=== PATIENT | female | born 1945 | race Hispanic/Latino ===

== ENCOUNTER 2018-05-11 00:29 | Inpatient (IN) | payer MEDICARE, MEDICAID ==
[2018-05-11 00:33] VITALS: BMI 31.6
[2018-05-11] MEDS ORDERED: Propofol 10 mg/ml Inj (20 ML) ONE (00:39)
[2018-05-11] MEDS ORDERED: Propofol 10 mg/ml 1,000 MG/100 ML VIAL ONE (00:46)
--- NOTE | 2018-05-11 00:59 | ED PDOC ---
Arrival/HPI - General Chief Complaint: Altered Mental Status Time Seen by Provider: 05/11/18 00:58 Historian: Family, EMS - History of Present Illness Narrative History of Present Illness (Text): 05/11/18 00:59 Shayla Kasper is a 75 year old female, whose past medical history includes cardiac arrest, COPD, and hypertension, who presents to the Emergency department brought in by EMS for respiratory distress. As per family, patient began experiencing trouble breathing at home this evening with associated diaphoresis. EMS report patient became unresponsive in the ambulance, in respiratory distress. On arrival to Emergency department, patient noted to be unresponsive and bradypneic. Family note patient was recently admitted to a [facility] this past January 2018 for cardiac arrest and acute respiratory failure. Limited HPI and ROS secondary to respiratory distress. Past Medical History - Provider Review Nursing Documentation Reviewed: Yes - Psychiatric Hx Substance Use: No (unknown) Family/Social History - Physician Review Nursing Documentation Reviewed: Yes Family/Social History: Unknown Family HX Smoking Status: unknown Hx Alcohol Use: No (unknown) Hx Substance Use: No (unknown) Allergies/Home Meds Allergies/Adverse Reactions: Allergies No Known Allergies Allergy (Verified 05/11/18 00:58) Home Medications: Home Meds Medication Instructions Recorded Confirmed ALPRAZolam [Xanax] 1 mg PO QID PRN 05/11/18 05/11/18 Albuterol/Ipratropium [Duoneb 3 3 ml IH Q6H 05/11/18 05/11/18 MG/3 Ml-0.5 MG/3 Ml 3 Ml] Apixaban [Eliquis] 2.5 mg PO BID 05/11/18 05/11/18 Arformoterol [Brovana] 2 ml INH BID 05/11/18 05/11/18 Aspirin [Aspirin Chewable] 81 mg PO DAILY 05/11/18 05/11/18 Budesonide [Pulmicort Respules] 2 ml INH DAILY 05/11/18 05/11/18 Cholecalciferol (Vitamin D3) 1 cap PO DAILY 05/11/18 05/11/18 [Vitamin D3] Citalopram [celeXA] 20 mg PO DAILY 05/11/18 05/11/18 Docusate [Colace] 100 mg PO BID 05/11/18 05/11/18 Levothyroxine [Synthroid] 100 mcg PO DAILY 05/11/18 05/11/18 Lisinopril/Hydrochlorothiazide 1 each PO DAILY 05/11/18 05/11/18 [Lisinopril-Hctz 10-12.5 mg Tab] Memantine [Namenda] 5 mg PO DAILY 05/11/18 05/11/18 Omeprazole 40 mg PO DAILY 05/11/18 05/11/18 Rosuvastatin Calcium [Crestor] 20 mg PO DAILY 05/11/18 05/11/18 Tiotropium [place] [Spiriva 2 puff IH DAILY 05/11/18 05/11/18 Respimat] Review of Systems - Review of Systems Systems not reviewed;Unavailable: Respiratory Distress Respiratory: SOB Endocrine: Diaphoresis Physical Exam Vital Signs Reviewed: Yes Vital Signs Temp Pulse BP Pulse Ox 05/11/18 00:47 98.2 F 120 H 120/85 100 Temperature: Afebrile Blood Pressure: Hypertensive Pulse: Regular Respiratory Rate: Other (Bradypneic) Appearance: Positive for: Ill-Appearing Mental Status: Positive for: other (Unresponsive) Finger Stick Blood Glucose: 315 - Systems Exam Head: Present: Atraumatic, Normocephalic Pupils: Present: PERRL Conjunctiva: Present: Normal Mouth: Present: Moist Mucous Membranes Respiratory/Chest: Present: Respiratory Distress, Decreased Breath Sounds (Markedly decreased breath sounds), Other (Bradypneic) Cardiovascular: Present: Normal S1, S2, Tachycardic. No: Murmurs Abdomen: Present: Normal Bowel Sounds. No: Distention Upper Extremity: Present: Normal Inspection. No: Cyanosis, Edema Lower Extremity: Present: Normal Inspection. No: Edema Neurological: Present: Other (Unresponsive) Skin: Present: Warm, Dry, Normal Color. No: Rashes Medical Decision Making ED Course and Treatment: 05/11/18 00:30 Impression: 75 year old female brought in for respiratory distress. Plan: -- CT Head w/o contrast -- EKG -- Chest X-ray -- Labs, cardiac enzymes, BNP, ABG, blood cultures -- Urinalysis, urine cultures -- Solu-medrol -- Duoneb -- Propofol -- Reassess and disposition Prior Visits: Notes and results from previous visits were reviewed. Progress Notes: Pt in acute respiratory failure upon arrival, unresponsive. Decision made to intubate. Pt following a brief period became pulseless, in PEA. Given 1 Epi with positive response/pulse present.Intubation was re-confirmed to ensure proper placement. Pt remained with good pulse ox reading, in sinus rhythm. Pt. under sedation with Propofol. Reviewed EKG, sinus tachycardia at 124 bpm. Septal infarct. Non-specific ST/T wave changes. PROCEDURE: INTUBATION Performed by the emergency provider Consent: Discussion of the risks, benefits, and alternatives to the procedure, along with informed consent was precluded by the urgency of the procedure and the patient condition. Timeout: A timeout to verify the correct patient, procedure, and site was performed. Indication: respiratory distress, bradypnea Pre-oxygenation: [id number] Medications: Pr. See MAR for details. ETT Size: 8.0G Confirmation: Cords directly visualized as tube passed, good bilateral breath sounds, positive CO2 detector color change, tube fogging, adequate chest rise, improving pulse oximetry reading, improved skin color, and absence of gastric sounds,. ETT Secured: The cuff was inflated and the tube was secured appropriately at a distance of 23 cm at the lip. Post-Procedure: There were no immediate complications. CXR Confirmation: Yes 05/11/18 00:58 Post-intubation Chest X-ray reviewed, shows ET-tube above the hunter and hyper- inflated lung moffett. 05/11/18 01:[address] Lowe, traffic survey technician,and medical scientist who are aware and agree with plan to admit to the ICU. Pt admitted to the ICU for acute respiratory failure, NSTEMI, and cardiac arrest under the hospitalist service.Pending CT Head result if negative to be then heparinized.Paraoptometric and resident state they will assume follow up care. - Critical Care Critical Care Minutes: 45 minutes - Lab Interpretations I have reviewed the lab results: Yes - RAD Interpretation Dehydration Unit Operator: ED Physician - EKG Interpretation Interpreted by ED Physician: Yes Type: 12 lead EKG - Scribe Statement The provider has reviewed the documentation as recorded by the Lexie Villalobos Provider Scribe Attestation: All medical record entries made by the Scribe were at my direction and personally dictated by me. I have reviewed the chart and agree that the record accurately reflects my personal performance of the history, physical exam, medical decision making, and the department course for this patient. I have also personally directed, reviewed, and agree with the discharge instructions and disposition. Disposition/Present on Arrival - Present on Arrival Any Indicators Present on Arrival: No History of DVT/PE: No History of Uncontrolled Diabetes: No Urinary Catheter: No History of Decub. Ulcer: No History Surgical Site Infection Following: None - Disposition Have Diagnosis and Disposition been Completed?: Yes Diagnosis: Acute respiratory failure, Cardiac arrest, NSTEMI (non-ST elevated myocardial infarction), Sepsis Disposition: HOSPITALIZED Disposition Time: 02:45 Patient Plan: Admission Patient Problems: Current Active Problems Problem Status Onset Acute respiratory failure Acute Cardiac arrest Acute NSTEMI (non-ST elevated myocardial infarction) Acute Condition: CRITICAL
[2018-05-11] MEDS ORDERED: Propofol 10 mg/ml Inj (20 ML) IVP ONE (01:00)
[2018-05-11] MEDS ORDERED: Albuterol-Ipratrop 3 mg / 0.5 (3 ml) UD IH STA (01:10)
[2018-05-11] MEDS ORDERED: Propofol 10 mg/ml 1,000 MG/100 ML VIAL IV PRN (01:10)
[2018-05-11 01:24] LABS: HEMOGLOBIN 12.6 g/dL (12.0-16.0); MEAN CORPUSCULAR HEMOGLOBIN 29.2 pg (25.0-35.0); MEAN PLATELET VOLUME 11.2 fl (7.0-11.0); RBC 4.32 10^6/uL (3.5-6.1); WHITE BLOOD COUNT 22.2 10^3/uL (4.5-11.0)
[2018-05-11 01:32] LABS: ALB/GLOB RATIO 1.2 (1.1-1.8); ALBUMIN 4.2 g/dL (3.0-4.8); B-TYPE NATRIURETIC PEPTIDE 245 pg/mL (0-450); BLOOD UREA NITROGEN 16 mg/dL (7-21); CALCIUM 9.4 mg/dL (8.4-10.5); GFR NON-AFRICAN AMERICAN 54
[2018-05-11 01:33] LABS: ALT/SGPT 20 U/L (7-56); AST/SGOT 27 U/L (14-36); INR 1.21; PARTIAL THROMBOPLASTIN TIME 33.3 Seconds (26.9-38.3); PROTHROMBIN TIME 13.4 SECONDS (9.4-12.5); TROPONIN I 0.44 ng/mL
[2018-05-11] MEDS ORDERED: Midazolam 100 mg/100ml in NS 100 MG/100 ML SOL IV PRN (02:29)
[2018-05-11 02:30] LABS: URINE BILIRUBIN NEGATIVE (NEGATIVE); URINE BLOOD NEGATIVE (NEGATIVE); URINE GLUCOSE (UA) NEGATIVE (NEGATIVE); URINE LEUKOCYTE ESTERASE MODERATE Leu/uL (NEGATIVE); URINE PROTEIN NEGATIVE mg/dL (<30 mg/dL); URINE UROBILINOGEN 0.2 E.U./dL (<1 E.U./dL)
[2018-05-11 02:32] LABS: URINE APPEARANCE SL CLOUDY (CLEAR); URINE COLOR YELLOW (YELLOW)
[2018-05-11] MEDS ORDERED: Albuterol-Ipratrop 3 mg / 0.5 (3 ml) UD IH PRN (02:35)
[2018-05-11 02:39] LABS: ARTERIAL BLOOD GAS HCO3 22.6 mmol/L (21-28); ARTERIAL BLOOD GAS O2 SAT 100.6 % (95-98); ARTERIAL BLOOD GAS PCO2 48 mm/Hg (35-45); ARTERIAL BLOOD GAS PH 7.28 (7.35-7.45); ARTERIAL BLOOD GAS TCO2 24.1 mmol.L (22-28)
[2018-05-11] MEDS ORDERED: Vancomycin 1gm in NS 250ml 1 GM/250 ML BAG IVPB STA (02:42)
[2018-05-11] MEDS ORDERED: Piperacill/Tazo 4.5gm in NS 4.5 GM/100 ML BAG IVPB STA (02:42)
[2018-05-11 02:43] LABS: URINE BACTERIA MOD /hpf; URINE EPITHELIAL CELLS 0 - 2 /hpf (0-5); URINE RBC 0 - 2 /hpf (0-2)
[2018-05-11 02:50] LABS: LDL CHOLESTEROL 198 mg/dL (0-129)
[2018-05-11 02:51] LABS: HDL CHOLESTEROL 44 mg/dL (29-60)
--- NOTE | 2018-05-11 03:26 | CP.PCM.HP ---
<Dixon Fritz - Last Filed: 05/11/18 03:42> History of Present Illness - History of Present Illness History of Present Illness: Hospitalist History and Physical CC: respiratory distress Patient is a 73 yo F with PMH of O2 dependent COPD, PAD, Carotid disease s/p L carotid stent, L subclavian stenosis, CAD s/p CABG, a-fib on eliquis, HLD hypothyroidism, and CVA x3 who was brought to [facility] by EMS for respiratory distress. History was provided through chart review and family at bedside as p atient was intubated. Patient was experiencing dyspnea at rest and diaphoresis earlier at home. EMS was called and while on route patient became unresponsive in the ambulance. In the ED, patient was still unresponsive and bradypneic. At that time patient was intubated. Patient then went into PEA. ACLS was initiated, ROSC was achieved after one round of epinephrine with compressions. Currently, patient is sedated and intubated. However, she is arousable and following commands appropriately. Of note, patient was recently admitted in [place] in 01/2018 for cardiac arrest and respiratory failure with hypoxemia 2/2 COPD. Further ROS is unobtainable due to intubation and sedation. PMH: O2 dependent COPD, PAD, Carotid disease s/p L carotid stent, L subclavian stenosis, CAD s/p CABG, a-fib on eliquis, hypothyroidism, CVA x3, HLD PSH: CABG/cardiac stenting, Carotid endarterectomy, L Carotid stenting, Cataract removal All: Codeine, oxycodone Soc Hx: 2.5 PPD x 40 years, Denies EtOH and Illicit drug use Fam Hx: CAD, HLD PMD: Dr. Parekh NOTE: Previous records under [id number] Present on Admission - Present on Admission Any Indicators Present on Admission: No Review of Systems - Review of Systems All systems: reviewed and no additional remarkable complaints except (12 point ROS reviewed and is negative other than what is stated in HPI.) Past Patient History - Past Social History Smoking Status: unknown - PSYCHIATRIC Hx Substance Use: No (unknown) - SURGICAL HISTORY Hx Surgeries: No Meds Allergies/Adverse Reactions: Allergies Allergy/AdvReac Type Severity Reaction Status Date / Time No Known Allergies Allergy Verified 05/11/18 00:58 Physical Exam - Constitutional Appears: Other (intubated, sedated) - Head Exam Head Exam: NORMAL INSPECTION - Eye Exam Eye Exam: EOMI, Normal appearance, PERRL - ENT Exam ENT Exam: Mucous Membranes Moist, Normal Exam - Neck Exam Neck exam: Positive for: Normal Inspection - Respiratory Exam Respiratory Exam: Decreased Breath Sounds, Wheezes. absent: Rales, Rhonchi, Respiratory Distress Additional comments: intubated, ET tube in place - Cardiovascular Exam Cardiovascular Exam: RRR, +S1, +S2. absent: Diastolic murmur, Gallop, Rubs, Systolic Murmur - GI/Abdominal Exam GI & Abdominal Exam: Soft. absent: Distended, Guarding, Rebound, Tenderness - Extremities Exam Extremities exam: Positive for: normal inspection - Back Exam Back exam: NORMAL INSPECTION - Neurological Exam Neurological exam: Alert, CN II-XII Intact - Skin Skin Exam: Normal Color, Warm Results - Vital Signs Recent Vital Signs: Last Vital Signs Temp 98.2 F 05/11/18 00:47 Pulse 81 05/11/18 02:22 Resp 15 05/11/18 02:22 BP 82/59 L 05/11/18 02:22 Pulse Ox 100 05/11/18 02:22 - Labs Result Diagrams: 05/11/18 00:40 05/11/18 00:40 Labs: Laboratory Results - last 24 hr 05/11/18 05/11/18 05/11/18 00:40 00:40 00:40 WBC 22.2 H RBC 4.32 Hgb 12.6 Hct 40.6 MCV 94.0 MCH 29.2 MCHC 31.0 RDW 14.0 Plt Count 358 MPV 11.2 H PT 13.4 H INR 1.21 APTT 33.3 pCO2 pO2 HCO3 ABG pH ABG Total CO2 ABG O2 Saturation ABG Base Excess ABG Potassium Glucose Lactate FiO2 Crit Value Called To Crit Value Called By Blood Gas Notified Time Sodium 134 Potassium 3.8 Chloride 96 L Carbon Dioxide 30 Anion Gap 12 BUN 16 Creatinine 1.0 Est GFR ( Amer) > 60 Est GFR (Non-Af Amer) 54 Random Glucose 336 H* Calcium 9.4 Total Bilirubin 0.3 AST 27 ALT 20 Alkaline Phosphatase 91 Lactate Dehydrogenase 480 Total Creatine Kinase 52 Troponin I 0.44 H* NT-Pro-B Natriuret Pep 245 Total Protein 7.8 Albumin 4.2 Globulin 3.6 Albumin/Globulin Ratio 1.2 Triglycerides Cholesterol LDL Cholesterol Direct HDL Cholesterol Arterial Blood Potassium Urine Color Urine Appearance Urine pH Ur Specific [place] Urine Protein Urine Glucose (UA) Urine Ketones Urine Blood Urine Nitrate Urine Bilirubin Urine Urobilinogen Ur Leukocyte Esterase Urine RBC Urine WBC Ur Epithelial Cells Urine Bacteria 05/11/18 05/11/18 05/11/18 00:40 01:19 02:30 WBC RBC Hgb Hct MCV MCH MCHC RDW Plt Count MPV PT INR APTT pCO2 48 H pO2 440.0 H HCO3 22.6 ABG pH 7.28 L ABG Total CO2 24.1 ABG O2 Saturation 100.6 H ABG Base Excess -4.4 L ABG Potassium 3.0 L Glucose 294 H Lactate 2.7 H FiO2 100.0 Crit Value Called To Dr lopez Crit Value Called By [facility] Blood Gas Notified Time 239 Sodium 135.0 Potassium Chloride 108.0 H Carbon Dioxide Anion Gap BUN Creatinine Est GFR ( Amer) Est GFR (Non-Af Amer) Random Glucose Calcium Total Bilirubin AST ALT Alkaline Phosphatase Lactate Dehydrogenase Total Creatine Kinase Troponin I NT-Pro-B Natriuret Pep Total Protein Albumin Globulin Albumin/Globulin Ratio Triglycerides 376 H Cholesterol 319 H LDL Cholesterol Direct 198 H HDL Cholesterol 44 Arterial Blood Potassium 3.0 L Urine Color Yellow Urine Appearance Sl cloudy Urine pH 6.0 Ur Specific [place] 1.020 Urine Protein Negative Urine Glucose (UA) Negative Urine Ketones Negative Urine Blood Negative Urine Nitrate Negative Urine Bilirubin Negative Urine Urobilinogen 0.2 Ur Leukocyte Esterase Moderate H Urine RBC 0 - 2 Urine WBC 5 - 10 H Ur Epithelial Cells 0 - 2 Urine Bacteria Mod Assessment & Plan - Assessment and Plan (Free Text) Assessment: 73 yo F with PMH of O2 dependent COPD, PAD, Carotid disease s/p L carotid stent, L subclavian stenosis, CAD s/p CABG, a-fib on eliquis, HLD hypothyroidism, and CVA x3 presents to [facility] with respiratory distress. Patient was intubated due to acute respiratory failure and also had PEA/cardiac arrest with ROSC after a rou nd of compressions and epinephrine. Patient will be admitted to the ICU for further monitoring and management. Plan: 1. Acute Hypercarbic Respiratory Failure - Likely 2/2 COPD - Initial ABG after intubation showed respiratory acidosis, CO2 likely much higher prior to intubation - Cont Mechanical Ventilation PRVC - Titrate settings based on AM ABG - Elevate head of bed - Aspiration and fall precautions - Versed for sedation - Duoneb - Solumedrol 2. Cardiac Arrest/NSTEMI - Troponin 0.44, trend x2 - EKG, sinus tachycardia at 124 bpm. Age-unspecified Septal infarct. Non- specific ST/T wave changes. - Repeat EKG in AM - Lipid panel, HgbA1c, TSH - Heparin gtt started - Lipitor - ASA - Echo - Cardiology consulted 3. Possible Sepsis - Hypotension likely 2/2 propofl - Elevated lactate likely 2/2 hypoxia/COPD - Leukocytosis, sepsis vs reactive - Blood and urine cultures - Procal ordered - UA negative - CXR shows no signs of consolidation - Vanc/Zosyn - NS bolus/maintenance 4. Encephalopathy - Likely 2/2 CO2 narcosis - CT head negative - Trial sedation vacation in AM to monitor mental status 5. COPD - Duoneb - Solumedrol - IV abx 6. HTN - Hold home anti-hypertensives 7. H/o Atrial Fibrillation - Heparin gtt - Hold Eliquis 8. HLD - F/u Lipid panel - Lipitor 9. Hypothyroidism - F/u TSH - IV Synthroid until patient tolerates PO GI/DVT PPx - Protonix - Heparin gtt - SCDs Patient seen and discussed in detail with Dr. Lowe. Spencer Fritz DO PGY2 <Eugene Lowe - Last Filed: 05/11/18 19:21> Results - Vital Signs Recent Vital Signs: Last Vital Signs Temp 97.9 F 05/11/18 16:30 Pulse 110 H 05/11/18 18:00 Resp 19 05/11/18 18:00 BP 133/57 L 05/11/18 18:00 Pulse Ox 97 05/11/18 18:00 - Labs Result Diagrams: 05/11/18 09:30 05/11/18 09:30 Labs: Laboratory Results - last 24 hr 05/11/18 05/11/18 05/11/18 00:40 00:40 00:40 WBC 22.2 H RBC 4.32 Hgb 12.6 Hct 40.6 MCV 94.0 MCH 29.2 MCHC 31.0 RDW 14.0 Plt Count 358 MPV 11.2 H Neut % (Auto) Lymph % (Auto) Elk % (Auto) Eos % (Auto) Baso % (Auto) Lymph # (Auto) Elk # (Auto) Eos # (Auto) Baso # (Auto) Absolute Neuts (auto) Neutrophils % (Manual) Band Neutrophils % Lymphocytes % (Manual) Monocytes % (Manual) Platelet Evaluation PT 13.4 H INR 1.21 APTT 33.3 pCO2 pO2 HCO3 ABG pH ABG Total CO2 ABG O2 Saturation ABG O2 Content ABG Base Excess ABG Hemoglobin ABG Carboxyhemoglobin POC ABG HHb (Measured) ABG Methemoglobin ABG O2 Capacity ABG Potassium VBG pH VBG pCO2 VBG HCO3 VBG Total CO2 VBG O2 Sat (Calc) VBG Base Excess VBG Potassium Hgb O2 Saturation Glucose Lactate FiO2 Crit Value Called To Crit Value Called By Blood Gas Notified Time Sodium 134 Potassium 3.8 Chloride 96 L Carbon Dioxide 30 Anion Gap 12 BUN 16 Creatinine 1.0 Est GFR ( Amer) > 60 Est GFR (Non-Af Amer) 54 POC Glucose (mg/dL) Random Glucose 336 H* Hemoglobin A1c Calcium 9.4 Phosphorus Magnesium Total Bilirubin 0.3 AST 27 ALT 20 Alkaline Phosphatase 91 Lactate Dehydrogenase 480 Total Creatine Kinase 52 Troponin I 0.44 H* NT-Pro-B Natriuret Pep 245 Total Protein 7.8 Albumin 4.2 Globulin 3.6 Albumin/Globulin Ratio 1.2 Triglycerides Cholesterol LDL Cholesterol Direct HDL Cholesterol Procalcitonin TSH 3rd Generation Arterial Blood Potassium Venous Blood Potassium Urine Color Urine Appearance Urine pH Ur Specific [place] Urine Protein Urine Glucose (UA) Urine Ketones Urine Blood Urine Nitrate Urine Bilirubin Urine Urobilinogen Ur Leukocyte Esterase Urine RBC Urine WBC Ur Epithelial Cells Urine Bacteria 05/11/18 05/11/18 05/11/18 00:40 00:40 00:40 WBC RBC Hgb Hct MCV MCH MCHC RDW Plt Count MPV Neut % (Auto) Lymph % (Auto) Elk % (Auto) Eos % (Auto) Baso % (Auto) Lymph # (Auto) Elk # (Auto) Eos # (Auto) Baso # (Auto) Absolute Neuts (auto) Neutrophils % (Manual) Band Neutrophils % Lymphocytes % (Manual) Monocytes % (Manual) Platelet Evaluation PT INR APTT pCO2 pO2 HCO3 ABG pH ABG Total CO2 ABG O2 Saturation ABG O2 Content ABG Base Excess ABG Hemoglobin ABG Carboxyhemoglobin POC ABG HHb (Measured) ABG Methemoglobin ABG O2 Capacity ABG Potassium VBG pH VBG pCO2 VBG HCO3 VBG Total CO2 VBG O2 Sat (Calc) VBG Base Excess VBG Potassium Hgb O2 Saturation Glucose Lactate FiO2 Crit Value Called To Crit Value Called By Blood Gas Notified Time Sodium Potassium Chloride Carbon Dioxide Anion Gap BUN Creatinine Est GFR ( Amer) Est GFR (Non-Af Amer) POC Glucose (mg/dL) Random Glucose Hemoglobin A1c Calcium Phosphorus Magnesium Total Bilirubin AST ALT Alkaline Phosphatase Lactate Dehydrogenase Total Creatine Kinase Troponin I NT-Pro-B Natriuret Pep Total Protein Albumin Globulin Albumin/Globulin Ratio Triglycerides 376 H Cholesterol 319 H LDL Cholesterol Direct 198 H HDL Cholesterol 44 Procalcitonin < 0.05 L TSH 3rd Generation 0.99 Arterial Blood Potassium Venous Blood Potassium Urine Color Urine Appearance Urine pH Ur Specific [place] Urine Protein Urine Glucose (UA) Urine Ketones Urine Blood Urine Nitrate Urine Bilirubin Urine Urobilinogen Ur Leukocyte Esterase Urine RBC Urine WBC Ur Epithelial Cells Urine Bacteria 05/11/18 05/11/18 05/11/18 01:19 02:30 05:10 WBC RBC Hgb Hct MCV MCH MCHC RDW Plt Count MPV Neut % (Auto) Lymph % (Auto) Elk % (Auto) Eos % (Auto) Baso % (Auto) Lymph # (Auto) Elk # (Auto) Eos # (Auto) Baso # (Auto) Absolute Neuts (auto) Neutrophils % (Manual) Band Neutrophils % Lymphocytes % (Manual) Monocytes % (Manual) Platelet Evaluation PT INR APTT pCO2 48 H 50 H pO2 440.0 H 244.0 H HCO3 22.6 24.0 ABG pH 7.28 L 7.29 L ABG Total CO2 24.1 25.5 ABG O2 Saturation 100.6 H 100.8 H ABG O2 Content 14.1 L ABG Base Excess -4.4 L -2.8 L ABG Hemoglobin 9.9 L ABG Carboxyhemoglobin 2.4 H POC ABG HHb (Measured) -0.8 L ABG Methemoglobin 1.2 ABG O2 Capacity 14.0 L ABG Potassium 3.0 L VBG pH VBG pCO2 VBG HCO3 VBG Total CO2 VBG O2 Sat (Calc) VBG Base Excess VBG Potassium Hgb O2 Saturation 97.2 Glucose 294 H Lactate 2.7 H FiO2 100.0 60.0 Crit Value Called To Dr lopez Crit Value Called By [facility] Blood Gas Notified Time 239 Sodium 135.0 Potassium Chloride 108.0 H Carbon Dioxide Anion Gap BUN Creatinine Est GFR ( Amer) Est GFR (Non-Af Amer) POC Glucose (mg/dL) Random Glucose Hemoglobin A1c Calcium Phosphorus Magnesium Total Bilirubin AST ALT Alkaline Phosphatase Lactate Dehydrogenase Total Creatine Kinase Troponin I NT-Pro-B Natriuret Pep Total Protein Albumin Globulin Albumin/Globulin Ratio Triglycerides Cholesterol LDL Cholesterol Direct HDL Cholesterol Procalcitonin TSH 3rd Generation Arterial Blood Potassium 3.0 L Venous Blood Potassium Urine Color Yellow Urine Appearance Sl cloudy Urine pH 6.0 Ur Specific [place] 1.020 Urine Protein Negative Urine Glucose (UA) Negative Urine Ketones Negative Urine Blood Negative Urine Nitrate Negative Urine Bilirubin Negative Urine Urobilinogen 0.2 Ur Leukocyte Esterase Moderate H Urine RBC 0 - 2 Urine WBC 5 - 10 H Ur Epithelial Cells 0 - 2 Urine Bacteria Mod 05/11/18 05/11/18 05/11/18 05:30 05:30 07:45 WBC RBC Hgb Hct MCV MCH MCHC RDW Plt Count MPV Neut % (Auto) Lymph % (Auto) Elk % (Auto) Eos % (Auto) Baso % (Auto) Lymph # (Auto) [place]k # (Auto) Eos # (Auto) Baso # (Auto) Absolute Neuts (auto) Neutrophils % (Manual) Band Neutrophils % Lymphocytes % (Manual) Monocytes % (Manual) Platelet Evaluation PT INR APTT pCO2 pO2 HCO3 ABG pH ABG Total CO2 ABG O2 Saturation ABG O2 Content ABG Base Excess ABG Hemoglobin ABG Carboxyhemoglobin POC ABG HHb (Measured) ABG Methemoglobin ABG O2 Capacity ABG Potassium VBG pH VBG pCO2 VBG HCO3 VBG Total CO2 VBG O2 Sat (Calc) VBG Base Excess VBG Potassium Hgb O2 Saturation Glucose Lactate FiO2 Crit Value Called To Crit Value Called By Blood Gas Notified Time Sodium Potassium Chloride Carbon Dioxide Anion Gap BUN Creatinine Est GFR ( Amer) Est GFR (Non-Af Amer) POC Glucose (mg/dL) 165 H Random Glucose Hemoglobin A1c 5.6 Calcium Phosphorus Magnesium Total Bilirubin AST ALT Alkaline Phosphatase Lactate Dehydrogenase Total Creatine Kinase Troponin I 2.42 H* D NT-Pro-B Natriuret Pep Total Protein Albumin Globulin Albumin/Globulin Ratio Triglycerides Cholesterol LDL Cholesterol Direct HDL Cholesterol Procalcitonin TSH 3rd Generation Arterial Blood Potassium Venous Blood Potassium Urine Color Urine Appearance Urine pH Ur Specific [place] Urine Protein Urine Glucose (UA) Urine Ketones Urine Blood Urine Nitrate Urine Bilirubin Urine Urobilinogen Ur Leukocyte Esterase Urine RBC Urine WBC Ur Epithelial Cells Urine Bacteria 05/11/18 05/11/18 05/11/18 07:55 09:30 09:30 WBC 13.0 H D RBC 3.97 Hgb 11.4 L Hct 36.4 MCV 91.7 MCH 28.7 MCHC 31.3 RDW 14.1 Plt Count 183 MPV 10.6 Neut % (Auto) 94.9 H Lymph % (Auto) 3.8 L Elk % (Auto) 1.1 Eos % (Auto) 0.1 L Baso % (Auto) 0.1 Lymph # (Auto) 0.5 L [place] # (Auto) 0.1 Eos # (Auto) 0.0 Baso # (Auto) 0.01 Absolute Neuts (auto) 12.37 H Neutrophils % (Manual) 97 H Band Neutrophils % 1 Lymphocytes % (Manual) 1 L Monocytes % (Manual) 1 Platelet Evaluation Normal PT INR APTT 41.7 H pCO2 pO2 130 H HCO3 ABG pH ABG Total CO2 ABG O2 Saturation ABG O2 Content ABG Base Excess ABG Hemoglobin ABG Carboxyhemoglobin POC ABG HHb (Measured) ABG Methemoglobin ABG O2 Capacity ABG Potassium VBG pH 7.22 L VBG pCO2 62.0 H VBG HCO3 25.4 VBG Total CO2 27.3 VBG O2 Sat (Calc) 99.8 H VBG Base Excess -3.5 L VBG Potassium 3.9 Hgb O2 Saturation Glucose 172 H Lactate 3.3 H FiO2 21.0 Crit Value Called To Yahaira hdez Crit Value Called By Blood Gas Notified Time 807 Sodium 140.0 Potassium Chloride 106.0 Carbon Dioxide Anion Gap BUN Creatinine Est GFR ( Amer) Est GFR (Non-Af Amer) POC Glucose (mg/dL) Random Glucose Hemoglobin A1c Calcium Phosphorus Magnesium Total Bilirubin AST ALT Alkaline Phosphatase Lactate Dehydrogenase Total Creatine Kinase Troponin I NT-Pro-B Natriuret Pep Total Protein Albumin Globulin Albumin/Globulin Ratio Triglycerides Cholesterol LDL Cholesterol Direct HDL Cholesterol Procalcitonin TSH 3rd Generation Arterial Blood Potassium Venous Blood Potassium 3.9 Urine Color Urine Appearance Urine pH Ur Specific [place] Urine Protein Urine Glucose (UA) Urine Ketones Urine Blood Urine Nitrate Urine Bilirubin Urine Urobilinogen Ur Leukocyte Esterase Urine RBC Urine WBC Ur Epithelial Cells Urine Bacteria 05/11/18 05/11/18 05/11/18 09:30 11:30 12:00 WBC RBC Hgb Hct MCV MCH MCHC RDW Plt Count MPV Neut % (Auto) Lymph % (Auto) Elk % (Auto) Eos % (Auto) Baso % (Auto) Lymph # (Auto) [place]k # (Auto) Eos # (Auto) Baso # (Auto) Absolute Neuts (auto) Neutrophils % (Manual) Band Neutrophils % Lymphocytes % (Manual) Monocytes % (Manual) Platelet Evaluation PT INR APTT pCO2 pO2 94 H HCO3 ABG pH ABG Total CO2 ABG O2 Saturation ABG O2 Content ABG Base Excess ABG Hemoglobin ABG Carboxyhemoglobin POC ABG HHb (Measured) ABG Methemoglobin ABG O2 Capacity ABG Potassium VBG pH 7.24 L VBG pCO2 59.0 VBG HCO3 25.3 VBG Total CO2 27.1 VBG O2 Sat (Calc) 99.2 H VBG Base Excess -3.1 L VBG Potassium 3.8 Hgb O2 Saturation Glucose 165 H Lactate 2.8 H FiO2 21.0 Crit Value Called To Katty varner Crit Value Called By Ab Blood Gas Notified Time 1207 Sodium 138 140.0 Potassium 4.0 Chloride 106 107.0 Carbon Dioxide 23 Anion Gap 13 BUN 17 Creatinine 0.9 Est GFR ( Amer) > 60 Est GFR (Non-Af Amer) > 60 POC Glucose (mg/dL) 165 H Random Glucose 164 H Hemoglobin A1c Calcium 8.2 L Phosphorus 3.0 Magnesium 1.4 L Total Bilirubin 0.5 AST 293 H D ALT 286 H Alkaline Phosphatase 75 Lactate Dehydrogenase Total Creatine Kinase Troponin I NT-Pro-B Natriuret Pep Total Protein 6.4 Albumin 3.4 Globulin 2.9 Albumin/Globulin Ratio 1.2 Triglycerides Cholesterol LDL Cholesterol Direct HDL Cholesterol Procalcitonin TSH 3rd Generation Arterial Blood Potassium Venous Blood Potassium 3.8 Urine Color Urine Appearance Urine pH Ur Specific [place] Urine Protein Urine Glucose (UA) Urine Ketones Urine Blood Urine Nitrate Urine Bilirubin Urine Urobilinogen Ur Leukocyte Esterase Urine RBC Urine WBC Ur Epithelial Cells Urine Bacteria 05/11/18 12:30 WBC RBC Hgb Hct MCV MCH MCHC RDW Plt Count MPV Neut % (Auto) Lymph % (Auto) [place]k % (Auto) Eos % (Auto) Baso % (Auto) Lymph # (Auto) [place]k # (Auto) Eos # (Auto) Baso # (Auto) Absolute Neuts (auto) Neutrophils % (Manual) Band Neutrophils % Lymphocytes % (Manual) Monocytes % (Manual) Platelet Evaluation PT INR APTT pCO2 pO2 HCO3 ABG pH ABG Total CO2 ABG O2 Saturation ABG O2 Content ABG Base Excess ABG Hemoglobin ABG Carboxyhemoglobin POC ABG HHb (Measured) ABG Methemoglobin ABG O2 Capacity ABG Potassium VBG pH VBG pCO2 VBG HCO3 VBG Total CO2 VBG O2 Sat (Calc) VBG Base Excess VBG Potassium Hgb O2 Saturation Glucose Lactate FiO2 Crit Value Called To Crit Value Called By Blood Gas Notified Time Sodium Potassium Chloride Carbon Dioxide Anion Gap BUN Creatinine Est GFR ( Amer) Est GFR (Non-Af Amer) POC Glucose (mg/dL) Random Glucose Hemoglobin A1c Calcium Phosphorus Magnesium Total Bilirubin AST ALT Alkaline Phosphatase Lactate Dehydrogenase Total Creatine Kinase Troponin I 3.59 H* D NT-Pro-B Natriuret Pep Total Protein Albumin Globulin Albumin/Globulin Ratio Triglycerides Cholesterol LDL Cholesterol Direct HDL Cholesterol Procalcitonin TSH 3rd Generation Arterial Blood Potassium Venous Blood Potassium Urine Color Urine Appearance Urine pH Ur Specific [place] Urine Protein Urine Glucose (UA) Urine Ketones Urine Blood Urine Nitrate Urine Bilirubin Urine Urobilinogen Ur Leukocyte Esterase Urine RBC Urine WBC Ur Epithelial Cells Urine Bacteria Attending/Attestation - Attestation I have personally seen and examined this patient.: Yes I have fully participated in the care of the patient.: Yes I have reviewed all pertinent clinical information: Yes Notes (Text): 05/11/18 19:20 seen and examined with resident. No evidence of sepsis at this time. Hypotension 2/2 propofol and PEEP. Will switch propofol to versed and give 1 L bolus of NS. ASA and heparin for troponin leak once CTH confirms no bleeding. Plan as above (formulated with resident).
[2018-05-11] MEDS ORDERED: Heparin25000 units/250ml 1/2NS 25,000 UNITS/250 ML BAG IV SCH (03:30)
[2018-05-11] MEDS ORDERED: Sodium Chloride 0.9% 1,000 ML IV STA (03:56)
[2018-05-11] MEDS ORDERED: Heparin 25,000units in 1/2NS 250 ML BAG IV SCH (04:15)
[2018-05-11] MEDS ORDERED: Sodium Chloride 0.9% 1,000 ML IV SCH ×2 (04:15→10:54)
[2018-05-11 05:21] LABS: ARTERIAL BLOOD GAS HEMOGLOBIN 9.9 g/dL (11.7-17.4); ARTERIAL BLOOD GAS O2 CONTENT 14.1 ML/dl (15-23); ARTERIAL BLOOD GAS O2 SAT 100.8 % (95-98); ARTERIAL BLOOD GAS PCO2 50 mm/Hg (35-45); ARTERIAL BLOOD GAS PH 7.29 (7.35-7.45); ARTERIAL BLOOD GAS TCO2 25.5 mmol.L (22-28)
--- NOTE | 2018-05-11 06:57 | PCM.SEPTIC ---
<CatrinaDixon - Last Filed: 05/11/18 06:56> Sepsis Progress Note - Reassessment Type Date of Evaluation: 05/11/18 Time of Evaluation: 06:56 Reassessment Type: Non-invasive reassessment - Non Invasive Reassessment Were the most recent vital sign reviewed: Yes Vital Sign (Latest): Temp Pulse Resp BP Pulse Ox 98.2 F 91 H 15 100/68 100 05/11/18 00:47 05/11/18 03:54 05/11/18 03:54 05/11/18 03:54 05/11/18 03:54 Cardiovascular: Yes: Regular Rate, Rhythm Respiratory: Yes: Wheezing. No: Decreased Breath Sounds, Accessory Muscle Use, Rales, Rhonchi, Stridor Capillary Refill: Normal (Less than 2 sec) Pulses: Normal Radial, Normal Dorsalis Pedis, Normal Posterior Tibialis Skin: Normal Color - Invasive Reassessment (complete 2 of 4) Was a Central Venous Pressure Measurement obtained within 6 Hours after the presentation of septic shock: No Was a central venous oxygen measurement obtained within 6 hours after the presentation of septic shock: No Was a bedside cardiovascular ultrasound performed within 6 hours after the presentation of septic shock: No Was a passive leg raise performed or was a fluid challenge performed within 6 hrs of the initial fluid bolus: No Fluid Challenge performed: No <Eugene Lowe - Last Filed: 05/11/18 19:22> Sepsis Progress Note - Non Invasive Reassessment Vital Sign (Latest): Temp Pulse Resp BP Pulse Ox 97.9 F 110 H 19 133/57 L 97 05/11/18 16:30 05/11/18 18:00 05/11/18 18:00 05/11/18 18:00 05/11/18 18:00 Attending/Attestation - Attestation I have personally seen and examined this patient.: Yes I have fully participated in the care of the patient.: Yes I have reviewed all pertinent clinical information, including history, physical exam and plan: Yes
[2018-05-11] MEDS: Albuterol-Ipratrop 3 mg / 0.5 (3 ml) UD IH SCH ×3 (07:04→20:49)
[2018-05-11 08:07] LABS: VENOUS BLOOD GAS BASE EXCESS -3.5 mmol/L (0.0-2.0); VENOUS BLOOD GAS PO2 130 mm/Hg (30-55); VENOUS BLOOD PH 7.22 (7.32-7.43)
[2018-05-11] MEDS: Insulin Lispro (humaLOG) MEDIUM Coverage SC SCH ×4 (08:27→23:45)
--- NOTE | 2018-05-11 08:36 | CT ---
Date of service: 05/11/2018 PROCEDURE: CT HEAD WITHOUT CONTRAST. HISTORY: unresponsive COMPARISON: None available. TECHNIQUE: Axial computed tomography images were obtained through the head/brain without intravenous contrast. Radiation dose: Total exam DLP = 894.0 mGy-cm. This CT exam was performed using one or more of the following dose reduction techniques: Automated exposure control, adjustment of the mA and/or kV according to patient size, and/or use of iterative reconstruction technique. FINDINGS: HEMORRHAGE: No intracranial hemorrhage. BRAIN: No mass effect or edema. Moderate atrophy. Mild microvascular changes. No acute intracranial findings. VENTRICLES: Unremarkable. No hydrocephalus. CALVARIUM: Unremarkable. PARANASAL SINUSES: There is a small amount of intraorbital emphysema and a probable fracture of the medial wall of the left orbit. Emphysema is also seen in the infratemporal fossa MASTOID AIR CELLS: Unremarkable as visualized. No inflammatory changes. OTHER FINDINGS: The report concurs with the preliminary [facility] report IMPRESSION: No acute intracranial findings. There is a small amount of intraorbital emphysema and a probable fracture of the medial wall of the left orbit. Emphysema is also seen in the infratemporal fossa
[2018-05-11] MEDS ORDERED: Iohexol 350 MG/100 ML VIAL ONE (09:35)
[2018-05-11] MEDS ORDERED: Iodixanol 320 MG/ML 200 ML BOTTLE IV ONE (09:35)
[2018-05-11] MEDS ORDERED: Iohexol 350mgl/ml 50 ML ONE (09:35)
[2018-05-11] MEDS ORDERED: Lidocaine 2% Inj (20ml) ONE (09:36)
[2018-05-11] MEDS ORDERED: Nitroglycerin 50mg in D5W 0 MG/0 ML BOTTLE IV ONE (09:37)
[2018-05-11] MEDS ORDERED: Phenylephrine 10 mg/ml Inj ONE (09:38)
[2018-05-11] MEDS: Levothyroxine 100 mcg (0.1 mg) Inj IVP SCH (09:45)
[2018-05-11] MEDS: MethylPREDNISolone 40 mg Vial IVP SCH ×2 (09:45→21:10)
[2018-05-11 09:48] LABS: BASO # 0.01 K/mm3 (0.0-2.0); BASO % 0.1 % (0.0-3.0); EOS % 0.1 % (1.5-5.0); HEMOGLOBIN 11.4 g/dL (12.0-16.0); LYMPH # 0.5 (1.2-3.4); LYMPH % 3.8 % (22.0-35.0); MEAN CELL VOLUME 91.7 fl (80.0-105.0); MEAN CORPUSCULAR HEMOGLOBIN 28.7 pg (25.0-35.0); MEAN CORPUSCULAR HGB CONC 31.3 g/dl (31.0-37.0); MEAN PLATELET VOLUME 10.6 fl (7.0-11.0); MONO # 0.1 (0.1-0.6); MONO % 1.1 % (1.0-6.0); PLATELET COUNT 183 10^3/uL (120.0-450.0); RBC 3.97 10^6/uL (3.5-6.1); RED CELL DISTRIBUTION WIDTH 14.1 % (11.5-14.5)
[2018-05-11] MEDS: Cefepime 1gm in NS 100ml 1 GM/100 ML BAG IVPB SCH ×3 (09:57→21:11)
[2018-05-11] MEDS ORDERED: Azithromycin 500MG/NS 250ml 500 MG/250 ML BAG IVPB SCH (10:00)
[2018-05-11] MEDS ORDERED: Piperacillin/Tazobact 3.375 gm 100 ML IVPB SCH (10:00)
[2018-05-11 10:05] LABS: ALB/GLOB RATIO 1.2 (1.1-1.8); ALBUMIN 3.4 g/dL (3.0-4.8); ALT/SGPT 286 U/L (7-56); AST/SGOT 293 U/L (14-36); BLOOD UREA NITROGEN 17 mg/dL (7-21); CALCIUM 8.2 mg/dL (8.4-10.5); GFR NON-AFRICAN AMERICAN > 60
[2018-05-11 10:13] LABS: BAND 1 % (0-2); LYMPHOCYTE 1 % (22.0-35.0); MONOCYTE 1 % (1.0-6.0); NEUTROPHIL 97 % (50.0-70.0); PLATELET ESTIMATE NORMAL (NORMAL)
--- NOTE | 2018-05-11 10:16 | RAD ---
Date of service: 05/11/2018 HISTORY: sob COMPARISON: No prior. FINDINGS: LUNGS: Pulmonary hyperinflation consistent with COPD. No infiltrate. PLEURA: No significant pleural effusion identified, no pneumothorax apparent. CARDIOVASCULAR: No aortic atherosclerotic calcification present. Normal heart size. No congestive change. ET tube tip approximately 6.4 cm above the tracheal hunter. OSSEOUS STRUCTURES: No significant abnormalities. VISUALIZED UPPER ABDOMEN: Normal. OTHER FINDINGS: None. IMPRESSION: COPD. ET tube tip appropriately positioned. No acute infiltrate.
--- NOTE | 2018-05-11 10:19 | CP.PCM.PN ---
<Paul Clarkophe - Last Filed: 05/11/18 10:16> Subjective - Date & Time of Evaluation Date of Evaluation: 05/11/18 Time of Evaluation: 10:16 - Subjective Subjective: CODE HEART NOTE Patient evaluated at bedside by Dr. Couch with Cardiology. Code Heart initiated. Patient was transported to vascular production laborer for intervention. During transport patient given supplemental oxygenation via portable ventilator. Upon arrival to production [facility] patient care transferred to Dr. Couch. Objective - Vital Signs/Intake and Output Vital Signs (last 24 hours): Temp Pulse Resp BP Pulse Ox 98.5 F 81 15 88/63 L 100 05/11/18 04:45 05/11/18 07:00 05/11/18 05:06 05/11/18 07:00 05/11/18 07:00 Intake and Output: 05/11/18 05/11/18 06:59 18:59 Intake Total 1225.5 Output Total 300 Balance 925.5 - Medications Medications: Current Medications Albuterol/Ipratropium (Duoneb 3 Mg/0.5 Mg (3 Ml) Ud) 3 ml IH Q2H PRN PRN Reason: Shortness of Breath Albuterol/Ipratropium (Duoneb 3 Mg/0.5 Mg (3 Ml) Ud) 3 ml IH [id number] [facility] Last Admin: 05/11/18 07:04 Dose: 3 ml Aspirin (Aspirin) 325 mg PO DAILY [facility] Last Admin: 05/11/18 09:13 Dose: 325 mg Atorvastatin Calcium (Lipitor) 80 mg PO DIN TATE Midazolam 100 mg/100ml in NS (Midazolam 100 Mg/100ml In Ns) 100 mg in 100 mls @ 1 mls/hr IV .Q24H PRN; Protocol PRN Reason: Sedation Last Titration: 05/11/18 03:15 Dose: 2 mg/hr, 2 mls/hr Sodium Chloride (Sodium Chloride 0.9%) 1,000 mls @ 75 mls/hr IV .[id number] TATE Last Admin: 05/11/18 04:50 Dose: 75 mls/hr Vancomycin HCl (Vancomycin 1gm) 1 gm in 250 mls @ 167 mls/hr IVPB DAILY TATE; Protocol Cefepime HCl (Maxipime 1gm) 1 gm in 100 mls @ 100 mls/hr IVPB Q8 TATE; Protocol Last Admin: 05/11/18 09:57 Dose: 100 mls/hr Insulin Human Lispro (Humalog Med) 0 units SC ACHS [facility]; Protocol Last Admin: 05/11/18 08:27 Dose: Not Given Levothyroxine Sodium (Synthroid) 50 mcg IVP DAILY [facility] Last Admin: 05/11/18 09:45 Dose: 50 mcg Methylprednisolone (Solu-Medrol) 40 mg IVP Q12 [facility] Last Admin: 05/11/18 09:45 Dose: 40 mg Pantoprazole Sodium (Protonix Inj) 40 mg IVP DAILY [facility] Last Admin: 05/11/18 09:45 Dose: 40 mg - Labs Labs: 05/11/18 09:30 05/11/18 09:30 PT 13.4 SECONDS (9.4-12.5) H 05/11/18 00:40 INR 1.21 05/11/18 00:40 APTT 41.7 Seconds (26.9-38.3) H 05/11/18 09:30 <Trudy Jean - Last Filed: 05/14/18 14:01> Objective - Vital Signs/Intake and Output Vital Signs (last 24 hours): Temp Pulse Resp BP Pulse Ox 97.7 F 95 H 19 95/50 L 95 05/14/18 06:00 05/14/18 09:18 05/14/18 06:00 05/14/18 09:18 05/14/18 06:00 Intake and Output: 05/14/18 05/14/18 06:59 18:59 Intake Total 240 Output Total 250 Balance -10 - Medications Medications: Current Medications Albuterol/Ipratropium (Duoneb 3 Mg/0.5 Mg (3 Ml) Ud) 3 ml IH Q2H PRN PRN Reason: Shortness of Breath Albuterol/Ipratropium (Duoneb 3 Mg/0.5 Mg (3 Ml) Ud) 3 ml IH [id number] [facility] Last Admin: 05/14/18 13:05 Dose: 3 ml Alprazolam (Xanax) 1 mg PO QID PRN; Protocol PRN Reason: Anxiety Last Admin: 05/14/18 06:15 Dose: 1 mg Apixaban (Eliquis) 2.5 mg PO BID [facility]; Protocol Last Admin: 05/14/18 09:19 Dose: 2.5 mg Arformoterol Tartrate (Brovana) 15 mcg IH [id number] [facility] Last Admin: 05/14/18 07:24 Dose: 15 mcg Aspirin (Ecotrin) 81 mg PO DAILY [facility] Last Admin: 05/14/18 09:18 Dose: 81 mg Atorvastatin Calcium (Lipitor) 20 mg PO DIN [facility] Last Admin: 05/13/18 17:09 Dose: 20 mg Budesonide (Pulmicort Respules) 0.5 mg INH DAILY [facility] Last Admin: 05/14/18 07:24 Dose: 0.5 mg Carvedilol (Coreg) 3.125 mg PO BID [facility] Last Admin: 05/14/18 09:18 Dose: 3.125 mg Citalopram Hydrobromide (Celexa) 20 mg PO DAILY [facility] Last Admin: 05/14/18 09:18 Dose: 20 mg Digoxin (Digoxin) 0.125 mg PO 1400 [facility] Last Admin: 05/13/18 13:22 Dose: 0.125 mg Ceftriaxone Sodium (Rocephin 1 Gram Ivpb) 1 gm in 100 mls @ 100 mls/hr IVPB DAILY [facility]; Protocol Stop: 05/21/18 10:01 Last Admin: 05/14/18 09:17 Dose: 100 mls/hr Sodium Phosphate 30 mmole/ (Sodium Chloride) 260 mls @ 42.5 mls/hr IVPB ONCE ONE Stop: 05/14/18 14:43 Last Admin: 05/14/18 11:45 Dose: 42.5 mls/hr Levothyroxine Sodium (Synthroid) 100 mcg PO ACB [facility] Last Admin: 05/14/18 09:18 Dose: 100 mcg Lisinopril (Zestril) 5 mg PO DAILY [facility] Last Admin: 05/14/18 09:18 Dose: 5 mg Methylprednisolone (Solu-Medrol) 30 mg IVP DAILY [facility] Pantoprazole Sodium (Protonix Ec Tab) 40 mg PO 0600 [facility] Last Admin: 05/14/18 05:16 Dose: 40 mg Tramadol HCl (Ultram) 50 mg PO TID PRN PRN Reason: Pain, severe (8-10) Last Admin: 05/14/18 06:15 Dose: 50 mg - Labs Labs: 05/14/18 05:00 05/14/18 05:00 PT 13.4 SECONDS (9.4-12.5) H 05/11/18 00:40 INR 1.21 05/11/18 00:40 APTT 41.7 Seconds (26.9-38.3) H 05/11/18 09:30 Attending/Attestation - Attestation I have personally seen and examined this patient.: Yes I have fully participated in the care of the patient.: Yes I have reviewed all pertinent clinical information, including history, physical exam and plan: Yes
[2018-05-11] MEDS ORDERED: Midazolam 2 MG/2 ML VIAL ONE ×2 (10:23→10:28)
--- NOTE | 2018-05-11 10:25 | RAD ---
Date of service: 05/11/2018 HISTORY: intubated COMPARISON: Earlier same day FINDINGS: LUNGS: No active pulmonary disease. PLEURA: No significant pleural effusion identified, no pneumothorax apparent. CARDIOVASCULAR: No aortic atherosclerotic calcification present. Normal cardiac size. No pulmonary vascular congestion. OSSEOUS STRUCTURES: No significant abnormalities. VISUALIZED UPPER ABDOMEN: Normal. OTHER FINDINGS: Endotracheal tube and nasogastric tube in satisfactory position IMPRESSION: No active disease.
[2018-05-11] MEDS ORDERED: DOBUTamine 500mg/250ml D5W 500 MG/250 ML BAG ONE (10:41)
[2018-05-11] MEDS ORDERED: DOBUTamine 500mg/250ml D5W 500 MG/250 ML BAG IV PRN (10:54)
--- NOTE | 2018-05-11 11:55 | CP.CCUPN ---
<Libia Phoenix - Last Filed: 05/11/18 11:52> CCU Subjective - Physician Review Subjective (Free Text): 05/11/18 11:52 Libia Phoenix, PGY-1 ICU Progress Note: Pt was seen and examined this AM by ICU team. Pt states that she is not having any chest pain, palpitations at this time. She states that she does not recall what happened last night or why she is here in the hospital. Pt is intubated but is able to answer ROS. At this time she states that she is not having any headaches, fever, chills, chest pain, palpitations, abd pain, n/v, c/d, or dysuria. CCU Objective - Vital Signs / Intake & Output Intake and Output (Last 8hrs): Intake & Output 05/10/18 05/11/18 05/11/18 22:59 06:59 14:59 Intake Total 1225.5 Output Total 300 Balance 925.5 Weight 147 lb Intake: IV 1225.5 Right 1225 Output: Urine 300 Urethral (Teixeira) 300 - Physical Exam Head: Positive for: Atraumatic, Normocephalic Pupils: Positive for: PERRL Extroacular Muscles: Positive for: EOMI Conjunctiva: Positive for: Normal Mouth: Positive for: Moist Mucous Membranes, Other (ETT in place) Respiratory/Chest: Positive for: Wheezes (end expiratory wheezing), Decreased Breath Sounds (Markedly decreased breath sounds), Other (Pt is intubated at this time.) Cardiovascular: Positive for: Normal S1, S2, Tachycardic. Negative for: Murmurs Abdomen: Positive for: Normal Bowel Sounds. Negative for: Tenderness, Distention Back: Positive for: Normal Inspection. Negative for: CVA Tenderness Upper Extremity: Positive for: Normal Inspection. Negative for: Cyanosis, Edema Lower Extremity: Positive for: Normal Inspection. Negative for: Edema Neurological: Positive for: Other (Unresponsive) Skin: Positive for: Warm, Dry, Normal Color. Negative for: Rashes - Medications Active Medications: Active Medications Generic Name Dose Route Start Last Admin Trade Name Freq PRN Reason Stop Dose Admin Albuterol/Ipratropium 3 ml 05/11/18 02:35 Duoneb 3 Mg/0.5 Mg (3 Ml) Ud IH Q2H PRN Shortness of Breath Albuterol/Ipratropium 3 ml 05/11/18 08:00 05/11/18 07:04 Duoneb 3 Mg/0.5 Mg (3 Ml) Ud IH 3 ml [id number] TATE Administration Aspirin 325 mg 05/11/18 10:00 05/11/18 09:13 Aspirin PO 325 mg DAILY TATE Administration Atorvastatin Calcium 20 mg 05/11/18 17:00 Lipitor PO DIN TATE Midazolam 100 mg/100ml in NS 100 mg in 100 mls @ 1 mls/hr 05/11/18 02:29 05/11/18 03:15 Midazolam 100 Mg/100ml In Ns IV 2 mg/hr .Q24H PRN 2 mls/hr Sedation Titration Protocol 1 MG/HR Vancomycin HCl 1 gm in 250 mls @ 167 mls/hr 05/12/18 10:00 Vancomycin 1gm IVPB DAILY TATE Protocol Cefepime HCl 1 gm in 100 mls @ 100 mls/hr 05/11/18 09:30 05/11/18 09:57 Maxipime 1gm IVPB 100 mls/hr Q8 TATE Administration Protocol Sodium Chloride 1,000 mls @ 25 mls/hr 05/11/18 10:54 Sodium Chloride 0.9% IV 05/11/18 16:00 .Q24H TATE Dobutamine HCl/Dextrose 500 mg in 250 mls @ 10.002 mls/hr 05/11/18 10:54 Dobutamine/Dextrose 5% 500mg/250ml IV .Q24H PRN TITRATE PER PROTOCOL Protocol 5 MCG/KG/MIN Insulin Human Lispro 0 units 05/11/18 07:30 05/11/18 08:27 Humalog Med SC Not Given ACHS [facility] Protocol Levothyroxine Sodium 50 mcg 05/11/18 10:00 05/11/18 09:45 Synthroid IVP 50 mcg DAILY TATE Administration Methylprednisolone 40 mg 05/11/18 10:00 05/11/18 09:45 Solu-Medrol IVP 40 mg Q12 TATE Administration Pantoprazole Sodium 40 mg 05/11/18 10:00 05/11/18 09:45 Protonix Inj IVP 40 mg DAILY TATE Administration - Patient Studies Lab Studies: Lab Studies 05/11/18 05/11/18 05/11/18 Range/Units 11:30 09:30 09:30 WBC 13.0 H D (4.5-11.0) 10^3/uL RBC 3.97 (3.5-6.1) 10^6/uL Hgb 11.4 L (12.0-16.0) g/dL Hct 36.4 (36.0-48.0) % MCV 91.7 (80.0-105.0) fl MCH 28.7 (25.0-35.0) pg MCHC 31.3 (31.0-37.0) g/dl RDW 14.1 (11.5-14.5) % Plt Count 183 (120.0-450.0) 10^3/uL MPV 10.6 (7.0-11.0) fl Neut % (Auto) 94.9 H (50.0-68.0) % Lymph % (Auto) 3.8 L (22.0-35.0) % [place] % (Auto) 1.1 (1.0-6.0) % Eos % (Auto) 0.1 L (1.5-5.0) % Baso % (Auto) 0.1 (0.0-3.0) % Lymph # (Auto) 0.5 L (1.2-3.4) [place] # (Auto) 0.1 (0.1-0.6) Eos # (Auto) 0.0 (0.0-0.7) Baso # (Auto) 0.01 (0.0-2.0) K/mm3 Absolute Neuts (auto) 12.37 H (1.4-6.5) Neutrophils % (Manual) 97 H (50.0-70.0) % Band Neutrophils % 1 (0-2) % Lymphocytes % (Manual) 1 L (22.0-35.0) % Monocytes % (Manual) 1 (1.0-6.0) % Platelet Evaluation Normal (NORMAL) PT (9.4-12.5) SECONDS INR APTT (26.9-38.3) Seconds pCO2 (35-45) mm/Hg pO2 (80-100) mm/Hg HCO3 (21-28) mmol/L ABG pH (7.35-7.45) ABG Total CO2 (22-28) mmol.L ABG O2 Saturation (95-98) % ABG O2 Content (15-23) ML/dl ABG Base Excess (-2.0-3.0) mmol/L ABG Hemoglobin (11.7-17.4) g/dL ABG Carboxyhemoglobin (0.5-1.5) % POC ABG HHb (Measured) (0-5) % ABG Methemoglobin (0.0-3.0) % ABG O2 Capacity (16-24) mL/dl ABG Potassium (3.6-5.2) mmol/L VBG pH (7.32-7.43) VBG pCO2 (40-60) VBG HCO3 (21-28) mmol/l VBG Total CO2 (22-28) mmol.L VBG O2 Sat (Calc) (40-65) % VBG Base Excess (0.0-2.0) mmol/L VBG Potassium (3.6-5.2) mmol/L Hgb O2 Saturation (95.0-98.0) % Glucose (65-105) mg/dl Lactate (0.7-2.1) mmol/L FiO2 % Crit Value Called To Crit Value Called By Blood Gas Notified Time Sodium 138 (132-148) mmol/L Potassium 4.0 (3.6-5.0) mmol/L Chloride 106 (98-107) mmol/L Carbon Dioxide 23 (21-33) mmol/L Anion Gap 13 (10-20) BUN 17 (7-21) mg/dL Creatinine 0.9 (0.7-1.2) mg/dl Est GFR ( Amer) > 60 Est GFR (Non-Af Amer) > 60 POC Glucose (mg/dL) 165 H (65-110) mg/dL Random Glucose 164 H (70-110) mg/dL Calcium 8.2 L (8.4-10.5) mg/dL Phosphorus 3.0 (2.5-4.5) mg/dL Magnesium 1.4 L (1.7-2.2) mg/dL Total Bilirubin 0.5 (0.2-1.3) mg/dL AST 293 H D (14-36) U/L ALT 286 H (7-56) U/L Alkaline Phosphatase 75 (38-126) U/L Lactate Dehydrogenase (333-699) U/L Total Creatine Kinase (35-230) U/L Troponin I ng/mL NT-Pro-B Natriuret Pep (0-450) pg/mL Total Protein 6.4 (5.8-8.3) g/dL Albumin 3.4 (3.0-4.8) g/dL Globulin 2.9 gm/dL Albumin/Globulin Ratio 1.2 (1.1-1.8) Triglycerides (35-160) mg/dL Cholesterol (130-200) mg/dL LDL Cholesterol Direct (0-129) mg/dL HDL Cholesterol (29-60) mg/dL TSH 3rd Generation (0.46-4.68) mIU/mL Arterial Blood Potassium (3.6-5.2) mmol/L Venous Blood Potassium (3.6-5.2) mmol/L Urine Color (YELLOW) Urine Appearance (CLEAR) Urine pH (4.7-8.0) Ur Specific [place] (1.005-1.035) Urine Protein (<30 mg/dL) mg/dL Urine Glucose (UA) (NEGATIVE) mg/dL Urine Ketones (NEGATIVE) mg/dL Urine Blood (NEGATIVE) Urine Nitrate (NEGATIVE) Urine Bilirubin (NEGATIVE) Urine Urobilinogen (<1 E.U./dL) E.U./dL Ur Leukocyte Esterase (NEGATIVE) Jose/uL Urine RBC (0-2) /hpf Urine WBC (0-6) /hpf Ur Epithelial Cells (0-5) /hpf Urine Bacteria (NONE) /hpf 05/11/18 05/11/18 05/11/18 Range/Units 09:30 07:55 07:45 WBC (4.5-11.0) 10^3/uL RBC (3.5-6.1) 10^6/uL Hgb (12.0-16.0) g/dL Hct (36.0-48.0) % MCV (80.0-105.0) fl MCH (25.0-35.0) pg MCHC (31.0-37.0) g/dl RDW (11.5-14.5) % Plt Count (120.0-450.0) 10^3/uL MPV (7.0-11.0) fl Neut % (Auto) (50.0-68.0) % Lymph % (Auto) (22.0-35.0) % [place] % (Auto) (1.0-6.0) % Eos % (Auto) (1.5-5.0) % Baso % (Auto) (0.0-3.0) % Lymph # (Auto) (1.2-3.4) [place] # (Auto) (0.1-0.6) Eos # (Auto) (0.0-0.7) Baso # (Auto) (0.0-2.0) K/mm3 Absolute Neuts (auto) (1.4-6.5) Neutrophils % (Manual) (50.0-70.0) % Band Neutrophils % (0-2) % Lymphocytes % (Manual) (22.0-35.0) % Monocytes % (Manual) (1.0-6.0) % Platelet Evaluation (NORMAL) PT (9.4-12.5) SECONDS INR APTT 41.7 H (26.9-38.3) Seconds pCO2 (35-45) mm/Hg pO2 130 H (80-100) mm/Hg HCO3 (21-28) mmol/L ABG pH (7.35-7.45) ABG Total CO2 (22-28) mmol.L ABG O2 Saturation (95-98) % ABG O2 Content (15-23) ML/dl ABG Base Excess (-2.0-3.0) mmol/L ABG Hemoglobin (11.7-17.4) g/dL ABG Carboxyhemoglobin (0.5-1.5) % POC ABG HHb (Measured) (0-5) % ABG Methemoglobin (0.0-3.0) % ABG O2 Capacity (16-24) mL/dl ABG Potassium (3.6-5.2) mmol/L VBG pH 7.22 L (7.32-7.43) VBG pCO2 62.0 H (40-60) VBG HCO3 25.4 (21-28) mmol/l VBG Total CO2 27.3 (22-28) mmol.L VBG O2 Sat (Calc) 99.8 H (40-65) % VBG Base Excess -3.5 L (0.0-2.0) mmol/L VBG Potassium 3.9 (3.6-5.2) mmol/L Hgb O2 Saturation (95.0-98.0) % Glucose 172 H (65-105) mg/dl Lactate 3.3 H (0.7-2.1) mmol/L FiO2 21.0 % Crit Value Called To Yahaira lemuel Crit Value Called By Es Blood Gas Notified Time 807 Sodium 140.0 (132-148) mmol/L Potassium (3.6-5.0) mmol/L Chloride 106.0 (98-107) mmol/L Carbon Dioxide (21-33) mmol/L Anion Gap (10-20) BUN (7-21) mg/dL Creatinine (0.7-1.2) mg/dl Est GFR ( Amer) Est GFR (Non-Af Amer) POC Glucose (mg/dL) 165 H (65-110) mg/dL Random Glucose (70-110) mg/dL Calcium (8.4-10.5) mg/dL Phosphorus (2.5-4.5) mg/dL Magnesium (1.7-2.2) mg/dL Total Bilirubin (0.2-1.3) mg/dL AST (14-36) U/L ALT (7-56) U/L Alkaline Phosphatase (38-126) U/L Lactate Dehydrogenase (333-699) U/L Total Creatine Kinase (35-230) U/L Troponin I ng/mL NT-Pro-B Natriuret Pep (0-450) pg/mL Total Protein (5.8-8.3) g/dL Albumin (3.0-4.8) g/dL Globulin gm/dL Albumin/Globulin Ratio (1.1-1.8) Triglycerides (35-160) mg/dL Cholesterol (130-200) mg/dL LDL Cholesterol Direct (0-129) mg/dL HDL Cholesterol (29-60) mg/dL TSH 3rd Generation (0.46-4.68) mIU/mL Arterial Blood Potassium (3.6-5.2) mmol/L Venous Blood Potassium 3.9 (3.6-5.2) mmol/L Urine Color (YELLOW) Urine Appearance (CLEAR) Urine pH (4.7-8.0) Ur Specific [place] (1.005-1.035) Urine Protein (<30 mg/dL) mg/dL Urine Glucose (UA) (NEGATIVE) mg/dL Urine Ketones (NEGATIVE) mg/dL Urine Blood (NEGATIVE) Urine Nitrate (NEGATIVE) Urine Bilirubin (NEGATIVE) Urine Urobilinogen (<1 E.U./dL) E.U./dL Ur Leukocyte Esterase (NEGATIVE) Jose/uL Urine RBC (0-2) /hpf Urine WBC (0-6) /hpf Ur Epithelial Cells (0-5) /hpf Urine Bacteria (NONE) /hpf 05/11/18 05/11/18 05/11/18 Range/Units 05:30 05:10 02:30 WBC (4.5-11.0) 10^3/uL RBC (3.5-6.1) 10^6/uL Hgb (12.0-16.0) g/dL Hct (36.0-48.0) % MCV (80.0-105.0) fl MCH (25.0-35.0) pg MCHC (31.0-37.0) g/dl RDW (11.5-14.5) % Plt Count (120.0-450.0) 10^3/uL MPV (7.0-11.0) fl Neut % (Auto) (50.0-68.0) % Lymph % (Auto) (22.0-35.0) % [place] % (Auto) (1.0-6.0) % Eos % (Auto) (1.5-5.0) % Baso % (Auto) (0.0-3.0) % Lymph # (Auto) (1.2-3.4) [place] # (Auto) (0.1-0.6) Eos # (Auto) (0.0-0.7) Baso # (Auto) (0.0-2.0) K/mm3 Absolute Neuts (auto) (1.4-6.5) Neutrophils % (Manual) (50.0-70.0) % Band Neutrophils % (0-2) % Lymphocytes % (Manual) (22.0-35.0) % Monocytes % (Manual) (1.0-6.0) % Platelet Evaluation (NORMAL) PT (9.4-12.5) SECONDS INR APTT (26.9-38.3) Seconds pCO2 50 H 48 H (35-45) mm/Hg pO2 244.0 H 440.0 H (80-100) mm/Hg HCO3 24.0 22.6 (21-28) mmol/L ABG pH 7.29 L 7.28 L (7.35-7.45) ABG Total CO2 25.5 24.1 (22-28) mmol.L ABG O2 Saturation 100.8 H 100.6 H (95-98) % ABG O2 Content 14.1 L (15-23) ML/dl ABG Base Excess -2.8 L -4.4 L (-2.0-3.0) mmol/L ABG Hemoglobin 9.9 L (11.7-17.4) g/dL ABG Carboxyhemoglobin 2.4 H (0.5-1.5) % POC ABG HHb (Measured) -0.8 L (0-5) % ABG Methemoglobin 1.2 (0.0-3.0) % ABG O2 Capacity 14.0 L (16-24) mL/dl ABG Potassium 3.0 L (3.6-5.2) mmol/L VBG pH (7.32-7.43) VBG pCO2 (40-60) VBG HCO3 (21-28) mmol/l VBG Total CO2 (22-28) mmol.L VBG O2 Sat (Calc) (40-65) % VBG Base Excess (0.0-2.0) mmol/L VBG Potassium (3.6-5.2) mmol/L Hgb O2 Saturation 97.2 (95.0-98.0) % Glucose 294 H (65-105) mg/dl Lactate 2.7 H (0.7-2.1) mmol/L FiO2 60.0 100.0 % Crit Value Called To Dr lopez Crit Value Called By [facility] Blood Gas Notified Time 239 Sodium 135.0 (132-148) mmol/L Potassium (3.6-5.0) mmol/L Chloride 108.0 H (98-107) mmol/L Carbon Dioxide (21-33) mmol/L Anion Gap (10-20) BUN (7-21) mg/dL Creatinine (0.7-1.2) mg/dl Est GFR ( Amer) Est GFR (Non-Af Amer) POC Glucose (mg/dL) (65-110) mg/dL Random Glucose (70-110) mg/dL Calcium (8.4-10.5) mg/dL Phosphorus (2.5-4.5) mg/dL Magnesium (1.7-2.2) mg/dL Total Bilirubin (0.2-1.3) mg/dL AST (14-36) U/L ALT (7-56) U/L Alkaline Phosphatase (38-126) U/L Lactate Dehydrogenase (333-699) U/L Total Creatine Kinase (35-230) U/L Troponin I 2.42 H* D ng/mL NT-Pro-B Natriuret Pep (0-450) pg/mL Total Protein (5.8-8.3) g/dL Albumin (3.0-4.8) g/dL Globulin gm/dL Albumin/Globulin Ratio (1.1-1.8) Triglycerides (35-160) mg/dL Cholesterol (130-200) mg/dL LDL Cholesterol Direct (0-129) mg/dL HDL Cholesterol (29-60) mg/dL TSH 3rd Generation (0.46-4.68) mIU/mL Arterial Blood Potassium 3.0 L (3.6-5.2) mmol/L Venous Blood Potassium (3.6-5.2) mmol/L Urine Color (YELLOW) Urine Appearance (CLEAR) Urine pH (4.7-8.0) Ur Specific [place] (1.005-1.035) Urine Protein (<30 mg/dL) mg/dL Urine Glucose (UA) (NEGATIVE) mg/dL Urine Ketones (NEGATIVE) mg/dL Urine Blood (NEGATIVE) Urine Nitrate (NEGATIVE) Urine Bilirubin (NEGATIVE) Urine Urobilinogen (<1 E.U./dL) E.U./dL Ur Leukocyte Esterase (NEGATIVE) Jose/uL Urine RBC (0-2) /hpf Urine WBC (0-6) /hpf Ur Epithelial Cells (0-5) /hpf Urine Bacteria (NONE) /hpf 05/11/18 05/11/18 05/11/18 Range/Units 01:19 00:40 00:40 WBC (4.5-11.0) 10^3/uL RBC (3.5-6.1) 10^6/uL Hgb (12.0-16.0) g/dL Hct (36.0-48.0) % MCV (80.0-105.0) fl MCH (25.0-35.0) pg MCHC (31.0-37.0) g/dl RDW (11.5-14.5) % Plt Count (120.0-450.0) 10^3/uL MPV (7.0-11.0) fl Neut % (Auto) (50.0-68.0) % Lymph % (Auto) (22.0-35.0) % [place] % (Auto) (1.0-6.0) % Eos % (Auto) (1.5-5.0) % Baso % (Auto) (0.0-3.0) % Lymph # (Auto) (1.2-3.4) [place] # (Auto) (0.1-0.6) Eos # (Auto) (0.0-0.7) Baso # (Auto) (0.0-2.0) K/mm3 Absolute Neuts (auto) (1.4-6.5) Neutrophils % (Manual) (50.0-70.0) % Band Neutrophils % (0-2) % Lymphocytes % (Manual) (22.0-35.0) % Monocytes % (Manual) (1.0-6.0) % Platelet Evaluation (NORMAL) PT (9.4-12.5) SECONDS INR APTT (26.9-38.3) Seconds pCO2 (35-45) mm/Hg pO2 (80-100) mm/Hg HCO3 (21-28) mmol/L ABG pH (7.35-7.45) ABG Total CO2 (22-28) mmol.L ABG O2 Saturation (95-98) % ABG O2 Content (15-23) ML/dl ABG Base Excess (-2.0-3.0) mmol/L ABG Hemoglobin (11.7-17.4) g/dL ABG Carboxyhemoglobin (0.5-1.5) % POC ABG HHb (Measured) (0-5) % ABG Methemoglobin (0.0-3.0) % ABG O2 Capacity (16-24) mL/dl ABG Potassium (3.6-5.2) mmol/L VBG pH (7.32-7.43) VBG pCO2 (40-60) VBG HCO3 (21-28) mmol/l VBG Total CO2 (22-28) mmol.L VBG O2 Sat (Calc) (40-65) % VBG Base Excess (0.0-2.0) mmol/L VBG Potassium (3.6-5.2) mmol/L Hgb O2 Saturation (95.0-98.0) % Glucose (65-105) mg/dl Lactate (0.7-2.1) mmol/L FiO2 % Crit Value Called To Crit Value Called By Blood Gas Notified Time Sodium (132-148) mmol/L Potassium (3.6-5.0) mmol/L Chloride (98-107) mmol/L Carbon Dioxide (21-33) mmol/L Anion Gap (10-20) BUN (7-21) mg/dL Creatinine (0.7-1.2) mg/dl Est GFR ( Amer) Est GFR (Non-Af Amer) POC Glucose (mg/dL) (65-110) mg/dL Random Glucose (70-110) mg/dL Calcium (8.4-10.5) mg/dL Phosphorus (2.5-4.5) mg/dL Magnesium (1.7-2.2) mg/dL Total Bilirubin (0.2-1.3) mg/dL AST (14-36) U/L ALT (7-56) U/L Alkaline Phosphatase (38-126) U/L Lactate Dehydrogenase (333-699) U/L Total Creatine Kinase (35-230) U/L Troponin I ng/mL NT-Pro-B Natriuret Pep (0-450) pg/mL Total Protein (5.8-8.3) g/dL Albumin (3.0-4.8) g/dL Globulin gm/dL Albumin/Globulin Ratio (1.1-1.8) Triglycerides 376 H (35-160) mg/dL Cholesterol 319 H (130-200) mg/dL LDL Cholesterol Direct 198 H (0-129) mg/dL HDL Cholesterol 44 (29-60) mg/dL TSH 3rd Generation 0.99 (0.46-4.68) mIU/mL Arterial Blood Potassium (3.6-5.2) mmol/L Venous Blood Potassium (3.6-5.2) mmol/L Urine Color Yellow (YELLOW) Urine Appearance Sl cloudy (CLEAR) Urine pH 6.0 (4.7-8.0) Ur Specific [place] 1.020 (1.005-1.035) Urine Protein Negative (<30 mg/dL) mg/dL Urine Glucose (UA) Negative (NEGATIVE) mg/dL Urine Ketones Negative (NEGATIVE) mg/dL Urine Blood Negative (NEGATIVE) Urine Nitrate Negative (NEGATIVE) Urine Bilirubin Negative (NEGATIVE) Urine Urobilinogen 0.2 (<1 E.U./dL) E.U./dL Ur Leukocyte Esterase Moderate H (NEGATIVE) Jose/uL Urine RBC 0 - 2 (0-2) /hpf Urine WBC 5 - 10 H (0-6) /hpf Ur Epithelial Cells 0 - 2 (0-5) /hpf Urine Bacteria Mod (NONE) /hpf 05/11/18 05/11/18 05/11/18 Range/Units 00:40 00:40 00:40 WBC 22.2 H (4.5-11.0) 10^3/uL RBC 4.32 (3.5-6.1) 10^6/uL Hgb 12.6 (12.0-16.0) g/dL Hct 40.6 (36.0-48.0) % MCV 94.0 (80.0-105.0) fl MCH 29.2 (25.0-35.0) pg MCHC 31.0 (31.0-37.0) g/dl RDW 14.0 (11.5-14.5) % Plt Count 358 (120.0-450.0) 10^3/uL MPV 11.2 H (7.0-11.0) fl Neut % (Auto) (50.0-68.0) % Lymph % (Auto) (22.0-35.0) % [place] % (Auto) (1.0-6.0) % Eos % (Auto) (1.5-5.0) % Baso % (Auto) (0.0-3.0) % Lymph # (Auto) (1.2-3.4) [place] # (Auto) (0.1-0.6) Eos # (Auto) (0.0-0.7) Baso # (Auto) (0.0-2.0) K/mm3 Absolute Neuts (auto) (1.4-6.5) Neutrophils % (Manual) (50.0-70.0) % Band Neutrophils % (0-2) % Lymphocytes % (Manual) (22.0-35.0) % Monocytes % (Manual) (1.0-6.0) % Platelet Evaluation (NORMAL) PT 13.4 H (9.4-12.5) SECONDS INR 1.21 APTT 33.3 (26.9-38.3) Seconds pCO2 (35-45) mm/Hg pO2 (80-100) mm/Hg HCO3 (21-28) mmol/L ABG pH (7.35-7.45) ABG Total CO2 (22-28) mmol.L ABG O2 Saturation (95-98) % ABG O2 Content (15-23) ML/dl ABG Base Excess (-2.0-3.0) mmol/L ABG Hemoglobin (11.7-17.4) g/dL ABG Carboxyhemoglobin (0.5-1.5) % POC ABG HHb (Measured) (0-5) % ABG Methemoglobin (0.0-3.0) % ABG O2 Capacity (16-24) mL/dl ABG Potassium (3.6-5.2) mmol/L VBG pH (7.32-7.43) VBG pCO2 (40-60) VBG HCO3 (21-28) mmol/l VBG Total CO2 (22-28) mmol.L VBG O2 Sat (Calc) (40-65) % VBG Base Excess (0.0-2.0) mmol/L VBG Potassium (3.6-5.2) mmol/L Hgb O2 Saturation (95.0-98.0) % Glucose (65-105) mg/dl Lactate (0.7-2.1) mmol/L FiO2 % Crit Value Called To Crit Value Called By Blood Gas Notified Time Sodium 134 (132-148) mmol/L Potassium 3.8 (3.6-5.0) mmol/L Chloride 96 L (98-107) mmol/L Carbon Dioxide 30 (21-33) mmol/L Anion Gap 12 (10-20) BUN 16 (7-21) mg/dL Creatinine 1.0 (0.7-1.2) mg/dl Est GFR ( Amer) > 60 Est GFR (Non-Af Amer) 54 POC Glucose (mg/dL) (65-110) mg/dL Random Glucose 336 H* (70-110) mg/dL Calcium 9.4 (8.4-10.5) mg/dL Phosphorus (2.5-4.5) mg/dL Magnesium (1.7-2.2) mg/dL Total Bilirubin 0.3 (0.2-1.3) mg/dL AST 27 (14-36) U/L ALT 20 (7-56) U/L Alkaline Phosphatase 91 (38-126) U/L Lactate Dehydrogenase 480 (333-699) U/L Total Creatine Kinase 52 (35-230) U/L Troponin I 0.44 H* ng/mL NT-Pro-B Natriuret Pep 245 (0-450) pg/mL Total Protein 7.8 (5.8-8.3) g/dL Albumin 4.2 (3.0-4.8) g/dL Globulin 3.6 gm/dL Albumin/Globulin Ratio 1.2 (1.1-1.8) Triglycerides (35-160) mg/dL Cholesterol (130-200) mg/dL LDL Cholesterol Direct (0-129) mg/dL HDL Cholesterol (29-60) mg/dL TSH 3rd Generation (0.46-4.68) mIU/mL Arterial Blood Potassium (3.6-5.2) mmol/L Venous Blood Potassium (3.6-5.2) mmol/L Urine Color (YELLOW) Urine Appearance (CLEAR) Urine pH (4.7-8.0) Ur Specific [place] (1.005-1.035) Urine Protein (<30 mg/dL) mg/dL Urine Glucose (UA) (NEGATIVE) mg/dL Urine Ketones (NEGATIVE) mg/dL Urine Blood (NEGATIVE) Urine Nitrate (NEGATIVE) Urine Bilirubin (NEGATIVE) Urine Urobilinogen (<1 E.U./dL) E.U./dL Ur Leukocyte Esterase (NEGATIVE) Jose/uL Urine RBC (0-2) /hpf Urine WBC (0-6) /hpf Ur Epithelial Cells (0-5) /hpf Urine Bacteria (NONE) /hpf Laboratory Results - last 24 hr 02/21/19 02/21/19 02/21/19 00:40 00:40 00:40 WBC 22.2 H RBC 4.32 Hgb 12.6 Hct 40.6 MCV 94.0 MCH 29.2 MCHC 31.0 RDW 14.0 Plt Count 358 MPV 11.2 H Neut % (Auto) Lymph % (Auto) [place] % (Auto) Eos % (Auto) Baso % (Auto) Lymph # (Auto) [place] # (Auto) Eos # (Auto) Baso # (Auto) Absolute Neuts (auto) Neutrophils % (Manual) Band Neutrophils % Lymphocytes % (Manual) Monocytes % (Manual) Platelet Evaluation PT 13.4 H INR 1.21 APTT 33.3 pCO2 pO2 HCO3 ABG pH ABG Total CO2 ABG O2 Saturation ABG O2 Content ABG Base Excess ABG Hemoglobin ABG Carboxyhemoglobin POC ABG HHb (Measured) ABG Methemoglobin ABG O2 Capacity ABG Potassium VBG pH VBG pCO2 VBG HCO3 VBG Total CO2 VBG O2 Sat (Calc) VBG Base Excess VBG Potassium Hgb O2 Saturation Glucose Lactate FiO2 Crit Value Called To Crit Value Called By Blood Gas Notified Time Sodium 134 Potassium 3.8 Chloride 96 L Carbon Dioxide 30 Anion Gap 12 BUN 16 Creatinine 1.0 Est GFR ( Amer) > 60 Est GFR (Non-Af Amer) 54 POC Glucose (mg/dL) Random Glucose 336 H* Calcium 9.4 Phosphorus Magnesium Total Bilirubin 0.3 AST 27 ALT 20 Alkaline Phosphatase 91 Lactate Dehydrogenase 480 Total Creatine Kinase 52 Troponin I 0.44 H* NT-Pro-B Natriuret Pep 245 Total Protein 7.8 Albumin 4.2 Globulin 3.6 Albumin/Globulin Ratio 1.2 Triglycerides Cholesterol LDL Cholesterol Direct HDL Cholesterol TSH 3rd Generation Arterial Blood Potassium Venous Blood Potassium Urine Color Urine Appearance Urine pH Ur Specific [place] Urine Protein Urine Glucose (UA) Urine Ketones Urine Blood Urine Nitrate Urine Bilirubin Urine Urobilinogen Ur Leukocyte Esterase Urine RBC Urine WBC Ur Epithelial Cells Urine Bacteria 05/11/18 05/11/18 05/11/18 00:40 00:40 01:19 WBC RBC Hgb Hct MCV MCH MCHC RDW Plt Count MPV Neut % (Auto) Lymph % (Auto) [place] % (Auto) Eos % (Auto) Baso % (Auto) Lymph # (Auto) [place] # (Auto) Eos # (Auto) Baso # (Auto) Absolute Neuts (auto) Neutrophils % (Manual) Band Neutrophils % Lymphocytes % (Manual) Monocytes % (Manual) Platelet Evaluation PT INR APTT pCO2 pO2 HCO3 ABG pH ABG Total CO2 ABG O2 Saturation ABG O2 Content ABG Base Excess ABG Hemoglobin ABG Carboxyhemoglobin POC ABG HHb (Measured) ABG Methemoglobin ABG O2 Capacity ABG Potassium VBG pH VBG pCO2 VBG HCO3 VBG Total CO2 VBG O2 Sat (Calc) VBG Base Excess VBG Potassium Hgb O2 Saturation Glucose Lactate FiO2 Crit Value Called To Crit Value Called By Blood Gas Notified Time Sodium Potassium Chloride Carbon Dioxide Anion Gap BUN Creatinine Est GFR ( Amer) Est GFR (Non-Af Amer) POC Glucose (mg/dL) Random Glucose Calcium Phosphorus Magnesium Total Bilirubin AST ALT Alkaline Phosphatase Lactate Dehydrogenase Total Creatine Kinase Troponin I NT-Pro-B Natriuret Pep Total Protein Albumin Globulin Albumin/Globulin Ratio Triglycerides 376 H Cholesterol 319 H LDL Cholesterol Direct 198 H HDL Cholesterol 44 TSH 3rd Generation 0.99 Arterial Blood Potassium Venous Blood Potassium Urine Color Yellow Urine Appearance Sl cloudy Urine pH 6.0 Ur Specific [place] 1.020 Urine Protein Negative Urine Glucose (UA) Negative Urine Ketones Negative Urine Blood Negative Urine Nitrate Negative Urine Bilirubin Negative Urine Urobilinogen 0.2 Ur Leukocyte Esterase Moderate H Urine RBC 0 - 2 Urine WBC 5 - 10 H Ur Epithelial Cells 0 - 2 Urine Bacteria Mod 05/11/18 05/11/18 05/11/18 02:30 05:10 05:30 WBC RBC Hgb Hct MCV MCH MCHC RDW Plt Count MPV Neut % (Auto) Lymph % (Auto) [place] % (Auto) Eos % (Auto) Baso % (Auto) Lymph # (Auto) [place] # (Auto) Eos # (Auto) Baso # (Auto) Absolute Neuts (auto) Neutrophils % (Manual) Band Neutrophils % Lymphocytes % (Manual) Monocytes % (Manual) Platelet Evaluation PT INR APTT pCO2 48 H 50 H pO2 440.0 H 244.0 H HCO3 22.6 24.0 ABG pH 7.28 L 7.29 L ABG Total CO2 24.1 25.5 ABG O2 Saturation 100.6 H 100.8 H ABG O2 Content 14.1 L ABG Base Excess -4.4 L -2.8 L ABG Hemoglobin 9.9 L ABG Carboxyhemoglobin 2.4 H POC ABG HHb (Measured) -0.8 L ABG Methemoglobin 1.2 ABG O2 Capacity 14.0 L ABG Potassium 3.0 L VBG pH VBG pCO2 VBG HCO3 VBG Total CO2 VBG O2 Sat (Calc) VBG Base Excess VBG Potassium Hgb O2 Saturation 97.2 Glucose 294 H Lactate 2.7 H FiO2 100.0 60.0 Crit Value Called To Dr lopez Crit Value Called By [facility] Blood Gas Notified Time 239 Sodium 135.0 Potassium Chloride 108.0 H Carbon Dioxide Anion Gap BUN Creatinine Est GFR ( Amer) Est GFR (Non-Af Amer) POC Glucose (mg/dL) Random Glucose Calcium Phosphorus Magnesium Total Bilirubin AST ALT Alkaline Phosphatase Lactate Dehydrogenase Total Creatine Kinase Troponin I 2.42 H* D NT-Pro-B Natriuret Pep Total Protein Albumin Globulin Albumin/Globulin Ratio Triglycerides Cholesterol LDL Cholesterol Direct HDL Cholesterol TSH 3rd Generation Arterial Blood Potassium 3.0 L Venous Blood Potassium Urine Color Urine Appearance Urine pH Ur Specific [place] Urine Protein Urine Glucose (UA) Urine Ketones Urine Blood Urine Nitrate Urine Bilirubin Urine Urobilinogen Ur Leukocyte Esterase Urine RBC Urine WBC Ur Epithelial Cells Urine Bacteria 05/11/18 05/11/18 05/11/18 07:45 07:55 09:30 WBC RBC Hgb Hct MCV MCH MCHC RDW Plt Count MPV Neut % (Auto) Lymph % (Auto) [place] % (Auto) Eos % (Auto) Baso % (Auto) Lymph # (Auto) [place] # (Auto) Eos # (Auto) Baso # (Auto) Absolute Neuts (auto) Neutrophils % (Manual) Band Neutrophils % Lymphocytes % (Manual) Monocytes % (Manual) Platelet Evaluation PT INR APTT 41.7 H pCO2 pO2 130 H HCO3 ABG pH ABG Total CO2 ABG O2 Saturation ABG O2 Content ABG Base Excess ABG Hemoglobin ABG Carboxyhemoglobin POC ABG HHb (Measured) ABG Methemoglobin ABG O2 Capacity ABG Potassium VBG pH 7.22 L VBG pCO2 62.0 H VBG HCO3 25.4 VBG Total CO2 27.3 VBG O2 Sat (Calc) 99.8 H VBG Base Excess -3.5 L VBG Potassium 3.9 Hgb O2 Saturation Glucose 172 H Lactate 3.3 H FiO2 21.0 Crit Value Called To Yahaira hdez Crit Value Called By Es Blood Gas Notified Time 807 Sodium 140.0 Potassium Chloride 106.0 Carbon Dioxide Anion Gap BUN Creatinine Est GFR ( Amer) Est GFR (Non-Af Amer) POC Glucose (mg/dL) 165 H Random Glucose Calcium Phosphorus Magnesium Total Bilirubin AST ALT Alkaline Phosphatase Lactate Dehydrogenase Total Creatine Kinase Troponin I NT-Pro-B Natriuret Pep Total Protein Albumin Globulin Albumin/Globulin Ratio Triglycerides Cholesterol LDL Cholesterol Direct HDL Cholesterol TSH 3rd Generation Arterial Blood Potassium Venous Blood Potassium 3.9 Urine Color Urine Appearance Urine pH Ur Specific [place] Urine Protein Urine Glucose (UA) Urine Ketones Urine Blood Urine Nitrate Urine Bilirubin Urine Urobilinogen Ur Leukocyte Esterase Urine RBC Urine WBC Ur Epithelial Cells Urine Bacteria 05/11/18 05/11/18 05/11/18 09:30 09:30 11:30 WBC 13.0 H D RBC 3.97 Hgb 11.4 L Hct 36.4 MCV 91.7 MCH 28.7 MCHC 31.3 RDW 14.1 Plt Count 183 MPV 10.6 Neut % (Auto) 94.9 H Lymph % (Auto) 3.8 L [place] % (Auto) 1.1 Eos % (Auto) 0.1 L Baso % (Auto) 0.1 Lymph # (Auto) 0.5 L [place] # (Auto) 0.1 Eos # (Auto) 0.0 Baso # (Auto) 0.01 Absolute Neuts (auto) 12.37 H Neutrophils % (Manual) 97 H Band Neutrophils % 1 Lymphocytes % (Manual) 1 L Monocytes % (Manual) 1 Platelet Evaluation Normal PT INR APTT pCO2 pO2 HCO3 ABG pH ABG Total CO2 ABG O2 Saturation ABG O2 Content ABG Base Excess ABG Hemoglobin ABG Carboxyhemoglobin POC ABG HHb (Measured) ABG Methemoglobin ABG O2 Capacity ABG Potassium VBG pH VBG pCO2 VBG HCO3 VBG Total CO2 VBG O2 Sat (Calc) VBG Base Excess VBG Potassium Hgb O2 Saturation Glucose Lactate FiO2 Crit Value Called To Crit Value Called By Blood Gas Notified Time Sodium 138 Potassium 4.0 Chloride 106 Carbon Dioxide 23 Anion Gap 13 BUN 17 Creatinine 0.9 Est GFR ( Amer) > 60 Est GFR (Non-Af Amer) > 60 POC Glucose (mg/dL) 165 H Random Glucose 164 H Calcium 8.2 L Phosphorus 3.0 Magnesium 1.4 L Total Bilirubin 0.5 AST 293 H D ALT 286 H Alkaline Phosphatase 75 Lactate Dehydrogenase Total Creatine Kinase Troponin I NT-Pro-B Natriuret Pep Total Protein 6.4 Albumin 3.4 Globulin 2.9 Albumin/Globulin Ratio 1.2 Triglycerides Cholesterol LDL Cholesterol Direct HDL Cholesterol TSH 3rd Generation Arterial Blood Potassium Venous Blood Potassium Urine Color Urine Appearance Urine pH Ur Specific [place] Urine Protein Urine Glucose (UA) Urine Ketones Urine Blood Urine Nitrate Urine Bilirubin Urine Urobilinogen Ur Leukocyte Esterase Urine RBC Urine WBC Ur Epithelial Cells Urine Bacteria Radiology Impressions: Radiology Impressions Chest X-Ray 05/11/18 01:09 IMPRESSION: COPD. ET tube tip appropriately positioned. No acute infiltrate. Head CT 05/11/18 01:41 IMPRESSION: No acute intracranial findings. There is a small amount of intraorbital emphysema and a probable fracture of the medial wall of the left orbit. Emphysema is also seen in the infratemporal fossa Chest X-Ray 05/11/18 06:00 IMPRESSION: No active disease. EKG/Cardiology Studies: Cardiology / EKG Studies 05/11/18 ELECTROCARDIOGRAM Stat Comment: Reason For Exam: sob 05/11/18 08:00 EKG [ELECTROCARDIOGRAM] Urgent Comment: Reason For Exam: elevated troponin 05/11/18 08:40 EKG [ELECTROCARDIOGRAM] Stat Comment: Reason For Exam: elevated traponin 05/11/18 09:59 EKG [ELECTROCARDIOGRAM] Stat Comment: Reason For Exam: stat Fingerstick Blood Sugar Results: 315 Assessment/Plan - Assessment and Plan (Free Text) Assessment: 73 yo F with PMH of O2 dependent COPD, PAD, Carotid disease s/p L carotid stent, L subclavian stenosis, CAD s/p CABG, a-fib on eliquis, HLD hypothyroidism, and CVA x3 presents to [facility] with respiratory distress. Patient was intubated due to acute respiratory failure and also had PEA/cardiac arrest with ROSC after a round of compressions and epinephrine. Patient will be admitted to the ICU for further monitoring and management. Pt had bump in trops overnight which cardiology is notified of. Plan: Neuro: - Difficult to assess as pt is intubated - Pt is awake and responds appropriately when it can. Pulm: Acute Hypercarbic Respiratory Failure - Likely 2/2 COPD - Initial ABG after intubation showed respiratory acidosis, CO2 likely much higher prior to intubation - Cont Mechanical Ventilation PRVC - Titrate settings based on AM ABG - Elevate head of bed - Aspiration and fall precautions - Versed for sedation - Duoneb - Solumedrol COPD - Duoneb - Solumedrol - IV abx Cardio: Cardiac Arrest/NSTEMI - Troponin 0.44, trend x2 - EKG, sinus tachycardia at 124 bpm. Age-unspecified Septal infarct. Non- specific ST/T wave changes. - Repeat EKG in AM - Lipid panel, HgbA1c, TSH - Heparin gtt started - Held due to code heart - Lipitor - ASA - Echo - Cardiology consulted Hx of Afib: - Heparin drip, stopped due to code heart HTN - Hold home anti-hypertensives HLD: - Cont lipitor ID: Possible Sepsis - Hypotension likely 2/2 propofl - Elevated lactate likely 2/2 hypoxia/COPD - Leukocytosis, sepsis vs reactive - Blood and urine cultures - Procal ordered - UA negative - CXR shows no signs of consolidation - Vanc/Zosyn - NS bolus/maintenance Endo Hypothyroidism - F/u TSH - IV Synthroid until patient tolerates PO GI/DVT PPx - Protonix - SCDs Patient seen and discussed in detail with Dr. Lowe. Libia Phoenix, PGY-1 <Scott Betts - Last Filed: 05/11/18 14:54> CCU Objective - Vital Signs / Intake & Output Vital Signs (Last 4 hours): Vital Signs Pulse Resp Pulse Ox 05/11/18 14:00 109 H 23 99 05/11/18 12:00 104 H 100 05/11/18 11:04 96 H Intake and Output (Last 8hrs): Intake & Output 05/10/18 05/11/18 05/11/18 22:59 06:59 14:59 Intake Total 1225.5 Output Total 300 Balance 925.5 Weight 147 lb Intake: IV 1225.5 Right 1225 Output: Urine 300 Urethral ([place]) 300 - Medications Active Medications: Active Medications Generic Name Dose Route Start Last Admin Trade Name Freq PRN Reason Stop Dose Admin Albuterol/Ipratropium 3 ml 05/11/18 02:35 Duoneb 3 Mg/0.5 Mg (3 Ml) Ud IH Q2H PRN Shortness of Breath Albuterol/Ipratropium 3 ml 05/11/18 08:00 05/11/18 13:15 Duoneb 3 Mg/0.5 Mg (3 Ml) Ud IH 3 ml [id number] TATE Administration Alprazolam 1 mg 05/11/18 13:32 05/11/18 13:59 Xanax PO 1 mg QID PRN Administration Anxiety Protocol Aspirin 325 mg 05/11/18 10:00 05/11/18 09:13 Aspirin PO 325 mg DAILY TATE Administration Atorvastatin Calcium 20 mg 05/11/18 17:00 Lipitor PO DIN TATE Citalopram Hydrobromide 20 mg 05/11/18 13:45 05/11/18 14:18 Celexa PO 20 mg DAILY TATE Administration Vancomycin HCl 1 gm in 250 mls @ 167 mls/hr 05/12/18 10:00 Vancomycin 1gm IVPB DAILY TATE Protocol Cefepime HCl 1 gm in 100 mls @ 100 mls/hr 05/11/18 09:30 05/11/18 14:14 Maxipime 1gm IVPB 100 mls/hr Q8 TATE Administration Protocol Sodium Chloride 1,000 mls @ 25 mls/hr 05/11/18 10:54 05/11/18 14:15 Sodium Chloride 0.9% IV 05/11/18 16:00 25 mls/hr .Q24H TATE Administration Dobutamine HCl/Dextrose 500 mg in 250 mls @ 10.002 mls/hr 05/11/18 10:54 Dobutamine/Dextrose 5% 500mg/250ml IV .Q24H PRN TITRATE PER PROTOCOL Protocol 5 MCG/KG/MIN Insulin Human Lispro 0 units 05/11/18 07:30 05/11/18 13:30 Humalog Med SC Not Given ACHS TATE Protocol Levothyroxine Sodium 50 mcg 05/11/18 10:00 05/11/18 09:45 Synthroid IVP 50 mcg DAILY TATE Administration Lidocaine 1 ea 05/11/18 14:15 Lidoderm TD DAILY TATE Methylprednisolone 40 mg 05/11/18 10:00 05/11/18 09:45 Solu-Medrol IVP 40 mg Q12 TATE Administration Pantoprazole Sodium 40 mg 05/11/18 10:00 05/11/18 09:45 Protonix Inj IVP 40 mg DAILY TATE Administration - Patient Studies Lab Studies: Lab Studies 05/11/18 05/11/18 05/11/18 Range/Units 12:30 12:00 11:30 WBC (4.5-11.0) 10^3/uL RBC (3.5-6.1) 10^6/uL Hgb (12.0-16.0) g/dL Hct (36.0-48.0) % MCV (80.0-105.0) fl MCH (25.0-35.0) pg MCHC (31.0-37.0) g/dl RDW (11.5-14.5) % Plt Count (120.0-450.0) 10^3/uL MPV (7.0-11.0) fl Neut % (Auto) (50.0-68.0) % Lymph % (Auto) (22.0-35.0) % [place] % (Auto) (1.0-6.0) % Eos % (Auto) (1.5-5.0) % Baso % (Auto) (0.0-3.0) % Lymph # (Auto) (1.2-3.4) [place] # (Auto) (0.1-0.6) Eos # (Auto) (0.0-0.7) Baso # (Auto) (0.0-2.0) K/mm3 Absolute Neuts (auto) (1.4-6.5) Neutrophils % (Manual) (50.0-70.0) % Band Neutrophils % (0-2) % Lymphocytes % (Manual) (22.0-35.0) % Monocytes % (Manual) (1.0-6.0) % Platelet Evaluation (NORMAL) PT (9.4-12.5) SECONDS INR APTT (26.9-38.3) Seconds pCO2 (35-45) mm/Hg pO2 94 H (80-100) mm/Hg HCO3 (21-28) mmol/L ABG pH (7.35-7.45) ABG Total CO2 (22-28) mmol.L ABG O2 Saturation (95-98) % ABG O2 Content (15-23) ML/dl ABG Base Excess (-2.0-3.0) mmol/L ABG Hemoglobin (11.7-17.4) g/dL ABG Carboxyhemoglobin (0.5-1.5) % POC ABG HHb (Measured) (0-5) % ABG Methemoglobin (0.0-3.0) % ABG O2 Capacity (16-24) mL/dl ABG Potassium (3.6-5.2) mmol/L VBG pH 7.24 L (7.32-7.43) VBG pCO2 59.0 (40-60) VBG HCO3 25.3 (21-28) mmol/l VBG Total CO2 27.1 (22-28) mmol.L VBG O2 Sat (Calc) 99.2 H (40-65) % VBG Base Excess -3.1 L (0.0-2.0) mmol/L VBG Potassium 3.8 (3.6-5.2) mmol/L Hgb O2 Saturation (95.0-98.0) % Glucose 165 H (65-105) mg/dl Lactate 2.8 H (0.7-2.1) mmol/L FiO2 21.0 % Crit Value Called To Katty varner Crit Value Called By Ab Blood Gas Notified Time 1207 Sodium 140.0 (132-148) mmol/L Potassium (3.6-5.0) mmol/L Chloride 107.0 (98-107) mmol/L Carbon Dioxide (21-33) mmol/L Anion Gap (10-20) BUN (7-21) mg/dL Creatinine (0.7-1.2) mg/dl Est GFR ( Amer) Est GFR (Non-Af Amer) POC Glucose (mg/dL) 165 H (65-110) mg/dL Random Glucose (70-110) mg/dL Hemoglobin A1c (4.2-6.5) % Calcium (8.4-10.5) mg/dL Phosphorus (2.5-4.5) mg/dL Magnesium (1.7-2.2) mg/dL Total Bilirubin (0.2-1.3) mg/dL AST (14-36) U/L ALT (7-56) U/L Alkaline Phosphatase (38-126) U/L Lactate Dehydrogenase (333-699) U/L Total Creatine Kinase (35-230) U/L Troponin I 3.59 H* D ng/mL NT-Pro-B Natriuret Pep (0-450) pg/mL Total Protein (5.8-8.3) g/dL Albumin (3.0-4.8) g/dL Globulin gm/dL Albumin/Globulin Ratio (1.1-1.8) Triglycerides (35-160) mg/dL Cholesterol (130-200) mg/dL LDL Cholesterol Direct (0-129) mg/dL HDL Cholesterol (29-60) mg/dL Procalcitonin (0.19-0.49) NG/ML TSH 3rd Generation (0.46-4.68) mIU/mL Arterial Blood Potassium (3.6-5.2) mmol/L Venous Blood Potassium 3.8 (3.6-5.2) mmol/L Urine Color (YELLOW) Urine Appearance (CLEAR) Urine pH (4.7-8.0) Ur Specific [place] (1.005-1.035) Urine Protein (<30 mg/dL) mg/dL Urine Glucose (UA) (NEGATIVE) mg/dL Urine Ketones (NEGATIVE) mg/dL Urine Blood (NEGATIVE) Urine Nitrate (NEGATIVE) Urine Bilirubin (NEGATIVE) Urine Urobilinogen (<1 E.U./dL) E.U./dL Ur Leukocyte Esterase (NEGATIVE) Jose/uL Urine RBC (0-2) /hpf Urine WBC (0-6) /hpf Ur Epithelial Cells (0-5) /hpf Urine Bacteria (NONE) /hpf 05/11/18 05/11/18 05/11/18 Range/Units 09:30 09:30 09:30 WBC 13.0 H D (4.5-11.0) 10^3/uL RBC 3.97 (3.5-6.1) 10^6/uL Hgb 11.4 L (12.0-16.0) g/dL Hct 36.4 (36.0-48.0) % MCV 91.7 (80.0-105.0) fl MCH 28.7 (25.0-35.0) pg MCHC 31.3 (31.0-37.0) g/dl RDW 14.1 (11.5-14.5) % Plt Count 183 (120.0-450.0) 10^3/uL MPV 10.6 (7.0-11.0) fl Neut % (Auto) 94.9 H (50.0-68.0) % Lymph % (Auto) 3.8 L (22.0-35.0) % [place] % (Auto) 1.1 (1.0-6.0) % Eos % (Auto) 0.1 L (1.5-5.0) % Baso % (Auto) 0.1 (0.0-3.0) % Lymph # (Auto) 0.5 L (1.2-3.4) [place] # (Auto) 0.1 (0.1-0.6) Eos # (Auto) 0.0 (0.0-0.7) Baso # (Auto) 0.01 (0.0-2.0) K/mm3 Absolute Neuts (auto) 12.37 H (1.4-6.5) Neutrophils % (Manual) 97 H (50.0-70.0) % Band Neutrophils % 1 (0-2) % Lymphocytes % (Manual) 1 L (22.0-35.0) % Monocytes % (Manual) 1 (1.0-6.0) % Platelet Evaluation Normal (NORMAL) PT (9.4-12.5) SECONDS INR APTT 41.7 H (26.9-38.3) Seconds pCO2 (35-45) mm/Hg pO2 (80-100) mm/Hg HCO3 (21-28) mmol/L ABG pH (7.35-7.45) ABG Total CO2 (22-28) mmol.L ABG O2 Saturation (95-98) % ABG O2 Content (15-23) ML/dl ABG Base Excess (-2.0-3.0) mmol/L ABG Hemoglobin (11.7-17.4) g/dL ABG Carboxyhemoglobin (0.5-1.5) % POC ABG HHb (Measured) (0-5) % ABG Methemoglobin (0.0-3.0) % ABG O2 Capacity (16-24) mL/dl ABG Potassium (3.6-5.2) mmol/L VBG pH (7.32-7.43) VBG pCO2 (40-60) VBG HCO3 (21-28) mmol/l VBG Total CO2 (22-28) mmol.L VBG O2 Sat (Calc) (40-65) % VBG Base Excess (0.0-2.0) mmol/L VBG Potassium (3.6-5.2) mmol/L Hgb O2 Saturation (95.0-98.0) % Glucose (65-105) mg/dl Lactate (0.7-2.1) mmol/L FiO2 % Crit Value Called To Crit Value Called By Blood Gas Notified Time Sodium 138 (132-148) mmol/L Potassium 4.0 (3.6-5.0) mmol/L Chloride 106 (98-107) mmol/L Carbon Dioxide 23 (21-33) mmol/L Anion Gap 13 (10-20) BUN 17 (7-21) mg/dL Creatinine 0.9 (0.7-1.2) mg/dl Est GFR ( Amer) > 60 Est GFR (Non-Af Amer) > 60 POC Glucose (mg/dL) (65-110) mg/dL Random Glucose 164 H (70-110) mg/dL Hemoglobin A1c (4.2-6.5) % Calcium 8.2 L (8.4-10.5) mg/dL Phosphorus 3.0 (2.5-4.5) mg/dL Magnesium 1.4 L (1.7-2.2) mg/dL Total Bilirubin 0.5 (0.2-1.3) mg/dL AST 293 H D (14-36) U/L ALT 286 H (7-56) U/L Alkaline Phosphatase 75 (38-126) U/L Lactate Dehydrogenase (333-699) U/L Total Creatine Kinase (35-230) U/L Troponin I ng/mL NT-Pro-B Natriuret Pep (0-450) pg/mL Total Protein 6.4 (5.8-8.3) g/dL Albumin 3.4 (3.0-4.8) g/dL Globulin 2.9 gm/dL Albumin/Globulin Ratio 1.2 (1.1-1.8) Triglycerides (35-160) mg/dL Cholesterol (130-200) mg/dL LDL Cholesterol Direct (0-129) mg/dL HDL Cholesterol (29-60) mg/dL Procalcitonin (0.19-0.49) NG/ML TSH 3rd Generation (0.46-4.68) mIU/mL Arterial Blood Potassium (3.6-5.2) mmol/L Venous Blood Potassium (3.6-5.2) mmol/L Urine Color (YELLOW) Urine Appearance (CLEAR) Urine pH (4.7-8.0) Ur Specific [place] (1.005-1.035) Urine Protein (<30 mg/dL) mg/dL Urine Glucose (UA) (NEGATIVE) mg/dL Urine Ketones (NEGATIVE) mg/dL Urine Blood (NEGATIVE) Urine Nitrate (NEGATIVE) Urine Bilirubin (NEGATIVE) Urine Urobilinogen (<1 E.U./dL) E.U./dL Ur Leukocyte Esterase (NEGATIVE) Jose/uL Urine RBC (0-2) /hpf Urine WBC (0-6) /hpf Ur Epithelial Cells (0-5) /hpf Urine Bacteria (NONE) /hpf 05/11/18 05/11/18 05/11/18 Range/Units 07:55 07:45 05:30 WBC (4.5-11.0) 10^3/uL RBC (3.5-6.1) 10^6/uL Hgb (12.0-16.0) g/dL Hct (36.0-48.0) % MCV (80.0-105.0) fl MCH (25.0-35.0) pg MCHC (31.0-37.0) g/dl RDW (11.5-14.5) % Plt Count (120.0-450.0) 10^3/uL MPV (7.0-11.0) fl Neut % (Auto) (50.0-68.0) % Lymph % (Auto) (22.0-35.0) % [place] % (Auto) (1.0-6.0) % Eos % (Auto) (1.5-5.0) % Baso % (Auto) (0.0-3.0) % Lymph # (Auto) (1.2-3.4) [place] # (Auto) (0.1-0.6) Eos # (Auto) (0.0-0.7) Baso # (Auto) (0.0-2.0) K/mm3 Absolute Neuts (auto) (1.4-6.5) Neutrophils % (Manual) (50.0-70.0) % Band Neutrophils % (0-2) % Lymphocytes % (Manual) (22.0-35.0) % Monocytes % (Manual) (1.0-6.0) % Platelet Evaluation (NORMAL) PT (9.4-12.5) SECONDS INR APTT (26.9-38.3) Seconds pCO2 (35-45) mm/Hg pO2 130 H (80-100) mm/Hg HCO3 (21-28) mmol/L ABG pH (7.35-7.45) ABG Total CO2 (22-28) mmol.L ABG O2 Saturation (95-98) % ABG O2 Content (15-23) ML/dl ABG Base Excess (-2.0-3.0) mmol/L ABG Hemoglobin (11.7-17.4) g/dL ABG Carboxyhemoglobin (0.5-1.5) % POC ABG HHb (Measured) (0-5) % ABG Methemoglobin (0.0-3.0) % ABG O2 Capacity (16-24) mL/dl ABG Potassium (3.6-5.2) mmol/L VBG pH 7.22 L (7.32-7.43) VBG pCO2 62.0 H (40-60) VBG HCO3 25.4 (21-28) mmol/l VBG Total CO2 27.3 (22-28) mmol.L VBG O2 Sat (Calc) 99.8 H (40-65) % VBG Base Excess -3.5 L (0.0-2.0) mmol/L VBG Potassium 3.9 (3.6-5.2) mmol/L Hgb O2 Saturation (95.0-98.0) % Glucose 172 H (65-105) mg/dl Lactate 3.3 H (0.7-2.1) mmol/L FiO2 21.0 % Crit Value Called To Yahaira hdez Crit Value Called By Blood Gas Notified Time 807 Sodium 140.0 (132-148) mmol/L Potassium (3.6-5.0) mmol/L Chloride 106.0 (98-107) mmol/L Carbon Dioxide (21-33) mmol/L Anion Gap (10-20) BUN (7-21) mg/dL Creatinine (0.7-1.2) mg/dl Est GFR ( Amer) Est GFR (Non-Af Amer) POC Glucose (mg/dL) 165 H (65-110) mg/dL Random Glucose (70-110) mg/dL Hemoglobin A1c (4.2-6.5) % Calcium (8.4-10.5) mg/dL Phosphorus (2.5-4.5) mg/dL Magnesium (1.7-2.2) mg/dL Total Bilirubin (0.2-1.3) mg/dL AST (14-36) U/L ALT (7-56) U/L Alkaline Phosphatase (38-126) U/L Lactate Dehydrogenase (333-699) U/L Total Creatine Kinase (35-230) U/L Troponin I 2.42 H* D ng/mL NT-Pro-B Natriuret Pep (0-450) pg/mL Total Protein (5.8-8.3) g/dL Albumin (3.0-4.8) g/dL Globulin gm/dL Albumin/Globulin Ratio (1.1-1.8) Triglycerides (35-160) mg/dL Cholesterol (130-200) mg/dL LDL Cholesterol Direct (0-129) mg/dL HDL Cholesterol (29-60) mg/dL Procalcitonin (0.19-0.49) NG/ML TSH 3rd Generation (0.46-4.68) mIU/mL Arterial Blood Potassium (3.6-5.2) mmol/L Venous Blood Potassium 3.9 (3.6-5.2) mmol/L Urine Color (YELLOW) Urine Appearance (CLEAR) Urine pH (4.7-8.0) Ur Specific [place] (1.005-1.035) Urine Protein (<30 mg/dL) mg/dL Urine Glucose (UA) (NEGATIVE) mg/dL Urine Ketones (NEGATIVE) mg/dL Urine Blood (NEGATIVE) Urine Nitrate (NEGATIVE) Urine Bilirubin (NEGATIVE) Urine Urobilinogen (<1 E.U./dL) E.U./dL Ur Leukocyte Esterase (NEGATIVE) Jose/uL Urine RBC (0-2) /hpf Urine WBC (0-6) /hpf Ur Epithelial Cells (0-5) /hpf Urine Bacteria (NONE) /hpf 02/21/19 02/21/19 02/21/19 Range/Units 05:30 05:10 02:30 WBC (4.5-11.0) 10^3/uL RBC (3.5-6.1) 10^6/uL Hgb (12.0-16.0) g/dL Hct (36.0-48.0) % MCV (80.0-105.0) fl MCH (25.0-35.0) pg MCHC (31.0-37.0) g/dl RDW (11.5-14.5) % Plt Count (120.0-450.0) 10^3/uL MPV (7.0-11.0) fl Neut % (Auto) (50.0-68.0) % Lymph % (Auto) (22.0-35.0) % [place] % (Auto) (1.0-6.0) % Eos % (Auto) (1.5-5.0) % Baso % (Auto) (0.0-3.0) % Lymph # (Auto) (1.2-3.4) [place] # (Auto) (0.1-0.6) Eos # (Auto) (0.0-0.7) Baso # (Auto) (0.0-2.0) K/mm3 Absolute Neuts (auto) (1.4-6.5) Neutrophils % (Manual) (50.0-70.0) % Band Neutrophils % (0-2) % Lymphocytes % (Manual) (22.0-35.0) % Monocytes % (Manual) (1.0-6.0) % Platelet Evaluation (NORMAL) PT (9.4-12.5) SECONDS INR APTT (26.9-38.3) Seconds pCO2 50 H 48 H (35-45) mm/Hg pO2 244.0 H 440.0 H (80-100) mm/Hg HCO3 24.0 22.6 (21-28) mmol/L ABG pH 7.29 L 7.28 L (7.35-7.45) ABG Total CO2 25.5 24.1 (22-28) mmol.L ABG O2 Saturation 100.8 H 100.6 H (95-98) % ABG O2 Content 14.1 L (15-23) ML/dl ABG Base Excess -2.8 L -4.4 L (-2.0-3.0) mmol/L ABG Hemoglobin 9.9 L (11.7-17.4) g/dL ABG Carboxyhemoglobin 2.4 H (0.5-1.5) % POC ABG HHb (Measured) -0.8 L (0-5) % ABG Methemoglobin 1.2 (0.0-3.0) % ABG O2 Capacity 14.0 L (16-24) mL/dl ABG Potassium 3.0 L (3.6-5.2) mmol/L VBG pH (7.32-7.43) VBG pCO2 (40-60) VBG HCO3 (21-28) mmol/l VBG Total CO2 (22-28) mmol.L VBG O2 Sat (Calc) (40-65) % VBG Base Excess (0.0-2.0) mmol/L VBG Potassium (3.6-5.2) mmol/L Hgb O2 Saturation 97.2 (95.0-98.0) % Glucose 294 H (65-105) mg/dl Lactate 2.7 H (0.7-2.1) mmol/L FiO2 60.0 100.0 % Crit Value Called To Dr lopez Crit Value Called By [facility] Blood Gas Notified Time 239 Sodium 135.0 (132-148) mmol/L Potassium (3.6-5.0) mmol/L Chloride 108.0 H (98-107) mmol/L Carbon Dioxide (21-33) mmol/L Anion Gap (10-20) BUN (7-21) mg/dL Creatinine (0.7-1.2) mg/dl Est GFR ( Amer) Est GFR (Non-Af Amer) POC Glucose (mg/dL) (65-110) mg/dL Random Glucose (70-110) mg/dL Hemoglobin A1c 5.6 (4.2-6.5) % Calcium (8.4-10.5) mg/dL Phosphorus (2.5-4.5) mg/dL Magnesium (1.7-2.2) mg/dL Total Bilirubin (0.2-1.3) mg/dL AST (14-36) U/L ALT (7-56) U/L Alkaline Phosphatase (38-126) U/L Lactate Dehydrogenase (333-699) U/L Total Creatine Kinase (35-230) U/L Troponin I ng/mL NT-Pro-B Natriuret Pep (0-450) pg/mL Total Protein (5.8-8.3) g/dL Albumin (3.0-4.8) g/dL Globulin gm/dL Albumin/Globulin Ratio (1.1-1.8) Triglycerides (35-160) mg/dL Cholesterol (130-200) mg/dL LDL Cholesterol Direct (0-129) mg/dL HDL Cholesterol (29-60) mg/dL Procalcitonin (0.19-0.49) NG/ML TSH 3rd Generation (0.46-4.68) mIU/mL Arterial Blood Potassium 3.0 L (3.6-5.2) mmol/L Venous Blood Potassium (3.6-5.2) mmol/L Urine Color (YELLOW) Urine Appearance (CLEAR) Urine pH (4.7-8.0) Ur Specific [place] (1.005-1.035) Urine Protein (<30 mg/dL) mg/dL Urine Glucose (UA) (NEGATIVE) mg/dL Urine Ketones (NEGATIVE) mg/dL Urine Blood (NEGATIVE) Urine Nitrate (NEGATIVE) Urine Bilirubin (NEGATIVE) Urine Urobilinogen (<1 E.U./dL) E.U./dL Ur Leukocyte Esterase (NEGATIVE) Jose/uL Urine RBC (0-2) /hpf Urine WBC (0-6) /hpf Ur Epithelial Cells (0-5) /hpf Urine Bacteria (NONE) /hpf 05/11/18 05/11/18 05/11/18 Range/Units 01:19 00:40 00:40 WBC (4.5-11.0) 10^3/uL RBC (3.5-6.1) 10^6/uL Hgb (12.0-16.0) g/dL Hct (36.0-48.0) % MCV (80.0-105.0) fl MCH (25.0-35.0) pg MCHC (31.0-37.0) g/dl RDW (11.5-14.5) % Plt Count (120.0-450.0) 10^3/uL MPV (7.0-11.0) fl Neut % (Auto) (50.0-68.0) % Lymph % (Auto) (22.0-35.0) % [place] % (Auto) (1.0-6.0) % Eos % (Auto) (1.5-5.0) % Baso % (Auto) (0.0-3.0) % Lymph # (Auto) (1.2-3.4) [place] # (Auto) (0.1-0.6) Eos # (Auto) (0.0-0.7) Baso # (Auto) (0.0-2.0) K/mm3 Absolute Neuts (auto) (1.4-6.5) Neutrophils % (Manual) (50.0-70.0) % Band Neutrophils % (0-2) % Lymphocytes % (Manual) (22.0-35.0) % Monocytes % (Manual) (1.0-6.0) % Platelet Evaluation (NORMAL) PT (9.4-12.5) SECONDS INR APTT (26.9-38.3) Seconds pCO2 (35-45) mm/Hg pO2 (80-100) mm/Hg HCO3 (21-28) mmol/L ABG pH (7.35-7.45) ABG Total CO2 (22-28) mmol.L ABG O2 Saturation (95-98) % ABG O2 Content (15-23) ML/dl ABG Base Excess (-2.0-3.0) mmol/L ABG Hemoglobin (11.7-17.4) g/dL ABG Carboxyhemoglobin (0.5-1.5) % POC ABG HHb (Measured) (0-5) % ABG Methemoglobin (0.0-3.0) % ABG O2 Capacity (16-24) mL/dl ABG Potassium (3.6-5.2) mmol/L VBG pH (7.32-7.43) VBG pCO2 (40-60) VBG HCO3 (21-28) mmol/l VBG Total CO2 (22-28) mmol.L VBG O2 Sat (Calc) (40-65) % VBG Base Excess (0.0-2.0) mmol/L VBG Potassium (3.6-5.2) mmol/L Hgb O2 Saturation (95.0-98.0) % Glucose (65-105) mg/dl Lactate (0.7-2.1) mmol/L FiO2 % Crit Value Called To Crit Value Called By Blood Gas Notified Time Sodium (132-148) mmol/L Potassium (3.6-5.0) mmol/L Chloride (98-107) mmol/L Carbon Dioxide (21-33) mmol/L Anion Gap (10-20) BUN (7-21) mg/dL Creatinine (0.7-1.2) mg/dl Est GFR ( Amer) Est GFR (Non-Af Amer) POC Glucose (mg/dL) (65-110) mg/dL Random Glucose (70-110) mg/dL Hemoglobin A1c (4.2-6.5) % Calcium (8.4-10.5) mg/dL Phosphorus (2.5-4.5) mg/dL Magnesium (1.7-2.2) mg/dL Total Bilirubin (0.2-1.3) mg/dL AST (14-36) U/L ALT (7-56) U/L Alkaline Phosphatase (38-126) U/L Lactate Dehydrogenase (333-699) U/L Total Creatine Kinase (35-230) U/L Troponin I ng/mL NT-Pro-B Natriuret Pep (0-450) pg/mL Total Protein (5.8-8.3) g/dL Albumin (3.0-4.8) g/dL Globulin gm/dL Albumin/Globulin Ratio (1.1-1.8) Triglycerides (35-160) mg/dL Cholesterol (130-200) mg/dL LDL Cholesterol Direct (0-129) mg/dL HDL Cholesterol (29-60) mg/dL Procalcitonin < 0.05 L (0.19-0.49) NG/ML TSH 3rd Generation 0.99 (0.46-4.68) mIU/mL Arterial Blood Potassium (3.6-5.2) mmol/L Venous Blood Potassium (3.6-5.2) mmol/L Urine Color Yellow (YELLOW) Urine Appearance Sl cloudy (CLEAR) Urine pH 6.0 (4.7-8.0) Ur Specific [place] 1.020 (1.005-1.035) Urine Protein Negative (<30 mg/dL) mg/dL Urine Glucose (UA) Negative (NEGATIVE) mg/dL Urine Ketones Negative (NEGATIVE) mg/dL Urine Blood Negative (NEGATIVE) Urine Nitrate Negative (NEGATIVE) Urine Bilirubin Negative (NEGATIVE) Urine Urobilinogen 0.2 (<1 E.U./dL) E.U./dL Ur Leukocyte Esterase Moderate H (NEGATIVE) Jose/uL Urine RBC 0 - 2 (0-2) /hpf Urine WBC 5 - 10 H (0-6) /hpf Ur Epithelial Cells 0 - 2 (0-5) /hpf Urine Bacteria Mod (NONE) /hpf 05/11/18 05/11/18 05/11/18 Range/Units 00:40 00:40 00:40 WBC 22.2 H (4.5-11.0) 10^3/uL RBC 4.32 (3.5-6.1) 10^6/uL Hgb 12.6 (12.0-16.0) g/dL Hct 40.6 (36.0-48.0) % MCV 94.0 (80.0-105.0) fl MCH 29.2 (25.0-35.0) pg MCHC 31.0 (31.0-37.0) g/dl RDW 14.0 (11.5-14.5) % Plt Count 358 (120.0-450.0) 10^3/uL MPV 11.2 H (7.0-11.0) fl Neut % (Auto) (50.0-68.0) % Lymph % (Auto) (22.0-35.0) % [place] % (Auto) (1.0-6.0) % Eos % (Auto) (1.5-5.0) % Baso % (Auto) (0.0-3.0) % Lymph # (Auto) (1.2-3.4) [place] # (Auto) (0.1-0.6) Eos # (Auto) (0.0-0.7) Baso # (Auto) (0.0-2.0) K/mm3 Absolute Neuts (auto) (1.4-6.5) Neutrophils % (Manual) (50.0-70.0) % Band Neutrophils % (0-2) % Lymphocytes % (Manual) (22.0-35.0) % Monocytes % (Manual) (1.0-6.0) % Platelet Evaluation (NORMAL) PT (9.4-12.5) SECONDS INR APTT (26.9-38.3) Seconds pCO2 (35-45) mm/Hg pO2 (80-100) mm/Hg HCO3 (21-28) mmol/L ABG pH (7.35-7.45) ABG Total CO2 (22-28) mmol.L ABG O2 Saturation (95-98) % ABG O2 Content (15-23) ML/dl ABG Base Excess (-2.0-3.0) mmol/L ABG Hemoglobin (11.7-17.4) g/dL ABG Carboxyhemoglobin (0.5-1.5) % POC ABG HHb (Measured) (0-5) % ABG Methemoglobin (0.0-3.0) % ABG O2 Capacity (16-24) mL/dl ABG Potassium (3.6-5.2) mmol/L VBG pH (7.32-7.43) VBG pCO2 (40-60) VBG HCO3 (21-28) mmol/l VBG Total CO2 (22-28) mmol.L VBG O2 Sat (Calc) (40-65) % VBG Base Excess (0.0-2.0) mmol/L VBG Potassium (3.6-5.2) mmol/L Hgb O2 Saturation (95.0-98.0) % Glucose (65-105) mg/dl Lactate (0.7-2.1) mmol/L FiO2 % Crit Value Called To Crit Value Called By Blood Gas Notified Time Sodium 134 (132-148) mmol/L Potassium 3.8 (3.6-5.0) mmol/L Chloride 96 L (98-107) mmol/L Carbon Dioxide 30 (21-33) mmol/L Anion Gap 12 (10-20) BUN 16 (7-21) mg/dL Creatinine 1.0 (0.7-1.2) mg/dl Est GFR ( Amer) > 60 Est GFR (Non-Af Amer) 54 POC Glucose (mg/dL) (65-110) mg/dL Random Glucose 336 H* (70-110) mg/dL Hemoglobin A1c (4.2-6.5) % Calcium 9.4 (8.4-10.5) mg/dL Phosphorus (2.5-4.5) mg/dL Magnesium (1.7-2.2) mg/dL Total Bilirubin 0.3 (0.2-1.3) mg/dL AST 27 (14-36) U/L ALT 20 (7-56) U/L Alkaline Phosphatase 91 (38-126) U/L Lactate Dehydrogenase 480 (333-699) U/L Total Creatine Kinase 52 (35-230) U/L Troponin I 0.44 H* ng/mL NT-Pro-B Natriuret Pep 245 (0-450) pg/mL Total Protein 7.8 (5.8-8.3) g/dL Albumin 4.2 (3.0-4.8) g/dL Globulin 3.6 gm/dL Albumin/Globulin Ratio 1.2 (1.1-1.8) Triglycerides 376 H (35-160) mg/dL Cholesterol 319 H (130-200) mg/dL LDL Cholesterol Direct 198 H (0-129) mg/dL HDL Cholesterol 44 (29-60) mg/dL Procalcitonin (0.19-0.49) NG/ML TSH 3rd Generation (0.46-4.68) mIU/mL Arterial Blood Potassium (3.6-5.2) mmol/L Venous Blood Potassium (3.6-5.2) mmol/L Urine Color (YELLOW) Urine Appearance (CLEAR) Urine pH (4.7-8.0) Ur Specific [place] (1.005-1.035) Urine Protein (<30 mg/dL) mg/dL Urine Glucose (UA) (NEGATIVE) mg/dL Urine Ketones (NEGATIVE) mg/dL Urine Blood (NEGATIVE) Urine Nitrate (NEGATIVE) Urine Bilirubin (NEGATIVE) Urine Urobilinogen (<1 E.U./dL) E.U./dL Ur Leukocyte Esterase (NEGATIVE) Jose/uL Urine RBC (0-2) /hpf Urine WBC (0-6) /hpf Ur Epithelial Cells (0-5) /hpf Urine Bacteria (NONE) /hpf 05/11/18 Range/Units 00:40 WBC (4.5-11.0) 10^3/uL RBC (3.5-6.1) 10^6/uL Hgb (12.0-16.0) g/dL Hct (36.0-48.0) % MCV (80.0-105.0) fl MCH (25.0-35.0) pg MCHC (31.0-37.0) g/dl RDW (11.5-14.5) % Plt Count (120.0-450.0) 10^3/uL MPV (7.0-11.0) fl Neut % (Auto) (50.0-68.0) % Lymph % (Auto) (22.0-35.0) % [place] % (Auto) (1.0-6.0) % Eos % (Auto) (1.5-5.0) % Baso % (Auto) (0.0-3.0) % Lymph # (Auto) (1.2-3.4) [place] # (Auto) (0.1-0.6) Eos # (Auto) (0.0-0.7) Baso # (Auto) (0.0-2.0) K/mm3 Absolute Neuts (auto) (1.4-6.5) Neutrophils % (Manual) (50.0-70.0) % Band Neutrophils % (0-2) % Lymphocytes % (Manual) (22.0-35.0) % Monocytes % (Manual) (1.0-6.0) % Platelet Evaluation (NORMAL) PT 13.4 H (9.4-12.5) SECONDS INR 1.21 APTT 33.3 (26.9-38.3) Seconds pCO2 (35-45) mm/Hg pO2 (80-100) mm/Hg HCO3 (21-28) mmol/L ABG pH (7.35-7.45) ABG Total CO2 (22-28) mmol.L ABG O2 Saturation (95-98) % ABG O2 Content (15-23) ML/dl ABG Base Excess (-2.0-3.0) mmol/L ABG Hemoglobin (11.7-17.4) g/dL ABG Carboxyhemoglobin (0.5-1.5) % POC ABG HHb (Measured) (0-5) % ABG Methemoglobin (0.0-3.0) % ABG O2 Capacity (16-24) mL/dl ABG Potassium (3.6-5.2) mmol/L VBG pH (7.32-7.43) VBG pCO2 (40-60) VBG HCO3 (21-28) mmol/l VBG Total CO2 (22-28) mmol.L VBG O2 Sat (Calc) (40-65) % VBG Base Excess (0.0-2.0) mmol/L VBG Potassium (3.6-5.2) mmol/L Hgb O2 Saturation (95.0-98.0) % Glucose (65-105) mg/dl Lactate (0.7-2.1) mmol/L FiO2 % Crit Value Called To Crit Value Called By Blood Gas Notified Time Sodium (132-148) mmol/L Potassium (3.6-5.0) mmol/L Chloride (98-107) mmol/L Carbon Dioxide (21-33) mmol/L Anion Gap (10-20) BUN (7-21) mg/dL Creatinine (0.7-1.2) mg/dl Est GFR ( Amer) Est GFR (Non-Af Amer) POC Glucose (mg/dL) (65-110) mg/dL Random Glucose (70-110) mg/dL Hemoglobin A1c (4.2-6.5) % Calcium (8.4-10.5) mg/dL Phosphorus (2.5-4.5) mg/dL Magnesium (1.7-2.2) mg/dL Total Bilirubin (0.2-1.3) mg/dL AST (14-36) U/L ALT (7-56) U/L Alkaline Phosphatase (38-126) U/L Lactate Dehydrogenase (333-699) U/L Total Creatine Kinase (35-230) U/L Troponin I ng/mL NT-Pro-B Natriuret Pep (0-450) pg/mL Total Protein (5.8-8.3) g/dL Albumin (3.0-4.8) g/dL Globulin gm/dL Albumin/Globulin Ratio (1.1-1.8) Triglycerides (35-160) mg/dL Cholesterol (130-200) mg/dL LDL Cholesterol Direct (0-129) mg/dL HDL Cholesterol (29-60) mg/dL Procalcitonin (0.19-0.49) NG/ML TSH 3rd Generation (0.46-4.68) mIU/mL Arterial Blood Potassium (3.6-5.2) mmol/L Venous Blood Potassium (3.6-5.2) mmol/L Urine Color (YELLOW) Urine Appearance (CLEAR) Urine pH (4.7-8.0) Ur Specific [place] (1.005-1.035) Urine Protein (<30 mg/dL) mg/dL Urine Glucose (UA) (NEGATIVE) mg/dL Urine Ketones (NEGATIVE) mg/dL Urine Blood (NEGATIVE) Urine Nitrate (NEGATIVE) Urine Bilirubin (NEGATIVE) Urine Urobilinogen (<1 E.U./dL) E.U./dL Ur Leukocyte Esterase (NEGATIVE) Jose/uL Urine RBC (0-2) /hpf Urine WBC (0-6) /hpf Ur Epithelial Cells (0-5) /hpf Urine Bacteria (NONE) /hpf Laboratory Results - last 24 hr 05/11/18 05/11/18 05/11/18 00:40 00:40 00:40 WBC 22.2 H RBC 4.32 Hgb 12.6 Hct 40.6 MCV 94.0 MCH 29.2 MCHC 31.0 RDW 14.0 Plt Count 358 MPV 11.2 H Neut % (Auto) Lymph % (Auto) [place] % (Auto) Eos % (Auto) Baso % (Auto) Lymph # (Auto) [place] # (Auto) Eos # (Auto) Baso # (Auto) Absolute Neuts (auto) Neutrophils % (Manual) Band Neutrophils % Lymphocytes % (Manual) Monocytes % (Manual) Platelet Evaluation PT 13.4 H INR 1.21 APTT 33.3 pCO2 pO2 HCO3 ABG pH ABG Total CO2 ABG O2 Saturation ABG O2 Content ABG Base Excess ABG Hemoglobin ABG Carboxyhemoglobin POC ABG HHb (Measured) ABG Methemoglobin ABG O2 Capacity ABG Potassium VBG pH VBG pCO2 VBG HCO3 VBG Total CO2 VBG O2 Sat (Calc) VBG Base Excess VBG Potassium Hgb O2 Saturation Glucose Lactate FiO2 Crit Value Called To Crit Value Called By Blood Gas Notified Time Sodium 134 Potassium 3.8 Chloride 96 L Carbon Dioxide 30 Anion Gap 12 BUN 16 Creatinine 1.0 Est GFR ( Amer) > 60 Est GFR (Non-Af Amer) 54 POC Glucose (mg/dL) Random Glucose 336 H* Hemoglobin A1c Calcium 9.4 Phosphorus Magnesium Total Bilirubin 0.3 AST 27 ALT 20 Alkaline Phosphatase 91 Lactate Dehydrogenase 480 Total Creatine Kinase 52 Troponin I 0.44 H* NT-Pro-B Natriuret Pep 245 Total Protein 7.8 Albumin 4.2 Globulin 3.6 Albumin/Globulin Ratio 1.2 Triglycerides Cholesterol LDL Cholesterol Direct HDL Cholesterol Procalcitonin TSH 3rd Generation Arterial Blood Potassium Venous Blood Potassium Urine Color Urine Appearance Urine pH Ur Specific [place] Urine Protein Urine Glucose (UA) Urine Ketones Urine Blood Urine Nitrate Urine Bilirubin Urine Urobilinogen Ur Leukocyte Esterase Urine RBC Urine WBC Ur Epithelial Cells Urine Bacteria 05/11/18 05/11/18 05/11/18 00:40 00:40 00:40 WBC RBC Hgb Hct MCV MCH MCHC RDW Plt Count MPV Neut % (Auto) Lymph % (Auto) [place] % (Auto) Eos % (Auto) Baso % (Auto) Lymph # (Auto) [place] # (Auto) Eos # (Auto) Baso # (Auto) Absolute Neuts (auto) Neutrophils % (Manual) Band Neutrophils % Lymphocytes % (Manual) Monocytes % (Manual) Platelet Evaluation PT INR APTT pCO2 pO2 HCO3 ABG pH ABG Total CO2 ABG O2 Saturation ABG O2 Content ABG Base Excess ABG Hemoglobin ABG Carboxyhemoglobin POC ABG HHb (Measured) ABG Methemoglobin ABG O2 Capacity ABG Potassium VBG pH VBG pCO2 VBG HCO3 VBG Total CO2 VBG O2 Sat (Calc) VBG Base Excess VBG Potassium Hgb O2 Saturation Glucose Lactate FiO2 Crit Value Called To Crit Value Called By Blood Gas Notified Time Sodium Potassium Chloride Carbon Dioxide Anion Gap BUN Creatinine Est GFR ( Amer) Est GFR (Non-Af Amer) POC Glucose (mg/dL) Random Glucose Hemoglobin A1c Calcium Phosphorus Magnesium Total Bilirubin AST ALT Alkaline Phosphatase Lactate Dehydrogenase Total Creatine Kinase Troponin I NT-Pro-B Natriuret Pep Total Protein Albumin Globulin Albumin/Globulin Ratio Triglycerides 376 H Cholesterol 319 H LDL Cholesterol Direct 198 H HDL Cholesterol 44 Procalcitonin < 0.05 L TSH 3rd Generation 0.99 Arterial Blood Potassium Venous Blood Potassium Urine Color Urine Appearance Urine pH Ur Specific [place] Urine Protein Urine Glucose (UA) Urine Ketones Urine Blood Urine Nitrate Urine Bilirubin Urine Urobilinogen Ur Leukocyte Esterase Urine RBC Urine WBC Ur Epithelial Cells Urine Bacteria 05/11/18 05/11/18 05/11/18 01:19 02:30 05:10 WBC RBC Hgb Hct MCV MCH MCHC RDW Plt Count MPV Neut % (Auto) Lymph % (Auto) [place] % (Auto) Eos % (Auto) Baso % (Auto) Lymph # (Auto) [place] # (Auto) Eos # (Auto) Baso # (Auto) Absolute Neuts (auto) Neutrophils % (Manual) Band Neutrophils % Lymphocytes % (Manual) Monocytes % (Manual) Platelet Evaluation PT INR APTT pCO2 48 H 50 H pO2 440.0 H 244.0 H HCO3 22.6 24.0 ABG pH 7.28 L 7.29 L ABG Total CO2 24.1 25.5 ABG O2 Saturation 100.6 H 100.8 H ABG O2 Content 14.1 L ABG Base Excess -4.4 L -2.8 L ABG Hemoglobin 9.9 L ABG Carboxyhemoglobin 2.4 H POC ABG HHb (Measured) -0.8 L ABG Methemoglobin 1.2 ABG O2 Capacity 14.0 L ABG Potassium 3.0 L VBG pH VBG pCO2 VBG HCO3 VBG Total CO2 VBG O2 Sat (Calc) VBG Base Excess VBG Potassium Hgb O2 Saturation 97.2 Glucose 294 H Lactate 2.7 H FiO2 100.0 60.0 Crit Value Called To Dr lopez Crit Value Called By [facility] Blood Gas Notified Time 239 Sodium 135.0 Potassium Chloride 108.0 H Carbon Dioxide Anion Gap BUN Creatinine Est GFR ( Amer) Est GFR (Non-Af Amer) POC Glucose (mg/dL) Random Glucose Hemoglobin A1c Calcium Phosphorus Magnesium Total Bilirubin AST ALT Alkaline Phosphatase Lactate Dehydrogenase Total Creatine Kinase Troponin I NT-Pro-B Natriuret Pep Total Protein Albumin Globulin Albumin/Globulin Ratio Triglycerides Cholesterol LDL Cholesterol Direct HDL Cholesterol Procalcitonin TSH 3rd Generation Arterial Blood Potassium 3.0 L Venous Blood Potassium Urine Color Yellow Urine Appearance Sl cloudy Urine pH 6.0 Ur Specific [place] 1.020 Urine Protein Negative Urine Glucose (UA) Negative Urine Ketones Negative Urine Blood Negative Urine Nitrate Negative Urine Bilirubin Negative Urine Urobilinogen 0.2 Ur Leukocyte Esterase Moderate H Urine RBC 0 - 2 Urine WBC 5 - 10 H Ur Epithelial Cells 0 - 2 Urine Bacteria Mod 05/11/18 05/11/18 05/11/18 05:30 05:30 07:45 WBC RBC Hgb Hct MCV MCH MCHC RDW Plt Count MPV Neut % (Auto) Lymph % (Auto) [place] % (Auto) Eos % (Auto) Baso % (Auto) Lymph # (Auto) [place] # (Auto) Eos # (Auto) Baso # (Auto) Absolute Neuts (auto) Neutrophils % (Manual) Band Neutrophils % Lymphocytes % (Manual) Monocytes % (Manual) Platelet Evaluation PT INR APTT pCO2 pO2 HCO3 ABG pH ABG Total CO2 ABG O2 Saturation ABG O2 Content ABG Base Excess ABG Hemoglobin ABG Carboxyhemoglobin POC ABG HHb (Measured) ABG Methemoglobin ABG O2 Capacity ABG Potassium VBG pH VBG pCO2 VBG HCO3 VBG Total CO2 VBG O2 Sat (Calc) VBG Base Excess VBG Potassium Hgb O2 Saturation Glucose Lactate FiO2 Crit Value Called To Crit Value Called By Blood Gas Notified Time Sodium Potassium Chloride Carbon Dioxide Anion Gap BUN Creatinine Est GFR ( Amer) Est GFR (Non-Af Amer) POC Glucose (mg/dL) 165 H Random Glucose Hemoglobin A1c 5.6 Calcium Phosphorus Magnesium Total Bilirubin AST ALT Alkaline Phosphatase Lactate Dehydrogenase Total Creatine Kinase Troponin I 2.42 H* D NT-Pro-B Natriuret Pep Total Protein Albumin Globulin Albumin/Globulin Ratio Triglycerides Cholesterol LDL Cholesterol Direct HDL Cholesterol Procalcitonin TSH 3rd Generation Arterial Blood Potassium Venous Blood Potassium Urine Color Urine Appearance Urine pH Ur Specific [place] Urine Protein Urine Glucose (UA) Urine Ketones Urine Blood Urine Nitrate Urine Bilirubin Urine Urobilinogen Ur Leukocyte Esterase Urine RBC Urine WBC Ur Epithelial Cells Urine Bacteria 05/11/18 05/11/18 05/11/18 07:55 09:30 09:30 WBC 13.0 H D RBC 3.97 Hgb 11.4 L Hct 36.4 MCV 91.7 MCH 28.7 MCHC 31.3 RDW 14.1 Plt Count 183 MPV 10.6 Neut % (Auto) 94.9 H Lymph % (Auto) 3.8 L [place] % (Auto) 1.1 Eos % (Auto) 0.1 L Baso % (Auto) 0.1 Lymph # (Auto) 0.5 L [place] # (Auto) 0.1 Eos # (Auto) 0.0 Baso # (Auto) 0.01 Absolute Neuts (auto) 12.37 H Neutrophils % (Manual) 97 H Band Neutrophils % 1 Lymphocytes % (Manual) 1 L Monocytes % (Manual) 1 Platelet Evaluation Normal PT INR APTT 41.7 H pCO2 pO2 130 H HCO3 ABG pH ABG Total CO2 ABG O2 Saturation ABG O2 Content ABG Base Excess ABG Hemoglobin ABG Carboxyhemoglobin POC ABG HHb (Measured) ABG Methemoglobin ABG O2 Capacity ABG Potassium VBG pH 7.22 L VBG pCO2 62.0 H VBG HCO3 25.4 VBG Total CO2 27.3 VBG O2 Sat (Calc) 99.8 H VBG Base Excess -3.5 L VBG Potassium 3.9 Hgb O2 Saturation Glucose 172 H Lactate 3.3 H FiO2 21.0 Crit Value Called To Yahaira hdez Crit Value Called By Es Blood Gas Notified Time 807 Sodium 140.0 Potassium Chloride 106.0 Carbon Dioxide Anion Gap BUN Creatinine Est GFR ( Amer) Est GFR (Non-Af Amer) POC Glucose (mg/dL) Random Glucose Hemoglobin A1c Calcium Phosphorus Magnesium Total Bilirubin AST ALT Alkaline Phosphatase Lactate Dehydrogenase Total Creatine Kinase Troponin I NT-Pro-B Natriuret Pep Total Protein Albumin Globulin Albumin/Globulin Ratio Triglycerides Cholesterol LDL Cholesterol Direct HDL Cholesterol Procalcitonin TSH 3rd Generation Arterial Blood Potassium Venous Blood Potassium 3.9 Urine Color Urine Appearance Urine pH Ur Specific [place] Urine Protein Urine Glucose (UA) Urine Ketones Urine Blood Urine Nitrate Urine Bilirubin Urine Urobilinogen Ur Leukocyte Esterase Urine RBC Urine WBC Ur Epithelial Cells Urine Bacteria 05/11/18 05/11/18 05/11/18 09:30 11:30 12:00 WBC RBC Hgb Hct MCV MCH MCHC RDW Plt Count MPV Neut % (Auto) Lymph % (Auto) [place] % (Auto) Eos % (Auto) Baso % (Auto) Lymph # (Auto) [place] # (Auto) Eos # (Auto) Baso # (Auto) Absolute Neuts (auto) Neutrophils % (Manual) Band Neutrophils % Lymphocytes % (Manual) Monocytes % (Manual) Platelet Evaluation PT INR APTT pCO2 pO2 94 H HCO3 ABG pH ABG Total CO2 ABG O2 Saturation ABG O2 Content ABG Base Excess ABG Hemoglobin ABG Carboxyhemoglobin POC ABG HHb (Measured) ABG Methemoglobin ABG O2 Capacity ABG Potassium VBG pH 7.24 L VBG pCO2 59.0 VBG HCO3 25.3 VBG Total CO2 27.1 VBG O2 Sat (Calc) 99.2 H VBG Base Excess -3.1 L VBG Potassium 3.8 Hgb O2 Saturation Glucose 165 H Lactate 2.8 H FiO2 21.0 Crit Value Called To Katty varner Crit Value Called By Ab Blood Gas Notified Time 1207 Sodium 138 140.0 Potassium 4.0 Chloride 106 107.0 Carbon Dioxide 23 Anion Gap 13 BUN 17 Creatinine 0.9 Est GFR ( Amer) > 60 Est GFR (Non-Af Amer) > 60 POC Glucose (mg/dL) 165 H Random Glucose 164 H Hemoglobin A1c Calcium 8.2 L Phosphorus 3.0 Magnesium 1.4 L Total Bilirubin 0.5 AST 293 H D ALT 286 H Alkaline Phosphatase 75 Lactate Dehydrogenase Total Creatine Kinase Troponin I NT-Pro-B Natriuret Pep Total Protein 6.4 Albumin 3.4 Globulin 2.9 Albumin/Globulin Ratio 1.2 Triglycerides Cholesterol LDL Cholesterol Direct HDL Cholesterol Procalcitonin TSH 3rd Generation Arterial Blood Potassium Venous Blood Potassium 3.8 Urine Color Urine Appearance Urine pH Ur Specific [place] Urine Protein Urine Glucose (UA) Urine Ketones Urine Blood Urine Nitrate Urine Bilirubin Urine Urobilinogen Ur Leukocyte Esterase Urine RBC Urine WBC Ur Epithelial Cells Urine Bacteria 05/11/18 12:30 WBC RBC Hgb Hct MCV MCH MCHC RDW Plt Count MPV Neut % (Auto) Lymph % (Auto) [place] % (Auto) Eos % (Auto) Baso % (Auto) Lymph # (Auto) [place] # (Auto) Eos # (Auto) Baso # (Auto) Absolute Neuts (auto) Neutrophils % (Manual) Band Neutrophils % Lymphocytes % (Manual) Monocytes % (Manual) Platelet Evaluation PT INR APTT pCO2 pO2 HCO3 ABG pH ABG Total CO2 ABG O2 Saturation ABG O2 Content ABG Base Excess ABG Hemoglobin ABG Carboxyhemoglobin POC ABG HHb (Measured) ABG Methemoglobin ABG O2 Capacity ABG Potassium VBG pH VBG pCO2 VBG HCO3 VBG Total CO2 VBG O2 Sat (Calc) VBG Base Excess VBG Potassium Hgb O2 Saturation Glucose Lactate FiO2 Crit Value Called To Crit Value Called By Blood Gas Notified Time Sodium Potassium Chloride Carbon Dioxide Anion Gap BUN Creatinine Est GFR ( Amer) Est GFR (Non-Af Amer) POC Glucose (mg/dL) Random Glucose Hemoglobin A1c Calcium Phosphorus Magnesium Total Bilirubin AST ALT Alkaline Phosphatase Lactate Dehydrogenase Total Creatine Kinase Troponin I 3.59 H* D NT-Pro-B Natriuret Pep Total Protein Albumin Globulin Albumin/Globulin Ratio Triglycerides Cholesterol LDL Cholesterol Direct HDL Cholesterol Procalcitonin TSH 3rd Generation Arterial Blood Potassium Venous Blood Potassium Urine Color Urine Appearance Urine pH Ur Specific [place] Urine Protein Urine Glucose (UA) Urine Ketones Urine Blood Urine Nitrate Urine Bilirubin Urine Urobilinogen Ur Leukocyte Esterase Urine RBC Urine WBC Ur Epithelial Cells Urine Bacteria Radiology Impressions: Radiology Impressions Chest X-Ray 05/11/18 01:09 IMPRESSION: COPD. ET tube tip appropriately positioned. No acute infiltrate. Head CT 05/11/18 01:41 IMPRESSION: No acute intracranial findings. There is a small amount of intraorbital emphysema and a probable fracture of the medial wall of the left orbit. Emphysema is also seen in the infratemporal fossa Chest X-Ray 05/11/18 06:00 IMPRESSION: No active disease. EKG/Cardiology Studies: Cardiology / EKG Studies 05/11/18 ELECTROCARDIOGRAM Stat Comment: Reason For Exam: sob 05/11/18 08:00 EKG [ELECTROCARDIOGRAM] Urgent Comment: Reason For Exam: elevated troponin 05/11/18 08:40 EKG [ELECTROCARDIOGRAM] Stat Comment: Reason For Exam: elevated traponin 05/11/18 09:59 EKG [ELECTROCARDIOGRAM] Stat Comment: Reason For Exam: stat Assessment/Plan - Assessment and Plan (Free Text) Plan: Patient seen and examined on rounds with resident, agree with note with following additions/exceptions: Patient is 73 yo F with PMH of O2 dependent COPD, PAD, Carotid disease s/p L carotid stent, L subclavian stenosis, CAD s/p CABG, a-fib on eliquis, HLD hypothyroidism, and CVA x3 presents to [facility] with respiratory distress, cardiac arrest, PEA, s/p ROSC (unclear down time). 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 Cardiology following. Awake, alert following commands, placed on CPAP, subsequently extubated to 4LNC rule out Sepsis Cardiac Arrest COPD PAD Afib on A/C HLD Hypothyroidism hx of CVA Takotsubos CM Recommend: - supp o2 as needed, goal sat 90%, duonebs PRN, Pulmicort BID - Broad spectrum abx, until cultures come back, thus far no overt source of infection, Vanco, Cefepime, check urine Lg, Strep, Procal - BP control - ASA, Plavix, Statin, BB - Ionotropic support, Dobutamine - DC heparin - Resume Eliquis - Check HgbA1C, Lipid Panel, TSH - follow up cardio - GI ppx - DVT ppx - Monitor in MICU Critical care time 40 minutes
[2018-05-11 12:07] LABS: VENOUS BLOOD GAS BASE EXCESS -3.1 mmol/L (0.0-2.0); VENOUS BLOOD GAS PO2 94 mm/Hg (30-55); VENOUS BLOOD PH 7.24 (7.32-7.43)
--- NOTE | 2018-05-11 12:36 | CP.PCM.PCO ---
Physician Communication Note - Physician Communication Note Physician Communication Note: respiratory fail intubated PS/CPAP 50% peep 5, s/p cath today
[2018-05-11] MEDS ORDERED: Oxycodone/Acetaminophen 5/325 mg Tab PO STA (14:13)
--- NOTE | 2018-05-11 14:22 | CARDCATH ---
PROCEDURE DATE: 05/11/2018 PROCEDURE: Emergency cardiac catheterization on a patient, Shayla Kasper. HISTORY: The patient is a 75-year-old woman, who underwent a cardiac arrest 2 months ago down in [place] after the of her brother, who presents with sudden onset of progressive respiratory distress, diaphoresis. The patient was intubated in the emergency room. Apparently, she became unresponsive by EMS and was brought into the emergency room early this morning. Her troponins were found to be elevated. In addition, her blood pressure was 90 systolic. The patient's past medical history is notable for COPD due to smoking and hypertension. The rest of the history is unavailable. Because of this, a code heart was called. Emergency cardiac catheterization with supra-aortic valvular injection and left ventriculogram. The right femoral artery was cannulated with 6-Thai sheath. There were no complications. I performed moderate sedation which included the presence of an independent trained observer that assisted in monitoring the patient's level of consciousness and physiologic status. After administration of Versed and fentanyl, my intra-service time was 30 minutes. The findings on catheterization revealed a left ventricle that was globally abnormal. Estimated ejection fraction was 20% to 25%. The inferobasal and anterior basal moves well. However, the rest of the anterior wall apex and inferior wall was akinetic. The findings are consistent with Takotsubo's cardiomyopathy. Her coronary anatomy revealed a right dominant circulation. The RCA revealed diffuse atherosclerosis without critical lesions. The left main artery was unremarkable. The circumflex artery revealed diffuse atherosclerosis with an eccentric 50% stenosis in the midportion. The LAD and diagonal vessels revealed diffuse atherosclerosis without critical lesions. LVEDP was 25 mmHg. Supra-aortic valvular injection revealed no aortic insufficiency. Manual compression was used to close the femoral artery site. The patient tolerated the procedure well. In summary, the procedure revealed a diffuse atherosclerosis in the coronary tree with a noncritical 50% stenosis in the mid circumflex artery. LV function is markedly abnormal with akinesis of the anterior apex and inferior wall with an EF of 20% to 25%. Supra-aortic valvular injection revealed no aortic insufficiency. Given these findings, the patient's findings are consistent with a Takotsubo's cardiomyopathy. Nonobstructive CAD was noted. Given these findings, we will start the patient on IV ionotropic therapy with dobutamine at 5 mcg/kg now. The patient will be sent to the ICU for continued care. Toy Couch MD
--- NOTE | 2018-05-11 16:31 | CP.PCM.PCO ---
Physician Communication Note - Physician Communication Note Physician Communication Note: Went for cardiac cath; started on Vanc, cefepime, will see brandi.
--- NOTE | 2018-05-11 17:10 | CP.PCM.PN ---
<Shaye Vallejo - Last Filed: 05/11/18 17:03> Subjective - Date & Time of Evaluation Date of Evaluation: 05/11/18 Time of Evaluation: 17:03 - Subjective Subjective: Shaye Vallejo, PGY-1, Internal Medicine Progress Note for Dr. Jean Patient was seen and evaluated this AM at bedside. Patient was intubated and sedated at the time. Patient was able to nod her head to respond to questions. Patient reported that she had chest pain, but denied any other symptoms at this time including shortness of breath, abdominal pain, and nausea. 12-point ROS was incomplete due to patient's intubation status. Objective - Vital Signs/Intake and Output Vital Signs (last 24 hours): Temp Pulse Resp BP Pulse Ox 98.5 F 109 H 23 146/93 H 99 05/11/18 04:45 05/11/18 14:00 05/11/18 14:00 05/11/18 09:45 05/11/18 14:00 Intake and Output: 05/11/18 05/11/18 06:59 18:59 Intake Total 1225.5 Output Total 300 Balance 925.5 - Medications Medications: Current Medications Albuterol/Ipratropium (Duoneb 3 Mg/0.5 Mg (3 Ml) Ud) 3 ml IH Q2H PRN PRN Reason: Shortness of Breath Albuterol/Ipratropium (Duoneb 3 Mg/0.5 Mg (3 Ml) Ud) 3 ml IH [id number] [facility] Last Admin: 05/11/18 13:15 Dose: 3 ml Alprazolam (Xanax) 1 mg PO QID PRN; Protocol PRN Reason: Anxiety Last Admin: 05/11/18 13:59 Dose: 1 mg Apixaban (Eliquis) 2.5 mg PO BID [facility]; Protocol Aspirin (Aspirin) 325 mg PO DAILY [facility] Last Admin: 05/11/18 09:13 Dose: 325 mg Atorvastatin Calcium (Lipitor) 20 mg PO DIN [facility] Citalopram Hydrobromide (Celexa) 20 mg PO DAILY [facility] Last Admin: 05/11/18 14:18 Dose: 20 mg Vancomycin HCl (Vancomycin 1gm) 1 gm in 250 mls @ 167 mls/hr IVPB DAILY [facility]; Protocol Cefepime HCl (Maxipime 1gm) 1 gm in 100 mls @ 100 mls/hr IVPB Q8 [facility]; Protocol Last Admin: 05/11/18 14:14 Dose: 100 mls/hr Dobutamine HCl/Dextrose (Dobutamine/Dextrose 5% 500mg/250ml) 500 mg in 250 mls @ 10.002 mls/hr IV .Q24H PRN; Protocol PRN Reason: TITRATE PER PROTOCOL Insulin Human Lispro (Humalog Med) 0 units SC ACHS [facility]; Protocol Last Admin: 05/11/18 13:30 Dose: Not Given Levothyroxine Sodium (Synthroid) 50 mcg IVP DAILY [facility] Last Admin: 05/11/18 09:45 Dose: 50 mcg Lidocaine (Lidoderm) 1 ea TD DAILY [facility] Methylprednisolone (Solu-Medrol) 40 mg IVP Q12 [facility] Last Admin: 05/11/18 09:45 Dose: 40 mg Pantoprazole Sodium (Protonix Inj) 40 mg IVP DAILY [facility] Last Admin: 05/11/18 09:45 Dose: 40 mg - Labs Labs: 05/11/18 09:30 05/11/18 09:30 PT 13.4 SECONDS (9.4-12.5) H 05/11/18 00:40 INR 1.21 05/11/18 00:40 APTT 41.7 Seconds (26.9-38.3) H 05/11/18 09:30 - Constitutional Appears: Well, Non-toxic - Head Exam Head Exam: ATRAUMATIC, NORMAL INSPECTION, NORMOCEPHALIC - Eye Exam Eye Exam: EOMI, PERRL - ENT Exam ENT Exam: Mucous Membranes Moist - Neck Exam Neck Exam: Full ROM - Respiratory Exam Respiratory Exam: Clear to Ausculation Bilateral, NORMAL BREATHING PATTERN - Cardiovascular Exam Cardiovascular Exam: REGULAR RHYTHM, RRR - GI/Abdominal Exam GI & Abdominal Exam: Soft, Normal Bowel Sounds. absent: Tenderness - Extremities Exam Additional comments: unable to evaluate - Neurological Exam Neurological Exam: Awake - Skin Skin Exam: Dry, Intact Assessment and Plan - Assessment and Plan (Free Text) Assessment: 73 year old female with past medical history of COPD, PAD, carotid artery disease status post left carotid endarterectomy, L subclavian stenosis, CAD s/p CABG, atrial fibrillation on eliquis, hyperlipidemia, hypothyroidism, and CVAx3 presented by EMS for respiratory distress. Patient became unresponsive on route to the hospital. Patient was dyspneic at home and condition worsened as respiratory rate decreased to 5. Patient was intubated in emergency department due to unresponsiveness and bradypneia. Patient then went into PEA. ACLS was initated with ROSC achieved after one round of epinephrine with compressions. Patient was extubated this morning and taken for cardiac catheterization this morning. Plan: Hypercarbic respiratory failure 2/2 to COPD -Likely 2/2 to COPD -On FiO2 of 60 on vent, ABG showed pH: 7.29, pO2: 244, and pCO2: 50. CO2 likely much higher prior to intubation. -Elevated lactate on admission at 2.7, which trended up to 3.3, and trended down to 2.8 -Patient is currently on duonebs 3 Q6 TATE and Q2 PRN -Started solumedrol 125 mg on admission and is now on 40 mg Q12. Will taper daily as tolerated -Maintain O2 saturation above 88% -Patient is currently extubated. Unresponsive 2/2 to PEA Arrest -Patient was initially in PEA arrest but after ROSC was achieved patient has been in sinus tachycardia and NSR -Patient went for cardiac catheterization this AM showing LV that was globally abnormal. LVEF was 20-25%. The anterior wall apex and inferior wall was akinetic. 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 LAD was unremarkable. RCA had diffuse atheroscloerosis without critical lesions. LAD and diagonal vessels had diffuse atherosclerosis without critical lesions. Noncritical stenosis of mid circumflex was present. Nonobstructive CAD was noted. -Troponinx3: 0.44, 2.42, 3.59. trending up -BNP: unremarkable -Head CT: no acute findings -Follow up echocardiogram for further evaluation and diagnosis of Takotsubo's cardiomyopathy. -Started aspirin 325 in the ED. Currently on aspirin 81 mg daily. -Continue lipitor 20 mg daily -Patient currently not on beta blockers due to patient's Takotsubo's and hypotension -Dobutamine drip at 5 mcg/kg/min started for Takotsubo's cardiomyopathy Rule out septic shock -Patient presented with elevated lactate, leukocytosis now downtrending -2/2 to reactive vs. infectious -Hypotension possibly 2/2 to propofol. Hypotension now resolved 2/2 to being weaned off propofol and start of dobutamine drip. -Chest X ray shows no consolidation -UA: moderate leukocyte esterase but negative nitrate, 5-10 WBC, and moderate bacteria. Cannot rule out UTI -Follow up blood culture, urine culture -Procalcitonin unremarkable -Lactate now trending down -Started on vancomycin and cefepime day 1 Hypertension -Holding all home anti-hypertensives due to hypotension Hypothyroidism -TSH: 0.99 -Continue with levothyroxine Mixed hyperlipidemia -Triglyceride, cholesterol, and LDL all elevated -Continue with lipitor 20 mg daily Diabetes Mellitus -HgbA1c: 5.6 -Continue with medium dose sliding scale insulin Paroxysmal Atrial fibrillation on eliquis -Currently not in atrial fibrillation -Continue with home eliquis 2.5 mg daily Anxiety and depression -Continue with home xanax and celexa History of multiple CVA -Continue with aspirin and eliquis Rule out lower extremity DVT -Follow up results of duplex of lower extremity GI prophylaxis: protonix 40 mg daily DVT prophylaxis: eliquis Patient plan discussed with Dr. Jean <Trudy Jean - Last Filed: 05/14/18 14:01> Objective - Vital Signs/Intake and Output Vital Signs (last 24 hours): Temp Pulse Resp BP Pulse Ox 97.7 F 95 H 19 95/50 L 95 05/14/18 06:00 05/14/18 09:18 05/14/18 06:00 05/14/18 09:18 05/14/18 06:00 Intake and Output: 05/14/18 05/14/18 06:59 18:59 Intake Total 240 Output Total 250 Balance -10 - Medications Medications: Current Medications Albuterol/Ipratropium (Duoneb 3 Mg/0.5 Mg (3 Ml) Ud) 3 ml IH Q2H PRN PRN Reason: Shortness of Breath Albuterol/Ipratropium (Duoneb 3 Mg/0.5 Mg (3 Ml) Ud) 3 ml IH [id number] [facility] Last Admin: 05/14/18 13:05 Dose: 3 ml Alprazolam (Xanax) 1 mg PO QID PRN; Protocol PRN Reason: Anxiety Last Admin: 05/14/18 06:15 Dose: 1 mg Apixaban (Eliquis) 2.5 mg PO BID [facility]; Protocol Last Admin: 05/14/18 09:19 Dose: 2.5 mg Arformoterol Tartrate (Brovana) 15 mcg IH [id number] [facility] Last Admin: 05/14/18 07:24 Dose: 15 mcg Aspirin (Ecotrin) 81 mg PO DAILY [facility] Last Admin: 05/14/18 09:18 Dose: 81 mg Atorvastatin Calcium (Lipitor) 20 mg PO DIN [facility] Last Admin: 05/13/18 17:09 Dose: 20 mg Budesonide (Pulmicort Respules) 0.5 mg INH DAILY [facility] Last Admin: 05/14/18 07:24 Dose: 0.5 mg Carvedilol (Coreg) 3.125 mg PO BID [facility] Last Admin: 05/14/18 09:18 Dose: 3.125 mg Citalopram Hydrobromide (Celexa) 20 mg PO DAILY [facility] Last Admin: 05/14/18 09:18 Dose: 20 mg Digoxin (Digoxin) 0.125 mg PO 1400 [facility] Last Admin: 05/13/18 13:22 Dose: 0.125 mg Ceftriaxone Sodium (Rocephin 1 Gram Ivpb) 1 gm in 100 mls @ 100 mls/hr IVPB DAILY [facility]; Protocol Stop: 05/21/18 10:01 Last Admin: 05/14/18 09:17 Dose: 100 mls/hr Sodium Phosphate 30 mmole/ (Sodium Chloride) 260 mls @ 42.5 mls/hr IVPB ONCE ONE Stop: 05/14/18 14:43 Last Admin: 05/14/18 11:45 Dose: 42.5 mls/hr Levothyroxine Sodium (Synthroid) 100 mcg PO ACB [facility] Last Admin: 05/14/18 09:18 Dose: 100 mcg Lisinopril (Zestril) 5 mg PO DAILY [facility] Last Admin: 05/14/18 09:18 Dose: 5 mg Methylprednisolone (Solu-Medrol) 30 mg IVP DAILY [facility] Pantoprazole Sodium (Protonix Ec Tab) 40 mg PO 0600 [facility] Last Admin: 05/14/18 05:16 Dose: 40 mg Tramadol HCl (Ultram) 50 mg PO TID PRN PRN Reason: Pain, severe (8-10) Last Admin: 05/14/18 06:15 Dose: 50 mg - Labs Labs: 05/14/18 05:00 05/14/18 05:00 PT 13.4 SECONDS (9.4-12.5) H 05/11/18 00:40 INR 1.21 05/11/18 00:40 APTT 41.7 Seconds (26.9-38.3) H 05/11/18 09:30 Attending/Attestation - Attestation I have personally seen and examined this patient.: Yes I have fully participated in the care of the patient.: Yes I have reviewed all pertinent clinical information, including history, physical exam and plan: Yes Notes (Text): 05/14/18 14:01 Medical record note made by the resident after discussion with my direction and input after the patient was personally seen and examined by me. I have reviewed the chart and agree that the record accurately reflects by personal performance of the history, physical exam, data review, and medical decision-making, in the course for the patient. I have also personally directed the plan of care.
--- NOTE | 2018-05-11 18:52 | US ---
HISTORY: Leg pain and swelling. Evaluate for DVT PHYSICIAN(S): Toy Fierro MD. TECHNIQUE: Duplex sonography and color-flow Doppler with graded compression were used to evaluate the deep venous systems of both lower extremities. The exam is somewhat limited by edema FINDINGS: The visualized deep venous systems of both lower extremities are sonographically normal and compressible. Normal wave forms and augmentation are seen. There is no sonographic evidence for deep venous thrombosis in the visualized segments of both lower extremities. IMPRESSION: No sonographic evidence for deep venous thrombosis in the visualized segments of both lower extremities.
[2018-05-11] MEDS: Lidocaine 5% Patch TD SCH (20:09)
--- NOTE | 2018-05-11 21:39 | CARD ---
APPROVED REPORT Date of service: 05/11/2018 EKG Measurement Heart [id number] <Conclusion> Normal sinus rhythm Low voltage QRS Cannot rule out Anterior infarct, age undetermined T wave abnormality, consider inferolateral ischemia Abnormal ECG
--- NOTE | 2018-05-11 21:42 | CARD ---
APPROVED REPORT Date of service: 05/11/2018 EKG Measurement Heart [id number] <Conclusion> Normal sinus rhythm Low voltage QRS Possible Anterolateral infarct, age undetermined Abnormal ECG
--- NOTE | 2018-05-11 21:47 | CARD ---
APPROVED REPORT Date of service: 05/11/2018 EKG Measurement Heart [id number] [place] [id number] <Conclusion> Sinus tachycardia Septal infarct, age undetermined Abnormal ECG
[2018-05-12] MEDS: Albuterol-Ipratrop 3 mg / 0.5 (3 ml) UD IH SCH ×4 (02:18→21:00)
[2018-05-12] MEDS: Cefepime 1gm in NS 100ml 1 GM/100 ML BAG IVPB SCH ×3 (05:03→21:17)
[2018-05-12 06:46] LABS: BASO # 0.01 K/mm3 (0.0-2.0); BASO % 0.1 % (0.0-3.0); HEMOGLOBIN 9.6 g/dL (12.0-16.0); LYMPH # 0.5 (1.2-3.4); LYMPH % 3.7 % (22.0-35.0); MEAN CELL VOLUME 91.9 fl (80.0-105.0); MEAN CORPUSCULAR HEMOGLOBIN 28.7 pg (25.0-35.0); MEAN CORPUSCULAR HGB CONC 31.2 g/dl (31.0-37.0); MEAN PLATELET VOLUME 10.8 fl (7.0-11.0); MONO # 0.5 (0.1-0.6); MONO % 3.4 % (1.0-6.0); RBC 3.35 10^6/uL (3.5-6.1); RED CELL DISTRIBUTION WIDTH 14.5 % (11.5-14.5); WHITE BLOOD COUNT 14.4 10^3/uL (4.5-11.0)
[2018-05-12 06:50] LABS: ARTERIAL BLOOD GAS HCO3 26.9 mmol/L (21-28); ARTERIAL BLOOD GAS HEMOGLOBIN 10.1 g/dL (11.7-17.4); ARTERIAL BLOOD GAS O2 CAPACITY 13.7 mL/dl (16-24); ARTERIAL BLOOD GAS PCO2 51 mm/Hg (35-45); ARTERIAL BLOOD GAS PH 7.33 (7.35-7.45); ARTERIAL BLOOD GAS TCO2 28.5 mmol.L (22-28)
[2018-05-12 07:20] LABS: ALB/GLOB RATIO 1.3 (1.1-1.8); ALBUMIN 3.5 g/dL (3.0-4.8); ALT/SGPT 163 U/L (7-56); AST/SGOT 77 U/L (14-36); BLOOD UREA NITROGEN 16 mg/dL (7-21); CALCIUM 8.2 mg/dL (8.4-10.5); GFR NON-AFRICAN AMERICAN > 60
[2018-05-12] MEDS: Insulin Lispro (humaLOG) MEDIUM Coverage SC SCH ×2 (08:51→11:52)
[2018-05-12] MEDS: Levothyroxine 100 mcg (0.1 mg) Inj IVP SCH (09:01)
[2018-05-12] MEDS: Lidocaine 5% Patch TD SCH (09:02)
[2018-05-12] MEDS: MethylPREDNISolone 40 mg Vial IVP SCH (09:02)
[2018-05-12] MEDS ORDERED: DOBUTamine 500mg/250ml D5W 500 MG/250 ML BAG IV PRN (09:05)
[2018-05-12] MEDS ORDERED: Vancomycin 1gm in NS 250ml 1 GM/250 ML BAG IVPB SCH (10:00)
[2018-05-12] MEDS ORDERED: Magnesium Sulfate 2 gm/50 ml 2 GM/50 ML BAG IVPB ONE (10:54)
--- NOTE | 2018-05-12 11:15 | CARD ---
APPROVED REPORT Date of service: 05/11/2018 EXAM: Two-dimensional and M-mode echocardiogram with Doppler and color Doppler. INDICATION Non STEMI RESP. FAILURE /CARDIAC ARREST 2D DIMENSIONS Left Atrium (2D)3.9 (1.6-4.0cm) M-Mode DIMENSIONS Aortic Root2.70 (2.2-3.7cm)Aortic Cusp Exc.1.50 (1.5-2.0cm) Aortic Valve AoV Peak Fdrajdef796.0cm/Gage Peak GR.6mmHg Mitral Valve E/A ratio0.0 TDI E/Lateral E'0.0E/Medial E'0.0 Tricuspid Valve TR Peak [id number] [id number] Peak Gr.7mmHg [id number] LEFT VENTRICLE There is mild concentric left ventricular hypertrophy. The systolic function is moderately impaired. Regional wall motion abnormalities noted. RIGHT VENTRICLE The right ventricle is normal size. ATRIA The left atrium size is normal. The right atrium size is normal. AORTIC VALVE The aortic valve is thickened but opens well. MITRAL VALVE The mitral valve is thickened but opens well. TRICUSPID VALVE The tricuspid valve leaflets are thickened , but open well. There is trace to mild tricuspid regurgitation. There is no pulmonary hypertension. PULMONIC VALVE The pulmonic valve is not well visualized. PERICARDIAL EFFUSION There is no pericardial effusion. <Conclusion> Segmental wall motion abn infero, myranda basal segments move well Anterior apex and inferior wall have severe hypokinesis No pulmonary hypertension
--- NOTE | 2018-05-12 12:30 | CP.CCUPN ---
<[place] - Last Filed: 05/12/18 12:26> CCU Subjective - Physician Review Subjective (Free Text): 05/12/18 12:26 Libia Phoenix, PGY-1 ICU Progress Note: Pt was seen and examined this AM by ICU team. Pt states that she is having chest soreness from the compressions, but denies, palpitations at this time. At this time she states that she is not having any headaches, fever, chills, palpitations, abd pain, n/v, c/d, or dysuria. She only admits to chest pain which is made much worse with palpation and is likely 2/2 compressions. CCU Objective - Vital Signs / Intake & Output Vital Signs (Last 4 hours): Vital Signs Pulse BP 05/12/18 09:34 114 H 114/52 L 05/12/18 09:00 105 H 131/51 L Intake and Output (Last 8hrs): Intake & Output 05/11/18 05/12/18 05/12/18 22:59 06:59 14:59 Intake Total 1220 1300 Output Total 700 225 Balance 520 1075 Intake: IV 500 500 Left Wrist 200 0 Right 300 500 Oral 720 800 Output: Urine 700 225 Urethral (Teixeira) 700 225 Other: # Bowel Movements 0 - Physical Exam Head: Positive for: Atraumatic, Normocephalic Pupils: Positive for: PERRL Extroacular Muscles: Positive for: EOMI Conjunctiva: Positive for: Normal Mouth: Positive for: Moist Mucous Membranes Respiratory/Chest: Positive for: Decreased Breath Sounds (Markedly decreased breath sounds), Tender to Palpation (where compressions were performed. E cchymosis was noted over sternum where compressions were performed. ). Negative for: Accessory Muscle Use, Tachypneic Cardiovascular: Positive for: Normal S1, S2, Tachycardic. Negative for: Murmurs Abdomen: Positive for: Normal Bowel Sounds. Negative for: Tenderness, Distention, Rebound Back: Positive for: Normal Inspection. Negative for: CVA Tenderness Upper Extremity: Positive for: Normal Inspection. Negative for: Cyanosis, Edema Lower Extremity: Positive for: Normal Inspection. Negative for: Edema Neurological: Positive for: GCS=15, CN II-XII Intact, Speech Normal, Motor Func Grossly Intact Skin: Positive for: Warm, Dry, Normal Color. Negative for: Rashes Psychiatric: Positive for: Alert, Oriented x 3, Normal Insight, Normal Concentration - Medications Active Medications: Active Medications Generic Name Dose Route Start Last Admin Trade Name Freq PRN Reason Stop Dose Admin Albuterol/Ipratropium 3 ml 05/11/18 02:35 Duoneb 3 Mg/0.5 Mg (3 Ml) Ud IH Q2H PRN Shortness of Breath Albuterol/Ipratropium 3 ml 05/11/18 08:00 05/12/18 07:13 Duoneb 3 Mg/0.5 Mg (3 Ml) Ud IH 3 ml [id number] TATE Administration Alprazolam 1 mg 05/11/18 13:32 05/12/18 09:01 Xanax PO 1 mg QID PRN Administration Anxiety Protocol Apixaban 2.5 mg 05/12/18 18:00 Eliquis PO BID TATE Protocol Aspirin 325 mg 05/11/18 10:00 05/12/18 09:01 Aspirin PO 325 mg DAILY TATE Administration Atorvastatin Calcium 20 mg 05/11/18 17:00 05/11/18 17:51 Lipitor PO 20 mg DIN TATE Administration Citalopram Hydrobromide 20 mg 05/11/18 13:45 05/12/18 09:02 Celexa PO 20 mg DAILY TATE Administration Cefepime HCl 1 gm in 100 mls @ 100 mls/hr 05/11/18 09:30 05/12/18 05:03 Maxipime 1gm IVPB 100 mls/hr Q8 TATE Administration Protocol Dobutamine HCl/Dextrose 500 mg in 250 mls @ 5.001 mls/hr 05/12/18 09:05 05/12/18 09:34 Dobutamine/Dextrose 5% 500mg/250ml IV 2.5 mcg/kg/min .Q24H PRN 5.001 mls/hr TITRATE PER PROTOCOL Administration Protocol 2.5 MCG/KG/MIN Insulin Human Lispro 0 units 05/11/18 07:30 05/12/18 11:52 Humalog Med SC Not Given ACHS TATE Protocol Levothyroxine Sodium 50 mcg 05/11/18 10:00 05/12/18 09:01 Synthroid IVP 50 mcg DAILY TATE Administration Lidocaine 1 ea 05/11/18 14:15 05/12/18 09:02 Lidoderm TD Not Given DAILY TATE Lisinopril 5 mg 05/12/18 10:00 05/12/18 09:00 Zestril PO 5 mg DAILY TATE Administration Methylprednisolone 40 mg 05/13/18 10:00 Solu-Medrol IVP DAILY TATE Pantoprazole Sodium 40 mg 05/11/18 10:00 05/12/18 09:01 Protonix Inj IVP 40 mg DAILY TATE Administration Tramadol HCl 50 mg 05/11/18 19:08 05/11/18 19:15 Ultram PO 50 mg TID PRN Administration Pain, severe (8-10) - Patient Studies Lab Studies: Microbiology Studies 05/11/18 04:53 MRSA Culture (Admit) - Final Naris MRSA NOT DETECTED 05/11/18 01:19 Urine Culture - Preliminary Urine Random Gram Negative Charles 05/11/18 02:00 Blood Culture - Preliminary Blood NO GROWTH AFTER 24 HOURS 05/11/18 01:30 Blood Culture - Preliminary Blood NO GROWTH AFTER 24 HOURS Lab Studies 05/12/18 05/12/18 05/12/18 Range/Units 11:04 07:53 06:20 WBC (4.5-11.0) 10^3/uL RBC (3.5-6.1) 10^6/uL Hgb (12.0-16.0) g/dL Hct (36.0-48.0) % MCV (80.0-105.0) fl MCH (25.0-35.0) pg MCHC (31.0-37.0) g/dl RDW (11.5-14.5) % Plt Count (120.0-450.0) 10^3/uL MPV (7.0-11.0) fl Neut % (Auto) (50.0-68.0) % Lymph % (Auto) (22.0-35.0) % [place] % (Auto) (1.0-6.0) % Eos % (Auto) (1.5-5.0) % Baso % (Auto) (0.0-3.0) % Lymph # (Auto) (1.2-3.4) [place] # (Auto) (0.1-0.6) Eos # (Auto) (0.0-0.7) Baso # (Auto) (0.0-2.0) K/mm3 Absolute Neuts (auto) (1.4-6.5) pCO2 51 H (35-45) mm/Hg pO2 60.0 L (80-100) mm/Hg HCO3 26.9 (21-28) mmol/L ABG pH 7.33 L (7.35-7.45) ABG Total CO2 28.5 H (22-28) mmol.L ABG O2 Saturation 95.0 (95-98) % ABG O2 Content 13.0 L (15-23) ML/dl ABG Base Excess 0.5 (-2.0-3.0) mmol/L ABG Hemoglobin 10.1 L (11.7-17.4) g/dL ABG Carboxyhemoglobin 2.5 H (0.5-1.5) % POC ABG HHb (Measured) 4.8 (0-5) % ABG Methemoglobin 1.4 (0.0-3.0) % ABG O2 Capacity 13.7 L (16-24) mL/dl Hgb O2 Saturation 91.3 L (95.0-98.0) % FiO2 32.0 % Sodium (132-148) mmol/L Potassium (3.6-5.0) mmol/L Chloride (98-107) mmol/L Carbon Dioxide (21-33) mmol/L Anion Gap (10-20) BUN (7-21) mg/dL Creatinine (0.7-1.2) mg/dl Est GFR ( Amer) Est GFR (Non-Af Amer) POC Glucose (mg/dL) 122 H 132 H (65-110) mg/dL Random Glucose (70-110) mg/dL Hemoglobin A1c (4.2-6.5) % Calcium (8.4-10.5) mg/dL Phosphorus (2.5-4.5) mg/dL Magnesium (1.7-2.2) mg/dL Total Bilirubin (0.2-1.3) mg/dL AST (14-36) U/L ALT (7-56) U/L Alkaline Phosphatase (38-126) U/L Troponin I ng/mL Total Protein (5.8-8.3) g/dL Albumin (3.0-4.8) g/dL Globulin gm/dL Albumin/Globulin Ratio (1.1-1.8) Procalcitonin (0.19-0.49) NG/ML 05/12/18 05/12/18 05/11/18 Range/Units 05:30 05:30 22:51 WBC 14.4 H (4.5-11.0) 10^3/uL RBC 3.35 L (3.5-6.1) 10^6/uL Hgb 9.6 L (12.0-16.0) g/dL Hct 30.8 L (36.0-48.0) % MCV 91.9 (80.0-105.0) fl MCH 28.7 (25.0-35.0) pg MCHC 31.2 (31.0-37.0) g/dl RDW 14.5 (11.5-14.5) % Plt Count 164 (120.0-450.0) 10^3/uL MPV 10.8 (7.0-11.0) fl Neut % (Auto) 92.8 H (50.0-68.0) % Lymph % (Auto) 3.7 L (22.0-35.0) % [place] % (Auto) 3.4 (1.0-6.0) % Eos % (Auto) 0.0 L (1.5-5.0) % Baso % (Auto) 0.1 (0.0-3.0) % Lymph # (Auto) 0.5 L (1.2-3.4) [place] # (Auto) 0.5 (0.1-0.6) Eos # (Auto) 0.0 (0.0-0.7) Baso # (Auto) 0.01 (0.0-2.0) K/mm3 Absolute Neuts (auto) 13.35 H (1.4-6.5) pCO2 (35-45) mm/Hg pO2 (80-100) mm/Hg HCO3 (21-28) mmol/L ABG pH (7.35-7.45) ABG Total CO2 (22-28) mmol.L ABG O2 Saturation (95-98) % ABG O2 Content (15-23) ML/dl ABG Base Excess (-2.0-3.0) mmol/L ABG Hemoglobin (11.7-17.4) g/dL ABG Carboxyhemoglobin (0.5-1.5) % POC ABG HHb (Measured) (0-5) % ABG Methemoglobin (0.0-3.0) % ABG O2 Capacity (16-24) mL/dl Hgb O2 Saturation (95.0-98.0) % FiO2 % Sodium 137 (132-148) mmol/L Potassium 3.8 (3.6-5.0) mmol/L Chloride 103 (98-107) mmol/L Carbon Dioxide 28 (21-33) mmol/L Anion Gap 10 (10-20) BUN 16 (7-21) mg/dL Creatinine 0.9 (0.7-1.2) mg/dl Est GFR ( Amer) > 60 Est GFR (Non-Af Amer) > 60 POC Glucose (mg/dL) 144 H (65-110) mg/dL Random Glucose 137 H (70-110) mg/dL Hemoglobin A1c (4.2-6.5) % Calcium 8.2 L (8.4-10.5) mg/dL Phosphorus 2.9 (2.5-4.5) mg/dL Magnesium 1.4 L (1.7-2.2) mg/dL Total Bilirubin 0.3 (0.2-1.3) mg/dL AST 77 H D (14-36) U/L ALT 163 H (7-56) U/L Alkaline Phosphatase 64 (38-126) U/L Troponin I ng/mL Total Protein 6.2 (5.8-8.3) g/dL Albumin 3.5 (3.0-4.8) g/dL Globulin 2.7 gm/dL Albumin/Globulin Ratio 1.3 (1.1-1.8) Procalcitonin (0.19-0.49) NG/ML 05/11/18 05/11/18 05/11/18 Range/Units 16:05 15:00 12:30 WBC (4.5-11.0) 10^3/uL RBC (3.5-6.1) 10^6/uL Hgb (12.0-16.0) g/dL Hct (36.0-48.0) % MCV (80.0-105.0) fl MCH (25.0-35.0) pg MCHC (31.0-37.0) g/dl RDW (11.5-14.5) % Plt Count (120.0-450.0) 10^3/uL MPV (7.0-11.0) fl Neut % (Auto) (50.0-68.0) % Lymph % (Auto) (22.0-35.0) % [place] % (Auto) (1.0-6.0) % Eos % (Auto) (1.5-5.0) % Baso % (Auto) (0.0-3.0) % Lymph # (Auto) (1.2-3.4) [place] # (Auto) (0.1-0.6) Eos # (Auto) (0.0-0.7) Baso # (Auto) (0.0-2.0) K/mm3 Absolute Neuts (auto) (1.4-6.5) pCO2 (35-45) mm/Hg pO2 (80-100) mm/Hg HCO3 (21-28) mmol/L ABG pH (7.35-7.45) ABG Total CO2 (22-28) mmol.L ABG O2 Saturation (95-98) % ABG O2 Content (15-23) ML/dl ABG Base Excess (-2.0-3.0) mmol/L ABG Hemoglobin (11.7-17.4) g/dL ABG Carboxyhemoglobin (0.5-1.5) % POC ABG HHb (Measured) (0-5) % ABG Methemoglobin (0.0-3.0) % ABG O2 Capacity (16-24) mL/dl Hgb O2 Saturation (95.0-98.0) % FiO2 % Sodium (132-148) mmol/L Potassium (3.6-5.0) mmol/L Chloride (98-107) mmol/L Carbon Dioxide (21-33) mmol/L Anion Gap (10-20) BUN (7-21) mg/dL Creatinine (0.7-1.2) mg/dl Est GFR ( Amer) Est GFR (Non-Af Amer) POC Glucose (mg/dL) 160 H (65-110) mg/dL Random Glucose (70-110) mg/dL Hemoglobin A1c 5.6 (4.2-6.5) % Calcium (8.4-10.5) mg/dL Phosphorus (2.5-4.5) mg/dL Magnesium (1.7-2.2) mg/dL Total Bilirubin (0.2-1.3) mg/dL AST (14-36) U/L ALT (7-56) U/L Alkaline Phosphatase (38-126) U/L Troponin I 3.59 H* D ng/mL Total Protein (5.8-8.3) g/dL Albumin (3.0-4.8) g/dL Globulin gm/dL Albumin/Globulin Ratio (1.1-1.8) Procalcitonin (0.19-0.49) NG/ML 05/11/18 Range/Units 00:40 WBC (4.5-11.0) 10^3/uL RBC (3.5-6.1) 10^6/uL Hgb (12.0-16.0) g/dL Hct (36.0-48.0) % MCV (80.0-105.0) fl MCH (25.0-35.0) pg MCHC (31.0-37.0) g/dl RDW (11.5-14.5) % Plt Count (120.0-450.0) 10^3/uL MPV (7.0-11.0) fl Neut % (Auto) (50.0-68.0) % Lymph % (Auto) (22.0-35.0) % [place] % (Auto) (1.0-6.0) % Eos % (Auto) (1.5-5.0) % Baso % (Auto) (0.0-3.0) % Lymph # (Auto) (1.2-3.4) [place] # (Auto) (0.1-0.6) Eos # (Auto) (0.0-0.7) Baso # (Auto) (0.0-2.0) K/mm3 Absolute Neuts (auto) (1.4-6.5) pCO2 (35-45) mm/Hg pO2 (80-100) mm/Hg HCO3 (21-28) mmol/L ABG pH (7.35-7.45) ABG Total CO2 (22-28) mmol.L ABG O2 Saturation (95-98) % ABG O2 Content (15-23) ML/dl ABG Base Excess (-2.0-3.0) mmol/L ABG Hemoglobin (11.7-17.4) g/dL ABG Carboxyhemoglobin (0.5-1.5) % POC ABG HHb (Measured) (0-5) % ABG Methemoglobin (0.0-3.0) % ABG O2 Capacity (16-24) mL/dl Hgb O2 Saturation (95.0-98.0) % FiO2 % Sodium (132-148) mmol/L Potassium (3.6-5.0) mmol/L Chloride (98-107) mmol/L Carbon Dioxide (21-33) mmol/L Anion Gap (10-20) BUN (7-21) mg/dL Creatinine (0.7-1.2) mg/dl Est GFR ( Amer) Est GFR (Non-Af Amer) POC Glucose (mg/dL) (65-110) mg/dL Random Glucose (70-110) mg/dL Hemoglobin A1c (4.2-6.5) % Calcium (8.4-10.5) mg/dL Phosphorus (2.5-4.5) mg/dL Magnesium (1.7-2.2) mg/dL Total Bilirubin (0.2-1.3) mg/dL AST (14-36) U/L ALT (7-56) U/L Alkaline Phosphatase (38-126) U/L Troponin I ng/mL Total Protein (5.8-8.3) g/dL Albumin (3.0-4.8) g/dL Globulin gm/dL Albumin/Globulin Ratio (1.1-1.8) Procalcitonin < 0.05 L (0.19-0.49) NG/ML Laboratory Results - last 24 hr 05/11/18 05/11/18 05/11/18 00:40 12:30 15:00 WBC RBC Hgb Hct MCV MCH MCHC RDW Plt Count MPV Neut % (Auto) Lymph % (Auto) [place] % (Auto) Eos % (Auto) Baso % (Auto) Lymph # (Auto) [place] # (Auto) Eos # (Auto) Baso # (Auto) Absolute Neuts (auto) pCO2 pO2 HCO3 ABG pH ABG Total CO2 ABG O2 Saturation ABG O2 Content ABG Base Excess ABG Hemoglobin ABG Carboxyhemoglobin POC ABG HHb (Measured) ABG Methemoglobin ABG O2 Capacity Hgb O2 Saturation FiO2 Sodium Potassium Chloride Carbon Dioxide Anion Gap BUN Creatinine Est GFR ( Amer) Est GFR (Non-Af Amer) POC Glucose (mg/dL) Random Glucose Hemoglobin A1c 5.6 Calcium Phosphorus Magnesium Total Bilirubin AST ALT Alkaline Phosphatase Troponin I 3.59 H* D Total Protein Albumin Globulin Albumin/Globulin Ratio Procalcitonin < 0.05 L 05/11/18 05/11/18 05/12/18 16:05 22:51 05:30 WBC 14.4 H RBC 3.35 L Hgb 9.6 L Hct 30.8 L MCV 91.9 MCH 28.7 MCHC 31.2 RDW 14.5 Plt Count 164 MPV 10.8 Neut % (Auto) 92.8 H Lymph % (Auto) 3.7 L [place] % (Auto) 3.4 Eos % (Auto) 0.0 L Baso % (Auto) 0.1 Lymph # (Auto) 0.5 L [place] # (Auto) 0.5 Eos # (Auto) 0.0 Baso # (Auto) 0.01 Absolute Neuts (auto) 13.35 H pCO2 pO2 HCO3 ABG pH ABG Total CO2 ABG O2 Saturation ABG O2 Content ABG Base Excess ABG Hemoglobin ABG Carboxyhemoglobin POC ABG HHb (Measured) ABG Methemoglobin ABG O2 Capacity Hgb O2 Saturation FiO2 Sodium Potassium Chloride Carbon Dioxide Anion Gap BUN Creatinine Est GFR ( Amer) Est GFR (Non-Af Amer) POC Glucose (mg/dL) 160 H 144 H Random Glucose Hemoglobin A1c Calcium Phosphorus Magnesium Total Bilirubin AST ALT Alkaline Phosphatase Troponin I Total Protein Albumin Globulin Albumin/Globulin Ratio Procalcitonin 05/12/18 05/12/18 05/12/18 05:30 06:20 07:53 WBC RBC Hgb Hct MCV MCH MCHC RDW Plt Count MPV Neut % (Auto) Lymph % (Auto) [place] % (Auto) Eos % (Auto) Baso % (Auto) Lymph # (Auto) [place] # (Auto) Eos # (Auto) Baso # (Auto) Absolute Neuts (auto) pCO2 51 H pO2 60.0 L HCO3 26.9 ABG pH 7.33 L ABG Total CO2 28.5 H ABG O2 Saturation 95.0 ABG O2 Content 13.0 L ABG Base Excess 0.5 ABG Hemoglobin 10.1 L ABG Carboxyhemoglobin 2.5 H POC ABG HHb (Measured) 4.8 ABG Methemoglobin 1.4 ABG O2 Capacity 13.7 L Hgb O2 Saturation 91.3 L FiO2 32.0 Sodium 137 Potassium 3.8 Chloride 103 Carbon Dioxide 28 Anion Gap 10 BUN 16 Creatinine 0.9 Est GFR ( Amer) > 60 Est GFR (Non-Af Amer) > 60 POC Glucose (mg/dL) 132 H Random Glucose 137 H Hemoglobin A1c Calcium 8.2 L Phosphorus 2.9 Magnesium 1.4 L Total Bilirubin 0.3 AST 77 H D ALT 163 H Alkaline Phosphatase 64 Troponin I Total Protein 6.2 Albumin 3.5 Globulin 2.7 Albumin/Globulin Ratio 1.3 Procalcitonin 05/12/18 11:04 WBC RBC Hgb Hct MCV MCH MCHC RDW Plt Count MPV Neut % (Auto) Lymph % (Auto) [place] % (Auto) Eos % (Auto) Baso % (Auto) Lymph # (Auto) [place] # (Auto) Eos # (Auto) Baso # (Auto) Absolute Neuts (auto) pCO2 pO2 HCO3 ABG pH ABG Total CO2 ABG O2 Saturation ABG O2 Content ABG Base Excess ABG Hemoglobin ABG Carboxyhemoglobin POC ABG HHb (Measured) ABG Methemoglobin ABG O2 Capacity Hgb O2 Saturation FiO2 Sodium Potassium Chloride Carbon Dioxide Anion Gap BUN Creatinine Est GFR ( Amer) Est GFR (Non-Af Amer) POC Glucose (mg/dL) 122 H Random Glucose Hemoglobin A1c Calcium Phosphorus Magnesium Total Bilirubin AST ALT Alkaline Phosphatase Troponin I Total Protein Albumin Globulin Albumin/Globulin Ratio Procalcitonin Radiology Impressions: Radiology Impressions Extremity Ultrasound 05/11/18 15:02 IMPRESSION: No sonographic evidence for deep venous thrombosis in the visualized segments of both lower extremities. Fingerstick Blood Sugar Results: 144 Critical Care Progress Note - Nutrition Nutrition: Nutrition Category Date Time Status Heart Healthy Diet [DIET] Diets 05/11/18 Dinner Active Assessment/Plan - Assessment and Plan (Free Text) Assessment: 73 yo F with PMH of O2 dependent COPD, PAD, Carotid disease s/p L carotid stent, L subclavian stenosis, CAD s/p CABG, a-fib on eliquis, HLD hypothyroidism, and CVA x3 presents to [facility] with respiratory distress. Patient was intubated due to acute respiratory failure and also had PEA/cardiac arrest with ROSC after a round of compressions and epinephrine. 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 Pts dobutamine will be titrated down and ACEI started. Plan: Neuro: - AOx3 Pulm: Acute Hypercarbic Respiratory Failure - Pt is sating well on 5L nc - Elevate head of bed - Aspiration and fall precautions - Versed for sedation - Duoneb - Solumedrol COPD - Duoneb - Solumedrol - IV abx Cardio: Cardiac Arrest/NSTEMI - Takusobos cardiomyopathy - EKG, sinus tachycardia at 124 bpm. Age-unspecified Septal infarct. Non- specific ST/T wave changes. - Lipid panel, HgbA1c, TSH - Eliquis 2.5 BID - Dobutamine drip 2.5mcg/min - Lipitor - ASA - Echo - L systolic function moderately impaired. Anterior apex, and inferior wall have severe hypokinesis - Cardiology recs appreciated Hx of Afib: - eliquis 2.5 BID HTN - Per cardio recs HLD: - Cont lipitor ID: Possible Sepsis: - Urine culture shows gram (-) rods - Elevated lactate likely 2/2 hypoxia/COPD - Leukocytosis, sepsis vs reactive - Blood and urine cultures - Procal ordered - CXR shows no signs of consolidation - Cefepime - NS bolus/maintenance Endo Hypothyroidism - F/u TSH - Cont home po synthroid GI/DVT PPx - Protonix - SCDs, eliquis Patient seen and discussed in detail with Dr. Roxane Phoenix, PGY-1 <Scott Betts - Last Filed: 05/12/18 14:29> CCU Objective - Vital Signs / Intake & Output Intake and Output (Last 8hrs): Intake & Output 05/11/18 05/12/18 05/12/18 22:59 06:59 14:59 Intake Total 1220 1300 Output Total 700 225 Balance 520 1075 Intake: IV 500 500 Left Wrist 200 0 Right 300 500 Oral 720 800 Output: Urine 700 225 Urethral (Teixeira) 700 225 Other: # Bowel Movements 0 - Medications Active Medications: Active Medications Generic Name Dose Route Start Last Admin Trade Name Freq PRN Reason Stop Dose Admin Albuterol/Ipratropium 3 ml 05/11/18 02:35 Duoneb 3 Mg/0.5 Mg (3 Ml) Ud IH Q2H PRN Shortness of Breath Albuterol/Ipratropium 3 ml 05/11/18 08:00 05/12/18 13:39 Duoneb 3 Mg/0.5 Mg (3 Ml) Ud IH 3 ml [id number] TATE Administration Alprazolam 1 mg 05/11/18 13:32 05/12/18 12:31 Xanax PO 1 mg QID PRN Administration Anxiety Protocol Apixaban 2.5 mg 05/12/18 18:00 Eliquis PO BID TATE Protocol Aspirin 325 mg 05/11/18 10:00 05/12/18 09:01 Aspirin PO 325 mg DAILY TATE Administration Atorvastatin Calcium 20 mg 05/11/18 17:00 05/11/18 17:51 Lipitor PO 20 mg DIN TATE Administration Citalopram Hydrobromide 20 mg 05/11/18 13:45 05/12/18 09:02 Celexa PO 20 mg DAILY TATE Administration Cefepime HCl 1 gm in 100 mls @ 100 mls/hr 05/11/18 09:30 05/12/18 05:03 Maxipime 1gm IVPB 100 mls/hr Q8 TATE Administration Protocol Dobutamine HCl/Dextrose 500 mg in 250 mls @ 5.001 mls/hr 05/12/18 09:05 05/12/18 09:34 Dobutamine/Dextrose 5% 500mg/250ml IV 2.5 mcg/kg/min .Q24H PRN 5.001 mls/hr TITRATE PER PROTOCOL Administration Protocol 2.5 MCG/KG/MIN Insulin Human Lispro 0 units 05/11/18 07:30 05/12/18 11:52 Humalog Med SC Not Given ACHS TATE Protocol Levothyroxine Sodium 50 mcg 05/11/18 10:00 05/12/18 09:01 Synthroid IVP 50 mcg DAILY TATE Administration Lidocaine 1 ea 05/11/18 14:15 05/12/18 09:02 Lidoderm TD Not Given DAILY TATE Lisinopril 5 mg 05/12/18 10:00 05/12/18 09:00 Zestril PO 5 mg DAILY TATE Administration Methylprednisolone 40 mg 05/13/18 10:00 Solu-Medrol IVP DAILY TATE Pantoprazole Sodium 40 mg 05/11/18 10:00 05/12/18 09:01 Protonix Inj IVP 40 mg DAILY TATE Administration Tramadol HCl 50 mg 05/11/18 19:08 05/12/18 12:31 Ultram PO 50 mg TID PRN Administration Pain, severe (8-10) - Patient Studies Lab Studies: Microbiology Studies 05/11/18 04:53 MRSA Culture (Admit) - Final Naris MRSA NOT DETECTED 05/11/18 01:19 Urine Culture - Preliminary Urine Random Gram Negative Charles 05/11/18 02:00 Blood Culture - Preliminary Blood NO GROWTH AFTER 24 HOURS 05/11/18 01:30 Blood Culture - Preliminary Blood NO GROWTH AFTER 24 HOURS Lab Studies 05/12/18 05/12/18 05/12/18 Range/Units 11:04 07:53 06:20 WBC (4.5-11.0) 10^3/uL RBC (3.5-6.1) 10^6/uL Hgb (12.0-16.0) g/dL Hct (36.0-48.0) % MCV (80.0-105.0) fl MCH (25.0-35.0) pg MCHC (31.0-37.0) g/dl RDW (11.5-14.5) % Plt Count (120.0-450.0) 10^3/uL MPV (7.0-11.0) fl Neut % (Auto) (50.0-68.0) % Lymph % (Auto) (22.0-35.0) % [place] % (Auto) (1.0-6.0) % Eos % (Auto) (1.5-5.0) % Baso % (Auto) (0.0-3.0) % Lymph # (Auto) (1.2-3.4) [place] # (Auto) (0.1-0.6) Eos # (Auto) (0.0-0.7) Baso # (Auto) (0.0-2.0) K/mm3 Absolute Neuts (auto) (1.4-6.5) pCO2 51 H (35-45) mm/Hg pO2 60.0 L (80-100) mm/Hg HCO3 26.9 (21-28) mmol/L ABG pH 7.33 L (7.35-7.45) ABG Total CO2 28.5 H (22-28) mmol.L ABG O2 Saturation 95.0 (95-98) % ABG O2 Content 13.0 L (15-23) ML/dl ABG Base Excess 0.5 (-2.0-3.0) mmol/L ABG Hemoglobin 10.1 L (11.7-17.4) g/dL ABG Carboxyhemoglobin 2.5 H (0.5-1.5) % POC ABG HHb (Measured) 4.8 (0-5) % ABG Methemoglobin 1.4 (0.0-3.0) % ABG O2 Capacity 13.7 L (16-24) mL/dl Hgb O2 Saturation 91.3 L (95.0-98.0) % FiO2 32.0 % Sodium (132-148) mmol/L Potassium (3.6-5.0) mmol/L Chloride (98-107) mmol/L Carbon Dioxide (21-33) mmol/L Anion Gap (10-20) BUN (7-21) mg/dL Creatinine (0.7-1.2) mg/dl Est GFR ( Amer) Est GFR (Non-Af Amer) POC Glucose (mg/dL) 122 H 132 H (65-110) mg/dL Random Glucose (70-110) mg/dL Hemoglobin A1c (4.2-6.5) % Calcium (8.4-10.5) mg/dL Phosphorus (2.5-4.5) mg/dL Magnesium (1.7-2.2) mg/dL Total Bilirubin (0.2-1.3) mg/dL AST (14-36) U/L ALT (7-56) U/L Alkaline Phosphatase (38-126) U/L Total Protein (5.8-8.3) g/dL Albumin (3.0-4.8) g/dL Globulin gm/dL Albumin/Globulin Ratio (1.1-1.8) 05/12/18 05/12/18 05/11/18 Range/Units 05:30 05:30 22:51 WBC 14.4 H (4.5-11.0) 10^3/uL RBC 3.35 L (3.5-6.1) 10^6/uL Hgb 9.6 L (12.0-16.0) g/dL Hct 30.8 L (36.0-48.0) % MCV 91.9 (80.0-105.0) fl MCH 28.7 (25.0-35.0) pg MCHC 31.2 (31.0-37.0) g/dl RDW 14.5 (11.5-14.5) % Plt Count 164 (120.0-450.0) 10^3/uL MPV 10.8 (7.0-11.0) fl Neut % (Auto) 92.8 H (50.0-68.0) % Lymph % (Auto) 3.7 L (22.0-35.0) % [place] % (Auto) 3.4 (1.0-6.0) % Eos % (Auto) 0.0 L (1.5-5.0) % Baso % (Auto) 0.1 (0.0-3.0) % Lymph # (Auto) 0.5 L (1.2-3.4) [place] # (Auto) 0.5 (0.1-0.6) Eos # (Auto) 0.0 (0.0-0.7) Baso # (Auto) 0.01 (0.0-2.0) K/mm3 Absolute Neuts (auto) 13.35 H (1.4-6.5) pCO2 (35-45) mm/Hg pO2 (80-100) mm/Hg HCO3 (21-28) mmol/L ABG pH (7.35-7.45) ABG Total CO2 (22-28) mmol.L ABG O2 Saturation (95-98) % ABG O2 Content (15-23) ML/dl ABG Base Excess (-2.0-3.0) mmol/L ABG Hemoglobin (11.7-17.4) g/dL ABG Carboxyhemoglobin (0.5-1.5) % POC ABG HHb (Measured) (0-5) % ABG Methemoglobin (0.0-3.0) % ABG O2 Capacity (16-24) mL/dl Hgb O2 Saturation (95.0-98.0) % FiO2 % Sodium 137 (132-148) mmol/L Potassium 3.8 (3.6-5.0) mmol/L Chloride 103 (98-107) mmol/L Carbon Dioxide 28 (21-33) mmol/L Anion Gap 10 (10-20) BUN 16 (7-21) mg/dL Creatinine 0.9 (0.7-1.2) mg/dl Est GFR ( Amer) > 60 Est GFR (Non-Af Amer) > 60 POC Glucose (mg/dL) 144 H (65-110) mg/dL Random Glucose 137 H (70-110) mg/dL Hemoglobin A1c (4.2-6.5) % Calcium 8.2 L (8.4-10.5) mg/dL Phosphorus 2.9 (2.5-4.5) mg/dL Magnesium 1.4 L (1.7-2.2) mg/dL Total Bilirubin 0.3 (0.2-1.3) mg/dL AST 77 H D (14-36) U/L ALT 163 H (7-56) U/L Alkaline Phosphatase 64 (38-126) U/L Total Protein 6.2 (5.8-8.3) g/dL Albumin 3.5 (3.0-4.8) g/dL Globulin 2.7 gm/dL Albumin/Globulin Ratio 1.3 (1.1-1.8) 05/11/18 05/11/18 Range/Units 16:05 15:00 WBC (4.5-11.0) 10^3/uL RBC (3.5-6.1) 10^6/uL Hgb (12.0-16.0) g/dL Hct (36.0-48.0) % MCV (80.0-105.0) fl MCH (25.0-35.0) pg MCHC (31.0-37.0) g/dl RDW (11.5-14.5) % Plt Count (120.0-450.0) 10^3/uL MPV (7.0-11.0) fl Neut % (Auto) (50.0-68.0) % Lymph % (Auto) (22.0-35.0) % [place] % (Auto) (1.0-6.0) % Eos % (Auto) (1.5-5.0) % Baso % (Auto) (0.0-3.0) % Lymph # (Auto) (1.2-3.4) [place] # (Auto) (0.1-0.6) Eos # (Auto) (0.0-0.7) Baso # (Auto) (0.0-2.0) K/mm3 Absolute Neuts (auto) (1.4-6.5) pCO2 (35-45) mm/Hg pO2 (80-100) mm/Hg HCO3 (21-28) mmol/L ABG pH (7.35-7.45) ABG Total CO2 (22-28) mmol.L ABG O2 Saturation (95-98) % ABG O2 Content (15-23) ML/dl ABG Base Excess (-2.0-3.0) mmol/L ABG Hemoglobin (11.7-17.4) g/dL ABG Carboxyhemoglobin (0.5-1.5) % POC ABG HHb (Measured) (0-5) % ABG Methemoglobin (0.0-3.0) % ABG O2 Capacity (16-24) mL/dl Hgb O2 Saturation (95.0-98.0) % FiO2 % Sodium (132-148) mmol/L Potassium (3.6-5.0) mmol/L Chloride (98-107) mmol/L Carbon Dioxide (21-33) mmol/L Anion Gap (10-20) BUN (7-21) mg/dL Creatinine (0.7-1.2) mg/dl Est GFR ( Amer) Est GFR (Non-Af Amer) POC Glucose (mg/dL) 160 H (65-110) mg/dL Random Glucose (70-110) mg/dL Hemoglobin A1c 5.6 (4.2-6.5) % Calcium (8.4-10.5) mg/dL Phosphorus (2.5-4.5) mg/dL Magnesium (1.7-2.2) mg/dL Total Bilirubin (0.2-1.3) mg/dL AST (14-36) U/L ALT (7-56) U/L Alkaline Phosphatase (38-126) U/L Total Protein (5.8-8.3) g/dL Albumin (3.0-4.8) g/dL Globulin gm/dL Albumin/Globulin Ratio (1.1-1.8) Laboratory Results - last 24 hr 05/11/18 05/11/18 05/11/18 15:00 16:05 22:51 WBC RBC Hgb Hct MCV MCH MCHC RDW Plt Count MPV Neut % (Auto) Lymph % (Auto) [place] % (Auto) Eos % (Auto) Baso % (Auto) Lymph # (Auto) [place] # (Auto) Eos # (Auto) Baso # (Auto) Absolute Neuts (auto) pCO2 pO2 HCO3 ABG pH ABG Total CO2 ABG O2 Saturation ABG O2 Content ABG Base Excess ABG Hemoglobin ABG Carboxyhemoglobin POC ABG HHb (Measured) ABG Methemoglobin ABG O2 Capacity Hgb O2 Saturation FiO2 Sodium Potassium Chloride Carbon Dioxide Anion Gap BUN Creatinine Est GFR ( Amer) Est GFR (Non-Af Amer) POC Glucose (mg/dL) 160 H 144 H Random Glucose Hemoglobin A1c 5.6 Calcium Phosphorus Magnesium Total Bilirubin AST ALT Alkaline Phosphatase Total Protein Albumin Globulin Albumin/Globulin Ratio 05/12/18 05/12/18 05/12/18 05:30 05:30 06:20 WBC 14.4 H RBC 3.35 L Hgb 9.6 L Hct 30.8 L MCV 91.9 MCH 28.7 MCHC 31.2 RDW 14.5 Plt Count 164 MPV 10.8 Neut % (Auto) 92.8 H Lymph % (Auto) 3.7 L [place] % (Auto) 3.4 Eos % (Auto) 0.0 L Baso % (Auto) 0.1 Lymph # (Auto) 0.5 L [place] # (Auto) 0.5 Eos # (Auto) 0.0 Baso # (Auto) 0.01 Absolute Neuts (auto) 13.35 H pCO2 51 H pO2 60.0 L HCO3 26.9 ABG pH 7.33 L ABG Total CO2 28.5 H ABG O2 Saturation 95.0 ABG O2 Content 13.0 L ABG Base Excess 0.5 ABG Hemoglobin 10.1 L ABG Carboxyhemoglobin 2.5 H POC ABG HHb (Measured) 4.8 ABG Methemoglobin 1.4 ABG O2 Capacity 13.7 L Hgb O2 Saturation 91.3 L FiO2 32.0 Sodium 137 Potassium 3.8 Chloride 103 Carbon Dioxide 28 Anion Gap 10 BUN 16 Creatinine 0.9 Est GFR ( Amer) > 60 Est GFR (Non-Af Amer) > 60 POC Glucose (mg/dL) Random Glucose 137 H Hemoglobin A1c Calcium 8.2 L Phosphorus 2.9 Magnesium 1.4 L Total Bilirubin 0.3 AST 77 H D ALT 163 H Alkaline Phosphatase 64 Total Protein 6.2 Albumin 3.5 Globulin 2.7 Albumin/Globulin Ratio 1.3 05/12/18 05/12/18 07:53 11:04 WBC RBC Hgb Hct MCV MCH MCHC RDW Plt Count MPV Neut % (Auto) Lymph % (Auto) [place] % (Auto) Eos % (Auto) Baso % (Auto) Lymph # (Auto) [place] # (Auto) Eos # (Auto) Baso # (Auto) Absolute Neuts (auto) pCO2 pO2 HCO3 ABG pH ABG Total CO2 ABG O2 Saturation ABG O2 Content ABG Base Excess ABG Hemoglobin ABG Carboxyhemoglobin POC ABG HHb (Measured) ABG Methemoglobin ABG O2 Capacity Hgb O2 Saturation FiO2 Sodium Potassium Chloride Carbon Dioxide Anion Gap BUN Creatinine Est GFR ( Amer) Est GFR (Non-Af Amer) POC Glucose (mg/dL) 132 H 122 H Random Glucose Hemoglobin A1c Calcium Phosphorus Magnesium Total Bilirubin AST ALT Alkaline Phosphatase Total Protein Albumin Globulin Albumin/Globulin Ratio Radiology Impressions: Radiology Impressions Extremity Ultrasound 05/11/18 15:02 IMPRESSION: No sonographic evidence for deep venous thrombosis in the visualized segments of both lower extremities. Critical Care Progress Note - Nutrition Nutrition: Nutrition Category Date Time Status Heart Healthy Diet [DIET] Diets 05/11/18 Dinner Active Assessment/Plan - Assessment and Plan (Free Text) Plan: Patient seen and examined on rounds with resident, agree with note with following additions/exceptions: Patient is 73 yo F with PMH of O2 dependent COPD, PAD, Carotid disease s/p L carotid stent, L subclavian stenosis, CAD s/p CABG, a-fib on eliquis, HLD hypothyroidism, and CVA x3 presents to [facility] with respiratory distress, cardiac arrest, PEA, s/p ROSC (unclear down time). 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 Cardiology following. Awake, alert, tolerated breakfast rule out Sepsis Cardiac Arrest COPD PAD Afib on A/C HLD Hypothyroidism hx of CVA Takotsubos CM Recommend: - supp o2 as needed, goal sat 90%, duonebs PRN, Pulmicort BID - DC abx - BP control - ASA, Plavix, Statin, BB - Ionotropic support, Dobutamine - Resume Eliquis - start MARGARITA-I - follow up cardio - GI ppx - DVT ppx - Monitor in MICU
--- NOTE | 2018-05-12 13:33 | CP.PCM.PN ---
<Shaye Vallejo - Last Filed: 05/12/18 13:29> Subjective - Date & Time of Evaluation Date of Evaluation: 05/12/18 Time of Evaluation: 13:29 - Subjective Subjective: Shaye Vallejo, PGY-1, Internal Medicine Progress Note for Dr. Jean Patient seen and examined at bedside. Patient had no acute adverse events overnight events. Today, patient complains of chest soreness with palpation but denies any other symptoms including shortness of breath, nausea, vomiting, constipation, diarrhea, dysuria, hematuria, headache, dizziness, fevers. 12- point ROS was unremarkable except for what was mentioned above. Objective - Vital Signs/Intake and Output Vital Signs (last 24 hours): Temp Pulse Resp BP Pulse Ox 98.1 F 114 H 15 114/52 L 94 L 05/12/18 00:00 05/12/18 09:34 05/12/18 04:00 05/12/18 09:34 05/12/18 04:00 Intake and Output: 05/12/18 05/12/18 06:59 18:59 Intake Total 1300 Output Total 225 Balance 1075 - Medications Medications: Current Medications Albuterol/Ipratropium (Duoneb 3 Mg/0.5 Mg (3 Ml) Ud) 3 ml IH Q2H PRN PRN Reason: Shortness of Breath Albuterol/Ipratropium (Duoneb 3 Mg/0.5 Mg (3 Ml) Ud) 3 ml IH [id number] [facility], [facility] Last Admin: 05/12/18 07:13 Dose: 3 ml Alprazolam (Xanax) 1 mg PO QID PRN; Protocol PRN Reason: Anxiety Last Admin: 05/12/18 12:31 Dose: 1 mg Apixaban (Eliquis) 2.5 mg PO BID [facility], [facility]; Protocol Aspirin (Aspirin) 325 mg PO DAILY [facility] Last Admin: 05/12/18 09:01 Dose: 325 mg Atorvastatin Calcium (Lipitor) 20 mg PO DIN [facility] Last Admin: 05/11/18 17:51 Dose: 20 mg Citalopram Hydrobromide (Celexa) 20 mg PO DAILY [facility] Last Admin: 05/12/18 09:02 Dose: 20 mg Cefepime HCl (Maxipime 1gm) 1 gm in 100 mls @ 100 mls/hr IVPB Q8 [facility], [facility]; Protocol Last Admin: 05/12/18 05:03 Dose: 100 mls/hr Dobutamine HCl/Dextrose (Dobutamine/Dextrose 5% 500mg/250ml) 500 mg in 250 mls @ 5.001 mls/hr IV .Q24H PRN; Protocol PRN Reason: TITRATE PER PROTOCOL Last Admin: 05/12/18 09:34 Dose: 2.5 mcg/kg/min, 5.001 mls/hr Insulin Human Lispro (Humalog Med) 0 units SC ACHS [facility], [facility]; Protocol Last Admin: 05/12/18 11:52 Dose: Not Given Levothyroxine Sodium (Synthroid) 50 mcg IVP DAILY [facility] Last Admin: 05/12/18 09:01 Dose: 50 mcg Lidocaine (Lidoderm) 1 ea TD DAILY [facility] Last Admin: 05/12/18 09:02 Dose: Not Given Lisinopril (Zestril) 5 mg PO DAILY [facility] Last Admin: 05/12/18 09:00 Dose: 5 mg Methylprednisolone (Solu-Medrol) 40 mg IVP DAILY [facility] Pantoprazole Sodium (Protonix Inj) 40 mg IVP DAILY [facility] Last Admin: 05/12/18 09:01 Dose: 40 mg Tramadol HCl (Ultram) 50 mg PO TID PRN PRN Reason: Pain, severe (8-10) Last Admin: 05/12/18 12:31 Dose: 50 mg - Labs Labs: 05/12/18 05:30 05/12/18 05:30 PT 13.4 SECONDS (9.4-12.5) H 05/11/18 00:40 INR 1.21 05/11/18 00:40 APTT 41.7 Seconds (26.9-38.3) H 05/11/18 09:30 - Constitutional Appears: Well, Non-toxic, No Acute Distress - Head Exam Head Exam: ATRAUMATIC, NORMAL INSPECTION, NORMOCEPHALIC - Eye Exam Eye Exam: EOMI, PERRL - ENT Exam ENT Exam: Mucous Membranes Moist - Respiratory Exam Respiratory Exam: Clear to Ausculation Bilateral, NORMAL BREATHING PATTERN - Cardiovascular Exam Cardiovascular Exam: REGULAR RHYTHM, RRR Additional comments: pain with palpation - GI/Abdominal Exam GI & Abdominal Exam: Soft, Normal Bowel Sounds. absent: Tenderness - Extremities Exam Extremities Exam: Full ROM - Back Exam Back Exam: Full ROM - Neurological Exam Neurological Exam: Alert, Awake, CN II-XII Intact - Skin Skin Exam: Dry, Intact Assessment and Plan - Assessment and Plan (Free Text) Assessment: 73 year old female with past medical history of COPD, PAD, carotid artery disease status post left carotid endarterectomy, L subclavian stenosis, CAD s/p CABG, atrial fibrillation on eliquis, hyperlipidemia, hypothyroidism, and CVAx3 presented by EMS for respiratory distress. Patient became unresponsive on route to the hospital. Patient was dyspneic at home and condition worsened as respiratory rate decreased to 5. Patient was intubated in emergency department due to unresponsiveness and bradypneia. Patient then went into PEA. ACLS was initated with ROSC achieved after one round of epinephrine with compressions. Patient subsequently had cardiac catherization Plan: Hypoxic, Hypercarbic respiratory failure 2/2 to COPD -Repeat ABG after extubation showed hypercarbia with PCO2 at 51 and hypoxia with PO2 at 60 -Continue with scheduled duonebs Q6 and Q2PRN and solumedrol 40 mg IV daily -Continue with tramadol for chest pressure which could be resulting in shallow breaths PEA arrest likely 2/2 to acidosis from hypercarbia -Patient had multiple round of compressions, was given epinephrine with subsequent ROSC yesterday -Troponins trending up yesterday with highest troponin of 3.59 -Cardiac catherization showed findings suggestive of Takotsubo's cardiomyopathy. LVEF was 20-25% and there was severe akinesis of anterior wall apex and inferior wall. -Echocardiogram: segmental wall motion abnormal. Inferio and myranda basal segments move well. Anterior apex and inferior wall have severe hypokinesis, no pulmonary hypertension -Continue with aspirin, lipitor, plavix, zestril -Continued on dobutamine but reduced to 2.5 mcg/kg/min today Sepsis likely 2/2 to UTI -Urine culture: gram negative mayito -CXR shows no consolidations -Blood culture: negative after 24 hours -MRSA: negative -Procalcitonin unremarkable -Lactate 2.8 yesterday -Patient was started on vancomycin and cefepime yesterday. However, patient is currently only on cefepime day 2. Depression and anxiety -Continue with xanax and celexa Hypertension -Holding all home anti-hypertensives since patient is currently normotensive Hypothyroidism -TSH: 0.99 -Continue with levothyroxine Mixed hyperlipidemia -Triglyceride, cholesterol, and LDL all elevated -Continue with lipitor 20 mg daily Diabetes Mellitus -HgbA1c: 5.6 -Continue with medium dose sliding scale insulin -Accucheck ACHS Paroxysmal Atrial fibrillation on eliquis -Currently not in atrial fibrillation -Continue with home eliquis 2.5 mg daily Anxiety and depression -Continue with home xanax and celexa History of multiple CVA -Continue with aspirin, plavix, lipitor, and eliquis Rule out lower extremity DVT -Duplex of lower extremity shows no evidence of DVT Hypomagnesia -Replete as necessary Elevated transaminase likely 2/2 to shock liver -Improving today as blood pressure has improved -Continue to monitor GI prophylaxis: protonix 40 mg daily DVT prophylaxis: eliquis Patient plan discussed with Dr. Jean <Trudy Jean - Last Filed: 05/14/18 14:00> Objective - Vital Signs/Intake and Output Vital Signs (last 24 hours): Temp Pulse Resp BP Pulse Ox 97.7 F 95 H 19 95/50 L 95 05/14/18 06:00 05/14/18 09:18 05/14/18 06:00 05/14/18 09:18 05/14/18 06:00 Intake and Output: 05/14/18 05/14/18 06:59 18:59 Intake Total 240 Output Total 250 Balance -10 - Medications Medications: Current Medications Albuterol/Ipratropium (Duoneb 3 Mg/0.5 Mg (3 Ml) Ud) 3 ml IH Q2H PRN PRN Reason: Shortness of Breath Albuterol/Ipratropium (Duoneb 3 Mg/0.5 Mg (3 Ml) Ud) 3 ml IH [id number] [facility] Last Admin: 05/14/18 13:05 Dose: 3 ml Alprazolam (Xanax) 1 mg PO QID PRN; Protocol PRN Reason: Anxiety Last Admin: 05/14/18 06:15 Dose: 1 mg Apixaban (Eliquis) 2.5 mg PO BID [facility]; Protocol Last Admin: 05/14/18 09:19 Dose: 2.5 mg Arformoterol Tartrate (Brovana) 15 mcg IH [id number] [facility] Last Admin: 05/14/18 07:24 Dose: 15 mcg Aspirin (Ecotrin) 81 mg PO DAILY [facility] Last Admin: 05/14/18 09:18 Dose: 81 mg Atorvastatin Calcium (Lipitor) 20 mg PO DIN [facility] Last Admin: 05/13/18 17:09 Dose: 20 mg Budesonide (Pulmicort Respules) 0.5 mg INH DAILY [facility] Last Admin: 05/14/18 07:24 Dose: 0.5 mg Carvedilol (Coreg) 3.125 mg PO BID [facility] Last Admin: 05/14/18 09:18 Dose: 3.125 mg Citalopram Hydrobromide (Celexa) 20 mg PO DAILY [facility] Last Admin: 05/14/18 09:18 Dose: 20 mg Digoxin (Digoxin) 0.125 mg PO 1400 [facility] Last Admin: 05/13/18 13:22 Dose: 0.125 mg Ceftriaxone Sodium (Rocephin 1 Gram Ivpb) 1 gm in 100 mls @ 100 mls/hr IVPB DAILY [facility], [facility]; Protocol Stop: 05/21/18 10:01 Last Admin: 05/14/18 09:17 Dose: 100 mls/hr Sodium Phosphate 30 mmole/ (Sodium Chloride) 260 mls @ 42.5 mls/hr IVPB ONCE ONE Stop: 05/14/18 14:43 Last Admin: 05/14/18 11:45 Dose: 42.5 mls/hr Levothyroxine Sodium (Synthroid) 100 mcg PO ACB [facility] Last Admin: 05/14/18 09:18 Dose: 100 mcg Lisinopril (Zestril) 5 mg PO DAILY [facility] Last Admin: 05/14/18 09:18 Dose: 5 mg Methylprednisolone (Solu-Medrol) 30 mg IVP DAILY [facility] Pantoprazole Sodium (Protonix Ec Tab) 40 mg PO 0600 [facility] Last Admin: 05/14/18 05:16 Dose: 40 mg Tramadol HCl (Ultram) 50 mg PO TID PRN PRN Reason: Pain, severe (8-10) Last Admin: 05/14/18 06:15 Dose: 50 mg - Labs Labs: 05/14/18 05:00 05/14/18 05:00 PT 13.4 SECONDS (9.4-12.5) H 05/11/18 00:40 INR 1.21 05/11/18 00:40 APTT 41.7 Seconds (26.9-38.3) H 05/11/18 09:30 Attending/Attestation - Attestation I have personally seen and examined this patient.: Yes I have fully participated in the care of the patient.: Yes I have reviewed all pertinent clinical information, including history, physical exam and plan: Yes Notes (Text): 05/14/18 13:58 Patient was seen and examined with medical record retrieval specialist. 73 year old female with past medical history of COPD, PAD, carotid artery disease status post left carotid endarterectomy, L subclavian stenosis, CAD s/p CABG, atrial fibrillation on eliquis, hyperlipidemia, hypothyroidism, and CV wasa dmitted with respiratory distress. Patient was intubated in emergency department . Patient then went into PEA. ACLS was initated with ROSC achieved after one round of epinephrine with compressions. Patient subsequently had cardiac catherization. Cardiac cath showed LV globally abnormal. EF 20-25%, there was severe akinesis of anterior wall apex and inferior wall,possible Takotsubo Cardiomyopathy. Patient was extubated yesterday, Patient COPD is better,continue Neb/steroid, . CHF with systolic dysfunction, on Lisinopril and dobutamine. Leukocytosis , procacitonin level is normal, cultures are negative at this time Management plan was discussed in detail with patient. Education was provided.
--- NOTE | 2018-05-12 13:47 | CP.PCM.CON ---
History of Present Illness - History of Present Illness History of Present Illness: 73 year old female with PMH of severe oxygen-dependent COPD, PAD, carotid disease S/P carotid stenting and endarterectomy, history of left subclavian stenosis, CAD S/P CABG, dyslipidemia, hypothyroidism [place] [facility] [place] sudden onset dyspnea, diaphoresis at home. In the ED, she was noted to be unresponsive and in respiratory distress and was intubated. She was placed in the ICU then underwent cardiac cath where she was found to have probable Takotsubo cardiomyopathy. She had leukocytosis on admission and Infectious diseases consult is requested to further evaluate and manage. The patient is currently off the ventilator, still feels weak and tired but is not short of breath at rest, no fever or chills, no nausea or vomiting, no abdominal pain, has a Teixeira catheter, denies suprapubic pain, no chest pain currently, no d iarrhea, no sore throat, no rhinorrhea or cough. Review of Systems - Review of Systems All systems: reviewed and no additional remarkable complaints except (as per HPI) Past Patient History - Past Social History Smoking Status: unknown - CARDIAC Hx Cardiac Disorders: Yes Hx Cardia Arrhythmia: Yes (a fib) Hx Hypertension: Yes Other/Comment: stent - PULMONARY Hx Respiratory Disorders: Yes Hx Chronic Obstructive Pulmonary Disease (COPD): Yes - NEUROLOGICAL Hx Neurological Disorder: Yes HX Cerebrovascular Accident: Yes (x3) - HEENT Hx HEENT Problems: Yes Hx Cataracts: Yes - RENAL Hx Chronic Kidney Disease: No - ENDOCRINE/METABOLIC Hx Endocrine Disorders: Yes Hx Hypothyroidism: Yes - HEMATOLOGICAL/ONCOLOGICAL Hx Blood Disorders: No - INTEGUMENTARY Hx Dermatological Problems: No - MUSCULOSKELETAL/RHEUMATOLOGICAL Hx Musculoskeletal Disorders: No Hx Falls: No - GASTROINTESTINAL Hx Gastrointestinal Disorders: No - GENITOURINARY/GYNECOLOGICAL Hx Genitourinary Disorders: No - PSYCHIATRIC Hx Substance Use: No (unknown) - SURGICAL HISTORY Hx Surgeries: No Meds Allergies/Adverse Reactions: Allergies Allergy/AdvReac Type Severity Reaction Status Date / Time No Known Allergies Allergy Verified 05/11/18 00:58 - Medications Medications: Current Medications Albuterol/Ipratropium (Duoneb 3 Mg/0.5 Mg (3 Ml) Ud) 3 ml IH Q2H PRN PRN Reason: Shortness of Breath Albuterol/Ipratropium (Duoneb 3 Mg/0.5 Mg (3 Ml) Ud) 3 ml IH [id number] [facility] Last Admin: 05/12/18 02:18 Dose: 3 ml Alprazolam (Xanax) 1 mg PO QID PRN; Protocol PRN Reason: Anxiety Last Admin: 05/11/18 23:51 Dose: 1 mg Apixaban (Eliquis) 2.5 mg PO BID [facility]; Protocol Aspirin (Aspirin) 325 mg PO DAILY [facility] Last Admin: 05/11/18 09:13 Dose: 325 mg Atorvastatin Calcium (Lipitor) 20 mg PO DIN [facility] Last Admin: 05/11/18 17:51 Dose: 20 mg Citalopram Hydrobromide (Celexa) 20 mg PO DAILY [facility] Last Admin: 05/11/18 14:18 Dose: 20 mg Cefepime HCl (Maxipime 1gm) 1 gm in 100 mls @ 100 mls/hr IVPB Q8 [facility]; Protocol Last Admin: 05/12/18 05:03 Dose: 100 mls/hr Dobutamine HCl/Dextrose (Dobutamine/Dextrose 5% 500mg/250ml) 500 mg in 250 mls @ 10.002 mls/hr IV .Q24H PRN; Protocol PRN Reason: TITRATE PER PROTOCOL Last Admin: 05/11/18 11:15 Dose: 5 mcg/kg/min, 10.002 mls/hr Insulin Human Lispro (Humalog Med) 0 units SC ACHS [facility]; Protocol Last Admin: 05/11/18 23:45 Dose: Not Given Levothyroxine Sodium (Synthroid) 50 mcg IVP DAILY [facility] Last Admin: 05/11/18 09:45 Dose: 50 mcg Lidocaine (Lidoderm) 1 ea TD DAILY [facility] Last Admin: 05/11/18 20:09 Dose: 1 ea Methylprednisolone (Solu-Medrol) 40 mg IVP Q12 [facility] Last Admin: 05/11/18 21:10 Dose: 40 mg Pantoprazole Sodium (Protonix Inj) 40 mg IVP DAILY [facility] Last Admin: 05/11/18 09:45 Dose: 40 mg Tramadol HCl (Ultram) 50 mg PO TID PRN PRN Reason: Pain, severe (8-10) Last Admin: 05/11/18 19:15 Dose: 50 mg Physical Exam - Constitutional Appears: Chronically Ill - Head Exam Head Exam: NORMAL INSPECTION - ENT Exam ENT Exam: Mucous Membranes Moist - Neck Exam Neck exam: Negative for: Lymphadenopathy, Meningismus - Respiratory Exam Respiratory Exam: Decreased Breath Sounds - Cardiovascular Exam Cardiovascular Exam: +S1, +S2 - GI/Abdominal Exam GI & Abdominal Exam: Soft. absent: Tenderness Results - Vital Signs Recent Vital Signs: Last Vital Signs Temp 98.1 F 05/12/18 00:00 Pulse 100 H 05/12/18 04:00 Resp 15 05/12/18 04:00 BP 131/65 05/12/18 04:00 Pulse Ox 94 L 05/12/18 04:00 - Labs Result Diagrams: 05/12/18 05:30 05/12/18 05:30 Labs: Laboratory Results - last 24 hr 05/11/18 05/11/18 05/11/18 00:40 05:30 05:30 WBC RBC Hgb Hct MCV MCH MCHC RDW Plt Count MPV Neut % (Auto) Lymph % (Auto) [place] % (Auto) Eos % (Auto) Baso % (Auto) Lymph # (Auto) [place] # (Auto) Eos # (Auto) Baso # (Auto) Absolute Neuts (auto) Neutrophils % (Manual) Band Neutrophils % Lymphocytes % (Manual) Monocytes % (Manual) Platelet Evaluation APTT pO2 VBG pH VBG pCO2 VBG HCO3 VBG Total CO2 VBG O2 Sat (Calc) VBG Base Excess VBG Potassium Sodium Chloride Glucose Lactate FiO2 Crit Value Called To Crit Value Called By Blood Gas Notified Time Potassium Carbon Dioxide Anion Gap BUN Creatinine Est GFR ( Amer) Est GFR (Non-Af Amer) POC Glucose (mg/dL) Random Glucose Hemoglobin A1c 5.6 Calcium Phosphorus Magnesium Total Bilirubin AST ALT Alkaline Phosphatase Troponin I 2.42 H* D Total Protein Albumin Globulin Albumin/Globulin Ratio Procalcitonin < 0.05 L Venous Blood Potassium 05/11/18 05/11/18 05/11/18 07:45 07:55 09:30 WBC RBC Hgb Hct MCV MCH MCHC RDW Plt Count MPV Neut % (Auto) Lymph % (Auto) [place] % (Auto) Eos % (Auto) Baso % (Auto) Lymph # (Auto) [place] # (Auto) Eos # (Auto) Baso # (Auto) Absolute Neuts (auto) Neutrophils % (Manual) Band Neutrophils % Lymphocytes % (Manual) Monocytes % (Manual) Platelet Evaluation APTT 41.7 H pO2 130 H VBG pH 7.22 L VBG pCO2 62.0 H VBG HCO3 25.4 VBG Total CO2 27.3 VBG O2 Sat (Calc) 99.8 H VBG Base Excess -3.5 L VBG Potassium 3.9 Sodium 140.0 Chloride 106.0 Glucose 172 H Lactate 3.3 H FiO2 21.0 Crit Value Called To Yahaira hdez Crit Value Called By Es Blood Gas Notified Time 807 Potassium Carbon Dioxide Anion Gap BUN Creatinine Est GFR ( Amer) Est GFR (Non-Af Amer) POC Glucose (mg/dL) 165 H Random Glucose Hemoglobin A1c Calcium Phosphorus Magnesium Total Bilirubin AST ALT Alkaline Phosphatase Troponin I Total Protein Albumin Globulin Albumin/Globulin Ratio Procalcitonin Venous Blood Potassium 3.9 05/11/18 05/11/18 05/11/18 09:30 09:30 11:30 WBC 13.0 H D RBC 3.97 Hgb 11.4 L Hct 36.4 MCV 91.7 MCH 28.7 MCHC 31.3 RDW 14.1 Plt Count 183 MPV 10.6 Neut % (Auto) 94.9 H Lymph % (Auto) 3.8 L [place] % (Auto) 1.1 Eos % (Auto) 0.1 L Baso % (Auto) 0.1 Lymph # (Auto) 0.5 L [place] # (Auto) 0.1 Eos # (Auto) 0.0 Baso # (Auto) 0.01 Absolute Neuts (auto) 12.37 H Neutrophils % (Manual) 97 H Band Neutrophils % 1 Lymphocytes % (Manual) 1 L Monocytes % (Manual) 1 Platelet Evaluation Normal APTT pO2 VBG pH VBG pCO2 VBG HCO3 VBG Total CO2 VBG O2 Sat (Calc) VBG Base Excess VBG Potassium Sodium 138 Chloride 106 Glucose Lactate FiO2 Crit Value Called To Crit Value Called By Blood Gas Notified Time Potassium 4.0 Carbon Dioxide 23 Anion Gap 13 BUN 17 Creatinine 0.9 Est GFR ( Amer) > 60 Est GFR (Non-Af Amer) > 60 POC Glucose (mg/dL) 165 H Random Glucose 164 H Hemoglobin A1c Calcium 8.2 L Phosphorus 3.0 Magnesium 1.4 L Total Bilirubin 0.5 AST 293 H D ALT 286 H Alkaline Phosphatase 75 Troponin I Total Protein 6.4 Albumin 3.4 Globulin 2.9 Albumin/Globulin Ratio 1.2 Procalcitonin Venous Blood Potassium 05/11/18 05/11/18 05/11/18 12:00 12:30 15:00 WBC RBC Hgb Hct MCV MCH MCHC RDW Plt Count MPV Neut % (Auto) Lymph % (Auto) [place] % (Auto) Eos % (Auto) Baso % (Auto) Lymph # (Auto) [place] # (Auto) Eos # (Auto) Baso # (Auto) Absolute Neuts (auto) Neutrophils % (Manual) Band Neutrophils % Lymphocytes % (Manual) Monocytes % (Manual) Platelet Evaluation APTT pO2 94 H VBG pH 7.24 L VBG pCO2 59.0 VBG HCO3 25.3 VBG Total CO2 27.1 VBG O2 Sat (Calc) 99.2 H VBG Base Excess -3.1 L VBG Potassium 3.8 Sodium 140.0 Chloride 107.0 Glucose 165 H Lactate 2.8 H FiO2 21.0 Crit Value Called To Katty varner Crit Value Called By Ab Blood Gas Notified Time 1207 Potassium Carbon Dioxide Anion Gap BUN Creatinine Est GFR ( Amer) Est GFR (Non-Af Amer) POC Glucose (mg/dL) Random Glucose Hemoglobin A1c 5.6 Calcium Phosphorus Magnesium Total Bilirubin AST ALT Alkaline Phosphatase Troponin I 3.59 H* D Total Protein Albumin Globulin Albumin/Globulin Ratio Procalcitonin Venous Blood Potassium 3.8 05/11/18 05/11/18 16:05 22:51 WBC RBC Hgb Hct MCV MCH MCHC RDW Plt Count MPV Neut % (Auto) Lymph % (Auto) [place] % (Auto) Eos % (Auto) Baso % (Auto) Lymph # (Auto) [place] # (Auto) Eos # (Auto) Baso # (Auto) Absolute Neuts (auto) Neutrophils % (Manual) Band Neutrophils % Lymphocytes % (Manual) Monocytes % (Manual) Platelet Evaluation APTT pO2 VBG pH VBG pCO2 VBG HCO3 VBG Total CO2 VBG O2 Sat (Calc) VBG Base Excess VBG Potassium Sodium Chloride Glucose Lactate FiO2 Crit Value Called To Crit Value Called By Blood Gas Notified Time Potassium Carbon Dioxide Anion Gap BUN Creatinine Est GFR ( Amer) Est GFR (Non-Af Amer) POC Glucose (mg/dL) 160 H 144 H Random Glucose Hemoglobin A1c Calcium Phosphorus Magnesium Total Bilirubin AST ALT Alkaline Phosphatase Troponin I Total Protein Albumin Globulin Albumin/Globulin Ratio Procalcitonin Venous Blood Potassium Assessment & Plan - Assessment and Plan (Free Text) Plan: Assessment Systemic Inflammatory response syndrome, due to probable Takotsubo cardiomyopathy S/P cardiac cath R/O UTI with gram negative bacilli severe oxygen-dependent COPD PAD carotid disease S/P carotid stenting and endarterectomy history of left subclavian stenosis CAD S/P CABG dyslipidemia hypothyroidism Plan on Cefepime pending identification and sensitivities of the gram negative bacilli in the urine will continue to trend WBC count will monitor clinically
--- NOTE | 2018-05-12 14:09 | PN ---
DATE: 05/12/2018 SUBJECTIVE: The patient is awake in bed, alert. PHYSICAL EXAMINATION: [place] SIGNS: Blood pressure is 131/65, heart rate is in the 90s. NECK: Negative JVD. LUNGS: Without rales. HEART: S1, S2. EXTREMITIES: Without edema. Right groin site is stable. LABORATORY DATA: Hemoglobin is 9.6, white count is 14.4. BUN and creatinine is normal. Glucose is 137. IMPRESSION: 1. Takotsubo's cardiomyopathy. 2. Diabetes mellitus. 3. Chronic obstructive pulmonary disease. 4. Non-ST elevation myocardial infarction. 5. Status post catheterization. 6. Weakness. PLAN: Given these findings, we will decrease her dobutamine today to 2.5. We will add an MARGARITA inhibitor. Her elevated white count is secondary to steroids. Toy Couch MD
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
[2018-05-13] MEDS: Pantoprazole 40 mg EC Tab PO SCH (06:18)
[2018-05-13] MEDS: Cefepime 1gm in NS 100ml 1 GM/100 ML BAG IVPB SCH (06:18)
[2018-05-13] MEDS: Albuterol-Ipratrop 3 mg / 0.5 (3 ml) UD IH SCH ×3 (07:28→19:56)
[2018-05-13] MEDS: Arformoterol 15 mcg/2 ml Inh Sol IH SCH ×2 (07:30→19:56)
[2018-05-13 07:58] LABS: BASO # 0.01 K/mm3 (0.0-2.0); BASO % 0.1 % (0.0-3.0); EOS % 0.2 % (1.5-5.0); LYMPH # 1.3 (1.2-3.4); LYMPH % 6.8 % (22.0-35.0); MEAN CELL VOLUME 93.6 fl (80.0-105.0); MEAN PLATELET VOLUME 10.8 fl (7.0-11.0); MONO # 1.2 (0.1-0.6); MONO % 6.1 % (1.0-6.0); RBC 3.45 10^6/uL (3.5-6.1); RED CELL DISTRIBUTION WIDTH 14.8 % (11.5-14.5); WHITE BLOOD COUNT 19.6 10^3/uL (4.5-11.0)
[2018-05-13 08:15] LABS: ALB/GLOB RATIO 1.3 (1.1-1.8); ALBUMIN 3.6 g/dL (3.0-4.8); ALT/SGPT 109 U/L (7-56); AST/SGOT 37 U/L (14-36); BLOOD UREA NITROGEN 17 mg/dL (7-21); CALCIUM 8.9 mg/dL (8.4-10.5); GFR NON-AFRICAN AMERICAN > 60
[2018-05-13] MEDS: Levothyroxine 100 MCG TAB PO SCH (08:38)
[2018-05-13] MEDS: Lidocaine 5% Patch TD SCH (09:44)
[2018-05-13] MEDS: MethylPREDNISolone 40 mg Vial IVP SCH (09:44)
--- NOTE | 2018-05-13 10:18 | CP.PCM.PN ---
<Narcisa Smith - Last Filed: 05/13/18 10:07> Subjective - Date & Time of Evaluation Date of Evaluation: 05/13/18 Time of Evaluation: 10:07 - Subjective Subjective: PGY1 Medicine Progress Note for Dr. Jean Patient seen and examined at bedside. Patient had no acute adverse events overnight. Today, Patient continues to complains of chest soreness with palpation but denies any other symptoms including shortness of breath, nausea, vomiting, constipation, diarrhea, dysuria, hematuria, headache, dizziness, fevers. 12-point ROS was unremarkable except for what was mentioned above. Objective - Vital Signs/Intake and Output Vital Signs (last 24 hours): Temp Pulse Resp BP Pulse Ox 97.7 F 106 H 20 124/71 93 L 05/13/18 07:25 05/13/18 09:43 05/13/18 07:25 05/13/18 09:43 05/13/18 02:00 Intake and Output: 05/13/18 05/13/18 06:59 18:59 Intake Total 120 Output Total 200 Balance -80 - Medications Medications: Current Medications Albuterol/Ipratropium (Duoneb 3 Mg/0.5 Mg (3 Ml) Ud) 3 ml IH Q2H PRN PRN Reason: Shortness of Breath Albuterol/Ipratropium (Duoneb 3 Mg/0.5 Mg (3 Ml) Ud) 3 ml IH [id number] [facility] Last Admin: 05/13/18 07:28 Dose: Not Given Alprazolam (Xanax) 1 mg PO QID PRN; Protocol PRN Reason: Anxiety Last Admin: 05/13/18 08:38 Dose: 1 mg Apixaban (Eliquis) 2.5 mg PO BID [facility]; Protocol Last Admin: 05/13/18 09:43 Dose: 2.5 mg Arformoterol Tartrate (Brovana) 15 mcg IH [id number] [facility] Aspirin (Aspirin) 325 mg PO DAILY [facility] Last Admin: 05/13/18 09:43 Dose: 325 mg Atorvastatin Calcium (Lipitor) 20 mg PO DIN [facility] Last Admin: 05/12/18 17:32 Dose: 20 mg Budesonide (Pulmicort Respules) 0.5 mg INH DAILY [facility] Citalopram Hydrobromide (Celexa) 20 mg PO DAILY [facility] Last Admin: 02/23/19 09:43 Dose: 20 mg Cefepime HCl (Maxipime 1gm) 1 gm in 100 mls @ 100 mls/hr IVPB Q8 [facility]; Protocol Last Admin: 05/13/18 06:18 Dose: 100 mls/hr Levothyroxine Sodium (Synthroid) 100 mcg PO ACB [facility] Last Admin: 05/13/18 08:38 Dose: 100 mcg Lidocaine (Lidoderm) 1 ea TD DAILY [facility] Last Admin: 05/13/18 09:44 Dose: Not Given Lisinopril (Zestril) 5 mg PO DAILY [facility] Last Admin: 05/13/18 09:43 Dose: 5 mg Methylprednisolone (Solu-Medrol) 40 mg IVP DAILY [facility] Last Admin: 05/13/18 09:44 Dose: 40 mg Pantoprazole Sodium (Protonix Ec Tab) 40 mg PO 0600 [facility] Last Admin: 05/13/18 06:18 Dose: 40 mg Tramadol HCl (Ultram) 50 mg PO TID PRN PRN Reason: Pain, severe (8-10) Last Admin: 05/13/18 00:28 Dose: 50 mg - Labs Labs: 05/13/18 06:55 05/13/18 06:55 PT 13.4 SECONDS (9.4-12.5) H 05/11/18 00:40 INR 1.21 05/11/18 00:40 APTT 41.7 Seconds (26.9-38.3) H 05/11/18 09:30 - Additional Findings Additional findings: - Constitutional Appears: Well, Non-toxic, No Acute Distress - Head Exam Head Exam: ATRAUMATIC, NORMAL INSPECTION, NORMOCEPHALIC - Eye Exam Eye Exam: EOMI, PERRL - ENT Exam ENT Exam: Mucous Membranes Moist - Respiratory Exam Respiratory Exam: Clear to Ausculation Bilateral, NORMAL BREATHING PATTERN - Cardiovascular Exam Cardiovascular Exam: REGULAR RHYTHM, RRR Additional comments: pain with palpation - GI/Abdominal Exam GI & Abdominal Exam: Soft, Normal Bowel Sounds. absent: Tenderness - Extremities Exam Extremities Exam: Full ROM - Back Exam Back Exam: Full ROM - Neurological Exam Neurological Exam: Alert, Awake, CN II-XII Intact - Skin Skin Exam: Dry, Intact Assessment and Plan - Assessment and Plan (Free Text) Assessment: 73 year old female with past medical history of COPD, PAD, carotid artery disease status post left carotid endarterectomy, L subclavian stenosis, CAD s/p CABG, atrial fibrillation on eliquis, hyperlipidemia, hypothyroidism, and CVAx3 presented by EMS for respiratory distress. Patient became unresponsive on route to the hospital. Patient was dyspneic at home and condition worsened as resp iratory rate decreased to 5. Patient was intubated in emergency department due to unresponsiveness and bradypneia. Patient then went into PEA. ACLS was initated with ROSC achieved after one round of epinephrine with compressions. Patient subsequently had cardiac catherization. Patient currently out of ICU and being monitored on medical floor. Plan: Hypoxic, Hypercarbic respiratory failure 2/2 to COPD - Repeat ABG after extubation showed hypercarbia with PCO2 at 51 and hypoxia with PO2 at 60 - Continue with scheduled duonebs Q6 and Q2PRN and solumedrol 40 mg IV daily - Continue with tramadol for chest pressure which could be resulting in shallow breaths Cardiomyopathy possibly Takotsubo's - ECHO 05/12/18: segmental wall motion abnormality. Anterior apex and inferior wall have severe hypokinesis. - Emergency Cardiac Cath with Dr. Couch 05/11/18: LV globally abnormal. EF 20-25% - Repeat imaging as out/patient to follow-up and see if there is resolution with time PEA arrest likely 2/2 to acidosis from hypercarbia - Patient had multiple round of compressions, was given epinephrine with sub sequent ROSC yesterday - Troponins trending up yesterday with highest troponin of 3.59 - Cardiac catherization showed findings suggestive of Takotsubo's cardiomyopathy. LVEF was 20-25% and there was severe akinesis of anterior wall apex and inferior wall. - Echocardiogram: segmental wall motion abnormal. Inferio and myranda basal segments move well. Anterior apex and inferior wall have severe hypokinesis, no pulmonary hypertension - Continue with aspirin, lipitor, plavix, zestril - Continued on dobutamine but reduced to 2.5 mcg/kg/min today Sepsis likely 2/2 to UTI - Urine culture: gram negative mayito - Lactate was elevated at 2.8 - CXR shows no consolidations - Blood culture: negative - MRSA: negative - Procalcitonin unremarkable - Cefepime day 3 Depression and anxiety - Continue with xanax and celexa Hypertension - Holding all home anti-hypertensives since patient is currently normotensive Hypothyroidism - TSH: 0.99 - Continue with levothyroxine Mixed hyperlipidemia - Triglyceride, cholesterol, and LDL all elevated - Continue with lipitor 20 mg daily Diabetes Mellitus - HgbA1c: 5.6 - Continue with medium dose sliding scale insulin - Accucheck ACHS Paroxysmal Atrial fibrillation on eliquis - Currently not in atrial fibrillation - Continue with home eliquis 2.5 mg daily Anxiety and depression - Continue with home xanax and celexa History of multiple CVA - Continue with aspirin, plavix, lipitor, and eliquis Rule out lower extremity DVT - Duplex of lower extremity shows no evidence of DVT Hypomagnesia - Replete as necessary Elevated transaminase likely 2/2 to shock liver - Improving today as blood pressure has improved - Continue to monitor GI prophylaxis: protonix 40 mg daily DVT prophylaxis: eliquis Patient seen and case discussed in detail with Dr. Ted Smith <Trudy Jean - Last Filed: 05/14/18 13:58> Objective - Vital Signs/Intake and Output Vital Signs (last 24 hours): Temp Pulse Resp BP Pulse Ox 97.7 F 95 H 19 95/50 L 95 05/14/18 06:00 05/14/18 09:18 05/14/18 06:00 05/14/18 09:18 05/14/18 06:00 Intake and Output: 05/14/18 05/14/18 06:59 18:59 Intake Total 240 Output Total 250 Balance -10 - Medications Medications: Current Medications Albuterol/Ipratropium (Duoneb 3 Mg/0.5 Mg (3 Ml) Ud) 3 ml IH Q2H PRN PRN Reason: Shortness of Breath Albuterol/Ipratropium (Duoneb 3 Mg/0.5 Mg (3 Ml) Ud) 3 ml IH [id number] [facility] Last Admin: 05/14/18 13:05 Dose: 3 ml Alprazolam (Xanax) 1 mg PO QID PRN; Protocol PRN Reason: Anxiety Last Admin: 05/14/18 06:15 Dose: 1 mg Apixaban (Eliquis) 2.5 mg PO BID [facility]; Protocol Last Admin: 05/14/18 09:19 Dose: 2.5 mg Arformoterol Tartrate (Brovana) 15 mcg IH [id number] [facility] Last Admin: 05/14/18 07:24 Dose: 15 mcg Aspirin (Ecotrin) 81 mg PO DAILY [facility] Last Admin: 05/14/18 09:18 Dose: 81 mg Atorvastatin Calcium (Lipitor) 20 mg PO DIN [facility] Last Admin: 05/13/18 17:09 Dose: 20 mg Budesonide (Pulmicort Respules) 0.5 mg INH DAILY [facility] Last Admin: 05/14/18 07:24 Dose: 0.5 mg Carvedilol (Coreg) 3.125 mg PO BID [facility] Last Admin: 05/14/18 09:18 Dose: 3.125 mg Citalopram Hydrobromide (Celexa) 20 mg PO DAILY [facility] Last Admin: 05/14/18 09:18 Dose: 20 mg Digoxin (Digoxin) 0.125 mg PO 1400 [facility] Last Admin: 05/13/18 13:22 Dose: 0.125 mg Ceftriaxone Sodium (Rocephin 1 Gram Ivpb) 1 gm in 100 mls @ 100 mls/hr IVPB DAILY [facility]; Protocol Stop: 05/21/18 10:01 Last Admin: 05/14/18 09:17 Dose: 100 mls/hr Sodium Phosphate 30 mmole/ (Sodium Chloride) 260 mls @ 42.5 mls/hr IVPB ONCE ONE Stop: 05/14/18 14:43 Last Admin: 05/14/18 11:45 Dose: 42.5 mls/hr Levothyroxine Sodium (Synthroid) 100 mcg PO ACB [facility] Last Admin: 05/14/18 09:18 Dose: 100 mcg Lisinopril (Zestril) 5 mg PO DAILY [facility] Last Admin: 05/14/18 09:18 Dose: 5 mg Methylprednisolone (Solu-Medrol) 30 mg IVP DAILY [facility] Pantoprazole Sodium (Protonix Ec Tab) 40 mg PO 0600 [facility] Last Admin: 05/14/18 05:16 Dose: 40 mg Tramadol HCl (Ultram) 50 mg PO TID PRN PRN Reason: Pain, severe (8-10) Last Admin: 05/14/18 06:15 Dose: 50 mg - Labs Labs: 05/14/18 05:00 05/14/18 05:00 PT 13.4 SECONDS (9.4-12.5) H 05/11/18 00:40 INR 1.21 05/11/18 00:40 APTT 41.7 Seconds (26.9-38.3) H 05/11/18 09:30 Attending/Attestation - Attestation I have personally seen and examined this patient.: Yes I have fully participated in the care of the patient.: Yes I have reviewed all pertinent clinical information, including history, physical exam and plan: Yes Notes (Text): 05/14/18 13:55 Patient was seen and examined with claim review medical director. 73 year old female with past medical history of COPD, PAD, carotid artery disease status post left carotid endarterectomy, L subclavian stenosis, CAD s/p CABG, atrial fibrillation on eliquis, hyperlipidemia, hypothyroidism, and CV wasa dmitted with respiratory distress. Patient was intubated in emergency department . Patient then went into PEA. ACLS was initated with ROSC achieved after one round of epinephrine with compressions. Patient subsequently had cardiac catherization. Cardiac cath showed LV globally abnormal. EF 20-25%, there was severe akinesis of anterior wall apex and inferior wall,possible Takotsubo Cardiomyopathy. Patient was extubated , she is off dobutamine and is transferred to Telemetry. Patient COPD is better,continue Neb/steroid, patient is at base line hypoxia . CHF with systolic dysfunction.clinically euvolemic, on Lisinopril and coreg, we will monitor E.coli UTI on ceftriaxone as per ID. Management plan was discussed in detail with patient. Education was provided.
[2018-05-13] MEDS ORDERED: Potassium Chloride 20 mEq ER Tab PO ONE (11:07)
[2018-05-13] MEDS: Digoxin 125 mcg (0.125 mg) Tab PO SCH (13:22)
[2018-05-13] MEDS: Budesonide 0.5 mg/2 ml Inhal Susp UD INH SCH (13:48)
--- NOTE | 2018-05-13 15:54 | PN ---
DATE: 05/13/2018 LOCATION: The patient is seen in 267, bed 2. SUBJECTIVE: She last night, she is complaining of weakness, no fever and she was transferred out from the unit; however, she states she still has significant weakness. PHYSICAL EXAMINATION: VITAL SIGNS: Temperature of 97, blood pressure is 160/50, respiratory rate of 20 and heart rate of 102. HEENT: Unremarkable. NECK: Supple. LUNGS: Decreased breath sounds. HEART: Normal S1, S2. ABDOMEN: Soft. LABORATORY DATA: White count of 19,000, hemoglobin of 10, platelets of 186. BUN of 17, creatinine of 0.8. ALT is 109. Urinalysis is noted. Microbiology reveals a urine culture is E. coli with sensitivity E. coli is noted, resistant to ampicillin, resistant to Cipro and Bactrim. Review of orders reveals the patient to be on cefepime and Solu-Medrol. ASSESSMENT AND PLAN: This is a 73-year-old female, who was seen earlier today in room 267 bed 2. The patient was in the unit and then transferred to second [place] of telemetry floor with the history of severe oxygen dependent chronic obstructive lung disease, carotid disease, had a carotid stenting and endarterectomy and found to have probable Takotsubo cardiomyopathy, generally disease of younger women. Here, the patient is 73 years old and with Escherichia coli urinary tract infection, severe oxygen dependent chronic obstructive pulmonary disease, peripheral arterial disease, carotid disease, coronary artery disease, history of cardiac bypass graft, dyslipidemia, hypothyroidism, on cefepime. The Escherichia coli is sensitive to ceftriaxone and we will discontinue cefepime and use ceftriaxone. The patient does have from 05/11/2018 and will follow with you. Danny Ennis MD
--- NOTE | 2018-05-13 15:57 | PN ---
DATE: 05/13/2018 COVERING PHYSICIAN: Toy Couch MD REASON FOR CONSULTATION: Takotsubo's cardiomyopathy, non-ST segment myocardial infarction, status post cardiac catheterization followup. SUBJECTIVE: The patient denies any chest pain, shortness of breath, or any palpitation. OBJECTIVE: GENERAL: Not in apparent distress. VITAL SIGNS: Temperature afebrile, heart rate 102, blood pressure 124/71. HEENT: Eyes; PERRLA. Extraocular muscles intact. NECK: Supple. No carotid bruit. No JVD or thyromegaly. CHEST: Clear to auscultation. HEART: S1, S2 regular. ABDOMEN: Soft. EXTREMITIES: Clubbing and cyanosis negative. LABORATORY DATA: Blood work, WBC 19.6, hemoglobin 10, hematocrit 32.3, platelet count 186. Chemistry shows, sodium 137, potassium 3.8, chloride 101, carbon dioxide 33, anion gap of 7, BUN 17, creatinine 0.7. IMPRESSION: A 73-year-old female with past medical history significant for chronic obstructive pulmonary disease, peripheral artery disease, carotid artery disease, status post stenting and carotid artery endarterectomy, history of left subclavian artery stenosis, multiple scars in front of the chest for a subclavian stenosis and bypass, history of coronary artery bypass underwent with non-ST myocardial infarction after being found with unresponsive respiratory distress, intubated, underwent cardiac catheterization, found to be Takotsubo's cardiomyopathy, history of cardiac catheterization. Cardiac catheterization revealed right carotid artery with diffuse disease without any critical disease, left main unremarkable. Circumflex artery revealed diffuse atherosclerosis 50% stenosis, left anterior descending and diagonal diffuse disease without any critical disease. Ejection fraction 20% to 25%. Diagnosis of Takotsubo's coronary artery disease. No history of previous coronary artery bypass graft. No history of stenosis of the subclavian and multiple scar. It was noted in the adjacent note coronary artery bypass surgery, but the patient has no significant history of coronary artery bypass surgery. No history of subclavian stenosis and has a scar in the left side at the front of the chest for possibly subclavian artery stenosis and bypass in the subclavian, but no coronary artery bypass, who was admitted initially here with a non-ST myocardial infarction, unresponsive, intubated, cardiac catheterization as above. Now, the patient is in the floor. RECOMMENDATION: Wean off the Dobutrex, aggressive medical treatment, continue baby aspirin, change to baby aspirin 81 mg daily. The patient is already on Eliquis and we will put low dose of Coreg and MARGARITA inhibitor as blood pressure is tolerated. We will follow with you and transfer care Tuesday to Dr. Toy Couch. We will start baby aspirin from tomorrow. We will discontinue 325 mg. We will put low dose of Coreg as blood pressure is tolerated as well as low of digoxin. We will supplement potassium. Trudy Foster MD
[2018-05-14] MEDS: Albuterol-Ipratrop 3 mg / 0.5 (3 ml) UD IH SCH ×4 (01:17→19:46)
[2018-05-14] MEDS: Pantoprazole 40 mg EC Tab PO SCH (05:16)
[2018-05-14 06:46] LABS: ALB/GLOB RATIO 1.2 (1.1-1.8); ALBUMIN 3.1 g/dL (3.0-4.8); ALT/SGPT 75 U/L (7-56); AST/SGOT 20 U/L (14-36); BLOOD UREA NITROGEN 18 mg/dL (7-21); CALCIUM 8.8 mg/dL (8.4-10.5); GFR NON-AFRICAN AMERICAN > 60
[2018-05-14] MEDS: Arformoterol 15 mcg/2 ml Inh Sol IH SCH ×2 (07:24→19:46)
[2018-05-14] MEDS: Budesonide 0.5 mg/2 ml Inhal Susp UD INH SCH (07:24)
[2018-05-14 07:56] LABS: BASO # 0.01 K/mm3 (0.0-2.0); BASO % 0.1 % (0.0-3.0); EOS # 0.1 (0.0-0.7); EOS % 1.2 % (1.5-5.0); HEMOGLOBIN 9.1 g/dL (12.0-16.0); LYMPH # 1.2 (1.2-3.4); LYMPH % 10.3 % (22.0-35.0); MEAN CORPUSCULAR HEMOGLOBIN 28.6 pg (25.0-35.0); MEAN CORPUSCULAR HGB CONC 30.1 g/dl (31.0-37.0); MEAN PLATELET VOLUME 10.8 fl (7.0-11.0); MONO # 0.8 (0.1-0.6); MONO % 6.6 % (1.0-6.0); RBC 3.18 10^6/uL (3.5-6.1); RED CELL DISTRIBUTION WIDTH 14.8 % (11.5-14.5); WHITE BLOOD COUNT 11.5 10^3/uL (4.5-11.0)
[2018-05-14] MEDS ORDERED: Sodium Phosphate 30 MMOLE in Sodium Chloride 0.9% 250 ML IVPB ONE (08:36)
[2018-05-14] MEDS: MethylPREDNISolone 40 mg Vial IVP SCH (09:17)
[2018-05-14] MEDS: cefTRIAXone 1 gm 1 GM/100 ML BAG IVPB SCH (09:17)
[2018-05-14] MEDS: Levothyroxine 100 MCG TAB PO SCH (09:18)
[2018-05-14] MEDS ORDERED: MethylPREDNISolone 40 mg Vial IVP SCH (10:05)
[2018-05-14] MEDS ORDERED: Potassium & Sodium Phosphate PO ONE (10:10)
--- NOTE | 2018-05-14 13:27 | PN ---
DATE: 05/14/2018 REASON FOR DICTATION: Covering Dr. Toy Couch. REASON FOR CONSULTATION: Takotsubo's cardiomyopathy, non-ST segment myocardial infarction, status post cardiac catheterization followup. SUBJECTIVE: The patient denies any chest pain, shortness of breath, or any palpitation. Complaining of some chest pain at the rib, history of arthritis. OBJECTIVE: GENERAL: Not in apparent distress. VITAL SIGNS: Temperature afebrile, heart rate 95, blood pressure 95/50. HEENT: PERRLA. Extraocular muscles intact. NECK: Supple. No carotid bruit. No JVD or thyromegaly. CHEST: Clear to auscultation. HEART: S1 and S2, regular. ABDOMEN: Soft. EXTREMITIES: Clubbing and cyanosis, negative. LABORATORY DATA: Blood workup as follows; WBC 11.5, hemoglobin 9.5, hematocrit 30.2, platelet count 146. Chemistry shows sodium 137, potassium 4.5, chloride 100, carbon dioxide 33, anion gap of 7, BUN 18, and creatinine 0.8. IMPRESSION: A 73-year-old female with past medical history significant for chronic obstructive pulmonary disease, peripheral artery disease, carotid artery disease, status post stenting and carotid artery endarterectomy, history of left subclavian stenosis, status post bypass graft for subclavian artery, admitted with non-ST myocardial infarction, found to be Takotsubo's cardiomyopathy, status post cardiac catheterization. RECOMMENDATIONS: Off Dobutrex, low dose Coreg, low dose MARGARITA inhibitors. We will add digoxin. Reassess LV function in 36 months if remain low consider AICD. Most likely the patient will improve the LV function. We will transfer care tomorrow to Dr. Toy Couch. Repeat the blood workup in the morning in the morning. Interim continue medicines as mentioned above including Coreg, MARGARITA inhibitors and digoxin. Thank you Dr. Jean, for providing us the opportunity in taking care of the patient, Shayla Kasper. Trudy Foster MD
--- NOTE | 2018-05-14 13:58 | CP.PCM.PN ---
<Narcisa Smith - Last Filed: 05/14/18 13:56> Subjective - Date & Time of Evaluation Date of Evaluation: 05/14/18 Time of Evaluation: 13:56 - Subjective Subjective: PGY1 Medicine Progress Note for Dr. Jean Patient seen and examined at bedside. Patient had no acute adverse events overnight. Today, Patient continues to complains of chest soreness with palpation but denies any other symptoms including shortness of breath, nausea, vomiting, constipation, diarrhea, dysuria, hematuria, headache, dizziness, fevers. 12-point ROS was unremarkable except for what was mentioned above. Objective - Vital Signs/Intake and Output Vital Signs (last 24 hours): Temp Pulse Resp BP Pulse Ox 97.7 F 95 H 19 95/50 L 95 05/14/18 06:00 05/14/18 09:18 05/14/18 06:00 05/14/18 09:18 05/14/18 06:00 Intake and Output: 05/14/18 05/14/18 06:59 18:59 Intake Total 240 Output Total 250 Balance -10 - Medications Medications: Current Medications Albuterol/Ipratropium (Duoneb 3 Mg/0.5 Mg (3 Ml) Ud) 3 ml IH Q2H PRN PRN Reason: Shortness of Breath Albuterol/Ipratropium (Duoneb 3 Mg/0.5 Mg (3 Ml) Ud) 3 ml IH [id number] [facility] Last Admin: 05/14/18 13:05 Dose: 3 ml Alprazolam (Xanax) 1 mg PO QID PRN; Protocol PRN Reason: Anxiety Last Admin: 05/14/18 06:15 Dose: 1 mg Apixaban (Eliquis) 2.5 mg PO BID [facility]; Protocol Last Admin: 05/14/18 09:19 Dose: 2.5 mg Arformoterol Tartrate (Brovana) 15 mcg IH [id number] [facility] Last Admin: 05/14/18 07:24 Dose: 15 mcg Aspirin (Ecotrin) 81 mg PO DAILY [facility] Last Admin: 05/14/18 09:18 Dose: 81 mg Atorvastatin Calcium (Lipitor) 20 mg PO DIN [facility] Last Admin: 05/13/18 17:09 Dose: 20 mg Budesonide (Pulmicort Respules) 0.5 mg INH DAILY [facility] Last Admin: 05/14/18 07:24 Dose: 0.5 mg Carvedilol (Coreg) 3.125 mg PO BID [facility] Last Admin: 05/14/18 09:18 Dose: 3.125 mg Citalopram Hydrobromide (Celexa) 20 mg PO DAILY [facility] Last Admin: 05/14/18 09:18 Dose: 20 mg Digoxin (Digoxin) 0.125 mg PO 1400 [facility] Last Admin: 05/13/18 13:22 Dose: 0.125 mg Ceftriaxone Sodium (Rocephin 1 Gram Ivpb) 1 gm in 100 mls @ 100 mls/hr IVPB DAILY [facility]; Protocol Stop: 05/21/18 10:01 Last Admin: 05/14/18 09:17 Dose: 100 mls/hr Sodium Phosphate 30 mmole/ (Sodium Chloride) 260 mls @ 42.5 mls/hr IVPB ONCE ONE Stop: 05/14/18 14:43 Last Admin: 05/14/18 11:45 Dose: 42.5 mls/hr Levothyroxine Sodium (Synthroid) 100 mcg PO ACB [facility] Last Admin: 05/14/18 09:18 Dose: 100 mcg Lisinopril (Zestril) 5 mg PO DAILY [facility] Last Admin: 05/14/18 09:18 Dose: 5 mg Methylprednisolone (Solu-Medrol) 30 mg IVP DAILY [facility] Pantoprazole Sodium (Protonix Ec Tab) 40 mg PO 0600 [facility] Last Admin: 05/14/18 05:16 Dose: 40 mg Tramadol HCl (Ultram) 50 mg PO TID PRN PRN Reason: Pain, severe (8-10) Last Admin: 05/14/18 06:15 Dose: 50 mg - Labs Labs: 05/14/18 05:00 05/14/18 05:00 PT 13.4 SECONDS (9.4-12.5) H 05/11/18 00:40 INR 1.21 05/11/18 00:40 APTT 41.7 Seconds (26.9-38.3) H 05/11/18 09:30 - Additional Findings Additional findings: - Constitutional Appears: Well, Non-toxic, No Acute Distress - Head Exam Head Exam: ATRAUMATIC, NORMAL INSPECTION, NORMOCEPHALIC - Eye Exam Eye Exam: EOMI, PERRL - ENT Exam ENT Exam: Mucous Membranes Moist - Respiratory Exam Respiratory Exam: Clear to Ausculation Bilateral, NORMAL BREATHING PATTERN - Cardiovascular Exam Cardiovascular Exam: REGULAR RHYTHM, RRR Additional comments: pain with palpation - GI/Abdominal Exam GI & Abdominal Exam: Soft, Normal Bowel Sounds. absent: Tenderness - Extremities Exam Extremities Exam: Full ROM - Back Exam Back Exam: Full ROM - Neurological Exam Neurological Exam: Alert, Awake, CN II-XII Intact - Skin Skin Exam: Dry, Intact Assessment and Plan - Assessment and Plan (Free Text) Assessment: 73 year old female with past medical history of COPD, PAD, carotid artery disease status post left carotid endarterectomy, L subclavian stenosis, CAD s/p CABG, atrial fibrillation on eliquis, hyperlipidemia, hypothyroidism, and CVAx3 presented by EMS for respiratory distress. Patient became unresponsive on route to the hospital. Patient was dyspneic at home and condition worsened as respiratory rate decreased to 5. Patient was intubated in emergency department due to unresponsiveness and bradypneia. Patient then went into PEA. ACLS was initated with ROSC achieved after one round of epinephrine with compressions. Patient subsequently had cardiac catherization. Patient currently out of ICU and being monitored on medical floor. Plan: Hypoxic, Hypercarbic respiratory failure 2/2 to COPD - Repeat ABG after extubation showed hypercarbia with PCO2 at 51 and hypoxia with PO2 at 60 - Continue with scheduled duonebs Q6 and Q2PRN - Change solumedrol 40 mg IV daily --> 30mg IV daily - Continue with tramadol for chest pressure which could be resulting in shallow breaths - PT consulted for evaluation and treatment Cardiomyopathy possibly Takotsubo's - ECHO 05/12/18: segmental wall motion abnormality. Anterior apex and inferior wall have severe hypokinesis. - Emergency Cardiac Cath with Dr. Couch 05/11/18: LV globally abnormal. EF 20-25% - Repeat imaging as out/patient to follow-up and see if there is resolution with time PEA arrest likely 2/2 to acidosis from hypercarbia - Patient had multiple round of compressions, was given epinephrine with subsequent ROSC yesterday - Troponins trending up yesterday with highest troponin of 3.59 - Cardiac catherization showed findings suggestive of Takotsubo's cardiomyopathy. LVEF was 20-25% and there was severe akinesis of anterior wall apex and inferior wall. - Echocardiogram: segmental wall motion abnormal. Inferio and myranda basal segments move well. Anterior apex and inferior wall have severe hypokinesis, no pulmonary hypertension - Continue with aspirin, lipitor, plavix, zestril - Discontinued: dobutamine Sepsis likely 2/2 to UTI - Urine culture: gram negative mayito - Lactate was elevated at 2.8 - CXR shows no consolidations - Blood culture: negative - MRSA: negative - Procalcitonin unremarkable - Cefepime day 3 Depression and anxiety - Continue with xanax and celexa Hypertension - Holding all home anti-hypertensives since patient is currently normotensive Hypothyroidism - TSH: 0.99 - Continue with levothyroxine Mixed hyperlipidemia - Triglyceride, cholesterol, and LDL all elevated - Continue with lipitor 20 mg daily Diabetes Mellitus - HgbA1c: 5.6 - Continue with medium dose sliding scale insulin - Accucheck ACHS Paroxysmal Atrial fibrillation on eliquis - Currently not in atrial fibrillation - Continue with home eliquis 2.5 mg daily Anxiety and depression - Continue with home xanax and celexa History of multiple CVA - Continue with aspirin, plavix, lipitor, and eliquis Rule out lower extremity DVT - Duplex of lower extremity shows no evidence of DVT Hypomagnesia - Replete as necessary Hypophosphatemia - Replete as necessary Elevated transaminase likely 2/2 to shock liver - Improving today as blood pressure has improved - Continue to monitor GI prophylaxis: protonix 40 mg daily DVT prophylaxis: eliquis Patient seen and case discussed in detail with Dr. Ted Smith <Trudy Jean - Last Filed: 05/14/18 14:05> Objective - Vital Signs/Intake and Output Vital Signs (last 24 hours): Temp Pulse Resp BP Pulse Ox 97.7 F 95 H 19 95/50 L 95 05/14/18 06:00 05/14/18 09:18 05/14/18 06:00 05/14/18 09:18 05/14/18 06:00 Intake and Output: 05/14/18 05/14/18 06:59 18:59 Intake Total 240 Output Total 250 Balance -10 - Medications Medications: Current Medications Albuterol/Ipratropium (Duoneb 3 Mg/0.5 Mg (3 Ml) Ud) 3 ml IH Q2H PRN PRN Reason: Shortness of Breath Albuterol/Ipratropium (Duoneb 3 Mg/0.5 Mg (3 Ml) Ud) 3 ml IH [id number] [facility] Last Admin: 05/14/18 13:05 Dose: 3 ml Alprazolam (Xanax) 1 mg PO QID PRN; Protocol PRN Reason: Anxiety Last Admin: 05/14/18 06:15 Dose: 1 mg Apixaban (Eliquis) 2.5 mg PO BID [facility]; Protocol Last Admin: 05/14/18 09:19 Dose: 2.5 mg Arformoterol Tartrate (Brovana) 15 mcg IH [id number] [facility] Last Admin: 05/14/18 07:24 Dose: 15 mcg Aspirin (Ecotrin) 81 mg PO DAILY [facility] Last Admin: 05/14/18 09:18 Dose: 81 mg Atorvastatin Calcium (Lipitor) 20 mg PO DIN [facility] Last Admin: 05/13/18 17:09 Dose: 20 mg Budesonide (Pulmicort Respules) 0.5 mg INH DAILY [facility] Last Admin: 05/14/18 07:24 Dose: 0.5 mg Carvedilol (Coreg) 3.125 mg PO BID [facility] Last Admin: 05/14/18 09:18 Dose: 3.125 mg Citalopram Hydrobromide (Celexa) 20 mg PO DAILY [facility] Last Admin: 05/14/18 09:18 Dose: 20 mg Digoxin (Digoxin) 0.125 mg PO 1400 [facility] Last Admin: 05/13/18 13:22 Dose: 0.125 mg Ceftriaxone Sodium (Rocephin 1 Gram Ivpb) 1 gm in 100 mls @ 100 mls/hr IVPB DAILY [facility]; Protocol Stop: 05/21/18 10:01 Last Admin: 05/14/18 09:17 Dose: 100 mls/hr Sodium Phosphate 30 mmole/ (Sodium Chloride) 260 mls @ 42.5 mls/hr IVPB ONCE ONE Stop: 05/14/18 14:43 Last Admin: 05/14/18 11:45 Dose: 42.5 mls/hr Levothyroxine Sodium (Synthroid) 100 mcg PO ACB [facility] Last Admin: 05/14/18 09:18 Dose: 100 mcg Lisinopril (Zestril) 5 mg PO DAILY [facility] Last Admin: 05/14/18 09:18 Dose: 5 mg Methylprednisolone (Solu-Medrol) 30 mg IVP DAILY [facility] Pantoprazole Sodium (Protonix Ec Tab) 40 mg PO 0600 [facility] Last Admin: 05/14/18 05:16 Dose: 40 mg Tramadol HCl (Ultram) 50 mg PO TID PRN PRN Reason: Pain, severe (8-10) Last Admin: 05/14/18 06:15 Dose: 50 mg - Labs Labs: 05/14/18 05:00 05/14/18 05:00 PT 13.4 SECONDS (9.4-12.5) H 05/11/18 00:40 INR 1.21 05/11/18 00:40 APTT 41.7 Seconds (26.9-38.3) H 05/11/18 09:30 Attending/Attestation - Attestation I have personally seen and examined this patient.: Yes I have fully participated in the care of the patient.: Yes I have reviewed all pertinent clinical information, including history, physical exam and plan: Yes Notes (Text): 05/14/18 14:02 Patient was seen and examined with medical practitioners. 73 year old female with past medical history of COPD, PAD, carotid artery disease status post left carotid endarterectomy, L subclavian stenosis, CAD s/p CABG, atrial fibrillation on eliquis, hyperlipidemia, hypothyroidism, and CV wasa dmitted with respiratory distress. Patient was intubated in emergency department . Patient then went into PEA. ACLS was initated with ROSC achieved after one round of epinephrine with compressions. Patient subsequently had cardiac catherization. Cardiac cath showed LV globally abnormal. EF 20-25%, there was severe akinesis of anterior wall apex and inferior wall,possible Takotsubo Cardiomyopathy. Patient was extubated , and was transferred to Telemetry. Patient COPD is better,still mildly dyspnic and wheezing, but wheezing is better, we will continue Neb/ we will decrease dose of methylprednisolon to 30 mg IVPB daily. CHF with systolic dysfunction.clinically euvolemic, on Lisinopril and coreg,Cardiology follow up is appreciated. AF, Rate is controlled, on anticoagulation with Apixiban. E.coli UTI on ceftriaxone as per ID. Deconditiong. Physical therapy evaluation is pending. Management plan was discussed in detail with patient. Education was provided.
[2018-05-14] MEDS: Digoxin 125 mcg (0.125 mg) Tab PO SCH (14:20)
--- NOTE | 2018-05-14 15:37 | PN ---
DATE: 05/14/2018 SUBJECTIVE: The patient is in bed, in no acute distress. PHYSICAL EXAMINATION: VITAL SIGNS: Temperature is 97, blood pressure is 101/50, respiratory rate 19, heart rate of 95. HEENT: Unremarkable. NECK: Supple. LUNGS: Have decreased breath sounds. HEART: Normal S1, S2. ABDOMEN: Soft, nontender. LABORATORY DATA: White count 11,500, hemoglobin of 9, platelets of 146 and BUN of 18, creatinine of 0.8. E. coli in the urine culture, sensitivity is noted. Review of orders reveals the patient is on ceftriaxone. 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 to complete therapy. We will follow with you. Dr. Foster's note is reviewed. Danny Ennis MD
[2018-05-15] MEDS: Albuterol-Ipratrop 3 mg / 0.5 (3 ml) UD IH SCH ×5 (01:22→19:43)
[2018-05-15] MEDS: Pantoprazole 40 mg EC Tab PO SCH (05:51)
[2018-05-15 07:13] LABS: EOS # 0.1 (0.0-0.7); EOS % 0.8 % (1.5-5.0); HEMOGLOBIN 9.2 g/dL (12.0-16.0); LYMPH # 0.9 (1.2-3.4); LYMPH % 8.7 % (22.0-35.0); MEAN CELL VOLUME 94.7 fl (80.0-105.0); MEAN CORPUSCULAR HEMOGLOBIN 28.8 pg (25.0-35.0); MEAN CORPUSCULAR HGB CONC 30.5 g/dl (31.0-37.0); MEAN PLATELET VOLUME 10.6 fl (7.0-11.0); MONO # 0.8 (0.1-0.6); MONO % 7.6 % (1.0-6.0); RBC 3.19 10^6/uL (3.5-6.1); RED CELL DISTRIBUTION WIDTH 14.4 % (11.5-14.5); WHITE BLOOD COUNT 10.2 10^3/uL (4.5-11.0)
[2018-05-15] MEDS: Arformoterol 15 mcg/2 ml Inh Sol IH SCH ×2 (07:41→19:40)
[2018-05-15] MEDS: Budesonide 0.5 mg/2 ml Inhal Susp UD INH SCH (07:50)
[2018-05-15 08:21] LABS: ALB/GLOB RATIO 1.2 (1.1-1.8); ALBUMIN 3.2 g/dL (3.0-4.8); ALT/SGPT 55 U/L (7-56); AST/SGOT 20 U/L (14-36); BLOOD UREA NITROGEN 22 mg/dL (7-21); CALCIUM 9.2 mg/dL (8.4-10.5); GFR NON-AFRICAN AMERICAN > 60
[2018-05-15] MEDS: cefTRIAXone 1 gm 1 GM/100 ML BAG IVPB SCH (10:17)
[2018-05-15] MEDS: Levothyroxine 100 MCG TAB PO SCH (10:17)
--- NOTE | 2018-05-15 13:15 | PN ---
DATE: 05/15/2018 SUBJECTIVE: The patient is without shortness of breath. OBJECTIVE: VITAL SIGNS: Blood pressure 115/48, heart rate in the 60s. NECK: Negative JVD. LUNGS: Without rales. HEART: S1, S2. EXTREMITIES: Without edema. LABORATORY: BUN and creatinine unremarkable. Glucose is 121, hemoglobin is 9.2. IMPRESSION: 1. Status post non-ST elevation myocardial infarction. 2. No critical coronary artery disease. 3. Left ventricular appearance is consistent with Takotsubo cardiomyopathy. 4. Chronic obstructive pulmonary disease. 5. Peripheral vascular disease. Given these findings, the patient is doing well. She should be switched to p.o. antibiotics. The patient can be discharged in the morning. Physical therapy has been ordered. We will call the [employer] to see whether the patient can qualify for [facility] which will help protect her from ventricular arrhythmias until her LV can be reassessed. Toy Couch MD
[2018-05-15] MEDS: Digoxin 125 mcg (0.125 mg) Tab PO SCH (14:28)
--- NOTE | 2018-05-15 15:24 | CP.PCM.PN ---
Subjective - Date & Time of Evaluation Date of Evaluation: 05/15/18 Time of Evaluation: 10:35 - Subjective Subjective: Comfortable, afebrile. Objective - Vital Signs/Intake and Output Vital Signs (last 24 hours): Temp Pulse Resp BP Pulse Ox 98.1 F 64 19 97/51 L 95 05/14/18 12:00 05/14/18 18:00 05/14/18 12:00 05/14/18 17:24 05/14/18 06:00 Intake and Output: 05/14/18 05/15/18 18:59 06:59 Intake Total 350 Balance 350 - Medications Medications: Current Medications Albuterol/Ipratropium (Duoneb 3 Mg/0.5 Mg (3 Ml) Ud) 3 ml IH Q2H PRN PRN Reason: Shortness of Breath Albuterol/Ipratropium (Duoneb 3 Mg/0.5 Mg (3 Ml) Ud) 3 ml IH [id number] [facility] Last Admin: 05/14/18 19:46 Dose: 3 ml Alprazolam (Xanax) 1 mg PO QID PRN; Protocol PRN Reason: Anxiety Last Admin: 05/14/18 14:39 Dose: 1 mg Apixaban (Eliquis) 2.5 mg PO BID [facility]; Protocol Last Admin: 05/14/18 17:25 Dose: 2.5 mg Arformoterol Tartrate (Brovana) 15 mcg IH [id number] [facility] Last Admin: 05/14/18 19:46 Dose: 15 mcg Aspirin (Ecotrin) 81 mg PO DAILY [facility] Last Admin: 05/14/18 09:18 Dose: 81 mg Atorvastatin Calcium (Lipitor) 20 mg PO DIN [facility] Last Admin: 05/14/18 17:24 Dose: 20 mg Budesonide (Pulmicort Respules) 0.5 mg INH DAILY [facility] Last Admin: 05/14/18 07:24 Dose: 0.5 mg Carvedilol (Coreg) 3.125 mg PO BID [facility] Last Admin: 05/14/18 17:24 Dose: 3.125 mg Citalopram Hydrobromide (Celexa) 20 mg PO DAILY [facility] Last Admin: 05/14/18 09:18 Dose: 20 mg Digoxin (Digoxin) 0.125 mg PO 1400 [facility] Last Admin: 02/24/19 14:20 Dose: 0.125 mg Ceftriaxone Sodium (Rocephin 1 Gram Ivpb) 1 gm in 100 mls @ 100 mls/hr IVPB DAILY [facility]; Protocol Stop: 05/21/18 10:01 Last Admin: 05/14/18 09:17 Dose: 100 mls/hr Levothyroxine Sodium (Synthroid) 100 mcg PO ACB [facility] Last Admin: 05/14/18 09:18 Dose: 100 mcg Lisinopril (Zestril) 5 mg PO DAILY [facility] Last Admin: 05/14/18 09:18 Dose: 5 mg Methylprednisolone (Solu-Medrol) 30 mg IVP DAILY [facility] Pantoprazole Sodium (Protonix Ec Tab) 40 mg PO 0600 [facility] Last Admin: 05/14/18 05:16 Dose: 40 mg Tramadol HCl (Ultram) 50 mg PO TID PRN PRN Reason: Pain, severe (8-10) Last Admin: 05/14/18 14:38 Dose: 50 mg - Labs Labs: 05/14/18 05:00 05/14/18 05:00 PT 13.4 SECONDS (9.4-12.5) H 05/11/18 00:40 INR 1.21 05/11/18 00:40 APTT 41.7 Seconds (26.9-38.3) H 05/11/18 09:30 - Constitutional Appears: Chronically Ill - Head Exam Head Exam: NORMAL INSPECTION - Respiratory Exam Respiratory Exam: Decreased Breath Sounds - Cardiovascular Exam Cardiovascular Exam: +S1, +S2 - GI/Abdominal Exam GI & Abdominal Exam: Soft. absent: Tenderness Assessment and Plan - Assessment and Plan (Free Text) Plan: Assessment Systemic Inflammatory response syndrome, due to probable Takotsubo cardiomyopathy S/P cardiac cath consider UTI with E. coli severe oxygen-dependent COPD PAD carotid disease S/P carotid stenting and endarterectomy history of left subclavian stenosis CAD S/P CABG dyslipidemia hypothyroidism Plan on Rocephin and can switch to PO Vantin to complete therapy discussed with medical team
--- NOTE | 2018-05-15 17:56 | CP.PCM.PN ---
<Shaye Vallejo - Last Filed: 05/15/18 17:52> Subjective - Date & Time of Evaluation Date of Evaluation: 05/15/18 Time of Evaluation: 17:52 - Subjective Subjective: Shaye Vallejo, PGY-1, Internal Medicine Progress Note for Dr. Rangel Patient seen and evaluated at bedside. Patient had no acute overnight events. Patient reports shortness of breath and reproducible chest pain. Patient denied any other symptoms including nausea, vomiting, constipation, diarrhea, fever, dysuria, hematuria. 12-point ROS was unremarkable except for what was mentioned above. Objective - Vital Signs/Intake and Output Vital Signs (last 24 hours): Temp Pulse Resp BP Pulse Ox 98.5 F 76 18 99/46 L 96 05/15/18 12:00 05/15/18 17:32 05/15/18 12:00 05/15/18 17:32 05/15/18 06:00 Intake and Output: 05/15/18 05/15/18 06:59 18:59 Intake Total 360 Output Total 560 Balance -200 - Medications Medications: Current Medications Albuterol/Ipratropium (Duoneb 3 Mg/0.5 Mg (3 Ml) Ud) 3 ml IH Q2H PRN PRN Reason: Shortness of Breath Albuterol/Ipratropium (Duoneb 3 Mg/0.5 Mg (3 Ml) Ud) 3 ml IH [id number] [facility] Last Admin: 05/15/18 13:29 Dose: 3 ml Alprazolam (Xanax) 1 mg PO QID PRN; Protocol PRN Reason: Anxiety Last Admin: 05/15/18 14:29 Dose: 1 mg Apixaban (Eliquis) 2.5 mg PO BID [facility]; Protocol Last Admin: 05/15/18 17:31 Dose: 2.5 mg Arformoterol Tartrate (Brovana) 15 mcg IH [id number] [facility] Last Admin: 05/15/18 07:41 Dose: 15 mcg Aspirin (Ecotrin) 81 mg PO DAILY [facility] Last Admin: 05/15/18 10:16 Dose: 81 mg Atorvastatin Calcium (Lipitor) 20 mg PO DIN [facility] Last Admin: 05/15/18 17:31 Dose: 20 mg Budesonide (Pulmicort Respules) 0.5 mg INH DAILY [facility] Last Admin: 05/15/18 07:50 Dose: 0.5 mg Carvedilol (Coreg) 3.125 mg PO BID [facility] Last Admin: 05/15/18 17:32 Dose: 3.125 mg Citalopram Hydrobromide (Celexa) 20 mg PO DAILY [facility] Last Admin: 05/15/18 10:16 Dose: 20 mg Digoxin (Digoxin) 0.125 mg PO 1400 [facility] Last Admin: 05/15/18 14:28 Dose: 0.125 mg Ceftriaxone Sodium (Rocephin 1 Gram Ivpb) 1 gm in 100 mls @ 100 mls/hr IVPB DAILY [facility]; Protocol Stop: 05/21/18 10:01 Last Admin: 05/15/18 10:17 Dose: 100 mls/hr Levothyroxine Sodium (Synthroid) 100 mcg PO ACB [facility] Last Admin: 05/15/18 10:17 Dose: 100 mcg Lisinopril (Zestril) 5 mg PO DAILY [facility] Last Admin: 05/15/18 10:18 Dose: 5 mg Pantoprazole Sodium (Protonix Ec Tab) 40 mg PO 0600 [facility] Last Admin: 05/15/18 05:51 Dose: 40 mg Prednisone (Prednisone Tab) 40 mg PO DAILY [facility] Tramadol HCl (Ultram) 50 mg PO TID PRN PRN Reason: Pain, severe (8-10) Last Admin: 05/15/18 14:29 Dose: 50 mg - Labs Labs: 05/15/18 06:00 05/15/18 06:00 PT 13.4 SECONDS (9.4-12.5) H 05/11/18 00:40 INR 1.21 05/11/18 00:40 APTT 41.7 Seconds (26.9-38.3) H 05/11/18 09:30 - Constitutional Appears: Well, Non-toxic, No Acute Distress - Head Exam Head Exam: ATRAUMATIC, NORMAL INSPECTION, NORMOCEPHALIC - Eye Exam Eye Exam: EOMI, PERRL - ENT Exam ENT Exam: Mucous Membranes Moist - Neck Exam Neck Exam: Full ROM - Respiratory Exam Respiratory Exam: Clear to Ausculation Bilateral Additional comments: asymmetric breathing pattern - Cardiovascular Exam Cardiovascular Exam: REGULAR RHYTHM, RRR Additional comments: chest wall tenderness to palpation - GI/Abdominal Exam GI & Abdominal Exam: Soft, Normal Bowel Sounds. absent: Tenderness - Extremities Exam Extremities Exam: Full ROM - Neurological Exam Neurological Exam: Alert, Awake, CN II-XII Intact, Oriented x3 Assessment and Plan - Assessment and Plan (Free Text) Assessment: 73 year old female with past medical history of COPD, PAD, carotid artery disease status post left carotid endarterectomy, L subclavian stenosis, CAD s/p CABG, atrial fibrillation on eliquis, hyperlipidemia, hypothyroidism, and CVAx3 presented by EMS for respiratory distress. Patient became unresponsive on route to the hospital. Patient was dyspneic at home and condition worsened as respiratory rate decreased to 5. Patient was intubated in emergency department due to unresponsiveness and bradypneia. Patient then went into PEA. ACLS was initated with ROSC achieved after one round of epinephrine with compressions. Patient was diagnosed with PEA arrest likely 2/2 to CO2 retention causing acidosis due to COPD Plan: Hypoxic, Hypercarbic respiratory failure 2/2 to COPD -Increased HCO3 likely 2/2 to compensation for chronic CO2 retention from COPD -Continue with scheduled duonebs Q6 and Q2PRN, pulmicort, brovana, and started prednisone 40 mg daily. Continue with O2 NC 3L -Continue with tramadol for chest pressure which could be resulting in shallow breaths PEA arrest likely 2/2 to acidosis from hypercarbia -Patient had multiple round of compressions, was given epinephrine with subsequent ROSC -Troponins trending up yesterday with highest troponin of 3.59 -Cardiac catherization 05/11 showed findings suggestive of Takotsubo's cardiomyopathy. LVEF was 20-25% and there was severe akinesis of anterior wall apex and inferior wall. -Echocardiogram 05/11: segmental wall motion abnormal. Infero and myranda basal segments move well. Anterior apex and inferior wall have severe hypokinesis, no pulmonary hypertension -Continue with aspirin, lipitor, coreg, plavix, zestril -Dobutamine stopped as hypotension has resolved -Patient will be fitted for life vest due to decreased EF Sepsis likely 2/2 to UTI -Urine culture: E. Coli. Patient is resistant to ampicillin, ciprofloaxin, and TMP-SMX -CXR shows no consolidations -MRSA: negative -Procalcitonin unremarkable -Started vantin today. Patient is day 5 of antibiotics out of 7. Hypertension -Continue with coreg, zestril Hypothyroidism -TSH: 0.99 -Continue with levothyroxine Mixed hyperlipidemia -Triglyceride, cholesterol, and LDL all elevated -Continue with lipitor 20 mg daily Diabetes Mellitus -HgbA1c: 5.6 -Continue with medium dose sliding scale insulin -Accucheck ACHS Paroxysmal Atrial fibrillation on eliquis -Currently not in atrial fibrillation -Continue with coreg and digoxin. -Continue with home eliquis 2.5 mg BID Anxiety and depression -Continue with home xanax and celexa History of multiple CVA -Continue with aspirin, plavix, lipitor, and eliquis Deconditioned -Physical therapy recommends LIVE with PT 5-6 times a week for 4 weeks GI prophylaxis: protonix 40 mg daily DVT prophylaxis: eliquis Patient plan discussed with attending. <Jorge Rangel - Last Filed: 05/16/18 15:11> Objective - Vital Signs/Intake and Output Vital Signs (last 24 hours): Temp Pulse Resp BP Pulse Ox 98 F 68 18 119/58 L 98 05/16/18 12:00 05/16/18 12:00 05/16/18 12:00 05/16/18 12:09 05/16/18 06:00 Intake and Output: 05/16/18 05/16/18 06:59 18:59 Intake Total 480 Output Total 500 Balance -20 - Medications Medications: Current Medications Albuterol/Ipratropium (Duoneb 3 Mg/0.5 Mg (3 Ml) Ud) 3 ml IH Q2H PRN PRN Reason: Shortness of Breath Albuterol/Ipratropium (Duoneb 3 Mg/0.5 Mg (3 Ml) Ud) 3 ml IH [id number] [facility] Last Admin: 05/16/18 14:04 Dose: Not Given Alprazolam (Xanax) 1 mg PO QID PRN; Protocol PRN Reason: Anxiety Last Admin: 05/16/18 11:45 Dose: 1 mg Apixaban (Eliquis) 2.5 mg PO BID [facility]; Protocol Last Admin: 05/16/18 09:14 Dose: 2.5 mg Arformoterol Tartrate (Brovana) 15 mcg IH [id number] [facility] Last Admin: 05/16/18 07:47 Dose: Not Given Aspirin (Ecotrin) 81 mg PO DAILY [facility] Last Admin: 05/16/18 09:14 Dose: 81 mg Atorvastatin Calcium (Lipitor) 20 mg PO DIN [facility] Last Admin: 05/15/18 17:31 Dose: 20 mg Budesonide (Pulmicort Respules) 0.5 mg INH DAILY [facility] Last Admin: 05/16/18 10:00 Dose: Not Given Carvedilol (Coreg) 3.125 mg PO BID [facility] Last Admin: 05/16/18 09:13 Dose: 3.125 mg Cefpodoxime Proxetil (Vantin) 100 mg PO Q12 [facility]; Protocol Last Admin: 05/16/18 09:25 Dose: 100 mg Citalopram Hydrobromide (Celexa) 20 mg PO DAILY [facility] Last Admin: 05/16/18 09:13 Dose: 20 mg Digoxin (Digoxin) 0.125 mg PO 1400 [facility] Last Admin: 05/16/18 14:06 Dose: 0.125 mg Furosemide (Lasix) 40 mg IVP DAILY [facility] Levothyroxine Sodium (Synthroid) 100 mcg PO 0600 [facility] Last Admin: 05/16/18 05:47 Dose: 100 mcg Lisinopril (Zestril) 5 mg PO DAILY [facility] Last Admin: 05/16/18 09:15 Dose: 5 mg Magnesium Oxide (Mag-Ox) 400 mg PO DAILY [facility] Last Admin: 05/16/18 10:27 Dose: 400 mg Pantoprazole Sodium (Protonix Ec Tab) 40 mg PO 0600 [facility] Last Admin: 05/16/18 05:47 Dose: 40 mg Polyethylene Glycol (Miralax) 17 gm PO BID PRN PRN Reason: Constipation Prednisone (Prednisone Tab) 30 mg PO DAILY [facility] Tramadol HCl (Ultram) 50 mg PO TID PRN PRN Reason: Pain, severe (8-10) Last Admin: 05/16/18 11:44 Dose: 50 mg - Labs Labs: 05/16/18 06:45 05/16/18 06:45 PT 13.4 SECONDS (9.4-12.5) H 05/11/18 00:40 INR 1.21 05/11/18 00:40 APTT 41.7 Seconds (26.9-38.3) H 05/11/18 09:30 Attending/Attestation - Attestation I have personally seen and examined this patient.: Yes I have fully participated in the care of the patient.: Yes I have reviewed all pertinent clinical information, including history, physical exam and plan: Yes Notes (Text): 73 y.o F with PMH of COPD, carotid artery diseas s/p left CEA, left subclavian stenosis, Talita lees was admitted with hypercapneic respiratory failure requiring invasive mechanical ventilation. Pt went into PEA, ACLS was initiated with ROSC achieved after one round. Pt subsequently underwent cardiac cath which showed global LV dysfunction. EF 20-25% with severe akinesis of anterior wall apex and and inferior wall , possible Takotsubo cardiomyopathy. Pt initially required dobutamine but was eventually DC'd and pt extubated. Pt was transferred to the floor. Cardio on board. Recommend fitting for lifevest prior to DC. She has also been evaluated by PT and they recommend LIVE. SW on board. c/w domenico as per ID recs for UTI c/w coreg, dig and eliquis for Talita lees Pt will need repeat echo in 1 month
[2018-05-15] MEDS: Cefpodoxime (Vantin) 100 mg Tab PO SCH (21:31)
[2018-05-16] MEDS: Albuterol-Ipratrop 3 mg / 0.5 (3 ml) UD IH SCH ×4 (02:29→20:00)
[2018-05-16] MEDS: Levothyroxine 100 MCG TAB PO SCH (05:47)
[2018-05-16] MEDS: Pantoprazole 40 mg EC Tab PO SCH (05:47)
[2018-05-16 07:10] LABS: BASO # 0.03 K/mm3 (0.0-2.0); BASO % 0.3 % (0.0-3.0); EOS # 0.7 (0.0-0.7); EOS % 5.9 % (1.5-5.0); LYMPH # 1.7 (1.2-3.4); LYMPH % 15.7 % (22.0-35.0); MEAN CELL VOLUME 95.4 fl (80.0-105.0); MEAN CORPUSCULAR HEMOGLOBIN 28.7 pg (25.0-35.0); MEAN CORPUSCULAR HGB CONC 30.1 g/dl (31.0-37.0); MEAN PLATELET VOLUME 10.8 fl (7.0-11.0); MONO # 0.9 (0.1-0.6); MONO % 7.7 % (1.0-6.0); RBC 3.48 10^6/uL (3.5-6.1); RED CELL DISTRIBUTION WIDTH 14.9 % (11.5-14.5); WHITE BLOOD COUNT 11.1 10^3/uL (4.5-11.0)
[2018-05-16 07:37] LABS: ALB/GLOB RATIO 1.2 (1.1-1.8); ALBUMIN 3.2 g/dL (3.0-4.8); ALT/SGPT 41 U/L (7-56); AST/SGOT 15 U/L (14-36); BLOOD UREA NITROGEN 20 mg/dL (7-21); CALCIUM 8.9 mg/dL (8.4-10.5); GFR NON-AFRICAN AMERICAN > 60
[2018-05-16] MEDS: Arformoterol 15 mcg/2 ml Inh Sol IH SCH ×2 (07:47→20:00)
[2018-05-16] MEDS ORDERED: Magnesium Sulfate 1 gm in D5W 1 GM/100 ML BAG IVPB ONE (08:28)
[2018-05-16] MEDS: Cefpodoxime (Vantin) 100 mg Tab PO SCH ×2 (09:25→21:08)
[2018-05-16] MEDS ORDERED: POLYETHYLENE GLYCOL 3350 17 GM/Dose PACKET PO PRN (09:46)
[2018-05-16] MEDS: Budesonide 0.5 mg/2 ml Inhal Susp UD INH SCH (10:00)
[2018-05-16] MEDS: Magnesium Oxide 400 mg Tab UD PO SCH (10:27)
--- NOTE | 2018-05-16 12:26 | PN ---
DATE: 05/16/2018 SUBJECTIVE: The patient is very anxious, but without shortness of breath. PHYSICAL EXAMINATION: VITAL SIGNS: Blood pressure 121/54, heart rates in the 70s. NECK: Negative JVD. LUNGS: Expiratory wheezing noted. HEART: Reveals S1, S2. EXTREMITIES: Without edema. LABORATORY DATA: Chemistries, BUN and creatinine is 20 and 0.7, hemoglobin is 10. IMPRESSION: 1. Takotsubo's cardiomyopathy. 2. Nonobstructive coronary artery disease. 3. Chronic obstructive pulmonary disease. 4. Peripheral vascular disease. PLAN: Given these findings, I have arranged for the patient to have a LifeVest which has been approved. The patient will need extensive rehabilitation. Toy Couch MD
--- NOTE | 2018-05-16 12:49 | CP.PCM.PCO ---
Physician Communication Note - Physician Communication Note Physician Communication Note: life vest today, Lasix 40 IV x 1 dose, dc on PO lasix, D/C plan in progress
[2018-05-16] MEDS: Digoxin 125 mcg (0.125 mg) Tab PO SCH (14:06)
--- NOTE | 2018-05-16 14:21 | CP.PCM.PN ---
Subjective - Date & Time of Evaluation Date of Evaluation: 05/16/18 Time of Evaluation: 13:00 - Subjective Subjective: Comfortable on a chair, no fevers. Objective - Vital Signs/Intake and Output Vital Signs (last 24 hours): Temp Pulse Resp BP Pulse Ox 98 F 68 18 119/58 L 98 05/16/18 12:00 05/16/18 12:00 05/16/18 12:00 05/16/18 12:09 05/16/18 06:00 Intake and Output: 05/16/18 05/16/18 06:59 18:59 Intake Total 480 Output Total 500 Balance -20 - Medications Medications: Current Medications Albuterol/Ipratropium (Duoneb 3 Mg/0.5 Mg (3 Ml) Ud) 3 ml IH Q2H PRN PRN Reason: Shortness of Breath Albuterol/Ipratropium (Duoneb 3 Mg/0.5 Mg (3 Ml) Ud) 3 ml IH [id number] [facility] Last Admin: 05/16/18 14:04 Dose: Not Given Alprazolam (Xanax) 1 mg PO QID PRN; Protocol PRN Reason: Anxiety Last Admin: 05/16/18 11:45 Dose: 1 mg Apixaban (Eliquis) 2.5 mg PO BID [facility]; Protocol Last Admin: 05/16/18 09:14 Dose: 2.5 mg Arformoterol Tartrate (Brovana) 15 mcg IH [id number] [facility] Last Admin: 05/16/18 07:47 Dose: Not Given Aspirin (Ecotrin) 81 mg PO DAILY [facility] Last Admin: 05/16/18 09:14 Dose: 81 mg Atorvastatin Calcium (Lipitor) 20 mg PO DIN [facility] Last Admin: 05/15/18 17:31 Dose: 20 mg Budesonide (Pulmicort Respules) 0.5 mg INH DAILY [facility] Last Admin: 05/16/18 10:00 Dose: Not Given Carvedilol (Coreg) 3.125 mg PO BID [facility] Last Admin: 05/16/18 09:13 Dose: 3.125 mg Cefpodoxime Proxetil (Vantin) 100 mg PO Q12 [facility]; Protocol Last Admin: 05/16/18 09:25 Dose: 100 mg Citalopram Hydrobromide (Celexa) 20 mg PO DAILY [facility] Last Admin: 05/16/18 09:13 Dose: 20 mg Digoxin (Digoxin) 0.125 mg PO 1400 [facility] Last Admin: 05/16/18 14:06 Dose: 0.125 mg Furosemide (Lasix) 40 mg IVP DAILY [facility] Levothyroxine Sodium (Synthroid) 100 mcg PO 0600 [facility] Last Admin: 05/16/18 05:47 Dose: 100 mcg Lisinopril (Zestril) 5 mg PO DAILY [facility] Last Admin: 05/16/18 09:15 Dose: 5 mg Magnesium Oxide (Mag-Ox) 400 mg PO DAILY [facility] Last Admin: 05/16/18 10:27 Dose: 400 mg Pantoprazole Sodium (Protonix Ec Tab) 40 mg PO 0600 [facility] Last Admin: 05/16/18 05:47 Dose: 40 mg Polyethylene Glycol (Miralax) 17 gm PO BID PRN PRN Reason: Constipation Prednisone (Prednisone Tab) 30 mg PO DAILY [facility] Tramadol HCl (Ultram) 50 mg PO TID PRN PRN Reason: Pain, severe (8-10) Last Admin: 05/16/18 11:44 Dose: 50 mg - Labs Labs: 05/16/18 06:45 05/16/18 06:45 PT 13.4 SECONDS (9.4-12.5) H 05/11/18 00:40 INR 1.21 05/11/18 00:40 APTT 41.7 Seconds (26.9-38.3) H 05/11/18 09:30 - Constitutional Appears: Chronically Ill - Head Exam Head Exam: NORMAL INSPECTION - Respiratory Exam Respiratory Exam: Decreased Breath Sounds - Cardiovascular Exam Cardiovascular Exam: +S1, +S2 - GI/Abdominal Exam GI & Abdominal Exam: Soft. absent: Tenderness Assessment and Plan - Assessment and Plan (Free Text) Plan: Assessment Systemic Inflammatory response syndrome, due to probable Takotsubo ca rdiomyopathy S/P cardiac cath consider UTI with E. coli severe oxygen-dependent COPD PAD carotid disease S/P carotid stenting and endarterectomy history of left subclavian stenosis CAD S/P CABG dyslipidemia hypothyroidism Plan on Rocephin and can switch to PO Vantin to complete therapy (day 5 of 7 days) discussed with medical team previously
--- NOTE | 2018-05-16 14:29 | CP.PCM.PN ---
<Shaye Vallejo - Last Filed: 05/16/18 14:04> Subjective - Date & Time of Evaluation Date of Evaluation: 05/16/18 Time of Evaluation: 14:05 - Subjective Subjective: Shaye Vallejo, PGY-1, Internal Medicine Progress Note for Dr. Rangel Patient seen and evaluated at bedside. Patient had no acute overnight events. Patient had walk test yesterday with PT and was unable to ambulate and upon sitting down, patient's pulse ox read 63%. Patient today reports shortness of breath and reproducible chest pain. Patient denied any other symptoms including nausea, vomiting, constipation, diarrhea, fever, dysuria, hematuria. 12-point ROS was unremarkable except for what was mentioned above. Objective - Vital Signs/Intake and Output Vital Signs (last 24 hours): Temp Pulse Resp BP Pulse Ox 98 F 68 18 119/58 L 98 05/16/18 12:00 05/16/18 12:00 05/16/18 12:00 05/16/18 12:09 05/16/18 06:00 Intake and Output: 05/16/18 05/16/18 06:59 18:59 Intake Total 480 Output Total 500 Balance -20 - Medications Medications: Current Medications Albuterol/Ipratropium (Duoneb 3 Mg/0.5 Mg (3 Ml) Ud) 3 ml IH Q2H PRN PRN Reason: Shortness of Breath Albuterol/Ipratropium (Duoneb 3 Mg/0.5 Mg (3 Ml) Ud) 3 ml IH [id number] [facility] Last Admin: 05/16/18 07:47 Dose: Not Given Alprazolam (Xanax) 1 mg PO QID PRN; Protocol PRN Reason: Anxiety Last Admin: 05/16/18 11:45 Dose: 1 mg Apixaban (Eliquis) 2.5 mg PO BID [facility]; Protocol Last Admin: 05/16/18 09:14 Dose: 2.5 mg Arformoterol Tartrate (Brovana) 15 mcg IH [id number] [facility] Last Admin: 05/16/18 07:47 Dose: Not Given Aspirin (Ecotrin) 81 mg PO DAILY [facility] Last Admin: 05/16/18 09:14 Dose: 81 mg Atorvastatin Calcium (Lipitor) 20 mg PO DIN [facility] Last Admin: 05/15/18 17:31 Dose: 20 mg Budesonide (Pulmicort Respules) 0.5 mg INH DAILY [facility] Last Admin: 05/15/18 07:50 Dose: 0.5 mg Carvedilol (Coreg) 3.125 mg PO BID [facility] Last Admin: 05/16/18 09:13 Dose: 3.125 mg Cefpodoxime Proxetil (Vantin) 100 mg PO Q12 [facility]; Protocol Last Admin: 05/16/18 09:25 Dose: 100 mg Citalopram Hydrobromide (Celexa) 20 mg PO DAILY [facility] Last Admin: 05/16/18 09:13 Dose: 20 mg Digoxin (Digoxin) 0.125 mg PO 1400 [facility] Last Admin: 05/15/18 14:28 Dose: 0.125 mg Furosemide (Lasix) 40 mg IVP DAILY [facility] Levothyroxine Sodium (Synthroid) 100 mcg PO 0600 [facility] Last Admin: 05/16/18 05:47 Dose: 100 mcg Lisinopril (Zestril) 5 mg PO DAILY [facility] Last Admin: 05/16/18 09:15 Dose: 5 mg Magnesium Oxide (Mag-Ox) 400 mg PO DAILY [facility] Last Admin: 05/16/18 10:27 Dose: 400 mg Pantoprazole Sodium (Protonix Ec Tab) 40 mg PO 0600 [facility] Last Admin: 05/16/18 05:47 Dose: 40 mg Polyethylene Glycol (Miralax) 17 gm PO BID PRN PRN Reason: Constipation Prednisone (Prednisone Tab) 40 mg PO DAILY [facility] Last Admin: 05/16/18 09:14 Dose: 40 mg Tramadol HCl (Ultram) 50 mg PO TID PRN PRN Reason: Pain, severe (8-10) Last Admin: 05/16/18 11:44 Dose: 50 mg - Labs Labs: 05/16/18 06:45 05/16/18 06:45 PT 13.4 SECONDS (9.4-12.5) H 05/11/18 00:40 INR 1.21 05/11/18 00:40 APTT 41.7 Seconds (26.9-38.3) H 05/11/18 09:30 - Constitutional Appears: Well, Non-toxic, No Acute Distress - Head Exam Head Exam: ATRAUMATIC, NORMAL INSPECTION, NORMOCEPHALIC - Eye Exam Eye Exam: EOMI, PERRL - ENT Exam ENT Exam: Mucous Membranes Moist - Neck Exam Neck Exam: Full ROM - Respiratory Exam Respiratory Exam: Clear to Ausculation Bilateral Additional comments: asymmetric breathing pattern - Cardiovascular Exam Cardiovascular Exam: REGULAR RHYTHM, RRR Additional comments: chest wall tenderness to palpation - GI/Abdominal Exam GI & Abdominal Exam: Soft, Normal Bowel Sounds. absent: Tenderness - Extremities Exam Extremities Exam: Full ROM - Neurological Exam Neurological Exam: Alert, Awake, CN II-XII Intact, Oriented x3 Assessment and Plan - Assessment and Plan (Free Text) Assessment: 73 year old female with past medical history of COPD, PAD, carotid artery disease status post left carotid endarterectomy, L subclavian stenosis, CAD s/p CABG, atrial fibrillation on eliquis, hyperlipidemia, hypothyroidism, and CVAx3 presented by EMS for respiratory distress. Patient became unresponsive on route to the hospital. Patient was dyspneic at home and condition worsened as respiratory rate decreased to 5. Patient was intubated in emergency department due to unresponsiveness and bradypneia. Patient then went into PEA. ACLS was initated with ROSC achieved after one round of epinephrine with compressions. Patient was diagnosed with PEA arrest likely 2/2 to CO2 retention causing acidosis due to COPD Plan: Hypoxic, Hypercarbic respiratory failure 2/2 to COPD -Increased HCO3 likely 2/2 to compensation for chronic CO2 retention from COPD -Continue with scheduled duonebs Q6 and Q2PRN, pulmicort, brovana, and reduced to prednisone 30 mg daily. Continue with O2 NC 3L -Continue with tramadol for chest pressure which could be resulting in shallow breaths PEA arrest likely 2/2 to acidosis from hypercarbia -Cardiac catherization 05/11 showed findings suggestive of Takotsubo's cardiomyopathy. LVEF was 20-25% and there was severe akinesis of anterior wall apex and inferior wall. -Echocardiogram 05/11: segmental wall motion abnormal. Infero and myranda basal segments move well. Anterior apex and inferior wall have severe hypokinesis, no pulmonary hypertension -Continue with aspirin, lipitor, digoxin, coreg, zestril [place] [address] [place] 245 at the beginning of this admission and patient had increase in lower extremity swelling and wheezes. Patient was given one dose of lasix 40 mg IV and was started on lasix 40 mg IV daily for relief of symptoms of CHF exacerbation. -Patient fitted for life vest Sepsis likely 2/2 to UTI -Urine culture: E. Coli. Patient is resistant to ampicillin, ciprofloaxin, and TMP-SMX -CXR shows no consolidations -MRSA: negative -Procalcitonin unremarkable -Continue vantin. Patient is day 6 of antibiotics out of 7. Hypertension -Continue with coreg, zestril Hypothyroidism -TSH: 0.99 -Continue with levothyroxine Mixed hyperlipidemia -Triglyceride, cholesterol, and LDL all elevated -Continue with lipitor 20 mg daily Diabetes Mellitus -HgbA1c: 5.6 -Continue with medium dose sliding scale insulin -Accucheck ACHS Paroxysmal Atrial fibrillation on eliquis -Currently not in atrial fibrillation -Continue with coreg and digoxin. -Continue with home eliquis 2.5 mg BID Anxiety and depression -Continue with home xanax and celexa History of multiple CVA -Continue with aspirin, lipitor, and eliquis Constipation -Continue with miralax Hypomagnesia -Replete as necessary Deconditioned -Physical therapy recommends LIVE with PT 5-6 times a week for 4 weeks GI prophylaxis: protonix 40 mg daily DVT prophylaxis: eliquis Patient plan discussed with attending. <Jorge Rangel - Last Filed: 05/16/18 15:01> Objective - Vital Signs/Intake and Output Vital Signs (last 24 hours): Temp Pulse Resp BP Pulse Ox 98 F 68 18 119/58 L 98 05/16/18 12:00 05/16/18 12:00 05/16/18 12:00 05/16/18 12:09 05/16/18 06:00 Intake and Output: 05/16/18 05/16/18 06:59 18:59 Intake Total 480 Output Total 500 Balance -20 - Medications Medications: Current Medications Albuterol/Ipratropium (Duoneb 3 Mg/0.5 Mg (3 Ml) Ud) 3 ml IH Q2H PRN PRN Reason: Shortness of Breath Albuterol/Ipratropium (Duoneb 3 Mg/0.5 Mg (3 Ml) Ud) 3 ml IH [id number] TATE Last Admin: 05/16/18 14:04 Dose: Not Given Alprazolam (Xanax) 1 mg PO QID PRN; Protocol PRN Reason: Anxiety Last Admin: 05/16/18 11:45 Dose: 1 mg Apixaban (Eliquis) 2.5 mg PO BID [facility]; Protocol Last Admin: 05/16/18 09:14 Dose: 2.5 mg Arformoterol Tartrate (Brovana) 15 mcg IH [id number] [facility] Last Admin: 05/16/18 07:47 Dose: Not Given Aspirin (Ecotrin) 81 mg PO DAILY [facility] Last Admin: 05/16/18 09:14 Dose: 81 mg Atorvastatin Calcium (Lipitor) 20 mg PO DIN [facility] Last Admin: 05/15/18 17:31 Dose: 20 mg Budesonide (Pulmicort Respules) 0.5 mg INH DAILY [facility] Last Admin: 05/16/18 10:00 Dose: Not Given Carvedilol (Coreg) 3.125 mg PO BID [facility] Last Admin: 05/16/18 09:13 Dose: 3.125 mg Cefpodoxime Proxetil (Vantin) 100 mg PO Q12 [facility]; Protocol Last Admin: 05/16/18 09:25 Dose: 100 mg Citalopram Hydrobromide (Celexa) 20 mg PO DAILY [facility] Last Admin: 05/16/18 09:13 Dose: 20 mg Digoxin (Digoxin) 0.125 mg PO 1400 [facility] Last Admin: 05/16/18 14:06 Dose: 0.125 mg Furosemide (Lasix) 40 mg IVP DAILY [facility] Levothyroxine Sodium (Synthroid) 100 mcg PO 0600 [facility] Last Admin: 05/16/18 05:47 Dose: 100 mcg Lisinopril (Zestril) 5 mg PO DAILY [facility] Last Admin: 05/16/18 09:15 Dose: 5 mg Magnesium Oxide (Mag-Ox) 400 mg PO DAILY [facility] Last Admin: 05/16/18 10:27 Dose: 400 mg Pantoprazole Sodium (Protonix Ec Tab) 40 mg PO 0600 [facility] Last Admin: 05/16/18 05:47 Dose: 40 mg Polyethylene Glycol (Miralax) 17 gm PO BID PRN PRN Reason: Constipation Prednisone (Prednisone Tab) 30 mg PO DAILY [facility] Tramadol HCl (Ultram) 50 mg PO TID PRN PRN Reason: Pain, severe (8-10) Last Admin: 05/16/18 11:44 Dose: 50 mg - Labs Labs: 05/16/18 06:45 05/16/18 06:45 PT 13.4 SECONDS (9.4-12.5) H 05/11/18 00:40 INR 1.21 05/11/18 00:40 APTT 41.7 Seconds (26.9-38.3) H 05/11/18 09:30 Attending/Attestation - Attestation I have personally seen and examined this patient.: Yes I have fully participated in the care of the patient.: Yes I have reviewed all pertinent clinical information, including history, physical exam and plan: Yes Notes (Text): 73 y.o F with PMH of COPD, carotid artery diseas s/p left CEA, left subclavian stenosis, Talita lees was admitted with hypercapneic respiratory failure requiring invasive mechanical ventilation. Pt went into PEA, ACLS was initiated with ROSC achieved after one round. Pt subsequently underwent cardiac cath which showed global LV dysfunction. EF 20-25% with severe akinesis of anterior wall apex and and inferior wall , possible Takotsubo cardiomyopathy. Pt initially required dobutamine but was eventually DC'd and pt extubated. Pt was transferred to the floor. Pt will need to be fitted for a lifevest. Cardio on board. She has been evaluated by PT and they recommend LIVE. SW on board. c/w domenico as per ID recs for UTI c/w tenisha, juvenal and kathrine for Bryan. nabeel Pt will need repeat echo in 1 month
[2018-05-17] MEDS: Albuterol-Ipratrop 3 mg / 0.5 (3 ml) UD IH SCH ×4 (01:55→20:02)
[2018-05-17] MEDS: Pantoprazole 40 mg EC Tab PO SCH (05:33)
[2018-05-17] MEDS: Levothyroxine 100 MCG TAB PO SCH (05:33)
[2018-05-17 06:00] VITALS: O2SAT 94
[2018-05-17] MEDS: Arformoterol 15 mcg/2 ml Inh Sol IH SCH ×2 (08:01→20:02)
[2018-05-17] MEDS: Budesonide 0.5 mg/2 ml Inhal Susp UD INH SCH ×2 (08:01→20:03)
[2018-05-17] MEDS: Magnesium Oxide 400 mg Tab UD PO SCH (10:57)
[2018-05-17] MEDS: Cefpodoxime (Vantin) 100 mg Tab PO SCH ×2 (10:59→21:58)
[2018-05-17] MEDS: Digoxin 125 mcg (0.125 mg) Tab PO SCH (13:35)
[2018-05-17 13:37] VITALS: PULSE 63
--- NOTE | 2018-05-17 13:49 | CP.PCM.PN ---
Subjective - Date & Time of Evaluation Date of Evaluation: 05/17/18 Time of Evaluation: 10:20 - Subjective Subjective: No fevers, not in distress. Objective - Vital Signs/Intake and Output Vital Signs (last 24 hours): Temp Pulse Resp BP Pulse Ox 98.1 F 74 20 116/67 94 L 05/17/18 12:00 05/17/18 12:00 05/17/18 12:00 05/17/18 12:00 05/17/18 06:00 Intake and Output: 05/17/18 05/17/18 06:59 18:59 Intake Total 1371 Output Total 2150 Balance -779 - Medications Medications: Current Medications Albuterol/Ipratropium (Duoneb 3 Mg/0.5 Mg (3 Ml) Ud) 3 ml IH Q2H PRN PRN Reason: Shortness of Breath Albuterol/Ipratropium (Duoneb 3 Mg/0.5 Mg (3 Ml) Ud) 3 ml IH [id number] [facility] Last Admin: 05/17/18 13:29 Dose: 3 ml Alprazolam (Xanax) 1 mg PO QID PRN; Protocol PRN Reason: Anxiety Last Admin: 05/17/18 13:37 Dose: 1 mg Apixaban (Eliquis) 2.5 mg PO BID [facility]; Protocol Last Admin: 05/17/18 10:59 Dose: 2.5 mg Arformoterol Tartrate (Brovana) 15 mcg IH [id number] [facility] Last Admin: 05/17/18 08:01 Dose: 15 mcg Aspirin (Ecotrin) 81 mg PO DAILY [facility] Last Admin: 05/17/18 10:57 Dose: 81 mg Atorvastatin Calcium (Lipitor) 20 mg PO DIN [facility] Last Admin: 05/16/18 18:20 Dose: 20 mg Budesonide (Pulmicort Respules) 0.5 mg INH DAILY [facility] Last Admin: 05/17/18 08:01 Dose: 0.5 mg Carvedilol (Coreg) 3.125 mg PO BID [facility] Last Admin: 05/17/18 10:59 Dose: 3.125 mg Cefpodoxime Proxetil (Vantin) 100 mg PO Q12 [facility]; Protocol Last Admin: 05/17/18 10:59 Dose: 100 mg Citalopram Hydrobromide (Celexa) 20 mg PO DAILY [facility] Last Admin: 05/17/18 10:59 Dose: 20 mg Digoxin (Digoxin) 0.125 mg PO 1400 [facility] Last Admin: 05/17/18 13:35 Dose: 0.125 mg Furosemide (Lasix) 40 mg IVP DAILY [facility] Last Admin: 05/17/18 10:57 Dose: 40 mg Furosemide (Lasix) 40 mg PO DAILY [facility] Levothyroxine Sodium (Synthroid) 100 mcg PO 0600 [facility] Last Admin: 05/17/18 05:33 Dose: 100 mcg Lisinopril (Zestril) 5 mg PO DAILY [facility] Last Admin: 05/17/18 10:57 Dose: 5 mg Magnesium Oxide (Mag-Ox) 400 mg PO DAILY [facility] Last Admin: 05/17/18 10:57 Dose: 400 mg Pantoprazole Sodium (Protonix Ec Tab) 40 mg PO 0600 [facility] Last Admin: 05/17/18 05:33 Dose: 40 mg Polyethylene Glycol (Miralax) 17 gm PO BID PRN PRN Reason: Constipation Last Admin: 05/16/18 21:08 Dose: 17 gm Prednisone (Prednisone Tab) 30 mg PO DAILY [facility] Last Admin: 05/17/18 10:53 Dose: 30 mg Tramadol HCl (Ultram) 50 mg PO TID PRN PRN Reason: Pain, severe (8-10) Last Admin: 05/17/18 13:36 Dose: 50 mg - Labs Labs: 05/16/18 06:45 05/16/18 06:45 PT 13.4 SECONDS (9.4-12.5) H 05/11/18 00:40 INR 1.21 05/11/18 00:40 APTT 41.7 Seconds (26.9-38.3) H 05/11/18 09:30 - Constitutional Appears: Chronically Ill - Head Exam Head Exam: NORMAL INSPECTION - Respiratory Exam Respiratory Exam: Decreased Breath Sounds - Cardiovascular Exam Cardiovascular Exam: +S1, +S2 - GI/Abdominal Exam GI & Abdominal Exam: Soft. absent: Tenderness Assessment and Plan - Assessment and Plan (Free Text) Plan: Assessment Systemic Inflammatory response syndrome, due to probable Takotsubo cardiomyopathy S/P cardiac cath consider UTI with E. coli severe oxygen-dependent COPD PAD carotid disease S/P carotid stenting and endarterectomy history of left subclavian stenosis CAD S/P CABG dyslipidemia hypothyroidism Plan continue PO Vantin to complete therapy (day 6 of 7 days) discussed with medical team previously
--- NOTE | 2018-05-17 16:01 | CP.PCM.DIS ---
Provider - Provider Date of Admission: 05/11/18 02:14 Attending physician: Trudy Jean MD Primary care physician: Rodrigo Parekh MD Consults: 05/11/18 02:36 Cardiology Consult Routine Comment: Consulting Provider: Toy Couch Consulting Physician: Toy Couch Reason for Consult: Elevated Troponin 05/11/18 07:23 Infectious Disease Consult Routine Comment: Consulting Provider: Danny Ennis Consulting Physician: Danny Ennis Reason for Consult: Sepsis on Zosyn (unconfirmed source) 05/12/18 10:31 Psychiatry Consult Routine Comment: Consulting Provider: Karen Buckley Consulting Physician: Karen Buckley Reason for Consult: Depression, recent loss of brother Time Spent in preparation of Discharge (in minutes): 60 Diagnosis - Discharge Diagnosis (1) Cardiac arrest Status: Acute (2) NSTEMI (non-ST elevated myocardial infarction) Status: Acute Hospital Course - Lab Results Lab Results: Micro Results 05/11/18 02:00 Blood Blood Culture - Final NO GROWTH AFTER 5 DAYS 05/11/18 02:00 Blood Gram Stain - Final TEST NOT PERFORMED 05/11/18 01:30 Blood Blood Culture - Final NO GROWTH AFTER 5 DAYS 05/11/18 01:30 Blood Gram Stain - Final TEST NOT PERFORMED 05/11/18 01:19 Urine Random Urine Culture - Final Escherichia Coli 05/11/18 04:53 Naris MRSA Culture (Admit) - Final MRSA NOT DETECTED Most Recent Lab Values WBC 11.1 10^3/uL (4.5-11.0) H 05/16/18 06:45 RBC 3.48 10^6/uL (3.5-6.1) L 05/16/18 06:45 Hgb 10.0 g/dL (12.0-16.0) L 05/16/18 06:45 Hct 33.2 % (36.0-48.0) L 05/16/18 06:45 MCV 95.4 fl (80.0-105.0) 05/16/18 06:45 MCH 28.7 pg (25.0-35.0) 05/16/18 06:45 MCHC 30.1 g/dl (31.0-37.0) L 05/16/18 06:45 RDW 14.9 % (11.5-14.5) H 05/16/18 06:45 Plt Count 221 10^3/uL (120.0-450.0) 05/16/18 06:45 MPV 10.8 fl (7.0-11.0) 05/16/18 06:45 Neut % (Auto) 70.4 % (50.0-68.0) H 05/16/18 06:45 Lymph % (Auto) 15.7 % (22.0-35.0) L 05/16/18 06:45 [place] % (Auto) 7.7 % (1.0-6.0) H 05/16/18 06:45 Eos % (Auto) 5.9 % (1.5-5.0) H 05/16/18 06:45 Baso % (Auto) 0.3 % (0.0-3.0) 05/16/18 06:45 Lymph # (Auto) 1.7 (1.2-3.4) 05/16/18 06:45 [place] # (Auto) 0.9 (0.1-0.6) H 05/16/18 06:45 Eos # (Auto) 0.7 (0.0-0.7) 05/16/18 06:45 Baso # (Auto) 0.03 K/mm3 (0.0-2.0) 05/16/18 06:45 Absolute Neuts (auto) 7.78 (1.4-6.5) H 05/16/18 06:45 Neutrophils % (Manual) 97 % (50.0-70.0) H 05/11/18 09:30 Band Neutrophils % 1 % (0-2) 05/11/18 09:30 Lymphocytes % (Manual) 1 % (22.0-35.0) L 05/11/18 09:30 Monocytes % (Manual) 1 % (1.0-6.0) 05/11/18 09:30 Platelet Evaluation Normal (NORMAL) 05/11/18 09:30 PT 13.4 SECONDS (9.4-12.5) H 05/11/18 00:40 INR 1.21 05/11/18 00:40 APTT 41.7 Seconds (26.9-38.3) H 05/11/18 09:30 pCO2 51 mm/Hg (35-45) H 05/12/18 06:20 pO2 60.0 mm/Hg (80-100) L 05/12/18 06:20 HCO3 26.9 mmol/L (21-28) 05/12/18 06:20 ABG pH 7.33 (7.35-7.45) L 05/12/18 06:20 ABG Total CO2 28.5 mmol.L (22-28) H 05/12/18 06:20 ABG O2 Saturation 95.0 % (95-98) 05/12/18 06:20 ABG O2 Content 13.0 ML/dl (15-23) L 05/12/18 06:20 ABG Base Excess 0.5 mmol/L (-2.0-3.0) 05/12/18 06:20 ABG Hemoglobin 10.1 g/dL (11.7-17.4) L 05/12/18 06:20 ABG Carboxyhemoglobin 2.5 % (0.5-1.5) H 05/12/18 06:20 POC ABG HHb (Measured) 4.8 % (0-5) 05/12/18 06:20 ABG Methemoglobin 1.4 % (0.0-3.0) 05/12/18 06:20 ABG O2 Capacity 13.7 mL/dl (16-24) L 05/12/18 06:20 ABG Potassium 3.0 mmol/L (3.6-5.2) L 05/11/18 02:30 VBG pH 7.24 (7.32-7.43) L 05/11/18 12:00 VBG pCO2 59.0 (40-60) 05/11/18 12:00 VBG HCO3 25.3 mmol/l (21-28) 05/11/18 12:00 VBG Total CO2 27.1 mmol.L (22-28) 05/11/18 12:00 VBG O2 Sat (Calc) 99.2 % (40-65) H 05/11/18 12:00 VBG Base Excess -3.1 mmol/L (0.0-2.0) L 05/11/18 12:00 VBG Potassium 3.8 mmol/L (3.6-5.2) 05/11/18 12:00 Hgb O2 Saturation 91.3 % (95.0-98.0) L 05/12/18 06:20 Sodium 140.0 mmol/L (132-148) 05/11/18 12:00 Chloride 107.0 mmol/L (98-107) 05/11/18 12:00 Glucose 165 mg/dl (65-105) H 05/11/18 12:00 Lactate 2.8 mmol/L (0.7-2.1) H 05/11/18 12:00 FiO2 32.0 % 05/12/18 06:20 Crit Value Called To Katty varner 05/11/18 12:00 Crit Value Called By 05/11/18 12:00 Blood Gas Notified Time 1207 05/11/18 12:00 Sodium 137 mmol/L (132-148) 05/16/18 06:45 Potassium 4.1 mmol/L (3.6-5.0) 05/16/18 06:45 Chloride 96 mmol/L (98-107) L 05/16/18 06:45 Carbon Dioxide 36 mmol/L (21-33) H 05/16/18 06:45 Anion Gap 9 (10-20) L 05/16/18 06:45 BUN 20 mg/dL (7-21) 05/16/18 06:45 Creatinine 0.7 mg/dl (0.7-1.2) 05/16/18 06:45 Est GFR ( Amer) > 60 05/16/18 06:45 Est GFR (Non-Af Amer) > 60 05/16/18 06:45 POC Glucose (mg/dL) 121 mg/dL (65-110) H 05/12/18 23:29 Random Glucose 86 mg/dL (70-110) 05/16/18 06:45 Hemoglobin A1c 5.6 % (4.2-6.5) 05/11/18 15:00 Calcium 8.9 mg/dL (8.4-10.5) 05/16/18 06:45 Phosphorus 4.4 mg/dL (2.5-4.5) 05/16/18 06:45 Magnesium 1.5 mg/dL (1.7-2.2) L 05/16/18 06:45 Total Bilirubin 0.4 mg/dL (0.2-1.3) 05/16/18 06:45 AST 15 U/L (14-36) 05/16/18 06:45 ALT 41 U/L (7-56) 05/16/18 06:45 Alkaline Phosphatase 58 U/L (38-126) 05/16/18 06:45 Lactate Dehydrogenase 480 U/L (333-699) 05/11/18 00:40 Total Creatine Kinase 52 U/L (35-230) 05/11/18 00:40 Troponin I 3.59 ng/mL H* D 05/11/18 12:30 NT-Pro-B Natriuret Pep 37781 pg/mL (0-450) H 05/16/18 11:00 Total Protein 5.9 g/dL (5.8-8.3) 05/16/18 06:45 Albumin 3.2 g/dL (3.0-4.8) 05/16/18 06:45 Globulin 2.7 gm/dL 05/16/18 06:45 Albumin/Globulin Ratio 1.2 (1.1-1.8) 05/16/18 06:45 Triglycerides 376 mg/dL (35-160) H 05/11/18 00:40 Cholesterol 319 mg/dL (130-200) H 05/11/18 00:40 LDL Cholesterol Direct 198 mg/dL (0-129) H 05/11/18 00:40 HDL Cholesterol 44 mg/dL (29-60) 05/11/18 00:40 Procalcitonin < 0.05 NG/ML (0.19-0.49) L 05/11/18 00:40 TSH 3rd Generation 0.99 mIU/mL (0.46-4.68) 05/11/18 00:40 Arterial Blood Potassium 3.0 mmol/L (3.6-5.2) L 05/11/18 02:30 Venous Blood Potassium 3.8 mmol/L (3.6-5.2) 05/11/18 12:00 Urine Color Yellow (YELLOW) 05/11/18 01:19 Urine Appearance Sl cloudy (CLEAR) 05/11/18 01:19 Urine pH 6.0 (4.7-8.0) 05/11/18 01:19 Ur Specific [place] 1.020 (1.005-1.035) 05/11/18 01:19 Urine Protein Negative mg/dL (<30 mg/dL) 05/11/18 01:19 Urine Glucose (UA) Negative mg/dL (NEGATIVE) 05/11/18 01:19 Urine Ketones Negative mg/dL (NEGATIVE) 05/11/18 01:19 Urine Blood Negative (NEGATIVE) 05/11/18 01:19 Urine Nitrate Negative (NEGATIVE) 05/11/18 01:19 Urine Bilirubin Negative (NEGATIVE) 05/11/18 01:19 Urine Urobilinogen 0.2 E.U./dL (<1 E.U./dL) 05/11/18 01:19 Ur Leukocyte Esterase Moderate Jose/uL (NEGATIVE) H 05/11/18 01:19 Urine RBC 0 - 2 /hpf (0-2) 05/11/18 01:19 Urine WBC 5 - 10 /hpf (0-6) H 05/11/18 01:19 Ur Epithelial Cells 0 - 2 /hpf (0-5) 05/11/18 01:19 Urine Bacteria Mod /hpf (NONE) 05/11/18 01:19 - Hospital Course Hospital Course: Shaye Vallejo, PGY-1, Internal Medicine Discharge Summary for Dr. Jean 73 year old female with past medical history of COPD, PAD, carotid artery disease status post left carotid endarterectomy, L subclavian stenosis, CAD s/p CABG, atrial fibrillation on eliquis, hyperlipidemia, hypothyroidism, and CVAx3 presented by EMS for respiratory distress. Patient became unresponsive on route to the hospital. Patient was dyspneic at home and condition worsened as respiratory rate decreased to 5. Patient was intubated in emergency department due to unresponsiveness and bradypneia. Patient then went into PEA. ACLS was initiated with ROSC achieved after one round of epinephrine with compressions. ABG upon presentation showed respiratory acidosis with metabolic compensation. Patient likely had PEA due to acidosis from hypercarbia from COPD exacerbation. Patient was extubated and taken for cardiac catheterization which showed findings suggestive of Takotsubo's cardiomyopathy. LVEF was 20-25% and there was severe akinesis of anterior wall apex and inferior wall. Patient was found to be hypotensive after PEA arrest and was started on dobutamine in the ICU which was tapered and stopped once patient was normotensive. Echocardiogram showed segmental wall motion being abnormal. Infero and myranda basal segments move well. Anterior apex and inferior wall have severe hypokinesis, no pulmonary hypertension. Patient was started on aspirin, lipitor, digoxin, coreg, and zestril on this admission. Due to patient's low EF, patient was fitted for life vest. In addition, patient was found to have increase in weight throughout the admission and due to fluid overload was started on lasix 40 mg IV with a negati ve fluid balance. Patient was discharged with lasix 40 mg PO daily. Patient also was found to have E. Coli urine culture showing resistance to ampicillin, ciprofloaxicin, and TMP-SMX. Patient was treated with cefepime and transitioned to vantin for 7 days. For patient's COPD, steroid taper was started and duonebs was continued daily. Patient was deconditioned upon nearing of discharge. Physical therapy worked with her and recommended [facility] with PT 5-6x a week for 4 weeks. Patient was medically stable and ready for discharge today. Patient was told to take all home medications as prescribed at the [facility]. Patient was told to follow up with PCP in 7-14 days and complete PT for reconditioning at [facility]. Patient was told to follow up with Dr. Couch outpatient for further cardiac management. Patient was told to return to the emergency department if she had any new or concerning symptoms. This is a brief summary of the events that occurred during this hospital visit. Please refer to the hospital documentation for more information. - Date & Time of H&P Date of H&P: 05/11/18 Time of H&P: 03:08 Discharge Exam - Head Exam Head Exam: NORMAL INSPECTION - Eye Exam Eye Exam: EOMI, PERRL - Respiratory Exam Respiratory Exam: Rales - Cardiovascular Exam Cardiovascular Exam: REGULAR RHYTHM, RRR - GI/Abdominal Exam GI & Abdominal Exam: Normal Bowel Sounds, Soft. absent: Tenderness - Extremities Exam Extremities exam: full ROM, pedal edema (trace), pedal pulses present - Neurological Exam Neurological exam: Alert, CN II-XII Intact, Oriented x3 Discharge Plan - Discharge Medications Prescriptions: Carvedilol [Coreg] 3.125 mg PO BID 30 Days #60 tab Digoxin 0.125 mg PO 1400 30 Days #30 tab Furosemide [Lasix] 40 mg PO DAILY 30 Days #30 tab predniSONE [predniSONE Tab] See Taper PO DAILY 2 Days #4 tab - Follow Up Plan Condition: CRITICAL Disposition: REHAB FACILITY/REHAB UNIT Instructions: Sudden Cardiac Arrest Additional Instructions: You are medically stable and ready for transfer to [facility] at this time. Please restrict fluid intake to 1.5 L per day. Please restrict sodium from your diet. Please follow up with your PCP in 7-14 days. Please take all your home medications as prescribed. Please return to the emergency department if you have any new or concerning symptoms. Referrals: Rodrigo Parekh MD [Primary Care Provider] -
[2018-05-17 18:18] VITALS: BP 114/55; PULSE 65
[2018-05-17 19:10] VITALS: RESP 18; TEMP 98.2
--- NOTE | 2018-05-17 19:10 | PN ---
DATE: 05/17/2018 CARDIOLOGY FOLLOWUP SUBJECTIVE: The patient is breathing better after IV Lasix. No chest pain noted. PHYSICAL EXAMINATION VITAL SIGNS: Stable. NECK: Negative JVD. CARDIOPULMONARY: Heart reveals S1, S2. LUNGS: Without rales. EXTREMITIES: Without edema. LABORATORY DATA: Laboratories reveal a hemoglobin was not drawn today. IMPRESSION 1. Acute systolic congestive heart failure. 2. Takotsubo's cardiomyopathy. 3. Anemia. 4. Resolution of dyspnea. 5. Nonobstructive coronary artery disease. PLAN: Given these findings, the patient is to transfer to a subacute rehab today. The LifeVest has been arranged and is in place. Followup instructions have been given to the patient in detail. She should go home on a daily Lasix. Toy Couch MD
== END 2018-05-17 22:53 | DRG 208 ==
LOC: ED 00:29 → EDBD 02:14 → ERH 02:14 → ICU 04:30 → 2RNO 05-13 02:40
PROVIDERS: ADMIT Internal Medicine; ATTEND Internal Medicine
PROC: 5A1935Z Respiratory Ventilation, Less than 24 Consecutive Hours (ICD-10-PCS; principal; 2018-05-11)
PROC: 4A023N7 Measurement of Cardiac Sampling and Pressure, Left Heart, Percutaneous Approach (ICD-10-PCS; 2018-05-11)
PROC: B2151ZZ Fluoroscopy of Left Heart using Low Osmolar Contrast (ICD-10-PCS; 2018-05-11)
PROC: B2111ZZ Fluoroscopy of Multiple Coronary Arteries using Low Osmolar Contrast (ICD-10-PCS; 2018-05-11)
PROC: 0BH17EZ Insertion of Endotracheal Airway into Trachea, Via Natural or Artificial Opening (ICD-10-PCS; 2018-05-11)
DX: J96.02 Acute respiratory failure with hypercapnia (principal); I21.4 Non-ST elevation (NSTEMI) myocardial infarction; I46.9 Cardiac arrest, cause unspecified; I50.21 Acute systolic (congestive) heart failure; A41.9 Sepsis, unspecified organism; K72.00 Acute and subacute hepatic failure without coma; I51.81 Takotsubo syndrome; E87.2 Acidosis; J44.1 Chronic obstructive pulmonary disease with (acute) exacerbation; N39.0 Urinary tract infection, site not specified; B96.20 Unspecified Escherichia coli [E. coli] as the cause of diseases classified elsewhere; J96.01 Acute respiratory failure with hypoxia; I25.10 Atherosclerotic heart disease of native coronary artery without angina pectoris; I11.0 Hypertensive heart disease with heart failure; I48.0 Paroxysmal atrial fibrillation; E03.9 Hypothyroidism, unspecified; H05.89 Other disorders of orbit; E78.2 Mixed hyperlipidemia; F32.9 Major depressive disorder, single episode, unspecified; F41.9 Anxiety disorder, unspecified; E11.51 Type 2 diabetes mellitus with diabetic peripheral angiopathy without gangrene; Z16.11 Resistance to penicillins; E83.42 Hypomagnesemia; Z99.81 Dependence on supplemental oxygen; Z79.82 Long term (current) use of aspirin; Z79.01 Long term (current) use of anticoagulants; Z79.899 Other long term (current) drug therapy; Z79.890 Hormone replacement therapy; Z86.73 Personal history of transient ischemic attack (TIA), and cerebral infarction without residual deficits; Z95.1 Presence of aortocoronary bypass graft

== ENCOUNTER 2018-06-05 11:45 | Inpatient (IN) | payer MEDICARE, MEDICAID ==
[2018-06-05 11:51] VITALS: BMI 25.6
--- NOTE | 2018-06-05 12:09 | ED PDOC ---
Arrival/HPI - General Chief Complaint: Shortness Of Breath Time Seen by Provider: 06/05/18 11:55 Historian: Patient - History of Present Illness Narrative History of Present Illness (Text): 06/05/18 12:08 73 year old female, with PMHx of COPD on 4L home O2, PAD, Carotid disease s/p L carotid stent, L subclavian stenosis, CAD s/p CABG, a-fib on eliquis, HLD hypothyroidism, and CVA x3, hx of mdr utis, presents to the ED from [facility] for evaluation of intermittent episodes of shortness of breath since past 3 days. [facility] without any improvement to symptoms. Patient currently expresses developing chest pain but denies any other associated somatic complaints. Patient denies any fevers, chills, headache, dizziness, cough, abdominal pain, nausea, vomiting , diarrhea, back pain, neck pain, or any other complaints. Patient was recently admitted to the hospital on 05/11/18 s/p respiratory distress and cardiac arrest and was placed on external defibrillator since then (life vest due to ef 20- 25%). Of note, patient expresses significant discontent with her fpc and states she came to the ED to "get out of there". [facility] documentation shows elevated BNP and electrolytes abnormalities with lasixs and IVF given. PMD: Dr. Parekh Assembler Seat: Dr. King 06/05/18 12:38 06/05/18 13:29 Time/Duration: < week Symptom Onset: Gradual Symptom Course: Unchanged Activities at Onset: Light Context: Other ([facility]) Past Medical History - Provider Review Nursing Documentation Reviewed: Yes - Past History Past History: No Previous - Infectious Disease Hx of Infectious Diseases: None - Cardiac Hx Cardiac Disorders: Yes (cardiac arrest, EF 20 to 25%, Takotsubo's cardiomyopathy.) Hx Hypertension: Yes Other/Comment: Life Vest - Pulmonary Hx Chronic Obstructive Pulmonary Disease (COPD): Yes - Neurological Hx Neurological Disorder: Yes HX Cerebrovascular Accident: Yes (x3) - HEENT Hx HEENT Disorder: Yes Hx Cataracts: Yes - Renal Hx Renal Disorder: No - Endocrine/Metabolic Hx Endocrine Disorders: Yes Hx Hypothyroidism: Yes - Hematological/Oncological Hx Blood Disorders: No - Integumentary Hx Dermatological Disorder: No - Musculoskeletal/Rheumatological Hx Arthritis: Yes - Gastrointestinal Hx Gastrointestinal Disorders: No - Genitourinary/Gynecological Hx Genitourinary Disorders: No - Psychiatric Hx Psychophysiologic Disorder: No Hx Substance Use: No (unknown) - Surgical History Hx Cardiac Catheterization: Yes Hx Coronary Artery Bypass Graft: Yes - Anesthesia Hx Anesthesia Reactions: No Hx Malignant Hyperthermia: No - Suicidal Assessment Feels Threatened In Home Enviroment: No Family/Social History - Physician Review Nursing Documentation Reviewed: Yes Family/Social History: Unknown Family HX Smoking Status: Former Smoker Hx Alcohol Use: No (unknown) Hx Substance Use: No (unknown) Allergies/Home Meds Allergies/Adverse Reactions: Allergies codeine Allergy (Verified 06/05/18 11:51) ANAPHYLAXIS oxycodone HCl [From Percocet] Allergy (Verified 06/05/18 11:51) ANAPHYLAXIS Penicillins Allergy (Verified 06/05/18 11:51) ANAPHYLAXIS Home Medications: Home Meds Medication Instructions Recorded Confirmed ALPRAZolam [Xanax] 1 mg PO Q6H PRN 07/09/17 07/18/17 Apixaban [Eliquis] 5 mg PO BID 07/09/17 07/18/17 Aspirin [Adult Low Dose Aspirin EC] 81 mg PO DAILY 07/09/17 07/18/17 Fluticasone/Salmeterol 250/50 1 puff IH Q12 07/09/17 07/18/17 [Advair Diskus 250/50] Isosorbide Mononitrate [Imdur] 60 mg PO DAILY 07/09/17 07/18/17 Levothyroxine [Synthroid] 100 mcg PO DAILY 07/09/17 07/18/17 Memantine [Namenda] 5 mg PO DAILY 07/09/17 07/18/17 Omeprazole Magnesium [Prilosec Otc] 40 mg PO DAILY 07/09/17 07/18/17 ALPRAZolam [Xanax] 1 mg PO QID PRN 05/11/18 05/11/18 Albuterol/Ipratropium [Duoneb 3 3 ml IH Q6H 05/11/18 05/11/18 mg/0.5 mg (3 ml) UD] Apixaban [Eliquis] 2.5 mg PO BID 05/11/18 05/11/18 Arformoterol [Brovana] 2 ml INH BID 05/11/18 05/11/18 Aspirin [Aspirin Chewable] 81 mg PO DAILY 05/11/18 05/11/18 Budesonide [Pulmicort Respules] 2 ml INH DAILY 05/11/18 05/11/18 Cholecalciferol (Vitamin D3) 1 cap PO DAILY 05/11/18 05/11/18 [Vitamin D3] Citalopram [celEXA] 20 mg PO DAILY 05/11/18 05/11/18 Docusate [Colace] 100 mg PO BID 05/11/18 05/11/18 Levothyroxine [Synthroid] 100 mcg PO DAILY 05/11/18 05/11/18 Lisinopril/Hydrochlorothiazide 1 each PO DAILY 05/11/18 05/11/18 [Lisinopril-Hctz 10-12.5 mg Tab] Memantine [Namenda] 5 mg PO DAILY 05/11/18 05/11/18 Omeprazole 40 mg PO DAILY 05/11/18 05/11/18 Rosuvastatin Calcium [Crestor] 20 mg PO DAILY 05/11/18 05/11/18 Tiotropium [place] [Spiriva 2 puff IH DAILY 05/11/18 05/11/18 Respimat] Review of Systems - Review of Systems Constitutional: absent: Fevers Eyes: absent: Vision Changes ENT: absent: Hearing Changes Respiratory: SOB. absent: Cough Cardiovascular: Chest Pain Gastrointestinal: absent: Abdominal Pain, Diarrhea, Nausea, Vomiting Genitourinary Female: absent: Dysuria, Urine Output Changes Musculoskeletal: absent: Back Pain, Neck Pain Skin: absent: Rash Neurological: absent: Headache, Dizziness Endocrine: absent: Diaphoresis Psychiatric: absent: Anxiety Physical Exam Vital Signs Reviewed: Yes Vital Signs Temp Pulse Resp BP Pulse Ox 06/05/18 12:07 98.1 F 80 20 195/78 H 95 Temperature: Afebrile Blood Pressure: Hypertensive Pulse: Regular Respiratory Rate: Normal Appearance: Positive for: Ill-Appearing Pain Distress: None Mental Status: Positive for: Alert and Oriented X 3 - Systems Exam Head: Present: Atraumatic, Normocephalic Pupils: Present: PERRL Extroacular Muscles: Present: EOMI Conjunctiva: Present: Normal Mouth: Present: Moist Mucous Membranes Neck: Present: Normal Range of Motion Respiratory/Chest: Present: Wheezes, Decreased Breath Sounds, Tachypneic, Other (Life vest on chest wall). No: Respiratory Distress, Accessory Muscle Use Cardiovascular: Present: Regular Rate and Rhythm, Normal S1, S2. No: Murmurs Abdomen: No: Tenderness, Distention, Peritoneal Signs Back: Present: Normal Inspection Upper Extremity: Present: Normal Inspection, Other (PICC line to right upper arm). No: Cyanosis, Edema Lower Extremity: Present: Normal Inspection. No: Edema Neurological: Present: GCS=15, Speech Normal Skin: Present: Warm, Dry, Pale. No: Rashes Psychiatric: Present: Alert, Oriented x 3, Normal Insight, Normal Concentration Medical Decision Making ED Course and Treatment: 06/05/18 12:36 Impression: 73 year old female presents to the ED for evaluation of shortness of breath. Extensive PMH with recent admission. Plan: -- ABG -- EKG -- Labs -- CXR -- Duoneb -- Lasix -- Prednisone -- Rapid Flu -- Reassess and disposition Prior Visits: Notes and results from previous visits were reviewed. Progress Notes: 06/05/18 13:03 EKG reviewed, shows NSR at 94 bpm, nonspecific ST/ T wave changes. 06/05/18 13:03 CXR reviewed by radiologist, shows chronic bibasilar infiltrates. 06/05/18 13:04 Labs and abg reviewed. Will give slow hydration for hyponatriemia. Placed on bipap for chf and copd and reporitng improvement of breathing on bipap. Given lasix and aspirin for CHF. Reports improvement of breathing when on bipap. Given nebs and steroids for wheezing. Pending ua. Discussed case with Dr. Jean, who is aware and agrees with ED management plan, accepts patient admission to Telemetry under his service. - RAD Interpretation Radiology Orders: 06/05/18 12:08 CHEST PORTABLE [RAD] Stat - EKG Interpretation Interpreted by ED Physician: Yes Type: 12 lead EKG - Medication Orders Current Medication Orders: Albuterol/Ipratropium (Duoneb 3 Mg/0.5 Mg (3 Ml) Ud) 3 ml IH Q15M TATE Stop: 06/05/18 12:46 Discontinued Medications Methylprednisolone (Solu-Medrol) 125 mg IVP STAT STA Stop: 06/05/18 12:08 - Scribe Statement The provider has reviewed the documentation as recorded by the Scribe Susie Duarte. All medical record entries made by the Scribe were at my direction and personally dictated by me. I have reviewed the chart and agree that the record accurately reflects my personal performance of the history, physical exam, medical decision making, and the department course for this patient. I have also personally directed, reviewed, and agree with the discharge instructions and disposition. Disposition/Present on Arrival - Present on Arrival Any Indicators Present on Arrival: No History of DVT/PE: No History of Uncontrolled Diabetes: No Urinary Catheter: No History of Decub. Ulcer: No History Surgical Site Infection Following: None - Disposition Have Diagnosis and Disposition been Completed?: Yes Diagnosis: Hyponatremia, CHF (congestive heart failure), COPD (chronic obstructive pulmonary disease) Disposition: HOSPITALIZED Disposition Time: 12:45 Patient Problems: Current Active Problems Problem Status Onset Hyponatremia Acute CHF (congestive heart failure) Acute COPD (chronic obstructive pulmonary disease) Acute Condition: FAIR Discharge Instructions (ExitCare): Heart Failure (ED) Referrals: Rodrigo Parekh MD [Primary Care Provider] - Follow up with primary Forms: [employer] (Latvian)
[2018-06-05] MEDS: Albuterol-Ipratrop 3 mg / 0.5 (3 ml) UD IH SCH ×5 (12:20→23:55)
[2018-06-05 12:36] LABS: BASO # 0.03 K/mm3 (0.0-2.0); BASO % 0.2 % (0.0-3.0); EOS # 0.1 (0.0-0.7); EOS % 0.7 % (1.5-5.0); HEMOGLOBIN 10.1 g/dL (12.0-16.0); LYMPH # 0.7 (1.2-3.4); LYMPH % 4.1 % (22.0-35.0); MEAN CORPUSCULAR HEMOGLOBIN 28.9 pg (25.0-35.0); MEAN CORPUSCULAR HGB CONC 32.9 g/dl (31.0-37.0); MEAN PLATELET VOLUME 9.2 fl (7.0-11.0); MONO # 1.4 (0.1-0.6); PLATELET COUNT 345 10^3/uL (120.0-450.0); RBC 3.49 10^6/uL (3.5-6.1); RED CELL DISTRIBUTION WIDTH 14.2 % (11.5-14.5); WHITE BLOOD COUNT 15.9 10^3/uL (4.5-11.0)
[2018-06-05 12:50] LABS: ARTERIAL BLOOD GAS HCO3 42.5 mmol/L (21-28); ARTERIAL BLOOD GAS HEMOGLOBIN 10.9 g/dL (11.7-17.4); ARTERIAL BLOOD GAS O2 CAPACITY 14.9 mL/dl (16-24); ARTERIAL BLOOD GAS O2 CONTENT 14.8 ML/dl (15-23); ARTERIAL BLOOD GAS O2 SAT 99.2 % (95-98); ARTERIAL BLOOD GAS PCO2 77 mm/Hg (35-45); ARTERIAL BLOOD GAS PH 7.35 (7.35-7.45); ARTERIAL BLOOD GAS TCO2 44.9 mmol.L (22-28)
[2018-06-05 12:52] LABS: ALB/GLOB RATIO 0.9 (1.1-1.8); ALBUMIN 3.3 g/dL (3.0-4.8); ALT/SGPT 12 U/L (7-56); AST/SGOT 21 U/L (14-36); BLOOD UREA NITROGEN 10 mg/dL (7-21); CALCIUM 8.4 mg/dL (8.4-10.5); GFR NON-AFRICAN AMERICAN > 60
[2018-06-05 12:58] LABS: B-TYPE NATRIURETIC PEPTIDE 9230 pg/mL (0-450); TROPONIN I 0.03 ng/mL
--- NOTE | 2018-06-05 13:02 | RAD ---
Date of service: 06/05/2018 HISTORY: sob COMPARISON: 05/11/2018 FINDINGS: LUNGS: Chronic bibasilar infiltrates. PLEURA: No significant pleural effusion identified, no pneumothorax apparent. CARDIOVASCULAR: Aortic calcification Normal cardiac size. No pulmonary vascular congestion. OSSEOUS STRUCTURES: No significant abnormalities. VISUALIZED UPPER ABDOMEN: Normal. OTHER FINDINGS: There is a right-sided PICC line that terminates in the right axilla. IMPRESSION: Chronic bibasilar infiltrates
[2018-06-05 13:05] LABS: BAND 1 % (0-2); BASOPHIL 2 % (0.0-1.0); LYMPHOCYTE 1 % (22.0-35.0); MONOCYTE 7 % (1.0-6.0); NEUTROPHIL 89 % (50.0-70.0); PLATELET ESTIMATE NORMAL (NORMAL)
[2018-06-05] MEDS ORDERED: Sodium Chloride 0.9% 1,000 ML IV SCH (13:15)
--- NOTE | 2018-06-05 14:07 | CP.PCM.HP ---
<Alethea Wilburn - Last Filed: 06/05/18 18:56> History of Present Illness - History of Present Illness History of Present Illness: PGY-[address] Jean Ms Kasper, 73F with PMH of COPD on 3L NC, PAD, Carotid disease s/p L carotid stent, L subclavian stenosis, CAD s/p CABG, CHF with newly dx takasibo cardiomyopathy on life vest (EF 20-25), a-fib on eliquis, HLD hypothyroidism, and CVA x3 presented from [facility] c/o intermittent SOB x 3 days. Pt noticed that she had increased sputum and cough x 2 days, greenish sputum. At alf, IVF, laxis, nebulizer treatments did not help. (+) chest pain but not currently In Apr 2018: She had a PEA arrest s/p cardiopulmonary resuscitation. Admitted on 05/11/09 fo resp distress and cardiac arrest, placed on exeternal defibrilla tor/life vest In Jan 2018: She was admitted in [place] for cardiac arrest and respiratory failure with hypoxemia 2/2 COPD. ROS: (+) SOB, cough (+) N (+) loosely formed stool since last admission Denies F/C, CP, V/D/C, dysuria PMH: COPD, 3L at home PAD Carotid disease s/p L carotid stent L subclavian stenosis CAD s/p CABG, on life vest --- cardiac cath 05/11/18: Takotsubo's cardiomyopathy, non-obs CAD CHF systolic (20-25%) a-fib on eliquis hypothyroidism, CVA x3 (most recent one 2 years ago, L residual weakness) HLD Hx MDR UTIs Hx falls PSH: CABG/cardiac stenting Carotid endarterectomy L Carotid stenting Cataract removal RUE midline Fam Hx: CAD, HLD Soc Hx: 2.5 PPD x 40 years, Denies EtOH and Illicit drug use. Live alone. Shayne, son, 5 mins away. All: Codeine, oxycodone, penicillin PMD: Dr. Parekh NOTE: Previous records under [id number] In ED, VS T98 HR 82. BP 199/86 RR 27 95% 4LNC CBC: WBC 15.9, Hb 10 ABG: pH 7.25. PCO2 77. HCO 43. PaO2 90 Na 122 K 3.8 Cl 72, CO2 43, BUN 10. Cre 0.6 Mg 1.2. Glucose 134 trops 0.03. BNP 9230 CXR: chronic bibasilar infiltrates EKG: NSR TWI V5,6. ATc 380 Got duoneb, ASA, lasix, solumedrol, NS@80 Present on Admission - Present on Admission Any Indicators Present on Admission: No Past Patient History - Infectious Disease Hx of Infectious Diseases: None - Past Medical History & Family History Past Medical History?: Yes - Past Social History Smoking Status: Former Smoker - CARDIAC Hx Cardiac Disorders: Yes (cardiac arrest, EF 20 to 25%, Takotsubo's cardiomyopathy.) Hx Hypertension: Yes Other/Comment: Life Vest - PULMONARY Hx Chronic Obstructive Pulmonary Disease (COPD): Yes - NEUROLOGICAL Hx Neurological Disorder: Yes HX Cerebrovascular Accident: Yes (x3) - HEENT Hx HEENT Problems: Yes Hx Cataracts: Yes - RENAL Hx Chronic Kidney Disease: No - ENDOCRINE/METABOLIC Hx Endocrine Disorders: Yes Hx Hypothyroidism: Yes - HEMATOLOGICAL/ONCOLOGICAL Hx Blood Disorders: No - INTEGUMENTARY Hx Dermatological Problems: No - MUSCULOSKELETAL/RHEUMATOLOGICAL Hx Arthritis: Yes - GASTROINTESTINAL Hx Gastrointestinal Disorders: No - GENITOURINARY/GYNECOLOGICAL Hx Genitourinary Disorders: No - PSYCHIATRIC Hx Psychophysiologic Disorder: No Hx Substance Use: No (unknown) - SURGICAL HISTORY Hx Cardiac Catheterization: Yes Hx Coronary Artery Bypass Graft: Yes - ANESTHESIA Hx Anesthesia Reactions: No Hx Malignant Hyperthermia: No Meds Allergies/Adverse Reactions: Allergies Allergy/AdvReac Type Severity Reaction Status Date / Time codeine Allergy ANAPHYLAXIS Verified 06/05/18 14:09 oxycodone HCl [From Percocet] Allergy ANAPHYLAXIS Verified 06/05/18 14:09 Penicillins Allergy ANAPHYLAXIS Verified 06/05/18 14:09 Physical Exam - Constitutional Appears: No Acute Distress - Head Exam Head Exam: ATRAUMATIC, NORMAL INSPECTION, NORMOCEPHALIC - Eye Exam Eye Exam: EOMI, Normal appearance, PERRL. absent: Scleral icterus Pupil Exam: NORMAL ACCOMODATION - ENT Exam ENT Exam: Mucous Membranes Moist - Neck Exam Additional comments: No JVD - Respiratory Exam Respiratory Exam: Decreased Breath Sounds, Rhonchi, Wheezes. absent: Rales - Cardiovascular Exam Cardiovascular Exam: REGULAR RHYTHM, +S1, +S2 Additional comments: decreased heart sound - GI/Abdominal Exam GI & Abdominal Exam: Normal Bowel Sounds, Soft. absent: Distended, Firm, Rigid, Tenderness - Extremities Exam Extremities exam: Positive for: normal capillary refill, pedal edema (slight), pedal pulses present. Negative for: calf tenderness - Back Exam Back exam: absent: CVA tenderness (L), CVA tenderness (R), paraspinal tenderness, rash noted - Neurological Exam Neurological exam: Alert, CN II-XII Intact, Oriented x3 - Psychiatric Exam Psychiatric exam: Normal Affect, Normal Mood - Skin Skin Exam: Dry, Warm Results - Vital Signs Recent Vital Signs: Last Vital Signs Temp 98.1 F 06/05/18 12:07 Pulse 83 06/05/18 12:50 Resp 24 06/05/18 12:55 BP 199/86 H 06/05/18 12:50 Pulse Ox 95 06/05/18 12:55 - Labs Result Diagrams: 06/05/18 12:30 06/05/18 12:30 Labs: Laboratory Results - last 24 hr 06/05/18 06/05/18 06/05/18 12:15 12:30 12:30 WBC 15.9 H D RBC 3.49 L Hgb 10.1 L Hct 30.7 L MCV 88.0 D MCH 28.9 MCHC 32.9 RDW 14.2 Plt Count 345 MPV 9.2 Neut % (Auto) 86.0 H Lymph % (Auto) 4.1 L Ref[place] % (Auto) 9.0 H Eos % (Auto) 0.7 L Baso % (Auto) 0.2 Lymph # (Auto) 0.7 L [place] # (Auto) 1.4 H Eos # (Auto) 0.1 Baso # (Auto) 0.03 Absolute Neuts (auto) 13.70 H Neutrophils % (Manual) 89 H Band Neutrophils % 1 Lymphocytes % (Manual) 1 L Monocytes % (Manual) 7 H Basophils % (Manual) 2 H Platelet Evaluation Normal pCO2 77 H* pO2 94.0 HCO3 42.5 H* ABG pH 7.35 ABG Total CO2 44.9 H ABG O2 Saturation 99.2 H ABG O2 Content 14.8 L ABG Base Excess 14.0 H ABG Hemoglobin 10.9 L ABG Carboxyhemoglobin 2.7 H POC ABG HHb (Measured) 0.8 ABG Methemoglobin 1.0 ABG O2 Capacity 14.9 L Hgb O2 Saturation 95.5 FiO2 36.0 Crit Value Called [place] [id number] Blood Gas Notified Time 1249 Sodium Potassium Chloride Carbon Dioxide Anion Gap BUN Creatinine Est GFR ( Amer) Est GFR (Non-Af Amer) Random Glucose Calcium Phosphorus Magnesium Total Bilirubin AST ALT Alkaline Phosphatase Total Creatine Kinase Troponin I NT-Pro-B Natriuret Pep Total Protein Albumin Globulin Albumin/Globulin Ratio Influenza Typ A,B (EIA) Negative for flu a/b 06/05/18 12:30 WBC RBC Hgb Hct MCV MCH MCHC RDW Plt Count MPV Neut % (Auto) Lymph % (Auto) Refug[place] % (Auto) Eos % (Auto) Baso % (Auto) Lymph # (Auto) Refug[place] # (Auto) Eos # (Auto) Baso # (Auto) Absolute Neuts (auto) Neutrophils % (Manual) Band Neutrophils % Lymphocytes % (Manual) Monocytes % (Manual) Basophils % (Manual) Platelet Evaluation pCO2 pO2 HCO3 ABG pH ABG Total CO2 ABG O2 Saturation ABG O2 Content ABG Base Excess ABG Hemoglobin ABG Carboxyhemoglobin POC ABG HHb (Measured) ABG Methemoglobin ABG O2 Capacity Hgb O2 Saturation FiO2 Crit Value Called To Crit Value Called By Blood Gas Notified Time Sodium 122 L Potassium 3.8 Chloride 72 L D Carbon Dioxide 43 H Anion Gap 11 BUN 10 Creatinine 0.6 L Est GFR ( Amer) > 60 Est GFR (Non-Af Amer) > 60 Random Glucose 134 H Calcium 8.4 Phosphorus 3.8 Magnesium 1.2 L Total Bilirubin 0.5 AST 21 ALT 12 Alkaline Phosphatase 114 Total Creatine Kinase 26 L Troponin I 0.03 D NT-Pro-B Natriuret Pep 9230 H Total Protein 6.9 Albumin 3.3 Globulin 3.6 Albumin/Globulin Ratio 0.9 L Influenza Typ A,B (EIA) Assessment & Plan - Assessment and Plan (Free Text) Plan: Ms Kasper, 73F with PMH of COPD on 3L NC, PAD, Carotid disease s/p L carotid stent, L subclavian stenosis, CAD s/p CABG, CHF with newly dx takasibo card iomyopathy on life vest (EF 20-25), a-fib on eliquis, HLD hypothyroidism, and CVA x3 presented from [facility] c/o intermittent SOB x 3 days with increased sputum and cough x 2 days, greenish sputum. She is s/p cardiopulmonary arrest Apr 2018 and Jan 2018 COPD exacerbation Chronic respiratory failure on 3L home O2 - Doxy - Duonab q4 aram, q2 prn - solumedrol 40 daily - Continous O2, HOB 45%, budesonide systolic CHF, decompensated; Elevated BNP 9230 Takasubo cardiomyopathy - Coreg 3.125 bid, digioxin 125mcg daily - dobutamin gtt - laxis 40 IV q12 - xanax 0.25 q8 prn; - daily wt, strict i/o, purwick Leukocytosis 15.9 likely bacterial bronchitis - follow Blood Cx, sputum Cx - Doxycyclin (day 1) Hyponatermia 122 - BMP q6 - NS @ - Workup: Ronald, UOsm - seizure precaution - No IVF per cardio CAD with Hx CABG - ASA, lisinopril 5, lipitor A fib - eliquis 2.5 bid hypothyroidism - home synthroid Hypomagnesimeia - home mag oxide gerd - protonix s/r/d/w Dr Jean <Trudy Jean - Last Filed: 06/07/18 08:04> Results - Vital Signs Recent Vital Signs: Last Vital Signs Temp 98.3 F 06/07/18 05:58 Pulse 71 06/07/18 05:58 Resp 18 06/07/18 05:58 BP 116/63 06/07/18 05:58 Pulse Ox 96 06/07/18 05:58 - Labs Result Diagrams: 06/07/18 06:20 06/07/18 00:15 Labs: Laboratory Results - last 24 hr 06/06/18 06/06/18 06/06/18 06:00 06:00 06:00 WBC 11.1 H D RBC 3.27 L Hgb 9.2 L Hct 28.2 L MCV 86.2 MCH 28.1 MCHC 32.6 RDW 14.2 Plt Count 348 MPV 9.4 Neut % (Auto) 90.9 H Lymph % (Auto) 4.9 L [place]ug[place] % (Auto) 4.2 Eos % (Auto) 0.0 L Baso % (Auto) 0.0 Lymph # (Auto) 0.5 L Refug[place] # (Auto) 0.5 Eos # (Auto) 0.0 Baso # (Auto) 0.00 Absolute Neuts (auto) 10.08 H Sodium 122 L Potassium 3.1 L Chloride 69 L Carbon Dioxide 42 H Anion Gap 14 BUN 15 Creatinine 0.7 Est GFR ( Amer) > 60 Est GFR (Non-Af Amer) > 60 Random Glucose 147 H Uric Acid 7.7 H Calcium 8.0 L Magnesium 2.2 Total Bilirubin 0.4 AST 33 ALT 13 Alkaline Phosphatase 109 Total Protein 6.2 Albumin 2.9 L Globulin 3.3 Albumin/Globulin Ratio 0.9 L Free T3 pg/mL 1.47 L Total T3 Urine Osmolality Ur Random Sodium Digoxin 0.7 L 06/06/18 06/06/18 06/06/18 06:00 12:00 19:11 WBC RBC Hgb Hct MCV MCH MCHC RDW Plt Count MPV Neut % (Auto) Lymph % (Auto) Refug[place] % (Auto) Eos % (Auto) Baso % (Auto) Lymph # (Auto) Refug[place] # (Auto) Eos # (Auto) Baso # (Auto) Absolute Neuts (auto) Sodium 120 L 119 L* Potassium 3.4 L 3.7 Chloride 68 L 71 L Carbon Dioxide 43 H 41 H Anion Gap 12 11 BUN 15 16 Creatinine 0.7 0.7 Est GFR ( Amer) > 60 > 60 Est GFR (Non-Af Amer) > 60 > 60 Random Glucose 170 H 165 H Uric Acid Calcium 8.3 L 8.2 L Magnesium Total Bilirubin AST ALT Alkaline Phosphatase Total Protein Albumin Globulin Albumin/Globulin Ratio Free T3 pg/mL Total T3 0.44 L Urine Osmolality Ur Random Sodium Digoxin 06/07/18 06/07/18 06/07/18 00:15 01:05 06:20 WBC 15.2 H D RBC 3.08 L Hgb 8.7 L Hct 26.9 L MCV 87.3 MCH 28.2 MCHC 32.3 RDW 14.5 Plt Count 364 MPV 8.9 Neut % (Auto) Lymph % (Auto) Refugio % (Auto) Eos % (Auto) Baso % (Auto) Lymph # (Auto) Refugio # (Auto) Eos # (Auto) Baso # (Auto) Absolute Neuts (auto) Sodium 120 L Potassium 3.7 Chloride 73 L Carbon Dioxide 40 H Anion Gap 11 BUN 15 Creatinine 0.7 Est GFR ( Amer) > 60 Est GFR (Non-Af Amer) > 60 Random Glucose 127 H Uric Acid Calcium 8.1 L Magnesium Total Bilirubin AST ALT Alkaline Phosphatase Total Protein Albumin Globulin Albumin/Globulin Ratio Free T3 pg/mL Total T3 Urine Osmolality 166 L Ur Random Sodium 27 Digoxin Attending/Attestation - Attestation I have personally seen and examined this patient.: Yes I have fully participated in the care of the patient.: Yes I have reviewed all pertinent clinical information: Yes Notes (Text): 06/07/18 07:57 Patient was seen and examined with medical technician. 73 year old female with past medical history of COPD on home oxygen, PAD, carotid artery disease status post left carotid endarterectomy, L subclavian stenosis, CAD s/p CABG, atrial fibrillation on eliquis, hyperlipidemia, hypothyroidism, and [id number] wall,possible Takotsubo Cardiomyopathy., sp Cardiac arrest last month is admitted with worsening dyspnea and hyponatremia. Dyspnea is due to copd Exacerbation, will start patient on Neb/Steroid and antib iotics. Hyponatremia is likely due to volume depletion due to over diuresis.BNP is elevated but patient is clinically not in CHF exacerbation. We will gently hydrate patient , will follow up electrolyte and will get Nephrology consult. Prognosis is guarded.
[2018-06-05] MEDS ORDERED: Sodium Chloride 0.9% 500 ML IV SCH ×2 (15:01→23:15)
[2018-06-05 15:07] LABS: URINE BILIRUBIN NEGATIVE (NEGATIVE); URINE BLOOD NEGATIVE (NEGATIVE); URINE GLUCOSE (UA) NEGATIVE (NEGATIVE); URINE LEUKOCYTE ESTERASE SMALL Leu/uL (NEGATIVE); URINE PROTEIN 30 mg/dL (<30 mg/dL); URINE UROBILINOGEN 0.2 E.U./dL (<1 E.U./dL)
[2018-06-05 15:09] LABS: URINE APPEARANCE CLEAR (CLEAR); URINE COLOR YELLOW (YELLOW)
[2018-06-05] MEDS ORDERED: DOBUTamine 500mg/250ml D5W 500 MG/250 ML BAG IV PRN (15:17)
[2018-06-05 15:25] LABS: URINE BACTERIA MANY /hpf; URINE EPITHELIAL CELLS 0 - 2 /hpf (0-5)
--- NOTE | 2018-06-05 16:54 | CON ---
DATE OF CONSULTATION: 06/05/2018 CARDIOLOGY CONSULTATION HISTORY: The patient is a 73-year-old woman, who presents with shortness of breath. PAST MEDICAL HISTORY: The patient's past medical history has documented cardiomyopathy, likely Takotsubo's. In addition, she suffers from nonobstructive CAD and severe COPD from a history of smoking. Recently, the patient was admitted [facility] for a cardiac arrest, thought to be ventricular tachycardia in nature. She denies edema, denies orthopnea, denies PND. No angina noted. SOCIAL HISTORY: The patient was from a assisted facility, and she has stopped smoking. REVIEW OF SYSTEMS: Fourteen-point review of systems is reviewed in detail. There was no bleeding secondary to the Eliquis she was receiving for paroxysmal atrial fibrillation. PHYSICAL EXAMINATION: GENERAL: The patient is in no acute distress. VITAL SIGNS: Stable. NECK: Negative JVD. LUNGS: Crackles at the bases. HEART: Reveals S1, S2. EXTREMITIES: Without edema. LABORATORY DATA: EKG shows atrial fibrillation with nonspecific ST-T changes. Laboratories, BMP is markedly elevated. BUN and creatinine are unremarkable. The sodium is consistent with hyponatremia. IMPRESSION: 1. Acute systolic congestive heart failure. 2. Chronic obstructive pulmonary disease. 3. Dilated cardiomyopathy. 4. Coronary artery disease. 5. Dyspnea. 6. Hyponatremia. PLAN: Given these findings, we will start the patient on IV Lasix twice a day in addition, we will give the patient a 24:48 hour of administration of intravenous dobutamine. Toy Couch MD
[2018-06-05] MEDS ORDERED: Albuterol-Ipratrop 3 mg / 0.5 (3 ml) UD IH PRN (17:49)
[2018-06-05] MEDS ORDERED: POLYETHYLENE GLYCOL 3350 17 GM/Dose PACKET PO PRN (18:38)
[2018-06-05] MEDS: Arformoterol 15 mcg/2 ml Inh Sol IH SCH (19:21)
[2018-06-05 19:46] LABS: BLOOD UREA NITROGEN 12 mg/dL (7-21); CALCIUM 8.3 mg/dL (8.4-10.5); GFR NON-AFRICAN AMERICAN > 60
[2018-06-05] MEDS: Magnesium Oxide 400 mg Tab UD PO SCH (22:32)
[2018-06-05 22:37] LABS: OSMOLALITY,URINE 186 mosm/kg (300-1000)
--- NOTE | 2018-06-05 22:41 | CARD ---
APPROVED REPORT Date of service: 06/05/2018 EKG Measurement Heart [id number] <Conclusion> Normal sinus rhythm T wave abnormalities Abnormal ECG
[2018-06-05] MEDS ORDERED: Magnesium Sulfate 2 gm/50 ml 2 GM/50 ML BAG IVPB ONE (23:32)
[2018-06-06 01:08] LABS: BLOOD UREA NITROGEN 14 mg/dL (7-21); CALCIUM 8.2 mg/dL (8.4-10.5); GFR NON-AFRICAN AMERICAN > 60
[2018-06-06] MEDS: Albuterol-Ipratrop 3 mg / 0.5 (3 ml) UD IH SCH ×5 (03:15→19:29)
--- NOTE | 2018-06-06 07:21 | CON ---
DATE: 06/05/2018 NEPHROLOGY CONSULTATION The patient is a 73-year-old female with past medical history of COPD, on 3 liters oxygen, peripheral arterial disease, status post left carotid stent, left subclavian stenosis, CAD, status post CABG, CHF with newly diagnosed Takotsubo cardiomyopathy, on LifeVest, with ejection fraction 20-25%, AFib, on Eliquis, hypothyroidism, and CVA x 3, [facility] with complaint of intermittent shortness of breath; Nephrology being consulted for profound hyponatremia. The patient is somewhat confused, giving erratic history; per record, the patient was complaining of intermittent shortness of breath for 3 days; also with cough with increased sputum production since previous 2 days; the patient did not respond to diuretics or nebulizer treatments and was, therefore, sent to ED. In the ED, the patient was placed on BiPAP due to hypercapnia seen on ABG; also given nebulizer treatments and steroids for wheezing; reportedly had improvement in shortness of breath on BiPAP; also given one dose of IV Lasix 40 mg. PAST MEDICAL HISTORY: As above. The patient is also status post PEA arrest in 04/2018 after previous episode of cardiac arrest in 01/2018. SOCIAL HISTORY: Smokes 2-1/2 packs per day x40 years. FAMILY HISTORY: CAD, hyperlipidemia. REVIEW OF SYSTEMS: Limited as the patient is somewhat confused. CONSTITUTIONAL: Reports decreased p.o. intake lately. RESPIRATORY: As per HPI. CARDIOVASCULAR: Reports having had some palpitations earlier today. GASTROINTESTINAL: Cannot answer whether she has had any vomiting or diarrhea. GENITOURINARY: Denies any dysuria. MUSCULOSKELETAL: The patient unable to answer whether she can walk. NEUROLOGIC: Reportedly with history of falls. PHYSICAL EXAMINATION: VITAL SIGNS: This evening, blood pressure 120/65, heart rate 89, respirations 19, temperature 98.7, O2 sat 97% on 3 liters via nasal cannula. GENERAL: No distress. Able to answer some questions appropriately. HEENT: Moist mucous membranes. Nonicteric. No cervical lymphadenopathy. RESPIRATORY: Poor air movement bilaterally. No obvious rales or rhonchi. CARDIOVASCULAR: Soft systolic murmur present. Regular rate and rhythm. No gallops, no rubs. GASTROINTESTINAL: Abdomen soft, nontender, nondistended. GENITOURINARY: No bladder distention. EXTREMITIES: No lower leg edema. SKIN: Warm. No cyanosis. NEUROLOGIC: No obvious resting tremor. Oriented to date and name, not oriented to place. PSYCHIATRIC: Normal mood, normal affect, not agitated. LABORATORY DATA: CBC: WBC is 15.9, hemoglobin 10.1, hematocrit 30.7, platelets 345. Chemistry panel: Sodium 122, potassium 3.8, chloride 72, bicarb 43, BUN 10, creatinine 0.6, glucose 134, calcium 8.4, phosphorus 3.8, magnesium 1.2, AST 21, ALT 12, albumin 3.3. ProBNP 9230. ABG: pH 7.35, pCO2 of 77, pO2 of 94, done on 36% FiO2. Urine studies, UA, specific gravity 1.015, 1-3 WBC's, many bacteria. Urine osmolality 186. Urine sodium 40. Chest x-ray directly visualized shows possible bilateral basal opacities. ASSESSMENT AND PLAN: 1. Hyponatremia, relatively profound. The patient otherwise appears euvolemic on exam; does not appear to be in overt heart failure with good perfusing blood pressure and no cyanosis, cold extremities, or other indications that the patient has end-stage heart failure that might be responsible for hyponatremia. No obvious history of volume depletion, although history is limited; urine osmolality obtained this evening (although after the patient has received a dose of IV Lasix) shows urine osmolality is relatively low and most likely consistent with decreased p.o. intake or polydipsia; doubt polydipsia history as the patient is currently not polyuric. For now, we will give a trial of gentle isotonic saline at 60 mL/hour with goal of correcting serum sodium not more than 6-8 mEq in a 24-hour period. We will continue to monitor serum sodium every 6 hours. We will keep on moderate p.o. fluid restriction of 2 liters per day. 2. Congestive heart failure with systolic dysfunction. The patient is currently on ionotropic support. At this point, does not appear to be in florid heart failure, however, has severe systolic dysfunction on recent echo and with elevated proBNP. Currently on Lasix IV 40 mg twice daily; can continue with the same. Avoid giving Aldactone until serum sodium is close to normal, can continue with lisinopril. 3. Hypercapnea - Appears chronic with adequate compensatory metabolic alkalosis and pH almost normal (actually indicates patient has a small component of primary metabolic alkalosis, possibly due to being on loop diuretic as outpatient); will recommend to keep on BIPAP at night as patient has some element of confusion that may be explained by profound hypercapnea. Thank you for this referral. We will be following up closely. Regino Ji MD [facility]
[2018-06-06 07:32] LABS: BLOOD UREA NITROGEN 15 mg/dL (7-21); FREE T4 1.65 ng/dL (0.78-2.19); GFR NON-AFRICAN AMERICAN > 60; URIC ACID 7.7 mg/dL (2.5-6.2)
[2018-06-06] MEDS: Arformoterol 15 mcg/2 ml Inh Sol IH SCH ×2 (07:50→19:29)
[2018-06-06] MEDS: Budesonide 0.5 mg/2 ml Inhal Susp UD IH SCH (07:50)
[2018-06-06] MEDS ORDERED: Sodium Chloride 3% 500 ML IV SCH ×2 (08:00→20:15)
[2018-06-06] MEDS: Pantoprazole 40 mg EC Tab PO SCH (08:39)
[2018-06-06 09:12] LABS: HEMOGLOBIN 9.2 g/dL (12.0-16.0); LYMPH # 0.5 (1.2-3.4); LYMPH % 4.9 % (22.0-35.0); MEAN CELL VOLUME 86.2 fl (80.0-105.0); MEAN CORPUSCULAR HEMOGLOBIN 28.1 pg (25.0-35.0); MEAN CORPUSCULAR HGB CONC 32.6 g/dl (31.0-37.0); MEAN PLATELET VOLUME 9.4 fl (7.0-11.0); MONO # 0.5 (0.1-0.6); MONO % 4.2 % (1.0-6.0); RBC 3.27 10^6/uL (3.5-6.1); RED CELL DISTRIBUTION WIDTH 14.2 % (11.5-14.5); WHITE BLOOD COUNT 11.1 10^3/uL (4.5-11.0)
[2018-06-06 09:29] LABS: ALB/GLOB RATIO 0.9 (1.1-1.8); ALBUMIN 2.9 g/dL (3.0-4.8); ALT/SGPT 13 U/L (7-56); AST/SGOT 33 U/L (14-36)
[2018-06-06] MEDS: MethylPREDNISolone 40 mg Vial IVP SCH (09:41)
[2018-06-06] MEDS: Levothyroxine 100 MCG TAB PO SCH (09:41)
[2018-06-06 12:44] LABS: BLOOD UREA NITROGEN 15 mg/dL (7-21); CALCIUM 8.3 mg/dL (8.4-10.5); GFR NON-AFRICAN AMERICAN > 60
--- NOTE | 2018-06-06 13:04 | CP.PCM.PN ---
<GrabielAnoop - Last Filed: 06/06/18 14:48> Subjective - Date & Time of Evaluation Date of Evaluation: 06/06/18 Time of Evaluation: 12:59 - Subjective Subjective: Medicine Progress Note for Dr. Jean 73F seen and evaluated at bedside this morning. Per nurse, patient was started on BiPAP and was mildly agitated overnight. Patient states she is feeling better than yesterday. Currently on 3L O2 via NC and satting >90%. Denies f/c, n/v/d, SOB, CP, or urinary symptoms. Objective - Vital Signs/Intake and Output Vital Signs (last 24 hours): Temp Pulse Resp BP Pulse Ox 97.8 F 95 H 20 130/74 95 06/06/18 12:00 06/06/18 12:00 06/06/18 12:00 06/06/18 12:00 06/06/18 00:01 Intake and Output: 06/06/18 06/06/18 06:59 18:59 Intake Total 1470 Output Total 900 Balance 570 - Medications Medications: Current Medications Acetaminophen (Tylenol 325mg Tab) 650 mg PO Q6H PRN PRN Reason: Fever >100.4 F Albuterol/Ipratropium (Duoneb 3 Mg/0.5 Mg (3 Ml) Ud) 3 ml IH Q2H PRN PRN Reason: Shortness of Breath Albuterol/Ipratropium (Duoneb 3 Mg/0.5 Mg (3 Ml) Ud) 3 ml IH [id number] [facility] Last Admin: 06/06/18 10:51 Dose: 3 ml Alprazolam (Xanax) 1 mg PO TID PRN; Protocol PRN Reason: Anxiety Apixaban (Eliquis) 2.5 mg PO BID [facility]; Protocol Last Admin: 06/06/18 09:41 Dose: 2.5 mg Arformoterol Tartrate (Brovana) 15 mcg IH [id number] [facility] Last Admin: 06/06/18 07:50 Dose: 15 mcg Aspirin (Ecotrin) 81 mg PO DAILY [facility] Last Admin: 06/06/18 09:41 Dose: 81 mg Atorvastatin Calcium (Lipitor) 20 mg PO DIN [facility] Budesonide (Pulmicort Respules) 0.5 mg IH 0800 [facility] Last Admin: 06/06/18 07:50 Dose: 0.5 mg Carvedilol (Coreg) 3.125 mg PO BID [facility] Last Admin: 06/06/18 09:41 Dose: 3.125 mg Citalopram Hydrobromide (Celexa) 20 mg PO DAILY [facility] Last Admin: 06/06/18 09:41 Dose: 20 mg Digoxin (Digoxin) 0.125 mg PO 1400 [facility] Furosemide (Lasix) 40 mg IVP Q12 [facility] Last Admin: 06/06/18 09:41 Dose: 40 mg Dobutamine HCl/Dextrose (Dobutamine/Dextrose 5% 500mg/250ml) 500 mg in 250 mls @ 10.145 mls/hr IV .Q24H PRN PRN Reason: Dyspepsia Last Admin: 06/05/18 15:34 Dose: 10.145 mls/hr Doxycycline Hyclate 100 mg/ (Sodium Chloride) 100 mls @ 100 mls/hr IVPB Q12 [facility]; Protocol Last Admin: 06/06/18 10:14 Dose: 100 mls/hr Sodium Chloride (Hypertonic Saline 3%) 500 mls @ 15 mls/hr IV .Q24H TATE Stop: 06/07/18 07:59 Last Admin: 06/06/18 12:14 Dose: 15 mls/hr Levothyroxine Sodium (Synthroid) 100 mcg PO DAILY [facility] Last Admin: 06/06/18 09:41 Dose: 100 mcg Lisinopril (Zestril) 5 mg PO DAILY [facility] Last Admin: 06/06/18 09:41 Dose: 5 mg Magnesium Oxide (Mag-Ox) 400 mg PO HS [facility] Last Admin: 06/05/18 22:32 Dose: 400 mg Methylprednisolone (Solu-Medrol) 40 mg IVP DAILY [facility] Last Admin: 06/06/18 09:41 Dose: 40 mg Pantoprazole Sodium (Protonix Ec Tab) 40 mg PO ACB [facility] Last Admin: 06/06/18 08:39 Dose: 40 mg Polyethylene Glycol (Miralax) 17 gm PO DAILY PRN PRN Reason: Constipation - Labs Labs: 06/06/18 06:00 06/06/18 12:00 - Constitutional Appears: Well, Non-toxic, No Acute Distress - Head Exam Head Exam: ATRAUMATIC, NORMAL INSPECTION, NORMOCEPHALIC - Eye Exam Eye Exam: EOMI - ENT Exam ENT Exam: Mucous Membranes Dry - Respiratory Exam Respiratory Exam: absent: Wheezes, Respiratory Distress - Cardiovascular Exam Cardiovascular Exam: Tachycardia, REGULAR RHYTHM, Murmur (systolic) - GI/Abdominal Exam GI & Abdominal Exam: Soft, Normal Bowel Sounds. 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 She is s/p cardiopulmonary arrest Apr 2018 and Jan 2018. Plan: COPD exacerbation - Currently on 3L O2 NC (same as home) - BiPAP at night - CXR 06/06: no active disease, improved bibasilar infiltrates - Doxycycline IV - Duoneb Q4 TATE, Q2 PRN - Solumedrol 40mg daily - Continuous O2 - Head of Bed 45% - Budesonide, Brovana 15mcg Q12 Systolic CHF, decompensated - Recently diagnosed Takasobu Cardiomyopathy, resolved - F/u ECHO read - Elevated BNP 9230 - Coreg 3.125 BID, Digoxin .125mcg QD - Per cardio, Dobutamine gtt discontinued - Lasix 40mg IV QD - Xanax increased to 1mg TID PRN per palliative - Daily weights - Strict Is and Os - Lifevest (EF of 20-25%) - Heart healthy diet - Cardiology, Dr. Couch, following Leukocytosis, downtrending - WBC: 11.1 - CXR 06/05: chronic bibasilar infiltrates - CXR 06/06: improving bibasilar infiltrates. no active disease. - Flu A/B negative - F/u Blood and Sputum cultures - Doxycycline (started 06/05) Hyponatermia - Na 120 today - BMP Q6H - Hypertonic saline @15cc/hr - Ronald: 40, UOsm: 186 - Seizure precaution - Nephrology following Hypokalemia - K-dur 40 mEq STAT - Replete electrolytes as needed - Will continue to monitor CAD - Continue ASA 81mg, lisinopril 5mg QD, lipitor 20mg QD Atrial Fibrillation - Eliquis 2.5 BID Hypothyroidism - Continue Synthroid 100mcg QD Hypomagnesemia - Home magnesium oxide 400mg PO HS PPX GI: Protonix DVT: Eliquis Dispo: PT recommends cardiac rehab. Patient plan reviewed and discussed with Dr. Ted Spain <Trudy Jean - Last Filed: 06/07/18 16:43> Objective - Vital Signs/Intake and Output Vital Signs (last 24 hours): Temp Pulse Resp BP Pulse Ox 97.9 F 64 20 109/49 L 92 L 06/07/18 12:00 06/07/18 14:00 06/07/18 12:00 06/07/18 12:00 06/07/18 09:00 Intake and Output: 06/07/18 06/07/18 06:59 18:59 Intake Total 720 Balance 720 - Medications Medications: Current Medications Acetaminophen (Tylenol 325mg Tab) 650 mg PO Q6H PRN PRN Reason: Fever >100.4 F Last Admin: 06/07/18 01:02 Dose: 650 mg Albuterol/Ipratropium (Duoneb 3 Mg/0.5 Mg (3 Ml) Ud) 3 ml IH Q2H PRN PRN Reason: Shortness of Breath Albuterol/Ipratropium (Duoneb 3 Mg/0.5 Mg (3 Ml) Ud) 3 ml IH [id number] [facility] Last Admin: 06/07/18 14:20 Dose: 3 ml Alprazolam (Xanax) 1 mg PO QID [facility]; Protocol Last Admin: 06/07/18 13:44 Dose: 1 mg Apixaban (Eliquis) 2.5 mg PO BID [facility]; Protocol Last Admin: 06/07/18 09:35 Dose: 2.5 mg Arformoterol Tartrate (Brovana) 15 mcg IH [id number] [facility] Last Admin: 06/07/18 08:10 Dose: 15 mcg Aspirin (Ecotrin) 81 mg PO DAILY [facility] Last Admin: 06/07/18 09:37 Dose: 81 mg Atorvastatin Calcium (Lipitor) 20 mg PO DIN [facility] Last Admin: 06/06/18 18:00 Dose: 20 mg Budesonide (Pulmicort Respules) 0.5 mg IH 0800 [facility] Last Admin: 06/07/18 08:08 Dose: 0.5 mg Carvedilol (Coreg) 3.125 mg PO BID [facility] Last Admin: 06/07/18 09:37 Dose: 3.125 mg Citalopram Hydrobromide (Celexa) 20 mg PO DAILY [facility] Last Admin: 06/07/18 09:36 Dose: 20 mg Digoxin (Digoxin) 0.125 mg PO 1400 [facility] Last Admin: 06/07/18 14:43 Dose: 0.125 mg Furosemide (Lasix) 20 mg PO DAILY [facility] Last Admin: 06/07/18 09:36 Dose: 20 mg Hydrocortisone (Cortizone 1% Cream) 1 gm TOP BID [facility] Last Admin: 06/07/18 09:58 Dose: 2 applic Doxycycline Hyclate 100 mg/ (Sodium Chloride) 100 mls @ 100 mls/hr IVPB Q12 [facility]; Protocol Last Admin: 06/07/18 10:05 Dose: 100 mls/hr Sodium Chloride (Hypertonic Saline 3%) 500 mls @ 30 mls/hr IV .[id number] [facility] Last Admin: 06/07/18 09:41 Dose: 30 mls/hr Levothyroxine Sodium (Synthroid) 100 mcg PO DAILY [facility] Last Admin: 06/07/18 09:35 Dose: 100 mcg Lisinopril (Zestril) 5 mg PO DAILY [facility] Last Admin: 06/07/18 09:35 Dose: 5 mg Magnesium Oxide (Mag-Ox) 400 mg PO HS [facility] Last Admin: 06/06/18 22:53 Dose: 400 mg Methylprednisolone (Solu-Medrol) 40 mg IVP DAILY [facility] Last Admin: 06/07/18 09:35 Dose: 40 mg Pantoprazole Sodium (Protonix Ec Tab) 40 mg PO ACB [facility] Last Admin: 06/07/18 08:19 Dose: 40 mg Polyethylene Glycol (Miralax) 17 gm PO DAILY PRN PRN Reason: Constipation Tramadol HCl (Ultram) 50 mg PO Q8H PRN PRN Reason: Pain, moderate (4-7) Last Admin: 06/07/18 16:04 Dose: 50 mg Zolpidem Tartrate (Ambien) 5 mg PO HS PRN; Protocol PRN Reason: Insomnia - Labs Labs: 06/07/18 06:20 06/07/18 11:30 Attending/Attestation - Attestation I have personally seen and examined this patient.: Yes I have fully participated in the care of the patient.: Yes I have reviewed all pertinent clinical information, including history, physical exam and plan: Yes Notes (Text): 06/07/18 16:40 Patient was seen and examined with medical records coordinator. 73 year old female with past medical history of COPD on home oxygen, PAD, carotid artery disease status post left carotid endarterectomy, L subclavian stenosis, CAD s/p CABG, atrial fibrillation on eliquis, hyperlipidemia, hypothyroidism, and [id number] wall,possible Takotsubo Cardiomyopathy., sp Cardiac arrest last month is admitted with worsening dyspnea and hyponatremia. Dyspnea is due to copd Exacerbation,/CHF, hypoxia is improving, continue Neb/Steroid and antibiotics. Cardiology evaluation is noted, patient is on IV lasix for CHF Repeat Echo showed normal systolic function, life vest can be discontinued. Hyponatremia , multofactorial, patient is asymptomatic, Nephrology is following , on hypertonic saline.Case was discussed with . Prognosis is guarded.
--- NOTE | 2018-06-06 13:05 | CP.PCM.CON ---
History of Present Illness - History of Present Illness History of Present Illness: Palliative Consult requested by Dr. Jean Reason for consult: Goals of care This is a 73 year old female with extensive past medical history including COPD on NC, CAD, cardiac arrest x 2 (recently 04/2018), Takotsubo's cardiomyopathy (currently has life vest), a.fib on Eliquis, hypothyroidism, CVA x 3, PAD, carotid disease, hypothyroidism, UTIs, falls who was sent to ED from [facility] for shortness of breath of 3 day duration. Patient reported increased sputum production that is green in color. Patient states she tried nebulizers in the rehab but it did not help so she was sent to the ED for further evaluation. Patient denied chest pain, nausea/vomiting/diarrhea, fever/chills, numbness/tingling, dysuria/hematuria, headache. Patient does admit to extreme anxiety for which she is prescribed xanax regularly. In the ED patient was found to have leukocytosis WBC 15.9, hyponatremia NA 122, elevated BNP of 9230. ABG also showed CO2 retention. CXR showed bibasilar infiltrates. EKG: NSR, T wave abnormalities. Past medical history: COPD on 3L NC, CAD s/p multiple PCI and CABG, cardiac arrest x 2 (in last 6mo), Takotsubo's cardiomyopathy (has life vest), a.fib on Eliquis, hypothyroidism, CVA x 3, PAD, carotid disease, hypothyroidism, UTIs, falls Past surgical history: CABG, multiple PCI's, L carotid stent, CEA, subclavian bypass stent Home meds: Reviewed as per MAR Allergies: Penicillin, codeine, oxycodone Social history: Smoked 2-3 PPD for 40yrs. Quit 7yrs ago. Denies drug or EtOH use. Lives alone but has home health aid. Family history: CAD, Brother- cancer (unknown type) Advance care planning: Patient does not have an advanced directive,POA unknown. Review of Systems:As per HPI, 12 point ROS is otherwise negative. Review of Systems - Review of Systems All systems: reviewed and no additional remarkable complaints except Review of Systems: 12 point reviewed as per HPI and is otherwise negative Past Patient History - Infectious Disease Hx of Infectious Diseases: None - Past Medical History & Family History Past Medical History?: Yes - Past Social History Smoking Status: Former Smoker - CARDIAC Hx Cardiac Disorders: Yes (cardiac arrest, EF 20 to 25%, Takotsubo's c ardiomyopathy.) Hx Hypertension: Yes Other/Comment: Life Vest - PULMONARY Hx Chronic Obstructive Pulmonary Disease (COPD): Yes - NEUROLOGICAL Hx Neurological Disorder: Yes HX Cerebrovascular Accident: Yes (x3) - HEENT Hx HEENT Problems: Yes Hx Cataracts: Yes - RENAL Hx Chronic Kidney Disease: No - ENDOCRINE/METABOLIC Hx Endocrine Disorders: Yes Hx Hypothyroidism: Yes - HEMATOLOGICAL/ONCOLOGICAL Hx Blood Disorders: No - INTEGUMENTARY Hx Dermatological Problems: No - MUSCULOSKELETAL/RHEUMATOLOGICAL Hx Arthritis: Yes - GASTROINTESTINAL Hx Gastrointestinal Disorders: No - GENITOURINARY/GYNECOLOGICAL Hx Genitourinary Disorders: No - PSYCHIATRIC Hx Psychophysiologic Disorder: No Hx Substance Use: No (unknown) - SURGICAL HISTORY Hx Cardiac Catheterization: Yes Hx Coronary Artery Bypass Graft: Yes - ANESTHESIA Hx Anesthesia Reactions: No Hx Malignant Hyperthermia: No Meds Allergies/Adverse Reactions: Allergies Allergy/AdvReac Type Severity Reaction Status Date / Time codeine Allergy ANAPHYLAXIS Verified 06/05/18 14:09 oxycodone HCl [From Percocet] Allergy ANAPHYLAXIS Verified 06/05/18 14:09 Penicillins Allergy ANAPHYLAXIS Verified 06/05/18 14:09 - Medications Medications: Current Medications Acetaminophen (Tylenol 325mg Tab) 650 mg PO Q6H PRN PRN Reason: Fever >100.4 F Albuterol/Ipratropium (Duoneb 3 Mg/0.5 Mg (3 Ml) Ud) 3 ml IH Q2H PRN PRN Reason: Shortness of Breath Albuterol/Ipratropium (Duoneb 3 Mg/0.5 Mg (3 Ml) Ud) 3 ml IH [id number] [facility] Last Admin: 06/06/18 10:51 Dose: 3 ml Alprazolam (Xanax) 1 mg PO TID PRN; Protocol PRN Reason: Anxiety Apixaban (Eliquis) 2.5 mg PO BID [facility]; Protocol Last Admin: 06/06/18 09:41 Dose: 2.5 mg Arformoterol Tartrate (Brovana) 15 mcg IH [id number] [facility] Last Admin: 06/06/18 07:50 Dose: 15 mcg Aspirin (Ecotrin) 81 mg PO DAILY [facility] Last Admin: 06/06/18 09:41 Dose: 81 mg Atorvastatin Calcium (Lipitor) 20 mg PO DIN [facility] Budesonide (Pulmicort Respules) 0.5 mg IH 0800 [facility] Last Admin: 06/06/18 07:50 Dose: 0.5 mg Carvedilol (Coreg) 3.125 mg PO BID [facility] Last Admin: 06/06/18 09:41 Dose: 3.125 mg Citalopram Hydrobromide (Celexa) 20 mg PO DAILY [facility] Last Admin: 06/06/18 09:41 Dose: 20 mg Digoxin (Digoxin) 0.125 mg PO 1400 [facility] Furosemide (Lasix) 40 mg IVP Q12 [facility] Last Admin: 06/06/18 09:41 Dose: 40 mg Dobutamine HCl/Dextrose (Dobutamine/Dextrose 5% 500mg/250ml) 500 mg in 250 mls @ 10.145 mls/hr IV .Q24H PRN PRN Reason: Dyspepsia Last Admin: 06/05/18 15:34 Dose: 10.145 mls/hr Doxycycline Hyclate 100 mg/ (Sodium Chloride) 100 mls @ 100 mls/hr IVPB Q12 [facility]; Protocol Last Admin: 06/06/18 10:14 Dose: 100 mls/hr Sodium Chloride (Hypertonic Saline 3%) 500 mls @ 15 mls/hr IV .Q24H [facility] Stop: 06/07/18 07:59 Last Admin: 06/06/18 12:14 Dose: 15 mls/hr Levothyroxine Sodium (Synthroid) 100 mcg PO DAILY [facility] Last Admin: 06/06/18 09:41 Dose: 100 mcg Lisinopril (Zestril) 5 mg PO DAILY [facility] Last Admin: 06/06/18 09:41 Dose: 5 mg Magnesium Oxide (Mag-Ox) 400 mg PO HS [facility] Last Admin: 06/05/18 22:32 Dose: 400 mg Methylprednisolone (Solu-Medrol) 40 mg IVP DAILY [facility] Last Admin: 06/06/18 09:41 Dose: 40 mg Pantoprazole Sodium (Protonix Ec Tab) 40 mg PO ACB [facility] Last Admin: 06/06/18 08:39 Dose: 40 mg Polyethylene Glycol (Miralax) 17 gm PO DAILY PRN PRN Reason: Constipation Physical Exam - Constitutional Appears: Chronically Ill Additional comments: Anxious - Head Exam Head Exam: ATRAUMATIC, NORMAL INSPECTION, NORMOCEPHALIC - Eye Exam Eye Exam: Normal appearance, PERRL Pupil Exam: NORMAL ACCOMODATION, PERRL - ENT Exam ENT Exam: Mucous Membranes Moist - Respiratory Exam Respiratory Exam: Wheezes, NORMAL BREATHING PATTERN. absent: Rales, Rhonchi, Stridor - Cardiovascular Exam Cardiovascular Exam: REGULAR RHYTHM, +S1, +S2. absent: Gallop, Rubs, Systolic Murmur - GI/Abdominal Exam GI & Abdominal Exam: Normal Bowel Sounds, Soft. absent: Mass, Rebound, Rigid, Tenderness - Extremities Exam Extremities exam: Positive for: pedal edema, pedal pulses present. Negative for: calf tenderness, tenderness - Back Exam Back exam: NORMAL INSPECTION - Neurological Exam Neurological exam: Alert, CN II-XII Intact - Psychiatric Exam Psychiatric exam: Agitated, Anxious - Skin Skin Exam: Dry, Warm Additional comments: RUQ PICC - Additional Findings Additional findings: Palliative performance rating 40% Results - Vital Signs Recent Vital Signs: Last Vital Signs Temp 97.8 F 06/06/18 12:00 Pulse 95 H 06/06/18 12:00 Resp 20 06/06/18 12:00 BP 130/74 06/06/18 12:00 Pulse Ox 95 06/06/18 00:01 - Labs Result Diagrams: 06/06/18 06:00 06/06/18 12:00 Labs: Laboratory Results - last 24 hr 06/05/18 06/05/18 06/05/18 12:15 12:30 12:30 WBC 15.9 H D RBC 3.49 L Hgb 10.1 L Hct 30.7 L MCV 88.0 D MCH 28.9 MCHC 32.9 RDW 14.2 Plt Count 345 MPV 9.2 Neut % (Auto) 86.0 H Lymph % (Auto) 4.1 L [place] % (Auto) 9.0 H Eos % (Auto) 0.7 L Baso % (Auto) 0.2 Lymph # (Auto) 0.7 L [place] # (Auto) 1.4 H Eos # (Auto) 0.1 Baso # (Auto) 0.03 Absolute Neuts (auto) 13.70 H Neutrophils % (Manual) 89 H Band Neutrophils % 1 Lymphocytes % (Manual) 1 L Monocytes % (Manual) 7 H Basophils % (Manual) 2 H Platelet Evaluation Normal pCO2 77 H* pO2 94.0 HCO3 42.5 H* ABG pH 7.35 ABG Total CO2 44.9 H ABG O2 Saturation 99.2 H ABG O2 Content 14.8 L ABG Base Excess 14.0 H ABG Hemoglobin 10.9 L ABG Carboxyhemoglobin 2.7 H POC ABG HHb (Measured) 0.8 ABG Methemoglobin 1.0 ABG O2 Capacity 14.9 L Hgb O2 Saturation 95.5 FiO2 36.0 Crit Value Called [place] [id number] Blood Gas Notified Time 1249 Sodium Potassium Chloride Carbon Dioxide Anion Gap BUN Creatinine Est GFR ( Amer) Est GFR (Non-Af Amer) Random Glucose Uric Acid Calcium Phosphorus Magnesium Total Bilirubin AST ALT Alkaline Phosphatase Total Creatine Kinase Troponin I NT-Pro-B Natriuret Pep Total Protein Albumin Globulin Albumin/Globulin Ratio Free T4 Total T3 TSH 3rd Generation Urine Color Urine Appearance Urine pH Ur Specific [place] Urine Protein Urine Glucose (UA) Urine Ketones Urine Blood Urine Nitrate Urine Bilirubin Urine Urobilinogen Ur Leukocyte Esterase Urine RBC Urine WBC Ur Epithelial Cells Urine Bacteria Urine Osmolality Ur Random Sodium Digoxin Influenza Typ A,B (EIA) Negative for flu a/b 06/05/18 06/05/18 06/05/18 12:30 14:40 19:23 WBC RBC Hgb Hct MCV MCH MCHC RDW Plt Count MPV Neut % (Auto) Lymph % (Auto) [place] % (Auto) Eos % (Auto) Baso % (Auto) Lymph # (Auto) [place] # (Auto) Eos # (Auto) Baso # (Auto) Absolute Neuts (auto) Neutrophils % (Manual) Band Neutrophils % Lymphocytes % (Manual) Monocytes % (Manual) Basophils % (Manual) Platelet Evaluation pCO2 pO2 HCO3 ABG pH ABG Total CO2 ABG O2 Saturation ABG O2 Content ABG Base Excess ABG Hemoglobin ABG Carboxyhemoglobin POC ABG HHb (Measured) ABG Methemoglobin ABG O2 Capacity Hgb O2 Saturation FiO2 Crit Value Called To Crit Value Called By Blood Gas Notified Time Sodium 122 L 121 L Potassium 3.8 3.6 Chloride 72 L D 68 L Carbon Dioxide 43 H 40 H Anion Gap 11 17 BUN 10 12 Creatinine 0.6 L 0.7 Est GFR ( Amer) > 60 > 60 Est GFR (Non-Af Amer) > 60 > 60 Random Glucose 134 H 201 H Uric Acid Calcium 8.4 8.3 L Phosphorus 3.8 Magnesium 1.2 L Total Bilirubin 0.5 AST 21 ALT 12 Alkaline Phosphatase 114 Total Creatine Kinase 26 L Troponin I 0.03 D NT-Pro-B Natriuret Pep 9230 H Total Protein 6.9 Albumin 3.3 Globulin 3.6 Albumin/Globulin Ratio 0.9 L Free T4 Total T3 TSH 3rd Generation Urine Color Yellow Urine Appearance Clear Urine pH 6.0 Ur Specific [place] 1.015 Urine Protein 30 H Urine Glucose (UA) Negative Urine Ketones Negative Urine Blood Negative Urine Nitrate Negative Urine Bilirubin Negative Urine Urobilinogen 0.2 Ur Leukocyte Esterase Small H Urine RBC None Urine WBC 1 - 3 Ur Epithelial Cells 0 - 2 Urine Bacteria Many Urine Osmolality Ur Random Sodium Digoxin Influenza Typ A,B (EIA) 06/05/18 06/06/18 06/06/18 22:13 00:24 06:00 WBC RBC Hgb Hct MCV MCH MCHC RDW Plt Count MPV Neut % (Auto) Lymph % (Auto) [place] % (Auto) Eos % (Auto) Baso % (Auto) Lymph # (Auto) [place] # (Auto) Eos # (Auto) Baso # (Auto) Absolute Neuts (auto) Neutrophils % (Manual) Band Neutrophils % Lymphocytes % (Manual) Monocytes % (Manual) Basophils % (Manual) Platelet Evaluation pCO2 pO2 HCO3 ABG pH ABG Total CO2 ABG O2 Saturation ABG O2 Content ABG Base Excess ABG Hemoglobin ABG Carboxyhemoglobin POC ABG HHb (Measured) ABG Methemoglobin ABG O2 Capacity Hgb O2 Saturation FiO2 Crit Value Called To Crit Value Called By Blood Gas Notified Time Sodium 121 L 122 L Potassium 3.1 L 3.1 L Chloride 69 L 69 L Carbon Dioxide 42 H 42 H Anion Gap 13 14 BUN 14 15 Creatinine 0.7 0.7 Est GFR ( Amer) > 60 > 60 Est GFR (Non-Af Amer) > 60 > 60 Random Glucose 152 H 147 H Uric Acid 7.7 H Calcium 8.2 L 8.0 L Phosphorus Magnesium 2.2 Total Bilirubin 0.4 AST 33 ALT 13 Alkaline Phosphatase 109 Total Creatine Kinase Troponin I NT-Pro-B Natriuret Pep Total Protein 6.2 Albumin 2.9 L Globulin 3.3 Albumin/Globulin Ratio 0.9 L Free T4 Total T3 TSH 3rd Generation Urine Color Urine Appearance Urine pH Ur Specific [place] Urine Protein Urine Glucose (UA) Urine Ketones Urine Blood Urine Nitrate Urine Bilirubin Urine Urobilinogen Ur Leukocyte Esterase Urine RBC Urine WBC Ur Epithelial Cells Urine Bacteria Urine Osmolality 186 L Ur Random Sodium 40 Digoxin Influenza Typ A,B (EIA) 06/06/18 06/06/18 06/06/18 06:00 06:00 06:00 WBC 11.1 H D RBC 3.27 L Hgb 9.2 L Hct 28.2 L MCV 86.2 MCH 28.1 MCHC 32.6 RDW 14.2 Plt Count 348 MPV 9.4 Neut % (Auto) 90.9 H Lymph % (Auto) 4.9 L [place] % (Auto) 4.2 Eos % (Auto) 0.0 L Baso % (Auto) 0.0 Lymph # (Auto) 0.5 L [place] # (Auto) 0.5 Eos # (Auto) 0.0 Baso # (Auto) 0.00 Absolute Neuts (auto) 10.08 H Neutrophils % (Manual) Band Neutrophils % Lymphocytes % (Manual) Monocytes % (Manual) Basophils % (Manual) Platelet Evaluation pCO2 pO2 HCO3 ABG pH ABG Total CO2 ABG O2 Saturation ABG O2 Content ABG Base Excess ABG Hemoglobin ABG Carboxyhemoglobin POC ABG HHb (Measured) ABG Methemoglobin ABG O2 Capacity Hgb O2 Saturation FiO2 Crit Value Called To Crit Value Called By Blood Gas Notified Time Sodium Potassium Chloride Carbon Dioxide Anion Gap BUN Creatinine Est GFR ( Amer) Est GFR (Non-Af Amer) Random Glucose Uric Acid Calcium Phosphorus Magnesium Total Bilirubin AST ALT Alkaline Phosphatase Total Creatine Kinase Troponin I NT-Pro-B Natriuret Pep Total Protein Albumin Globulin Albumin/Globulin Ratio Free T4 1.65 Total T3 TSH 3rd Generation 0.27 L Urine Color Urine Appearance Urine pH Ur Specific [place] Urine Protein Urine Glucose (UA) Urine Ketones Urine Blood Urine Nitrate Urine Bilirubin Urine Urobilinogen Ur Leukocyte Esterase Urine RBC Urine WBC Ur Epithelial Cells Urine Bacteria Urine Osmolality Ur Random Sodium Digoxin 0.7 L Influenza Typ A,B (EIA) 06/06/18 06:00 WBC RBC Hgb Hct MCV MCH MCHC RDW Plt Count MPV Neut % (Auto) Lymph % (Auto) [place] % (Auto) Eos % (Auto) Baso % (Auto) Lymph # (Auto) [place] # (Auto) Eos # (Auto) Baso # (Auto) Absolute Neuts (auto) Neutrophils % (Manual) Band Neutrophils % Lymphocytes % (Manual) Monocytes % (Manual) Basophils % (Manual) Platelet Evaluation pCO2 pO2 HCO3 ABG pH ABG Total CO2 ABG O2 Saturation ABG O2 Content ABG Base Excess ABG Hemoglobin ABG Carboxyhemoglobin POC ABG HHb (Measured) ABG Methemoglobin ABG O2 Capacity Hgb O2 Saturation FiO2 Crit Value Called To Crit Value Called By Blood Gas Notified Time Sodium Potassium Chloride Carbon Dioxide Anion Gap BUN Creatinine Est GFR ( Amer) Est GFR (Non-Af Amer) Random Glucose Uric Acid Calcium Phosphorus Magnesium Total Bilirubin AST ALT Alkaline Phosphatase Total Creatine Kinase Troponin I NT-Pro-B Natriuret Pep Total Protein Albumin Globulin Albumin/Globulin Ratio Free T4 Total T3 0.44 L TSH 3rd Generation Urine Color Urine Appearance Urine pH Ur Specific [place] Urine Protein Urine Glucose (UA) Urine Ketones Urine Blood Urine Nitrate Urine Bilirubin Urine Urobilinogen Ur Leukocyte Esterase Urine RBC Urine WBC Ur Epithelial Cells Urine Bacteria Urine Osmolality Ur Random Sodium Digoxin Influenza Typ A,B (EIA) Assessment & Plan - Assessment and Plan (Free Text) Assessment: This is a 73 year old female with extensive past medical history including COPD on NC, CAD, cardiac arrest x 2 (recently 04/2018), Takotsubo's cardiomyopathy (currently has life vest), a.fib on Eliquis, hypothyroidism, CVA x 3, PAD, carotid disease, hypothyroidism, UTIs, falls who was admitted with COPD exacerbation, CHF exacerbation, hyponatremia, anxiety, and de-conditioning. Patient is anxious, complains that she is very nervous. Expressed that she regularly takes 1 mg of Xanax three times a day for anxiety. She is requesting that her medication be adjusted to her regularly prescribed dose. Due to her anxiety, she was unable to discuss goals of care and advanced care planning at the time of this visit. It is unclear if the patient has an advanced care directive despite having a cardiac arrest twice in the past 6 months. There is no also no documentation on file as to whether her son, Shayne is her POA. Voicemail left for son, Ernesto, to discuss goals of care and advanced care planning. Plan: Goals of care and advanced care planning. Cardiology recommendations reviewed. Continue Dobutamine drip, Lasix,Digoxin, Ecotrin,Coreg, Atorvastin, Elquis . Continue COPD management with nebulizer treatment and doxycycline. Continue hypertonic saline for hyponatremia. Continue Xanax 1 mg three times daily for anxiety.
--- NOTE | 2018-06-06 13:07 | RAD ---
Date of service: 06/06/2018 HISTORY: sob COMPARISON: 06/05/2018 FINDINGS: LUNGS: No active pulmonary disease. Improvement in bibasilar infiltrates PLEURA: No significant pleural effusion identified, no pneumothorax apparent. CARDIOVASCULAR: No aortic atherosclerotic calcification present. Normal cardiac size. No pulmonary vascular congestion. OSSEOUS STRUCTURES: No significant abnormalities. VISUALIZED UPPER ABDOMEN: Normal. OTHER FINDINGS: None. IMPRESSION: No active disease. Improved bibasilar infiltrates
[2018-06-06] MEDS: Digoxin 125 mcg (0.125 mg) Tab PO SCH (13:41)
[2018-06-06] MEDS: Potassium Chloride 20 mEq ER Tab PO STA ×2 (13:41→14:04)
[2018-06-06] MEDS: Potassium Chloride 20 mEq/15 ml LIQ UD PO STA ×2 (13:42→14:03)
--- NOTE | 2018-06-06 14:38 | PN ---
DATE: 06/06/2018 SUBJECTIVE: The patient's breathing is better. PHYSICAL EXAMINATION: VITAL SIGNS: Blood pressure 130/74, the heart rate is in the 90s. NECK: Negative JVP. LUNGS: Without rales. HEART: S1 and S2. EXTREMITIES: Without edema. LABORATORY DATA: BUN and creatinine are unremarkable. Potassium is 3.4. Hemoglobin is 9.2. Preliminary echo shows improvement of LV function with an ejection fraction of approximately 50% to 60%. IMPRESSION: 1. Resolution of Takotsubo's cardiomyopathy. 2. Chronic obstructive pulmonary disease. 3. Dyspnea. 4. History of recent cardiac arrest. PLAN: Given these findings, the patient is doing much improved. There seems to be some resolution of the Takotsubo's cardiomyopathy. We will discontinue her IV dobutamine, decrease her IV Lasix. We will begin physical therapy. Potassium replacement has been ordered. Toy Couch MD
--- NOTE | 2018-06-06 16:22 | CARD ---
APPROVED REPORT Date of service: 06/06/2018 EXAM: Two-dimensional and M-mode echocardiogram with Doppler and color Doppler. INDICATION Takasubu cardiomyopathy 2D DIMENSIONS Left Atrium (2D)3.6 (1.6-4.0cm)IVSd1.0 (0.7-1.1cm) LVDd4.0 (3.9-5.9cm)PWd1.1 (0.7-1.1cm) LVDs2.6 (2.5-4.0cm)FS (%) 36.1 % LVEF (%)66.4 (>50%) M-Mode DIMENSIONS Aortic Root3.00 (2.2-3.7cm)Aortic Cusp Exc.1.50 (1.5-2.0cm) Aortic Valve AoV Peak [id number]/Gage Peak GR.14mmHg Mitral Valve E/A ratio0.0 TDI E/Lateral E'0.0E/Medial E'0.0 Pulmonary Valve PV Peak [id number]/sPV Peak Grad.10mmHg Tricuspid Valve TR Peak [id number] [id number] Peak Gr.15mmHg [id number] LEFT VENTRICLE The left ventricle is normal size. There is normal left ventricular wall thickness. The left ventricular function is normal. The left ventricular ejection fraction is within the normal range. There is normal LV segmental wall motion. Transmitral Doppler flow pattern is Grade I-abnormal relaxation pattern. RIGHT VENTRICLE The right ventricle is normal size. There is normal right ventricular wall thickness. The right ventricular systolic function is normal. ATRIA The left atrium size is normal. The right atrium size is normal. AORTIC VALVE The aortic valve is not well visualized. No aortic regurgitation is present. There is no aortic valvular stenosis. MITRAL VALVE The mitral valve is mildly thickened. There is no mitral valve regurgitation noted. There is no mitral valve stenosis. TRICUSPID VALVE The tricuspid valve is normal in structure. There is no tricuspid valve regurgitation noted. PULMONIC VALVE The pulmonary valve is normal in structure. There is no pulmonic valvular regurgitation. GREAT VESSELS The aortic root is normal in size. The IVC is normal in size and collapses >50% with inspiration. PERICARDIAL EFFUSION There is a small loculated anterior pericardial effusion. <Conclusion> There is normal left ventricular wall thickness. The left ventricular function is normal. The left ventricular ejection fraction is within the normal range. There is normal LV segmental wall motion. Transmitral Doppler flow pattern is Grade I-abnormal relaxation pattern.
[2018-06-06] MEDS: Hydrocortisone 1% Cream (30 GM) TOP SCH (18:13)
--- NOTE | 2018-06-06 18:58 | CP.PCM.PN ---
Subjective - Date & Time of Evaluation Date of Evaluation: 06/06/18 Time of Evaluation: 10:00 - Subjective Subjective: Patient reports she has been drinking lot of water, feels thirsty; breathing improved; Objective - Vital Signs/Intake and Output Vital Signs (last 24 hours): Temp Pulse Resp BP Pulse Ox 97.9 F 73 18 152/73 H 95 06/06/18 18:00 06/06/18 18:00 06/06/18 18:00 06/06/18 18:00 06/06/18 00:01 Intake and Output: 06/06/18 06/06/18 06:59 18:59 Intake Total 1470 Output Total 900 Balance 570 - Medications Medications: Current Medications Acetaminophen (Tylenol 325mg Tab) 650 mg PO Q6H PRN PRN Reason: Fever >100.4 F Albuterol/Ipratropium (Duoneb 3 Mg/0.5 Mg (3 Ml) Ud) 3 ml IH Q2H PRN PRN Reason: Shortness of Breath Albuterol/Ipratropium (Duoneb 3 Mg/0.5 Mg (3 Ml) Ud) 3 ml IH [id number] [facility] Last Admin: 06/06/18 14:33 Dose: 3 ml Alprazolam (Xanax) 1 mg PO TID PRN; Protocol PRN Reason: Anxiety Last Admin: 06/06/18 13:56 Dose: 1 mg Apixaban (Eliquis) 2.5 mg PO BID [facility]; Protocol Last Admin: 06/06/18 18:00 Dose: 2.5 mg Arformoterol Tartrate (Brovana) 15 mcg IH [id number] [facility] Last Admin: 06/06/18 07:50 Dose: 15 mcg Aspirin (Ecotrin) 81 mg PO DAILY [facility] Last Admin: 06/06/18 09:41 Dose: 81 mg Atorvastatin Calcium (Lipitor) 20 mg PO DIN [facility] Last Admin: 06/06/18 18:00 Dose: 20 mg Budesonide (Pulmicort Respules) 0.5 mg IH 0800 [facility] Last Admin: 06/06/18 07:50 Dose: 0.5 mg Carvedilol (Coreg) 3.125 mg PO BID [facility] Last Admin: 06/06/18 18:00 Dose: 3.125 mg Citalopram Hydrobromide (Celexa) 20 mg PO DAILY [facility] Last Admin: 06/06/18 09:41 Dose: 20 mg Digoxin (Digoxin) 0.125 mg PO 1400 [facility] Last Admin: 06/06/18 13:41 Dose: 0.125 mg Furosemide (Lasix) 40 mg IVP DAILY [facility] Hydrocortisone (Cortizone 1% Cream) 1 gm TOP BID [facility] Last Admin: 06/06/18 18:13 Dose: 1 applic Doxycycline Hyclate 100 mg/ (Sodium Chloride) 100 mls @ 100 mls/hr IVPB Q12 [facility]; Protocol Last Admin: 06/06/18 10:14 Dose: 100 mls/hr Sodium Chloride (Hypertonic Saline 3%) 500 mls @ 15 mls/hr IV .[id number] [facility] Stop: 06/07/18 07:59 Last Admin: 06/06/18 12:14 Dose: 15 mls/hr Levothyroxine Sodium (Synthroid) 100 mcg PO DAILY [facility] Last Admin: 06/06/18 09:41 Dose: 100 mcg Lisinopril (Zestril) 5 mg PO DAILY [facility] Last Admin: 06/06/18 09:41 Dose: 5 mg Magnesium Oxide (Mag-Ox) 400 mg PO HS [facility] Last Admin: 06/05/18 22:32 Dose: 400 mg Methylprednisolone (Solu-Medrol) 40 mg IVP DAILY [facility] Last Admin: 06/06/18 09:41 Dose: 40 mg Pantoprazole Sodium (Protonix Ec Tab) 40 mg PO ACB [facility] Last Admin: 06/06/18 08:39 Dose: 40 mg Polyethylene Glycol (Miralax) 17 gm PO DAILY PRN PRN Reason: Constipation - Labs Labs: 06/06/18 06:00 06/06/18 12:00 - Constitutional Appears: Non-toxic, No Acute Distress - Eye Exam Eye Exam: Normal appearance - Respiratory Exam Respiratory Exam: absent: Respiratory Distress Additional comments: poor air movement; - Cardiovascular Exam Cardiovascular Exam: RRR. absent: Gallop, Rubs Additional comments: systolic murmur - GI/Abdominal Exam GI & Abdominal Exam: Soft. absent: Distended - Extremities Exam Additional comments: no significant leg edema - Neurological Exam Neurological Exam: Alert, Awake - Psychiatric Exam Psychiatric exam: Normal Mood. absent: Agitated - Skin Skin Exam: Warm. absent: Cyanosis Assessment and Plan (1) Hyponatremia Assessment & Plan: Persistent hyponatremia despite relatively low urine osm; indicative of polydipsia v inadequate solute intake; has been continued on IV lasix for CHF, will hold for now until hyponatremia stabilized, especially since patient appears euvolemic on exam; started on hypertonic 3% saline at 15 cc/hr without any improvement by this evening, increasing rate to 30 cc/hr; -strict fluid restriction to <1L per day; -holding lasix for now; -continue to monitor serum Na every 6 hrs; goal rate in rise of correction no more than 6-8 meq/24 hrs; Status: Acute (2) CHF (congestive heart failure) Assessment & Plan: Dyspnea improved; dobutamine stopped; repeat echo not showing systolic dysfunction seen previously; holding diuretics for now; Status: Acute
[2018-06-06 19:40] LABS: BLOOD UREA NITROGEN 16 mg/dL (7-21); CALCIUM 8.2 mg/dL (8.4-10.5); GFR NON-AFRICAN AMERICAN > 60
--- NOTE | 2018-06-06 21:22 | CP.PCM.PCO ---
Physician Communication Note - Physician Communication Note Physician Communication Note: As per Dr. Ji's recommendations fluid restriction 1 L/day
[2018-06-06] MEDS: Magnesium Oxide 400 mg Tab UD PO SCH (22:53)
[2018-06-07] MEDS: Albuterol-Ipratrop 3 mg / 0.5 (3 ml) UD IH SCH ×6 (01:07→19:16)
[2018-06-07 01:57] LABS: BLOOD UREA NITROGEN 15 mg/dL (7-21); CALCIUM 8.1 mg/dL (8.4-10.5); GFR NON-AFRICAN AMERICAN > 60
[2018-06-07 01:59] LABS: OSMOLALITY,URINE 166 mosm/kg (300-1000)
[2018-06-07 07:05] LABS: HEMOGLOBIN 8.7 g/dL (12.0-16.0); MEAN CELL VOLUME 87.3 fl (80.0-105.0); MEAN CORPUSCULAR HEMOGLOBIN 28.2 pg (25.0-35.0); MEAN CORPUSCULAR HGB CONC 32.3 g/dl (31.0-37.0); MEAN PLATELET VOLUME 8.9 fl (7.0-11.0); RBC 3.08 10^6/uL (3.5-6.1); RED CELL DISTRIBUTION WIDTH 14.5 % (11.5-14.5); WHITE BLOOD COUNT 15.2 10^3/uL (4.5-11.0)
[2018-06-07 08:05] LABS: ALB/GLOB RATIO 1.1 (1.1-1.8); ALT/SGPT 19 U/L (7-56); AST/SGOT 31 U/L (14-36); BLOOD UREA NITROGEN 14 mg/dL (7-21); CALCIUM 8.2 mg/dL (8.4-10.5); GFR NON-AFRICAN AMERICAN > 60
[2018-06-07] MEDS: Budesonide 0.5 mg/2 ml Inhal Susp UD IH SCH (08:08)
[2018-06-07] MEDS: Arformoterol 15 mcg/2 ml Inh Sol IH SCH ×2 (08:10→19:17)
[2018-06-07] MEDS: Pantoprazole 40 mg EC Tab PO SCH (08:19)
[2018-06-07] MEDS ORDERED: Potassium Chloride 20 mEq ER Tab PO ONE (08:36)
[2018-06-07] MEDS ORDERED: Sodium Chloride 3% 500 ML IV SCH (09:15)
[2018-06-07] MEDS: MethylPREDNISolone 40 mg Vial IVP SCH (09:35)
[2018-06-07] MEDS: Levothyroxine 100 MCG TAB PO SCH (09:35)
[2018-06-07] MEDS: Hydrocortisone 1% Cream (30 GM) TOP SCH ×2 (09:58→17:29)
--- NOTE | 2018-06-07 10:34 | CP.PCM.PN ---
Subjective - Date & Time of Evaluation Date of Evaluation: 06/07/18 Time of Evaluation: 10:00 - Subjective Subjective: Alert, less anxious. No other complains offered Objective - Vital Signs/Intake and Output Vital Signs (last 24 hours): Temp Pulse Resp BP Pulse Ox 98.3 F 62 18 147/66 96 06/07/18 05:58 06/07/18 09:37 06/07/18 05:58 06/07/18 09:37 06/07/18 05:58 Intake and Output: 06/07/18 06/07/18 06:59 18:59 Intake Total 720 Balance 720 - Medications Medications: Current Medications Acetaminophen (Tylenol 325mg Tab) 650 mg PO Q6H PRN PRN Reason: Fever >100.4 F Last Admin: 06/07/18 01:02 Dose: 650 mg Albuterol/Ipratropium (Duoneb 3 Mg/0.5 Mg (3 Ml) Ud) 3 ml IH Q2H PRN PRN Reason: Shortness of Breath Albuterol/Ipratropium (Duoneb 3 Mg/0.5 Mg (3 Ml) Ud) 3 ml IH [id number] [facility] Last Admin: 06/07/18 08:09 Dose: 3 ml Alprazolam (Xanax) 1 mg PO QID [facility]; Protocol Last Admin: 06/07/18 09:37 Dose: 1 mg Apixaban (Eliquis) 2.5 mg PO BID [facility]; Protocol Last Admin: 06/07/18 09:35 Dose: 2.5 mg Arformoterol Tartrate (Brovana) 15 mcg IH [id number] [facility] Last Admin: 06/07/18 08:10 Dose: 15 mcg Aspirin (Ecotrin) 81 mg PO DAILY [facility] Last Admin: 06/07/18 09:37 Dose: 81 mg Atorvastatin Calcium (Lipitor) 20 mg PO DIN [facility] Last Admin: 06/06/18 18:00 Dose: 20 mg Budesonide (Pulmicort Respules) 0.5 mg IH 0800 [facility] Last Admin: 06/07/18 08:08 Dose: 0.5 mg Carvedilol (Coreg) 3.125 mg PO BID [facility] Last Admin: 06/07/18 09:37 Dose: 3.125 mg Citalopram Hydrobromide (Celexa) 20 mg PO DAILY [facility] Last Admin: 06/07/18 09:36 Dose: 20 mg Digoxin (Digoxin) 0.125 mg PO 1400 [facility] Last Admin: 06/06/18 13:41 Dose: 0.125 mg Furosemide (Lasix) 20 mg PO DAILY [facility] Last Admin: 06/07/18 09:36 Dose: 20 mg Hydrocortisone (Cortizone 1% Cream) 1 gm TOP BID [facility] Last Admin: 06/07/18 09:58 Dose: 2 applic Doxycycline Hyclate 100 mg/ (Sodium Chloride) 100 mls @ 100 mls/hr IVPB Q12 [facility]; Protocol Last Admin: 06/07/18 10:05 Dose: 100 mls/hr Sodium Chloride (Hypertonic Saline 3%) 500 mls @ 30 mls/hr IV .[id number] [facility] Last Admin: 06/07/18 09:41 Dose: 30 mls/hr Levothyroxine Sodium (Synthroid) 100 mcg PO DAILY [facility] Last Admin: 06/07/18 09:35 Dose: 100 mcg Lisinopril (Zestril) 5 mg PO DAILY [facility] Last Admin: 06/07/18 09:35 Dose: 5 mg Magnesium Oxide (Mag-Ox) 400 mg PO HS [facility] Last Admin: 06/06/18 22:53 Dose: 400 mg Methylprednisolone (Solu-Medrol) 40 mg IVP DAILY [facility] Last Admin: 06/07/18 09:35 Dose: 40 mg Pantoprazole Sodium (Protonix Ec Tab) 40 mg PO ACB [facility] Last Admin: 06/07/18 08:19 Dose: 40 mg Polyethylene Glycol (Miralax) 17 gm PO DAILY PRN PRN Reason: Constipation Zolpidem Tartrate (Ambien) 5 mg PO HS PRN; Protocol PRN Reason: Insomnia - Labs Labs: 06/07/18 06:20 06/07/18 06:20 - Constitutional Appears: Chronically Ill - Eye Exam Eye Exam: Normal appearance, PERRL - ENT Exam ENT Exam: Mucous Membranes Moist - Respiratory Exam Respiratory Exam: Decreased Breath Sounds, Rhonchi, NORMAL BREATHING PATTERN - Cardiovascular Exam Cardiovascular Exam: Irregular Rhythm, +S1, +S2 - GI/Abdominal Exam GI & Abdominal Exam: Soft, Normal Bowel Sounds - Extremities Exam Extremities Exam: Normal Capillary Refill, Pedal Edema - Neurological Exam Neurological Exam: Alert, Oriented x3 - Skin Skin Exam: Dry, Pallor Assessment and Plan - Assessment and Plan (Free Text) Assessment: This is a 73 year old female with extensive past medical history including COPD on NC, CAD, cardiac arrest x 2 (recently 04/2018), Takotsubo's cardiomyopathy ( has life vest), a.fib on Eliquis, hypothyroidism, CVA x 3, PAD, carotid disease, hypothyroidism, UTI's, falls who was admitted with COPD exacerbation, CHF exacerbation, hyponatremia, anxiety, and de-conditioning. Patient is alert. Advance care planning conversation initiated. Patient does not have an Advanced Directive. Resuscitation wishes discussed, patient states she does not make any of her own medical decisions. She states that her son, Shayne makes all of her decisions. She is not comfortable continuing advance care planning conversation. Voice message left for patients son Shayne Plan: Goals of care and advanced care planning. Cardiology recommendations reviewed. Continue Dobutamine drip, Lasix,Digoxin, Ecotrin,Coreg, Atorvastin, Elquis . Continue COPD management with nebulizer treatment and doxycycline. Continue hypertonic saline for hyponatremia. Continue Xanax 1 mg three times daily for anxiety.
[2018-06-07 12:00] LABS: BLOOD UREA NITROGEN 14 mg/dL (7-21); CALCIUM 8.3 mg/dL (8.4-10.5); GFR NON-AFRICAN AMERICAN > 60
--- NOTE | 2018-06-07 13:03 | PN ---
DATE: 06/07/2018 CARDIOLOGY FOLLOWUP SUBJECTIVE: The patient is feeling fine. No shortness breath or chest pain. PHYSICAL EXAMINATION VITAL SIGNS: Blood pressure 116/63 and heart rates in the 70s. NECK: Negative JVD. LUNGS: Without rales. HEART: Reveals S1 and S2. EXTREMITIES: Without edema. LABORATORY DATA: Hemoglobin is 8.7. Chemistry; sodium remains at 123, potassium is 3.5 and magnesium is 2.2. IMPRESSION: 1. Resolution of Takotsubo cardiomyopathy with now an ejection fraction of 66%. 2. Hyponatremia which is better. 3. Paroxysmal atrial fibrillation. The patient is back to normal sinus rhythm. 4. Chronic obstructive pulmonary disease. 5. Nonobstructive coronary artery disease. Given these findings, we will discontinue telemetry today. We will discontinue her LifeVest. Her medications are at the right dosage, we will change to p.o. Lasix. We will continue her on her Eliquis, given her paroxysmal atrial fibrillation. The patient would benefit from going to the TCU for physical therapy. Toy Couhc MD
--- NOTE | 2018-06-07 13:26 | PN ---
DATE: 06/07/2018 SUBJECTIVE: I was taking care of her at [facility] and somehow she got lost in the midst and now I have her back in my service in [facility]. She has number of [id number]. She has got hyponatremia and that is why sent her to the hospital in the first place. She is also being seen by Dr. Couch for Takotsubo cardiomyopathy, which has resolved. She has a little bit of COPD. She is comfortable in bed. She was happy to see me. She is eating a little bit better. PHYSICAL EXAMINATION: VITAL SIGNS: 98.3 temperature, 71 pulse, 116/63 blood pressure, 18 respiratory rate, 96% O2 sat on 2 liters. HEAD: Atraumatic, normocephalic. HEART: Regular rate. LUNGS: Decreased breath sounds, but clear. ABDOMEN: Soft. EXTREMITIES: No edema. MEDICATIONS: She is currently on Brovana, Celexa, Coreg, cortisone, digoxin, doxycycline IV, DuoNebs, aspirin, Eliquis, hypertonic saline at 3%, Lasix, Lipitor, magnesium oxide, MiraLax, Protonix, Pulmicort, Solu-Medrol 40 IV daily, Synthroid, Tylenol, Xanax. LABORATORY DATA: She has 15.2 white count, could be from the Solu-Medrol. Hemoglobin is 8.7, hematocrit is 26.9, platelets are 364. If the hemoglobin drops below 8, I will transfuse her. She has 123 sodium, it is coming up nicely; 3.5 potassium, I will replace the potassium. BUN 14, creatinine 0.7, GFR is greater than 60, sugar is 102, calcium is 8.2. Total bili is 0.3, AST is 31, ALT is 19, alk phos is 88. Total protein is 5.9. I will repeat a TSH, it was low when she came in of 0.27. ASSESSMENT AND PLAN: She is being seen by Renal and Cardiology. We will keep a very close eye on her. Check her labs tomorrow. Francisco Philip DO
[2018-06-07] MEDS: Digoxin 125 mcg (0.125 mg) Tab PO SCH (14:43)
--- NOTE | 2018-06-07 15:51 | CP.PCM.APN ---
Subjective - Date & Time of Evaluation Date of Evaluation: 06/07/18 Time of Evaluation: 09:40 - Subjective Subjective: Pt. seen and examined, appears more alert, and more comfortable, less short of breath. States did not sleep good last night, denied chest discomfort, states still short of breath with little exertion. Objective - Vital Signs/Intake and Output Vital Signs (last 24 hours): Temp Pulse Resp BP Pulse Ox 97.9 F 64 20 109/49 L 92 L 06/07/18 12:00 06/07/18 14:00 06/07/18 12:00 06/07/18 12:00 06/07/18 09:00 Intake and Output: 06/07/18 06/07/18 06:59 18:59 Intake Total 720 Balance 720 - Medications Medications: Current Medications Acetaminophen (Tylenol 325mg Tab) 650 mg PO Q6H PRN PRN Reason: Fever >100.4 F Last Admin: 06/07/18 01:02 Dose: 650 mg Albuterol/Ipratropium (Duoneb 3 Mg/0.5 Mg (3 Ml) Ud) 3 ml IH Q2H PRN PRN Reason: Shortness of Breath Albuterol/Ipratropium (Duoneb 3 Mg/0.5 Mg (3 Ml) Ud) 3 ml IH [id number] [facility] Last Admin: 06/07/18 11:27 Dose: 3 ml Alprazolam (Xanax) 1 mg PO QID [facility]; Protocol Last Admin: 06/07/18 13:44 Dose: 1 mg Apixaban (Eliquis) 2.5 mg PO BID [facility]; Protocol Last Admin: 06/07/18 09:35 Dose: 2.5 mg Arformoterol Tartrate (Brovana) 15 mcg IH [id number] [facility] Last Admin: 06/07/18 08:10 Dose: 15 mcg Aspirin (Ecotrin) 81 mg PO DAILY [facility] Last Admin: 06/07/18 09:37 Dose: 81 mg Atorvastatin Calcium (Lipitor) 20 mg PO DIN [facility] Last Admin: 06/06/18 18:00 Dose: 20 mg Budesonide (Pulmicort Respules) 0.5 mg IH 0800 [facility] Last Admin: 06/07/18 08:08 Dose: 0.5 mg Carvedilol (Coreg) 3.125 mg PO BID [facility] Last Admin: 06/07/18 09:37 Dose: 3.125 mg Citalopram Hydrobromide (Celexa) 20 mg PO DAILY [facility] Last Admin: 06/07/18 09:36 Dose: 20 mg Digoxin (Digoxin) 0.125 mg PO 1400 [facility] Last Admin: 06/07/18 14:43 Dose: 0.125 mg Furosemide (Lasix) 20 mg PO DAILY [facility] Last Admin: 06/07/18 09:36 Dose: 20 mg Hydrocortisone (Cortizone 1% Cream) 1 gm TOP BID [facility] Last Admin: 06/07/18 09:58 Dose: 2 applic Doxycycline Hyclate 100 mg/ (Sodium Chloride) 100 mls @ 100 mls/hr IVPB Q12 [facility]; Protocol Last Admin: 06/07/18 10:05 Dose: 100 mls/hr Sodium Chloride (Hypertonic Saline 3%) 500 mls @ 30 mls/hr IV .[id number] [facility] Last Admin: 06/07/18 09:41 Dose: 30 mls/hr Levothyroxine Sodium (Synthroid) 100 mcg PO DAILY [facility] Last Admin: 06/07/18 09:35 Dose: 100 mcg Lisinopril (Zestril) 5 mg PO DAILY [facility] Last Admin: 06/07/18 09:35 Dose: 5 mg Magnesium Oxide (Mag-Ox) 400 mg PO HS [facility] Last Admin: 06/06/18 22:53 Dose: 400 mg Methylprednisolone (Solu-Medrol) 40 mg IVP DAILY [facility] Last Admin: 06/07/18 09:35 Dose: 40 mg Pantoprazole Sodium (Protonix Ec Tab) 40 mg PO ACB [facility] Last Admin: 06/07/18 08:19 Dose: 40 mg Polyethylene Glycol (Miralax) 17 gm PO DAILY PRN PRN Reason: Constipation Tramadol HCl (Ultram) 50 mg PO Q8H PRN PRN Reason: Pain, moderate (4-7) Zolpidem Tartrate (Ambien) 5 mg PO HS PRN; Protocol PRN Reason: Insomnia - Labs Labs: 06/07/18 06:20 06/07/18 11:30 - Constitutional Appears: Well, Non-toxic - Head Exam Head Exam: NORMOCEPHALIC - Eye Exam Eye Exam: Normal appearance - ENT Exam ENT Exam: Normal Exam - Neck Exam Neck Exam: Full ROM - Respiratory Exam Respiratory Exam: Wheezes - Cardiovascular Exam Cardiovascular Exam: REGULAR RHYTHM, +S1, +S2, Murmur - GI/Abdominal Exam GI & Abdominal Exam: Soft, Normal Bowel Sounds - Rectal Exam Rectal Exam: Deferred - Exam Exam: absent: Circumcision, NORMAL INSPECTION, Scrotal Swelling, Testicular Tenderness, Uretheral Discharge, Testicular Vertical Lie, Bladder Distension External exam: absent: Ecchymosis, Erythema, Lacerations, Lesions, NORMAL EXTERNAL EXAM, Swelling Speculum exam: absent: Cervical Discharge, Erythema, Foreign Body, Laceration, NORMAL SPECULUM EXAM, Tissue, Vaginal Bleeding, Vaginal Discharge Bimanual exam: absent: Adenexal Mass, Adnexal, Cervical Motion Tendernes, NORMAL BIMANUAL EXAM, Uterine Enlargement, Uterine Tenderness - Extremities Exam Extremities Exam: Full ROM - Back Exam Back Exam: Full ROM - Neurological Exam Neurological Exam: Alert, Awake, Oriented x3 - Psychiatric Exam Psychiatric exam: Normal Affect, Normal Mood - Skin Skin Exam: Dry, Intact Assessment and Plan - Assessment and Plan (Free Text) Assessment: ITS Impressions Chest X-Ray 06/06/18 10:29 IMPRESSION: No active disease. Improved bibasilar infiltrates ITS Impressions Chest X-Ray 06/05/18 12:08 IMPRESSION: Chronic bibasilar infiltrates Chest X-Ray 06/06/18 10:29 IMPRESSION: No active disease. Improved bibasilar infiltrates Assessment: 73F with PMH of COPD on 3L NC, PAD, Carotid disease s/p L carotid stent, L subclavian stenosis, CAD s/p CABG, CHF with newly dx takasibo cardiomyopathy on life vest (EF 20-25), a-fib on eliquis, HLD hypothyroidism, and CVA x3 presented from [facility] c/o intermittent SOB x 3 days. Pt noticed that she had increased sputum and cough x 2 days, greenish sputum. At [facility], IVF, laxis,and duonebs with no improvement, In ED noted to be hyponatremic with NA 113, admitted for further eval and treatment, with cardiology and renal consulted. Plan: 1. Hyponatremia Improving on Hypertonic Saline monitor and trend Na, recs per renal 2. Takasubo cardiomyopathy Improved, Dobutamine stopped as per card, 3. PNA Improved continue Doxy IV q12. 4. Hx COPD cont. Solumedrol , duonebs. Will continue to monitor clinical status and follow closely. PT rec LIVE.
[2018-06-07 18:01] LABS: BLOOD UREA NITROGEN 15 mg/dL (7-21); CALCIUM 8.6 mg/dL (8.4-10.5); GFR NON-AFRICAN AMERICAN > 60
[2018-06-07] MEDS: Magnesium Oxide 400 mg Tab UD PO SCH (21:30)
--- NOTE | 2018-06-07 23:04 | CP.PCM.PN ---
Subjective - Date & Time of Evaluation Date of Evaluation: 06/07/18 Time of Evaluation: 10:30 - Subjective Subjective: 73 F w/ pmh of COPD on 3L NC, PAD s/p L carotid stent, L subclavian stenosis, CAD s/p CABG, recent takotsubo cardiomyopathy, a-fib on eliquis, HLD hypothyroidism, and CVA x3, admitted with severe hyponatremia; Patient tolerating diet; has had increased urination; breathing improved; Objective - Vital Signs/Intake and Output Vital Signs (last 24 hours): Temp Pulse Resp BP Pulse Ox 98.7 F 66 20 110/50 L 92 L 06/07/18 18:00 06/07/18 18:00 06/07/18 18:00 06/07/18 18:00 06/07/18 09:00 Intake and Output: 06/07/18 06/08/18 18:59 06:59 Intake Total 370 Balance 370 - Medications Medications: Current Medications Acetaminophen (Tylenol 325mg Tab) 650 mg PO Q6H PRN PRN Reason: Fever >100.4 F Last Admin: 06/07/18 01:02 Dose: 650 mg Albuterol/Ipratropium (Duoneb 3 Mg/0.5 Mg (3 Ml) Ud) 3 ml IH Q2H PRN PRN Reason: Shortness of Breath Albuterol/Ipratropium (Duoneb 3 Mg/0.5 Mg (3 Ml) Ud) 3 ml IH [id number] [facility] Last Admin: 06/07/18 19:16 Dose: 3 ml Alprazolam (Xanax) 1 mg PO QID [facility]; Protocol Last Admin: 06/07/18 21:31 Dose: 1 mg Apixaban (Eliquis) 2.5 mg PO BID [facility]; Protocol Last Admin: 06/07/18 17:23 Dose: 2.5 mg Arformoterol Tartrate (Brovana) 15 mcg IH [id number] [facility] Last Admin: 06/07/18 19:17 Dose: 15 mcg Aspirin (Ecotrin) 81 mg PO DAILY [facility] Last Admin: 06/07/18 09:37 Dose: 81 mg Atorvastatin Calcium (Lipitor) 20 mg PO DIN [facility] Last Admin: 06/07/18 17:23 Dose: 20 mg Budesonide (Pulmicort Respules) 0.5 mg IH 0800 [facility] Last Admin: 06/07/18 08:08 Dose: 0.5 mg Carvedilol (Coreg) 3.125 mg PO BID [facility] Last Admin: 06/07/18 17:24 Dose: 3.125 mg Citalopram Hydrobromide (Celexa) 20 mg PO DAILY [facility] Last Admin: 06/07/18 09:36 Dose: 20 mg Digoxin (Digoxin) 0.125 mg PO 1400 [facility] Last Admin: 06/07/18 14:43 Dose: 0.125 mg Furosemide (Lasix) 20 mg PO DAILY [facility] Last Admin: 06/07/18 09:36 Dose: 20 mg Hydrocortisone (Cortizone 1% Cream) 1 gm TOP BID [facility] Last Admin: 06/07/18 17:29 Dose: 2 applic Doxycycline Hyclate 100 mg/ (Sodium Chloride) 100 mls @ 100 mls/hr IVPB Q12 [facility]; Protocol Last Admin: 06/07/18 21:31 Dose: 100 mls/hr Sodium Chloride (Hypertonic Saline 3%) 500 mls @ 30 mls/hr IV .[id number] [facility] Last Admin: 06/07/18 09:41 Dose: 30 mls/hr Levothyroxine Sodium (Synthroid) 100 mcg PO DAILY [facility] Last Admin: 06/07/18 09:35 Dose: 100 mcg Lisinopril (Zestril) 5 mg PO DAILY [facility] Last Admin: 06/07/18 09:35 Dose: 5 mg Magnesium Oxide (Mag-Ox) 400 mg PO HS [facility] Last Admin: 06/07/18 21:30 Dose: 400 mg Methylprednisolone (Solu-Medrol) 40 mg IVP DAILY [facility] Last Admin: 06/07/18 09:35 Dose: 40 mg Pantoprazole Sodium (Protonix Ec Tab) 40 mg PO ACB [facility] Last Admin: 06/07/18 08:19 Dose: 40 mg Polyethylene Glycol (Miralax) 17 gm PO DAILY PRN PRN Reason: Constipation Tramadol HCl (Ultram) 50 mg PO Q8H PRN PRN Reason: Pain, moderate (4-7) Last Admin: 06/07/18 16:04 Dose: 50 mg Zolpidem Tartrate (Ambien) 5 mg PO HS PRN; Protocol PRN Reason: Insomnia Last Admin: 06/07/18 22:48 Dose: 5 mg - Labs Labs: 06/07/18 06:20 06/07/18 17:47 - Constitutional Appears: Non-toxic, No Acute Distress - Eye Exam Eye Exam: Normal appearance - Respiratory Exam Respiratory Exam: absent: Respiratory Distress Additional comments: some wheezes; no rales; - Cardiovascular Exam Cardiovascular Exam: absent: Gallop, Rubs Additional comments: systolic murmur - GI/Abdominal Exam GI & Abdominal Exam: Soft. absent: Distended, Tenderness - Extremities Exam Additional comments: no leg edema - Neurological Exam Neurological Exam: Alert, Awake - Psychiatric Exam Psychiatric exam: Normal Mood. absent: Agitated - Skin Skin Exam: Warm. absent: Cyanosis Assessment and Plan (1) Hyponatremia Assessment & Plan: Likely secondary to inadequate solute intake +/- polydipsia; improving on hypertonic 3% saline; maximal allowed 24 hr rate of rise of serum Na (8 meq) already reached by this evening, will hold further hypertonic saline for now; -continue PO fluid restriction < 1L per day; Status: Acute (2) CHF (congestive heart failure) Assessment & Plan: Repeat echo showing systolic dysfunction resolved; no need for aggressive diuresis as it may have contributed to hyponatremia; holding further lasix for now; if needed, restart with PO lasix once daily; Status: Resolved
[2018-06-08 00:34] LABS: BLOOD UREA NITROGEN 15 mg/dL (7-21); CALCIUM 8.2 mg/dL (8.4-10.5); GFR NON-AFRICAN AMERICAN > 60
[2018-06-08] MEDS: Albuterol-Ipratrop 3 mg / 0.5 (3 ml) UD IH SCH ×5 (01:04→15:24)
[2018-06-08 07:01] VITALS: O2SAT 95
[2018-06-08] MEDS: Arformoterol 15 mcg/2 ml Inh Sol IH SCH (07:20)
[2018-06-08] MEDS: Budesonide 0.5 mg/2 ml Inhal Susp UD IH SCH (07:20)
[2018-06-08 07:29] LABS: HEMOGLOBIN 8.9 g/dL (12.0-16.0); MEAN CELL VOLUME 89.8 fl (80.0-105.0); MEAN CORPUSCULAR HEMOGLOBIN 29.3 pg (25.0-35.0); MEAN CORPUSCULAR HGB CONC 32.6 g/dl (31.0-37.0); RBC 3.04 10^6/uL (3.5-6.1); RED CELL DISTRIBUTION WIDTH 14.8 % (11.5-14.5); WHITE BLOOD COUNT 14.5 10^3/uL (4.5-11.0)
[2018-06-08 07:38] LABS: ALB/GLOB RATIO 1.1 (1.1-1.8); ALT/SGPT 14 U/L (7-56); AST/SGOT 15 U/L (14-36); BLOOD UREA NITROGEN 14 mg/dL (7-21); CALCIUM 8.8 mg/dL (8.4-10.5); GFR NON-AFRICAN AMERICAN > 60
[2018-06-08] MEDS: Levothyroxine 100 MCG TAB PO SCH (09:47)
[2018-06-08] MEDS: Pantoprazole 40 mg EC Tab PO SCH (09:48)
[2018-06-08] MEDS: MethylPREDNISolone 40 mg Vial IVP SCH (09:49)
[2018-06-08] MEDS: Hydrocortisone 1% Cream (30 GM) TOP SCH ×2 (09:57→17:20)
--- NOTE | 2018-06-08 11:12 | PN ---
DATE: 06/08/2018 SUBJECTIVE: She is resting comfortably in bed. She is actually feeling better overall. She is off the IV fluids right now. She is in good spirits. She is eating a little bit in no pain. No discomfort and better overall. OBJECTIVE: VITAL SIGNS: Temperature 98.2, 91 pulse down to 48 pulse, 108/60 blood pressure, 20 respiratory rate, 95% O2 sat on nasal cannula. HEENT: Head is atraumatic, normocephalic. HEART: Regular rate. LUNGS: Decreased breath sounds, but clear. ABDOMEN: Soft. EXTREMITIES: No edema. MEDICATIONS: She is currently on Ambien, Brovana, Celexa, Coreg, cortisone, digoxin, doxycycline IV, DuoNebs, aspirin, Eliquis, Lasix, Lipitor, magnesium oxide, MiraLax, Protonix, Pulmicort, Solu-Medrol 40 IV, Synthroid, Tylenol, Ultram, Xanax, Zestril. She is off the hypertonic saline right now. LABORATORY DATA: She has a 14.5 white count could be from the steroids, 8.9 hemoglobin, 27.3 hematocrit, 341 platelets. Sodium 131, was very low, sodium is covering up nicely, 4.3 potassium. BUN 40, creatinine 0.8, GFR is greater than 60, sugar is 88, calcium is 8.8, total bili is 0.2, AST is 15, ALT is 14, alk phos 74, total protein is 5.7, albumin is 3. ASSESSMENT AND PLAN: She is being seen by Renal, Cardiology, I believe Cardiology wants her in TCU to watch her for her cardiomyopathy, although she ejection fraction is much better. She is still concerned and she needs the IV antibiotics and possible more 0.9 normal saline. We will be watching her sodium. She will need physical therapy and hoping to get her to TCU. Francisco Philip DO MTDD
--- NOTE | 2018-06-08 12:32 | CP.PCM.PN ---
Subjective - Date & Time of Evaluation Date of Evaluation: 06/08/18 Time of Evaluation: 11:00 - Subjective Subjective: Alert, offers no complaints Objective - Vital Signs/Intake and Output Vital Signs (last 24 hours): Temp Pulse Resp BP Pulse Ox 98.2 F 67 20 126/70 95 06/08/18 06:00 06/08/18 10:00 06/08/18 06:00 06/08/18 09:49 06/08/18 06:00 Intake and Output: 06/08/18 06/08/18 06:59 18:59 Intake Total 220 Output Total 2 Balance 218 - Medications Medications: Current Medications Acetaminophen (Tylenol 325mg Tab) 650 mg PO Q6H PRN PRN Reason: Fever >100.4 F Last Admin: 06/07/18 01:02 Dose: 650 mg Albuterol/Ipratropium (Duoneb 3 Mg/0.5 Mg (3 Ml) Ud) 3 ml IH Q2H PRN PRN Reason: Shortness of Breath Albuterol/Ipratropium (Duoneb 3 Mg/0.5 Mg (3 Ml) Ud) 3 ml IH [id number] [facility] Last Admin: 06/08/18 11:15 Dose: 3 ml Alprazolam (Xanax) 1 mg PO QID [facility]; Protocol Last Admin: 06/08/18 09:48 Dose: 1 mg Apixaban (Eliquis) 2.5 mg PO BID [facility]; Protocol Last Admin: 06/08/18 09:48 Dose: 2.5 mg Arformoterol Tartrate (Brovana) 15 mcg IH [id number] [facility] Last Admin: 06/08/18 07:20 Dose: 15 mcg Aspirin (Ecotrin) 81 mg PO DAILY [facility] Last Admin: 06/08/18 09:47 Dose: 81 mg Atorvastatin Calcium (Lipitor) 20 mg PO DIN [facility] Last Admin: 06/07/18 17:23 Dose: 20 mg Budesonide (Pulmicort Respules) 0.5 mg IH 0800 [facility] Last Admin: 06/08/18 07:20 Dose: 0.5 mg Carvedilol (Coreg) 3.125 mg PO BID [facility] Last Admin: 06/08/18 09:49 Dose: 3.125 mg Citalopram Hydrobromide (Celexa) 20 mg PO DAILY [facility] Last Admin: 06/08/18 09:48 Dose: 20 mg Digoxin (Digoxin) 0.125 mg PO 1400 [facility] Last Admin: 06/07/18 14:43 Dose: 0.125 mg Furosemide (Lasix) 20 mg PO DAILY [facility] Last Admin: 06/08/18 09:48 Dose: 20 mg Hydrocortisone (Cortizone 1% Cream) 1 gm TOP BID [facility] Last Admin: 06/08/18 09:57 Dose: 2 applic Doxycycline Hyclate 100 mg/ (Sodium Chloride) 100 mls @ 100 mls/hr IVPB Q12 [facility]; Protocol Last Admin: 06/08/18 09:59 Dose: 100 mls/hr Levothyroxine Sodium (Synthroid) 100 mcg PO DAILY [facility] Last Admin: 06/08/18 09:47 Dose: 100 mcg Lisinopril (Zestril) 5 mg PO DAILY [facility] Last Admin: 06/08/18 09:47 Dose: 5 mg Magnesium Oxide (Mag-Ox) 400 mg PO HS [facility] Last Admin: 06/07/18 21:30 Dose: 400 mg Methylprednisolone (Solu-Medrol) 40 mg IVP DAILY [facility] Last Admin: 06/08/18 09:49 Dose: 40 mg Pantoprazole Sodium (Protonix Ec Tab) 40 mg PO ACB [facility] Last Admin: 06/08/18 09:48 Dose: 40 mg Polyethylene Glycol (Miralax) 17 gm PO DAILY PRN PRN Reason: Constipation Tramadol HCl (Ultram) 50 mg PO Q8H PRN PRN Reason: Pain, moderate (4-7) Last Admin: 06/07/18 16:04 Dose: 50 mg Zolpidem Tartrate (Ambien) 5 mg PO HS PRN; Protocol PRN Reason: Insomnia Last Admin: 06/07/18 22:48 Dose: 5 mg - Labs Labs: 06/08/18 07:10 06/08/18 07:10 - Constitutional Appears: No Acute Distress - Head Exam Head Exam: NORMOCEPHALIC - Eye Exam Eye Exam: Normal appearance, PERRL - ENT Exam ENT Exam: Mucous Membranes Moist, Normal Oropharynx - Neck Exam Neck Exam: Normal Inspection - Respiratory Exam Respiratory Exam: Decreased Breath Sounds, NORMAL BREATHING PATTERN - Cardiovascular Exam Cardiovascular Exam: REGULAR RHYTHM, +S1, +S2 - GI/Abdominal Exam GI & Abdominal Exam: Soft, Normal Bowel Sounds - Extremities Exam Extremities Exam: Full ROM, Normal Capillary Refill - Neurological Exam Neurological Exam: Alert, Oriented x3 - Skin Skin Exam: Dry, Warm Assessment and Plan - Assessment and Plan (Free Text) Assessment: This is a 73 year old female with extensive past medical history including COPD on NC, CAD, cardiac arrest x 2 (recently 04/2018), Takotsubo's cardiomyopathy ( has life vest), a.fib on Eliquis, hypothyroidism, CVA x 3, PAD, carotid disease, hypothyroidism, UTI's, falls who was admitted with COPD exacerbation, CHF exacerbation, hyponatremia, anxiety, and de-conditioning. Offers no complaints,feeling much better. I explained that I had left several messages for her son Shayne regarding advance care planning but had not heard back from him. She remains pleasantly, evasive regarding advance care planning wishes and insists that Shayne will make all decisions for her. She does not want to return to [facility], instead she is requesting to go to TCU. Encouraged to participate in PT/OT Time spent in goals of care and advance of care planning discussion with patient, 20 minutes Plan: Goals of care and advanced care planning. Cardiology recommendations reviewed. Continue Dobutamine drip, Lasix,Digoxin, Ecotrin,Coreg, Atorvastin, Elquis . Continue COPD management with nebulizer treatment and doxycycline. Continue hypertonic saline for hyponatremia. Continue Xanax 1 mg three times daily for anxiety. PT/OT
[2018-06-08] MEDS: Digoxin 125 mcg (0.125 mg) Tab PO SCH (14:46)
[2018-06-08 14:48] VITALS: PULSE 67
--- NOTE | 2018-06-08 15:50 | PN ---
DATE: 06/08/2018 CARDIOLOGY FOLLOWUP SUBJECTIVE: The patient is comfortable without shortness of breath, without chest pain. PHYSICAL EXAMINATION VITAL SIGNS: Blood pressure is 126/70 and heart rates in the 60s, normal sinus rhythm. NECK: Negative JVD. LUNGS: Without rales. HEART: Reveals S1 and S2. EXTREMITIES: Without edema. LABORATORY DATA: Sodium is 131. Hemoglobin is 8.9. IMPRESSION: 1. Resolution of resolution of hyponatremia. 2. Improvement of her Takotsubo cardiomyopathy to a normal ejection fraction. 3. Paroxysmal atrial fibrillation. The patient remains in normal sinus rhythm, chronic obstructive pulmonary disease. 4. Nonobstructive coronary artery disease. Given these findings, we will discontinue her hypertonic cell IV infusion. The patient should be transferred to TCU today. Toy Couch MD
[2018-06-08 15:55] VITALS: BP 110/53; PULSE 55; RESP 18; TEMP 98.7
--- NOTE | 2018-06-09 06:32 | CP.PCM.PN ---
Subjective - Date & Time of Evaluation Date of Evaluation: 06/08/18 Time of Evaluation: 11:00 - Subjective Subjective: Patient reports breathing improved; reports adhering to fluid restriction; tolerating diet; Objective - Vital Signs/Intake and Output Vital Signs (last 24 hours): Temp Pulse Resp BP Pulse Ox 98.7 F 55 L 18 110/53 L 95 06/08/18 12:00 06/08/18 12:00 06/08/18 12:00 06/08/18 12:00 06/08/18 06:00 Intake and Output: 06/08/18 06/09/18 18:59 06:59 Intake Total 100 Balance 100 - Labs Labs: 06/08/18 07:10 06/08/18 07:10 - Constitutional Appears: Non-toxic, No Acute Distress - Eye Exam Eye Exam: Normal appearance - Respiratory Exam Respiratory Exam: Wheezes. absent: Rales, Respiratory Distress - Cardiovascular Exam Cardiovascular Exam: +S1, +S2. absent: Gallop, Rubs - GI/Abdominal Exam GI & Abdominal Exam: Soft. absent: Distended, Tenderness - Extremities Exam Additional comments: no leg edema - Neurological Exam Neurological Exam: Alert, Awake - Psychiatric Exam Psychiatric exam: Normal Mood. absent: Agitated - Skin Skin Exam: Warm. absent: Cyanosis Assessment and Plan (1) Hyponatremia Assessment & Plan: Improving gradually on hypertonic saline, now discontinued; should continue PO fluid restriction; will monitor; Status: Acute (2) CHF (congestive heart failure) Assessment & Plan: Takotsubo cardiomyopathy, appears resolved; euvolemic on exam; recommend to use low dose PO lasix if needed; Status: Resolved
== END 2018-06-08 18:03 | DRG 190 ==
LOC: ED 11:45 → ERH 13:09 → 2RNO 14:48
PROVIDERS: ADMIT Internal Medicine; ATTEND Family Medicine
PROC: 3E0F7GC Introduction of Other Therapeutic Substance into Respiratory Tract, Via Natural or Artificial Opening (ICD-10-PCS; 2018-06-05)
PROC: 5A09357 Assistance with Respiratory Ventilation, Less than 24 Consecutive Hours, Continuous Positive Airway Pressure (ICD-10-PCS; principal; 2018-06-06)
DX: J44.1 Chronic obstructive pulmonary disease with (acute) exacerbation (principal); I50.23 Acute on chronic systolic (congestive) heart failure; J96.11 Chronic respiratory failure with hypoxia; E87.1 Hypo-osmolality and hyponatremia; E87.3 Alkalosis; I51.81 Takotsubo syndrome; I42.0 Dilated cardiomyopathy; I70.8 Atherosclerosis of other arteries; I48.0 Paroxysmal atrial fibrillation; E03.9 Hypothyroidism, unspecified; I25.10 Atherosclerotic heart disease of native coronary artery without angina pectoris; I73.9 Peripheral vascular disease, unspecified; E87.6 Hypokalemia; R63.1 Polydipsia; E83.42 Hypomagnesemia; F41.9 Anxiety disorder, unspecified; Z79.01 Long term (current) use of anticoagulants; Z99.81 Dependence on supplemental oxygen; Z86.73 Personal history of transient ischemic attack (TIA), and cerebral infarction without residual deficits; Z95.1 Presence of aortocoronary bypass graft; Z87.891 Personal history of nicotine dependence

== ENCOUNTER 2018-06-08 18:01 | Inpatient (IN) | payer OTHER, MEDICAID ==
[2018-06-08] MEDS ORDERED: POLYETHYLENE GLYCOL 3350 17 GM/Dose PACKET PO PRN (18:20)
[2018-06-08] MEDS ORDERED: Albuterol-Ipratrop 3 mg / 0.5 (3 ml) UD IH PRN (18:20)
[2018-06-08 19:34] VITALS: BMI 24.2
[2018-06-08] MEDS: Arformoterol 15 mcg/2 ml Inh Sol IH SCH (19:37)
[2018-06-08] MEDS: Albuterol-Ipratrop 3 mg / 0.5 (3 ml) UD IH SCH ×2 (19:37→23:46)
[2018-06-08] MEDS ORDERED: Arformoterol 15 mcg/2 ml Inh Sol IH SCH (20:00)
[2018-06-08] MEDS ORDERED: Non Formulary Medication (Doxycycline Hyclate [Vibramycin] 100 MG) IVPB SCH (22:00)
[2018-06-08] MEDS: Magnesium Oxide 400 mg Tab UD PO SCH (22:27)
[2018-06-08] MEDS ORDERED: Pneumococcal 23-Valent Vaccine IM ONE (22:34)
[2018-06-08] MEDS ORDERED: Influenza Vaccine 60 mcg/0.5 mL SYR (4YR UP) IM ONE (22:34)
[2018-06-09] MEDS: Albuterol-Ipratrop 3 mg / 0.5 (3 ml) UD IH SCH ×5 (03:22→20:49)
[2018-06-09] MEDS: Levothyroxine 100 MCG TAB PO SCH (05:23)
[2018-06-09] MEDS: Pantoprazole 40 mg EC Tab PO SCH (05:23)
[2018-06-09] MEDS: MethylPREDNISolone 40 mg Vial IVP SCH (06:29)
[2018-06-09 07:19] LABS: BASO # 0.08 K/mm3 (0.0-2.0); BASO % 0.4 % (0.0-3.0); EOS # 0.2 (0.0-0.7); EOS % 0.9 % (1.5-5.0); LYMPH # 2.1 (1.2-3.4); LYMPH % 11.4 % (22.0-35.0); MEAN CORPUSCULAR HEMOGLOBIN 28.8 pg (25.0-35.0); MEAN CORPUSCULAR HGB CONC 30.9 g/dl (31.0-37.0); MEAN PLATELET VOLUME 8.5 fl (7.0-11.0); MONO # 1.4 (0.1-0.6); MONO % 7.3 % (1.0-6.0); RBC 3.13 10^6/uL (3.5-6.1); RED CELL DISTRIBUTION WIDTH 15.1 % (11.5-14.5); WHITE BLOOD COUNT 18.4 10^3/uL (4.5-11.0)
[2018-06-09] MEDS: Budesonide 0.5 mg/2 ml Inhal Susp UD IH SCH (07:20)
[2018-06-09] MEDS: Arformoterol 15 mcg/2 ml Inh Sol IH SCH ×2 (07:21→20:49)
[2018-06-09 07:40] LABS: ALBUMIN 2.8 g/dL (3.0-4.8); ALT/SGPT 15 U/L (7-56); AST/SGOT 13 U/L (14-36); BLOOD UREA NITROGEN 17 mg/dL (7-21); CALCIUM 8.8 mg/dL (8.4-10.5); GFR NON-AFRICAN AMERICAN > 60
[2018-06-09] MEDS: Hydrocortisone 1% Cream (30 GM) TOP SCH ×2 (09:01→17:20)
[2018-06-09] MEDS: Digoxin 125 mcg (0.125 mg) Tab PO SCH (13:10)
--- NOTE | 2018-06-09 20:20 | HP ---
DATE OF EXAM: 06/09/2018 HISTORY OF PRESENT ILLNESS: She is now in Transitional Care Unit. She is a 73-year-old white female with a history of COPD, peripheral artery disease, carotid disease with a left carotid stent, subclavian stenosis, CAD with CABG history, and CHF. She had Takotsubo cardiomyopathy. She was on a LifeVest with 20% to 25% ejection fraction, now she is off the LifeVest with 66% ejection fraction, AFib, on Eliquis, high cholesterol, hypothyroid, and CVA x3. She was at [facility], came back to the hospital, and she is doing better now. Now, she is in the Transitional Care Unit, keep a close eye on her with Cardiology. She had hyponatremia, COPD, cardiomyopathy and she is improving. She had very low sodium. She had CABG with cardiac stenting, carotid endarterectomy, left carotid stenting, cataract removal, right upper midline coronary artery disease and high cholesterol in the family. SOCIAL HISTORY: She quit smoking, but she did smoke for 40 years. No alcohol. No illicit drugs. ALLERGIES: CODEINE, OXYCODONE, AND PENICILLIN. REVIEW OF SYSTEMS: She is comfortable in bed, little bit weak. She needs physical therapy. She is hungry. No acute vision or hearing changes. No chest pain at this time. No shortness of breath at this time. No abdominal pain. No nausea, vomiting, constipation, or diarrhea. She is weak in the legs, but she wants to do therapy. Overall, she is in TCU, this is where she needs to be. PHYSICAL EXAMINATION: VITAL SIGNS: 98 temperature, 64 pulse, 130/62 blood pressure, 20 respiratory rate, and 98% sat on 3 L. HEENT: Head; atraumatic and normocephalic. Extraocular muscles intact. Throat is moist. NECK: Supple. No JVD at this time. HEART: Regular rate. LUNGS: Decreased breath sounds, but clear. No wheezes, rhonchi or rales. ABDOMEN: Soft and nontender. Positive bowel sounds. SKIN: For I could tell is intact. No apparent rashes or ulcers. EXTREMITIES: No edema, but she is weak. MEDICATIONS: She is on Ambien, Brovana, Celexa, Coreg, cortisone, digoxin, doxycycline IV, DuoNebs, aspirin, Eliquis, Lasix, Lipitor, magnesium oxide, MiraLax, Protonix, Solu-Medrol 40 IV daily, Synthroid, Tylenol, Ultram, Xanax, and Zestril. LABORATORY DATA: She has 133 sodium, potassium 4.1, BUN 17, creatinine 0.7, GFR is greater than 60, sugar is 82, calcium is 8.8, total bili is 0.2, AST is 13, ALT is 15, alk phos , and total protein is 5.6. White count is 18.4, quite high, it could be from the steroids, hemoglobin 9, hematocrit 29.1, and platelets of 347. ASSESSMENT AND PLAN: She is going to be seen by Cardio and Renal, hopefully she will continue to improve with therapy. I will discuss with Renal start decreasing the Solu-Medrol. She will continue with doxycycline and she is here for physical therapy, hyponatremia, cardiomyopathy, and chronic obstructive pulmonary disease. Francisco Philip DO MTDD
[2018-06-09] MEDS: Magnesium Oxide 400 mg Tab UD PO SCH (22:06)
[2018-06-10] MEDS: Albuterol-Ipratrop 3 mg / 0.5 (3 ml) UD IH SCH ×6 (02:05→20:11)
--- NOTE | 2018-06-10 03:37 | CON ---
DATE OF SERVICE: 06/09/2018 CARDIOLOGY CONSULTATION HISTORY OF PRESENT ILLNESS: The patient is a 73-year-old female who was recently admitted 4 days ago because of shortness of breath. The patient has a history of documented Takotsubo cardiomyopathy and has a history of COPD. The patient also has a history of cardiac arrest due to ventricular tachycardia in the past. The patient was treated for hyponatremia and was subsequently transferred to TCU. The patient has history of anxiety, requiring Xanax. The patient also has a history of paroxysmal atrial fibrillation and was placed on Eliquis therapy. SOCIAL HISTORY: The patient is a former smoker. MEDICATIONS: Ambien 5 mg at bedtime, Brovana 50 mcg inhalation every 12 hours, Celexa 20 mg once a day, Coreg 3.125 mg twice a day, digoxin 0.125 mg once a day, doxycycline 100 mg intravenously twice a day, albuterol inhaler every 2 hours p.r.n., aspirin 81 mg once a day, Eliquis 2.5 mg twice a day, Lasix 20 mg once a day, magnesium oxide 400 mg once a day, Solu-Medrol 40 mg intravenously daily, Synthroid 100 mcg once a day, Zestril 5 mg daily, Xanax 1 mg p.o. q.i.d. p.r.n. REVIEW OF SYSTEMS: The patient feels anxious, but she denies any depression or suicidal ideation. The patient denies retrosternal chest pain. She complains of mild cough. PAST MEDICAL HISTORY: Paroxysmal atrial fibrillation, chronic obstructive lung disease, hypothyroidism, anxiety, cardiac arrest. PHYSICAL EXAMINATION: GENERAL: The patient is an elderly female who is mildly tachypneic but does not appear to be in acute distress. VITAL SIGNS: Blood pressure 130/62, heart rate 64, temperature 98, respirations 20. HEENT: Normocephalic. CHEST: Diffuse bilateral rhonchi. HEART: S1 and S2, regular. ABDOMEN: Soft. EXTREMITIES: No edema. LABORATORY DATA: EKG done on 06/05/2018 revealed normal sinus rhythm with nonspecific T-wave abnormality. Echocardiac study done on 06/06/2018, i.e., 3 days ago, revealed normal left ventricular size, wall thickness, and ejection fraction, grade 1 abnormal relaxation pattern. Recent labs: Today's hemoglobin and hematocrit are 9 and 29.1 respectively, white count 18.4, platelet count 347,000. Digoxin level is 0.7. SMA-7: Sodium 133, potassium 4.1, chloride 91, CO2 of 40, glucose 82, BUN 17, creatinine 0.7. ProBNP last admission was 9230. Chest x-ray on 06/06/2018 was consistent with a COPD picture. ASSESSMENT: 1. History of Takotsubo cardiomyopathy, most recent echo revealed normal ejection fraction. 2. Improved hyponatremia and hypokalemia. 3. Chronic obstructive lung disease. 4. Anxiety disorder. 5. Hypothyroidism. 6. History of paroxysmal atrial fibrillation. RECOMMENDATIONS: Continue current Coreg 3.125 mg twice a day, digoxin 0.125 mg daily, IV doxycycline at 100 mg twice a day, albuterol inhaler every 2 hours p.r.n., aspirin 81 mg once a day, Eliquis 2.5 mg twice a day, Lasix 20 mg once a day, Lipitor 20 mg once a day, magnesium oxide 400 mg once a day, Solu-Medrol 40 mg once a day, Synthroid 100 mcg once a day, Zestril at 5 mg daily. Pee Márquez MD
[2018-06-10] MEDS: MethylPREDNISolone 40 mg Vial IVP SCH (05:37)
[2018-06-10] MEDS: Pantoprazole 40 mg EC Tab PO SCH (05:37)
[2018-06-10] MEDS: Levothyroxine 100 MCG TAB PO SCH (05:37)
[2018-06-10 07:05] LABS: HEMOGLOBIN 9.4 g/dL (12.0-16.0); MEAN CELL VOLUME 95.5 fl (80.0-105.0); MEAN CORPUSCULAR HEMOGLOBIN 28.4 pg (25.0-35.0); MEAN CORPUSCULAR HGB CONC 29.7 g/dl (31.0-37.0); MEAN PLATELET VOLUME 8.9 fl (7.0-11.0); RBC 3.31 10^6/uL (3.5-6.1); RED CELL DISTRIBUTION WIDTH 15.1 % (11.5-14.5); WHITE BLOOD COUNT 20.1 10^3/uL (4.5-11.0)
--- NOTE | 2018-06-10 07:11 | CON ---
DATE: 06/09/2018 LOCATION: [facility] NEPHROLOGY CONSULTATION HISTORY: The patient is a 73-year-old female with past medical history of COPD on 3 liters oxygen, peripheral arterial disease status post carotid intervention, subclavian stenosis, CAD status post CABG, CVA x 3; AFib, on Eliquis; hypothyroidism, and recent Takotsubo cardiomyopathy, [facility] due to [facility]ness of breath and found to have profound hyponatremia for which Nephrology was consulted; Nephrology now being consulted to follow up on hyponatremia. Hospital admission was pertinent for profound hyponatremia that required 3% hypertonic saline for correction of the hyponatremia; serum sodium gradually increased and hypertonic saline was discontinued yesterday. The patient also had repeat echo done in the setting of previously diagnosed Takotsubo cardiomyopathy; repeat echo showed systolic failure, had recovered and the patient currently with normal ejection fraction; the patient's LifeVest was subsequently discontinued. The patient currently reports that her appetite is starting to return; has still not been eating much, is trying to adhere to p.o. fluid restriction, reporting some anterior lower rib pain; otherwise, denies any other pain. The patient reports having some difficulty swallowing. PAST MEDICAL HISTORY: As above. The patient is also status post PEA arrest in April 2018 after a previous episode of cardiac arrest in January 2018. SOCIAL HISTORY: Smokes [id number] packs per day for 40 years. FAMILY HISTORY: CAD, hyperlipidemia. REVIEW OF SYSTEMS: CONSTITUTIONAL: As above. RESPIRATORY: Having some cough. Denies any dyspnea. CARDIOVASCULAR: No chest pain or palpitations. GI: No vomiting or diarrhea lately. : Reports urinating well. No dysuria. MUSCULOSKELETAL: Denies any back pain or arthralgias. NEUROLOGICAL: Denies any headache or dizziness. PSYCHIATRIC: Was requiring Xanax p.r.n. for anxiety, requiring Ambien p.r.n. for sleep. SKIN: Rash over back due to presence of previous LifeVest. PHYSICAL EXAMINATION: VITAL SIGNS: Blood pressure 135/64, heart rate 52, respirations 18, temperature 98.6, O2 sat 99% on O2 via nasal cannula. GENERAL: No distress. Conversing coherently in full sentences. HEENT: Moist mucous membranes. Nonicteric. No cervical lymphadenopathy. RESPIRATORY: Poor air movement, wheezes noted. No rales, no rhonchi. CARDIOVASCULAR: Heart sounds, S1, S2 normal. No gallops, no rubs. Regular rate and rhythm. GI: Abdomen is soft, nontender, nondistended. : No bladder distention. SKIN: Warm. EXTREMITIES: No cyanosis. Erythematous rash over upper back. NEUROLOGICAL: No obvious resting tremor. EXTREMITIES: No lower leg edema. PSYCHIATRIC: Normal mood, normal affect. LABORATORY DATA: Labs this morning: CBC: WBC 18.4, hemoglobin 9, hematocrit 29.1, platelets 347. Chemistry panel: Sodium 133, potassium 4.1, chloride 91, bicarb 40, BUN 17, creatinine 0.7, glucose 82, calcium 8.8, albumin 2.8. ASSESSMENT AND PLAN: 1. Hyponatremia. Labs indicative of low urine osmolality which is consistent with decreased p.o. intake and/or polydipsia as etiology of hyponatremia; the patient responded well to hypertonic saline; serum sodium currently stable on just p.o. fluid restriction. Recommend to keep 2 liters p.o. daily fluid restriction. 2. Agree with measures for pain control to remove any component of increased ADH from pain; would avoid NSAIDs as they can potentiate the effect of ADH and possibly worsen hyponatremia. 3. Avoid excessive diuresis especially since systolic dysfunction has resolved and the patient appears euvolemic on exam. Thank you for this referral. We will be following up closely. Regino Ji MD
[2018-06-10] MEDS: Arformoterol 15 mcg/2 ml Inh Sol IH SCH ×2 (07:18→20:11)
[2018-06-10] MEDS: Budesonide 0.5 mg/2 ml Inhal Susp UD IH SCH (07:18)
[2018-06-10 07:31] LABS: ALB/GLOB RATIO 1.1 (1.1-1.8); ALBUMIN 2.9 g/dL (3.0-4.8); ALT/SGPT 18 U/L (7-56); AST/SGOT 23 U/L (14-36); BLOOD UREA NITROGEN 16 mg/dL (7-21); CALCIUM 8.8 mg/dL (8.4-10.5); GFR NON-AFRICAN AMERICAN > 60
[2018-06-10] MEDS: Hydrocortisone 1% Cream (30 GM) TOP SCH ×2 (10:07→17:30)
[2018-06-10] MEDS: Digoxin 125 mcg (0.125 mg) Tab PO SCH (14:17)
--- NOTE | 2018-06-10 14:47 | PN ---
DATE: 06/10/2018 SUBJECTIVE: [facility] in [facility] room. She is doing okay. She tells me she is feeling little bit better. She slept fairly well last night. No acute distress. She is eating much better too. She is eating all her breakfast. She has to get out of bed to chair, she knows that. She is doing physical therapy in bed and enjoying it. She wants to walk. PHYSICAL EXAMINATION: GENERAL: She is alert. She is not short of breath, no chest pain, no abdominal pain. VITAL SIGNS: She has a 98.6 temperature, 57 pulse, 115/47 blood pressure, 18 respiratory rate, 99% O2 sat on room air. HEENT: Head is atraumatic, normocephalic. Throat is moist. NECK: Supple. HEART: Regular rate. LUNGS: Decreased breath sounds but clear. ABDOMEN: Soft, obese. EXTREMITIES: No edema. LABORATORY DATA: She has a 20.1 white count. She is on steroids, 9.4 hemoglobin, 31.6 hematocrit with 376 platelets; 134 sodium, potassium 4.5, BUN 16, creatinine 0.7, GFR is greater than 60, sugar is 80, calcium is 8.8, total bili is 0.2. AST is 23, ALT is 18, alk phos 70, total protein is 5.6. ASSESSMENT AND PLAN: She was seen by Renal and by Cardiology. She is on the medication as per Cardiology which includes Solu-Medrol 40 mg once a day, I will discuss this with Cardiology about decreasing the Solu-Medrol and may be putting on prednisone. She had Takotsubo cardiomyopathy which improved. She had hyponatremia which improved, also hypokalemia, chronic obstructive pulmonary disease, anxiety, hypothyroidism, and paroxysmal atrial fibrillation. Overall, I am happy with her, the sodium got up to 134. I am concerned about the 20,000 white count and Solu-Medrol, I will discuss that with Cardiology. We will check her labs tomorrow. I encouraged her to get out of bed to chair, do physical therapy well, and we will continue with treatment in [facility]. Francisco Philip DO
--- NOTE | 2018-06-10 18:10 | PN ---
DATE: 06/10/2018 SUBJECTIVE: The patient had physical therapy at the bedside today. She denies any chest pain. She is mildly short of breath. PHYSICAL EXAMINATION: VITAL SIGNS: Blood pressure 107/44, heart rate 62, temperature 98.6, and respirations 20. HEENT: Pale conjunctivae. CHEST: Bilateral rhonchi. HEART: S1 and S2 regular. EXTREMITIES: Trace leg edema. LABORATORY DATA: Today's hemoglobin and hematocrit are 9.4 and 31.6, white count 20.1, and platelet count 376,000. Today's SMA-7: Sodium 134, potassium 4.5, chloride 89, CO2 of 42, glucose 80, BUN 16, and creatinine 0.7. ASSESSMENT: 1. History of Takotsubo cardiomyopathy. Currently, ejection fraction is within normal limits. 2. Improved hypernatremia and hypokalemia. 3. Chronic obstructive lung disease. 4. Hypothyroidism. 5. Anxiety disorder. 6. History of paroxysmal atrial fibrillation. RECOMMENDATIONS: Continue current Coreg 3.125 mg twice a day, digoxin 0.125 mg once a day, IV doxycycline 100 mg twice a day, Eliquis 2.5 mg twice a day, aspirin 81 mg once a day, Lasix 20 mg once a day, Lipitor 20 mg once a day, magnesium oxide 400 mg daily, Solu-Medrol 40 mg intravenously daily, and Synthroid at 100 mcg daily. Pee Márquez MD
[2018-06-10] MEDS: Magnesium Oxide 400 mg Tab UD PO SCH (21:03)
[2018-06-11] MEDS: Albuterol-Ipratrop 3 mg / 0.5 (3 ml) UD IH SCH ×7 (01:14→23:42)
[2018-06-11] MEDS: Pantoprazole 40 mg EC Tab PO SCH (06:50)
[2018-06-11] MEDS: Levothyroxine 100 MCG TAB PO SCH (06:50)
[2018-06-11] MEDS: MethylPREDNISolone 40 mg Vial IVP SCH (06:50)
[2018-06-11 07:09] LABS: HEMOGLOBIN 9.4 g/dL (12.0-16.0); MEAN CELL VOLUME 95.1 fl (80.0-105.0); MEAN CORPUSCULAR HEMOGLOBIN 28.9 pg (25.0-35.0); MEAN CORPUSCULAR HGB CONC 30.4 g/dl (31.0-37.0); MEAN PLATELET VOLUME 8.8 fl (7.0-11.0); RBC 3.25 10^6/uL (3.5-6.1); RED CELL DISTRIBUTION WIDTH 15.5 % (11.5-14.5); WHITE BLOOD COUNT 19.8 10^3/uL (4.5-11.0)
[2018-06-11] MEDS: Arformoterol 15 mcg/2 ml Inh Sol IH SCH ×2 (07:16→19:57)
[2018-06-11] MEDS: Budesonide 0.5 mg/2 ml Inhal Susp UD IH SCH (07:16)
[2018-06-11 07:28] LABS: ALB/GLOB RATIO 1.1 (1.1-1.8); ALBUMIN 2.8 g/dL (3.0-4.8); ALT/SGPT 14 U/L (7-56); AST/SGOT 16 U/L (14-36); BLOOD UREA NITROGEN 22 mg/dL (7-21); CALCIUM 8.8 mg/dL (8.4-10.5); GFR NON-AFRICAN AMERICAN > 60
[2018-06-11] MEDS: Hydrocortisone 1% Cream (30 GM) TOP SCH ×2 (10:09→17:25)
[2018-06-11] MEDS: Digoxin 125 mcg (0.125 mg) Tab PO SCH (14:17)
--- NOTE | 2018-06-11 15:11 | RAD ---
Date of service: 06/11/2018 HISTORY: SOB COMPARISON: 06/06/2018. FINDINGS: The right PICC line terminates in the axillary vein. LUNGS: The lungs are hyperinflated and there is peribronchial thickening with chronic changes in both lungs. There is linear scarring in the left lower lobe. PLEURA: No pleural effusions or pneumothorax. CARDIOVASCULAR: The heart is normal in size. No aortic atherosclerotic calcifications present. OSSEOUS STRUCTURES: Within normal limits for the patient's age. VISUALIZED UPPER ABDOMEN: Normal. OTHER FINDINGS: None. IMPRESSION: No active pulmonary disease.
--- NOTE | 2018-06-11 17:06 | PN ---
DATE: 06/11/2018 SUBJECTIVE: I saw her resting comfortably in her bed in TCU. She slept very well last night. She is in good spirits. She tried very hard in therapy yesterday. She feels like she is improving. She is eating well. No chest pain, shortness of breath, or abdominal pain. MEDICATIONS: She is on Ambien, Brovana, Celexa, Coreg, cortisone, digoxin, doxycycline IV, DuoNebs, Ecotrin, Eliquis, Lasix, Lipitor, magnesium, MiraLax, Protonix, Pulmicort, Solu-Medrol 40 IV daily, Synthroid, Tylenol, Ultram, Xanax, and Zestril. PHYSICAL EXAMINATION: GENERAL: She is smiling, in good spirits. VITAL SIGNS: She has 97.8 temperature, 60 pulse, 110/56 blood pressure, 18 respiratory rate, and 95% O2 sat. HEENT: Head is atraumatic, normocephalic. HEART: Regular rate. LUNGS: Decreased breath sounds, but clear. ABDOMEN: Soft. EXTREMITIES: No edema. LABORATORY DATA: She has a 19.8 white count on steroids, 9.4 hemoglobin, 30.9 hematocrit, and 337 platelets; 135 sodium, potassium 4.1, BUN 22, creatinine 0.7, GFR is greater than 60, sugar is 82, calcium is 8.8, total bili is 0.2, AST is 16, ALT is 14, alk phos 64, and total protein is 5.5. ASSESSMENT AND PLAN: She is being seen by Cardiology and Renal. She has hyponatremia, improved; Takotsubo cardiomyopathy and chronic obstructive pulmonary disease. She is on Solu-Medrol 40 daily, I will decrease that to 30 mg daily, nobody has touched that yet, I think she is good enough so we can start to decrease it. I will wait and see what Cardio and Renal have to say about that. Continue with aggressive treatment and care, and encouragement. Francisco Philip DO
--- NOTE | 2018-06-11 22:10 | PN ---
DATE: 06/11/2018 SUBJECTIVE: The patient denies chest pain. She is experiencing cough, probably choked as she was starting to eat her lunch. Prior to that, the patient ambulated with physical therapy team. PHYSICAL EXAMINATION: VITAL SIGNS: Blood pressure 110/55, heart rate 62, temperature 98.3, respirations 18. HEENT: Normocephalic. CHEST: Bilateral rhonchi. HEART: S1 and S2, regular. EXTREMITIES: Trace leg edema. LABORATORY DATA: Today's hemoglobin and hematocrit are 9.4 and 30.9, white count 19.8, platelet count 337,000. Today's SMA-7: Sodium 135, potassium 4.1, chloride 92, CO2 more than 40, glucose 82, BUN 22, creatinine 0.7. ASSESSMENT: 1. Chronic obstructive lung disease. 2. Improved hyponatremia and hypokalemia. 3. Hypothyroidism. 4. History of paroxysmal atrial fibrillation. 5. Rule out aspiration. RECOMMENDATIONS: Continue current digoxin 0.125 mg daily, IV doxycycline 100 mg twice a day, Eliquis 2.5 mg once a day, aspirin 81 mg once a day, Lasix 20 mg once a day, Lipitor 20 mg once a day, magnesium oxide 400 mg daily, Solu-Medrol 30 mg intravenously daily, Synthroid 100 mcg daily, and Zestril 5 mg once a day. Obtain portable chest x-ray. Pee Márquez MD
[2018-06-11] MEDS: Magnesium Oxide 400 mg Tab UD PO SCH (22:24)
[2018-06-12] MEDS: Albuterol-Ipratrop 3 mg / 0.5 (3 ml) UD IH SCH ×6 (04:00→23:13)
[2018-06-12] MEDS: Pantoprazole 40 mg EC Tab PO SCH (06:22)
[2018-06-12] MEDS: Levothyroxine 100 MCG TAB PO SCH (06:22)
[2018-06-12] MEDS: MethylPREDNISolone 40 mg Vial IVP SCH (06:23)
[2018-06-12 06:44] LABS: HEMOGLOBIN 9.6 g/dL (12.0-16.0); MEAN CELL VOLUME 95.3 fl (80.0-105.0); MEAN CORPUSCULAR HEMOGLOBIN 28.3 pg (25.0-35.0); MEAN CORPUSCULAR HGB CONC 29.7 g/dl (31.0-37.0); MEAN PLATELET VOLUME 8.9 fl (7.0-11.0); RBC 3.39 10^6/uL (3.5-6.1); RED CELL DISTRIBUTION WIDTH 15.9 % (11.5-14.5); WHITE BLOOD COUNT 17.7 10^3/uL (4.5-11.0)
[2018-06-12 07:06] LABS: ALB/GLOB RATIO 1.1 (1.1-1.8); ALT/SGPT 12 U/L (7-56); AST/SGOT 19 U/L (14-36); BLOOD UREA NITROGEN 23 mg/dL (7-21); CALCIUM 9.3 mg/dL (8.4-10.5); GFR NON-AFRICAN AMERICAN > 60
[2018-06-12] MEDS: Budesonide 0.5 mg/2 ml Inhal Susp UD IH SCH (07:21)
[2018-06-12] MEDS: Arformoterol 15 mcg/2 ml Inh Sol IH SCH ×2 (07:21→20:22)
[2018-06-12] MEDS: Hydrocortisone 1% Cream (30 GM) TOP SCH ×2 (09:53→17:14)
--- NOTE | 2018-06-12 11:58 | PN ---
DATE: 06/12/2018 SUBJECTIVE: I saw her in the TCU. She told me that the Ambien 5 mg was not strong enough. She wants it to go to 10 mg. So, I will do that for her. She is on Brovana, Celexa, Coreg, digoxin, albuterol, aspirin, Eliquis, Lasix, Lipitor, magnesium, Protonix, Pulmicort, Solu-Medrol she is down to 30 IV daily, levothyroxine, tramadol, doxycycline, Xanax, and Zestril. She slept fairly well, not great. She wants a higher dose of the Ambien. She is doing better with the physical therapy. She walked down the [place], which is great for her. PHYSICAL EXAMINATION: GENERAL: Better spirits. VITAL SIGNS: Temperature 98.4, 77 pulse, 121/75 blood pressure, 19 respiratory rate, and 97% O2 sat on 3 L. HEENT: Head is atraumatic, normocephalic. HEART: Regular rate. LUNGS: Decreased breath sounds, but clear. ABDOMEN: Soft. EXTREMITIES: No edema. LABORATORY DATA: She has a 17.7 white count, 9.6 hemoglobin, 32.3 hematocrit, and 361 platelets. Sodium 136, potassium 4.2, BUN 23, creatinine 0.7, GFR is greater than 60, sugar is 85, calcium is 9.3, total bili is 0.2, AST is 19, ALT is 12, alk phos 64, and total protein is 5.7. ASSESSMENT AND PLAN: She is being seen by Cardiology, Renal. She has been in the hospital 4 days tomorrow. I will decrease her Solu-Medrol to 20 mg and start to try and wean her off that and I do think she is doing better and hopefully, she will continue with the physical therapy and continue to improve. Francisco Philip DO
[2018-06-12] MEDS: Digoxin 125 mcg (0.125 mg) Tab PO SCH (14:12)
--- NOTE | 2018-06-12 19:35 | PN ---
DATE: 06/12/2018 SUBJECTIVE: The patient is resting comfortably. PHYSICAL EXAMINATION: VITAL SIGNS: Stable. NECK: Negative JVD. LUNGS: Decreased breath sounds. HEART: S1 and S2. EXTREMITIES: Without edema. LABORATORY DATA: Sodium is 136. IMPRESSION: 1. Stable angina. 2. Cardiomyopathy with resolution of Takotsubo cardiomyopathy. 3. Paroxysmal atrial fibrillation, which the patient remains in normal sinus rhythm. 4. Chronic obstructive pulmonary disease. 5. Nonobstructive coronary artery disease. 6. Resolution of hyponatremia. PLAN: Given these findings, the patient is doing well medically in the TCU. She will need to continue her physical therapy. Toy Couch MD
[2018-06-12] MEDS: Magnesium Oxide 400 mg Tab UD PO SCH (21:53)
[2018-06-13] MEDS: Albuterol-Ipratrop 3 mg / 0.5 (3 ml) UD IH SCH ×6 (05:03→21:00)
[2018-06-13] MEDS: MethylPREDNISolone 40 mg Vial IVP SCH (05:23)
[2018-06-13] MEDS: Levothyroxine 100 MCG TAB PO SCH (05:24)
[2018-06-13] MEDS: Pantoprazole 40 mg EC Tab PO SCH (05:24)
[2018-06-13] MEDS: Arformoterol 15 mcg/2 ml Inh Sol IH SCH ×2 (07:15→20:59)
[2018-06-13] MEDS: Budesonide 0.5 mg/2 ml Inhal Susp UD IH SCH (07:15)
[2018-06-13 07:20] LABS: HEMOGLOBIN 9.7 g/dL (12.0-16.0); MEAN CORPUSCULAR HEMOGLOBIN 28.7 pg (25.0-35.0); MEAN CORPUSCULAR HGB CONC 30.2 g/dl (31.0-37.0); MEAN PLATELET VOLUME 8.8 fl (7.0-11.0); RBC 3.38 10^6/uL (3.5-6.1); RED CELL DISTRIBUTION WIDTH 16.1 % (11.5-14.5); WHITE BLOOD COUNT 15.7 10^3/uL (4.5-11.0)
[2018-06-13 07:39] LABS: ALBUMIN 2.9 g/dL (3.0-4.8); ALT/SGPT 12 U/L (7-56); AST/SGOT 17 U/L (14-36); BLOOD UREA NITROGEN 19 mg/dL (7-21); CALCIUM 8.7 mg/dL (8.4-10.5); GFR NON-AFRICAN AMERICAN > 60
[2018-06-13] MEDS: Hydrocortisone 1% Cream (30 GM) TOP SCH ×2 (09:51→17:12)
[2018-06-13] MEDS ORDERED: MethylPREDNISolone 40 mg Vial IVP SCH (09:52)
--- NOTE | 2018-06-13 10:38 | CP.PCM.PN ---
Subjective - Date & Time of Evaluation Date of Evaluation: 06/13/18 Time of Evaluation: 10:35 - Subjective Subjective: 73 yo F w/ pmh of COPD on 3L O2, PAD s/p carotid intervention, subclavian stenosis, CAD s/p CABG, CVA x 3, afib on eliquis, hypothyroidism, and recent takotubo cardiomyopathy, being followed for hyponatremia; Reports adhering to fluid restriction; tolerating diet; per nursing staff, doesn't get out of bed much; did ambulate with PT yesterday; says breathing is well; Objective - Vital Signs/Intake and Output Vital Signs (last 24 hours): Temp Pulse Resp BP Pulse Ox 98.4 F 59 L 18 98/47 L 94 L 06/12/18 16:00 06/13/18 07:40 06/12/18 16:00 06/13/18 09:52 06/12/18 16:00 Intake and Output: 06/13/18 06/13/18 06:59 18:59 Intake Total 220 Output Total 800 Balance -580 - Medications Medications: Current Medications Acetaminophen (Tylenol 325mg Tab) 650 mg PO Q6H PRN; Protocol PRN Reason: Fever >100.4 F Albuterol/Ipratropium (Duoneb 3 Mg/0.5 Mg (3 Ml) Ud) 3 ml IH Q2H PRN; Protocol PRN Reason: Shortness of Breath Albuterol/Ipratropium (Duoneb 3 Mg/0.5 Mg (3 Ml) Ud) 3 ml IH [id number] TATE; Protocol Last Admin: 06/13/18 07:15 Dose: 3 ml Alprazolam (Xanax) 1 mg PO QID PRN; Protocol PRN Reason: Anxiety Last Admin: 06/12/18 14:12 Dose: 1 mg Apixaban (Eliquis) 2.5 mg PO BID TATE; Protocol Last Admin: 06/13/18 09:51 Dose: 2.5 mg Arformoterol Tartrate (Brovana) 15 mcg IH [id number] TATE Last Admin: 06/13/18 07:15 Dose: 15 mcg Aspirin (Ecotrin) 81 mg PO 0800 TATE; Protocol Last Admin: 06/13/18 07:45 Dose: 81 mg Atorvastatin Calcium (Lipitor) 20 mg PO DIN TATE; Protocol Last Admin: 06/12/18 17:13 Dose: 20 mg Budesonide (Pulmicort Respules) 0.5 mg IH 0800 TATE; Protocol Last Admin: 06/13/18 07:15 Dose: 0.5 mg Carvedilol (Coreg) 3.125 mg PO 0800,1800 TATE; Protocol Last Admin: 06/13/18 07:40 Dose: Not Given Citalopram Hydrobromide (Celexa) 20 mg PO DAILY TATE; Protocol Last Admin: 06/13/18 09:50 Dose: 20 mg Digoxin (Digoxin) 0.125 mg PO 1400 TATE; Protocol Last Admin: 06/12/18 14:12 Dose: 0.125 mg Furosemide (Lasix) 20 mg PO DAILY TATE; Protocol Last Admin: 06/13/18 09:52 Dose: Not Given Hydrocortisone (Cortizone 1% Cream) 0 gm TOP BID TATE; Protocol Last Admin: 06/13/18 09:51 Dose: 1 applic Doxycycline Hyclate 100 mg/ (Sodium Chloride) 100 mls @ 100 mls/hr IVPB 0600,1800 TATE; Protocol Last Admin: 06/13/18 05:22 Dose: 100 mls/hr Levothyroxine Sodium (Synthroid) 100 mcg PO 0600 TATE; Protocol Last Admin: 06/13/18 05:24 Dose: 100 mcg Lisinopril (Zestril) 5 mg PO DAILY TATE; Protocol Last Admin: 06/13/18 09:52 Dose: Not Given Magnesium Oxide (Mag-Ox) 400 mg PO HS TATE Last Admin: 06/12/18 21:53 Dose: 400 mg Methylprednisolone (Solu-Medrol) 20 mg IVP 0600 TATE; Protocol Pantoprazole Sodium (Protonix Ec Tab) 40 mg PO 0600 TATE; Protocol Last Admin: 06/13/18 05:24 Dose: 40 mg Polyethylene Glycol (Miralax) 17 gm PO DAILY PRN; Protocol PRN Reason: Constipation Tramadol HCl (Ultram) 50 mg PO Q8 PRN; Protocol PRN Reason: Pain, moderate (4-7) Last Admin: 06/12/18 23:25 Dose: 50 mg Zolpidem Tartrate (Ambien) 10 mg PO HS PRN; Protocol PRN Reason: Insomnia - Labs Labs: 06/13/18 07:05 06/13/18 07:05 - Constitutional Appears: Non-toxic, No Acute Distress - Eye Exam Eye Exam: Normal appearance - Respiratory Exam Respiratory Exam: absent: Respiratory Distress Additional comments: decreased air movement bilaterally; - Cardiovascular Exam Cardiovascular Exam: RRR Additional comments: systolic murmur - GI/Abdominal Exam GI & Abdominal Exam: Soft. absent: Distended, Tenderness - Extremities Exam Additional comments: trace lower leg edema b/l; - Neurological Exam Neurological Exam: Alert, Awake - Psychiatric Exam Psychiatric exam: Anxious. absent: Agitated - Skin Skin Exam: Warm. absent: Cyanosis Assessment and Plan (1) Hyponatremia Assessment & Plan: Much improved, almost normalized; should continue with moderate PO fluid restriction (<2L per day); encourage adequate PO dietary intake; Status: Acute (2) CHF (congestive heart failure) Assessment & Plan: Resolved per repeat echo; currently with BP at lower end of normal; should consider stopping MARGARITA inhibitor indefinitely and give PO lasix only prn; Status: Resolved
[2018-06-13] MEDS: Digoxin 125 mcg (0.125 mg) Tab PO SCH (13:27)
--- NOTE | 2018-06-13 14:31 | PN ---
DATE: 06/13/2018 SUBJECTIVE: I saw her in bed this morning. She states she did not sleep well at all last night. I thought I will increase the Ambien to 10, now I changed it to 5, so I will change it back to 10 mg again tonight for sleep. MEDICATIONS: She is on Brovana, Celexa, Coreg, hydrocortisone, digoxin, DuoNebs, Ecotrin, Eliquis, Lasix, Lipitor, magnesium, Protonix, Pulmicort, prednisone which will drop from 30 mg to 20 mg, Synthroid, Tylenol, tramadol, still on doxycycline, Xanax, and Zestril. PHYSICAL EXAMINATION: VITAL SIGNS: She has 98.4 temperature, 59 pulse, 107/57 blood pressure, 18 respiratory rate, 94% O2 saturation. HEAD: Atraumatic, normocephalic. HEART: Regular rate. LUNGS: Decreased breath sounds. ABDOMEN: Soft. EXTREMITIES: No edema. Hopefully, she will be better tonight with the increase in Ambien. LABORATORY DATA: She has 50.7 white count, coming down, still has to come down; 9.7 hemoglobin, 32.1 hematocrit, 343 platelets. Sodium 134 which is great, potassium 4.4, BUN 19, creatinine 0.8, best it has been. GFR is greater than 60, sugar is 86, calcium is 8.7. Total bili is 0.2, AST is 17, ALT is 12, alkaline phosphatase 63. IMPRESSION AND PLAN: She had multiple issues here with hyponatremia, coronary artery disease, chronic obstructive pulmonary disease. She is a little bit weak, she is getting stronger, hope she is getting a good night's sleep tonight. Continue with physical therapy plus intravenous Solu-Medrol and doxycycline intravenous. Francisco Philip DO
[2018-06-13] MEDS: Magnesium Oxide 400 mg Tab UD PO SCH (22:11)
[2018-06-14] MEDS: Albuterol-Ipratrop 3 mg / 0.5 (3 ml) UD IH SCH ×7 (04:30→22:59)
[2018-06-14] MEDS: Pantoprazole 40 mg EC Tab PO SCH (05:51)
[2018-06-14] MEDS: Levothyroxine 100 MCG TAB PO SCH (05:51)
[2018-06-14] MEDS: Arformoterol 15 mcg/2 ml Inh Sol IH SCH ×3 (07:26→19:06)
[2018-06-14] MEDS: Budesonide 0.5 mg/2 ml Inhal Susp UD IH SCH ×2 (07:28→18:51)
[2018-06-14 07:47] LABS: HEMOGLOBIN 9.9 g/dL (12.0-16.0); MEAN CELL VOLUME 95.4 fl (80.0-105.0); MEAN CORPUSCULAR HEMOGLOBIN 28.7 pg (25.0-35.0); MEAN CORPUSCULAR HGB CONC 30.1 g/dl (31.0-37.0); MEAN PLATELET VOLUME 9.2 fl (7.0-11.0); RBC 3.45 10^6/uL (3.5-6.1); RED CELL DISTRIBUTION WIDTH 15.9 % (11.5-14.5); WHITE BLOOD COUNT 14.2 10^3/uL (4.5-11.0)
[2018-06-14 08:09] LABS: ALBUMIN 2.8 g/dL (3.0-4.8); ALT/SGPT 11 U/L (7-56); AST/SGOT 17 U/L (14-36); BLOOD UREA NITROGEN 24 mg/dL (7-21); CALCIUM 8.8 mg/dL (8.4-10.5); GFR NON-AFRICAN AMERICAN > 60
[2018-06-14] MEDS: Hydrocortisone 1% Cream (30 GM) TOP SCH ×2 (09:39→17:13)
--- NOTE | 2018-06-14 10:35 | PN ---
DATE: 06/14/2018 SUBJECTIVE: She is in the Transitional Care Unit. She is doing better. She slept very well last night. She is doing well with physical therapy. She is in good spirits. MEDICATIONS: She is on Ambien, Brovana, Celexa, Coreg, digoxin, Doryx, DuoNebs, Ecotrin, Eliquis, Lasix, Lipitor, magnesium, MiraLax, Protonix, Pulmicort, Solu-Medrol she is down to 20, Synthroid, Tylenol, Ultram, Xanax and Zestril. OBJECTIVE: VITAL SIGNS: She has a 98 temperature, 58 pulse, 107/61 blood pressure, 18 respiratory rate, 92% on 3 liters. HEENT: Head is atraumatic, normocephalic. HEART: Regular rate. LUNGS: Decreased breath sounds, but clear. ABDOMEN: Soft. EXTREMITIES: No edema. She is doing well with therapy. She is eating well. Good spirits overall. LABORATORY DATA: She has a 14.2 white count, hemoglobin 9.9, hematocrit 32.9, platelets are 362. Sodium 135, potassium 4.8, BUN is 24, creatinine 0.8, GFR is greater than 60, sugar is 86, calcium is 8.8, total bili is 0.2, AST is 17, ALT is 11, alk phos 63. ASSESSMENT AND PLAN: She is being seen by cardiology and renal. She had Takotsubo cardiomyopathy which very much improved with hyponatremia. She is very well. She is on Eliquis for AFib. I am slowly weaning off the steroids. I will discontinue the Solu-Medrol today and put her on prednisone and we will slowly wean her off the prednisone. Continue physical therapy for two more days in the TCU then she will be discharged. Francisco Philip DO
[2018-06-14] MEDS: Digoxin 125 mcg (0.125 mg) Tab PO SCH (14:00)
[2018-06-14] MEDS: Magnesium Oxide 400 mg Tab UD PO SCH (21:36)
[2018-06-15] MEDS: Albuterol-Ipratrop 3 mg / 0.5 (3 ml) UD IH SCH ×5 (03:05→21:02)
[2018-06-15] MEDS: Levothyroxine 100 MCG TAB PO SCH (05:42)
[2018-06-15] MEDS: Pantoprazole 40 mg EC Tab PO SCH (05:42)
[2018-06-15] MEDS: Arformoterol 15 mcg/2 ml Inh Sol IH SCH ×2 (07:03→21:01)
[2018-06-15] MEDS: Budesonide 0.5 mg/2 ml Inhal Susp UD IH SCH (07:04)
[2018-06-15 07:16] LABS: HEMOGLOBIN 9.8 g/dL (12.0-16.0); MEAN CORPUSCULAR HEMOGLOBIN 28.7 pg (25.0-35.0); MEAN CORPUSCULAR HGB CONC 32.6 g/dl (31.0-37.0); MEAN PLATELET VOLUME 8.8 fl (7.0-11.0); RBC 3.41 10^6/uL (3.5-6.1); WHITE BLOOD COUNT 13.9 10^3/uL (4.5-11.0)
[2018-06-15 07:53] LABS: ALB/GLOB RATIO 1.1 (1.1-1.8); ALT/SGPT 17 U/L (7-56); AST/SGOT 21 U/L (14-36); BLOOD UREA NITROGEN 26 mg/dL (7-21); CALCIUM 9.4 mg/dL (8.4-10.5); GFR NON-AFRICAN AMERICAN > 60
[2018-06-15 08:53] LABS: MEAN CELL VOLUME 94.7 fl (80.0-105.0)
[2018-06-15] MEDS: Hydrocortisone 1% Cream (30 GM) TOP SCH ×2 (09:17→17:32)
--- NOTE | 2018-06-15 12:02 | PN ---
DATE: 06/15/2018 SUBJECTIVE: I saw her in her room, TCU. She slept well last night. She tells me she is eating well. She is doing better with walking. Tomorrow is her last day, she should be discharge home on Tuesday. She understands that she is looking forward to going home. She feels that she can handle it. MEDICATIONS: She is on Ambien, Brovana, Celexa, Coreg, hydrocortisone cream, digoxin, Doryx, DuoNebs, Ecotrin, Eliquis, Lasix, Lipitor, magnesium, MiraLax, prednisone is down to 20 mg, Protonix, Pulmicort, Synthroid, Tylenol, Ultram, Xanax, and Zestril. PHYSICAL EXAMINATION: VITAL SIGNS: She has 97.8 temperature, 68 pulse, 95/42 and 116/64 blood pressure, 95% O2 sat. HEAD: Atraumatic, normocephalic. HEART: Regular rate. LUNGS: Decreased breath sounds. ABDOMEN: Soft. EXTREMITIES: No edema. She is in good spirits. No complaints. Slept well. Eating well. Trying with physical therapy and improving. LABORATORY DATA: She has sodium 134, potassium 4.2, BUN 26, creatinine 0.7, I encouraged her to drink more water, GFR is greater than 60, sugar is 91, calcium is 9.4. Total bili is 0.2, AST is 21, ALT is 17, alk phos 66, total protein is 5.8. White count down, hemoglobin is 9.8, hematocrit 30.1, platelets are 348. ASSESSMENT AND PLAN: She is doing much better with physical therapy. She has low sodium. She has cardiomyopathy and hopefully tomorrow she will be able to be discharged. Francisco Philip DO MTDD
[2018-06-15] MEDS: Digoxin 125 mcg (0.125 mg) Tab PO SCH (14:06)
--- NOTE | 2018-06-15 21:19 | CP.PCM.CON ---
History of Present Illness - History of Present Illness History of Present Illness: severe oxygen-dependent COPD, PAD, carotid disease S/P carotid stenting and endarterectomy, history of left subclavian stenosis, CAD S/P CABG, dyslipidemia, hypothyroidism [place] [facility] [place]B and cough with phleg m. CXR was done which showed peribronchial thickening and is currently being treated for probable COPD exacerbation. The patient states her cough is better, denies fever or chills, no nausea or vomiting, no chest pain, no headache or dizziness, no rhinorrhea, no sore throat, no abdominal pain, no diarrhea, no dysuria. Infectious diseases consult is requested to further evaluate and manage. Review of Systems - Review of Systems All systems: reviewed and no additional remarkable complaints except (as per HPI) Past Patient History - Infectious Disease Hx of Infectious Diseases: None - Past Medical History & Family History Past Medical History?: Yes - Past Social History Smoking Status: Former Smoker - CARDIAC Hx Cardiac Disorders: Yes (s/p CABG) Hx Hypercholesterolemia: Yes - PULMONARY Hx Chronic Obstructive Pulmonary Disease (COPD): Yes (4L cont. O2) - NEUROLOGICAL HX Cerebrovascular Accident: Yes (3 episodes) - HEENT Hx HEENT Problems: Yes Hx Cataracts: Yes - RENAL Hx Chronic Kidney Disease: No - ENDOCRINE/METABOLIC Hx Hypothyroidism: Yes - HEMATOLOGICAL/ONCOLOGICAL Hx Blood Disorders: No - INTEGUMENTARY Hx Dermatological Problems: No - MUSCULOSKELETAL/RHEUMATOLOGICAL Hx Arthritis: Yes - GASTROINTESTINAL Hx Gastrointestinal Disorders: Yes (CONSTIPATION,) - GENITOURINARY/GYNECOLOGICAL Hx Genitourinary Disorders: Yes (UTI,PYELONEPHRITIS) Hx Reproductive Disorders: No - PSYCHIATRIC Hx Psychophysiologic Disorder: No Hx Substance Use: No (unknown) - SURGICAL HISTORY Hx Cardiac Catheterization: Yes Hx Coronary Artery Bypass Graft: Yes - ANESTHESIA Hx Anesthesia Reactions: No Hx Malignant Hyperthermia: No Meds Allergies/Adverse Reactions: Allergies Allergy/AdvReac Type Severity Reaction Status Date / Time codeine Allergy ANAPHYLAXIS Verified 06/08/18 18:14 oxycodone HCl [From Percocet] Allergy ANAPHYLAXIS Verified 06/08/18 18:14 Penicillins Allergy ANAPHYLAXIS Verified 06/08/18 18:14 - Medications Medications: Current Medications Acetaminophen (Tylenol 325mg Tab) 650 mg PO Q6H PRN; Protocol PRN Reason: Fever >100.4 F Albuterol/Ipratropium (Duoneb 3 Mg/0.5 Mg (3 Ml) Ud) 3 ml IH Q2H PRN; Protocol PRN Reason: Shortness of Breath Albuterol/Ipratropium (Duoneb 3 Mg/0.5 Mg (3 Ml) Ud) 3 ml IH [id number] TATE; Protocol Last Admin: 06/14/18 22:59 Dose: Not Given Alprazolam (Xanax) 1 mg PO QID PRN; Protocol PRN Reason: Anxiety Last Admin: 06/14/18 21:36 Dose: 1 mg Apixaban (Eliquis) 2.5 mg PO BID TATE; Protocol Last Admin: 06/14/18 17:14 Dose: 2.5 mg Arformoterol Tartrate (Brovana) 15 mcg IH [id number] TATE Last Admin: 06/14/18 19:06 Dose: 15 mcg Aspirin (Ecotrin) 81 mg PO 0800 TATE; Protocol Last Admin: 06/14/18 07:40 Dose: 81 mg Atorvastatin Calcium (Lipitor) 20 mg PO DIN TATE; Protocol Last Admin: 06/14/18 17:14 Dose: 20 mg Budesonide (Pulmicort Respules) 0.5 mg IH 0800 TATE; Protocol Last Admin: 06/14/18 18:51 Dose: 0.5 mg Carvedilol (Coreg) 3.125 mg PO 0800,1800 TATE; Protocol Last Admin: 06/14/18 17:11 Dose: Not Given Citalopram Hydrobromide (Celexa) 20 mg PO DAILY TATE; Protocol Last Admin: 06/14/18 09:39 Dose: 20 mg Digoxin (Digoxin) 0.125 mg PO 1400 TATE; Protocol Last Admin: 06/14/18 14:00 Dose: 0.125 mg Doxycycline Hyclate (Doryx) 100 mg PO 0600,1800 TATE Stop: 06/16/18 06:48 Last Admin: 06/14/18 17:13 Dose: 100 mg Furosemide (Lasix) 20 mg PO DAILY [facility]; Protocol Last Admin: 06/14/18 09:40 Dose: 20 mg Hydrocortisone (Cortizone 1% Cream) 0 gm TOP BID TATE; Protocol Last Admin: 06/14/18 17:13 Dose: 1 applic Levothyroxine Sodium (Synthroid) 100 mcg PO 0600 TATE; Protocol Last Admin: 06/14/18 05:51 Dose: 100 mcg Lisinopril (Zestril) 5 mg PO DAILY [facility]; Protocol Last Admin: 06/14/18 09:40 Dose: Not Given Magnesium Oxide (Mag-Ox) 400 mg PO HS [facility] Last Admin: 06/14/18 21:36 Dose: 400 mg Pantoprazole Sodium (Protonix Ec Tab) 40 mg PO 0600 [facility]; Protocol Last Admin: 06/14/18 05:51 Dose: 40 mg Polyethylene Glycol (Miralax) 17 gm PO DAILY PRN; Protocol PRN Reason: Constipation Prednisone (Prednisone Tab) 30 mg PO DAILY [facility] Last Admin: 06/14/18 12:03 Dose: Not Given Tramadol HCl (Ultram) 50 mg PO Q8 PRN; Protocol PRN Reason: Pain, moderate (4-7) Last Admin: 06/12/18 23:25 Dose: 50 mg Zolpidem Tartrate (Ambien) 10 mg PO HS PRN; Protocol PRN Reason: Insomnia Last Admin: 06/14/18 21:36 Dose: 10 mg Physical Exam - Constitutional Appears: No Acute Distress, Chronically Ill - Head Exam Head Exam: NORMAL INSPECTION - Respiratory Exam Respiratory Exam: Decreased Breath Sounds - Cardiovascular Exam Cardiovascular Exam: +S1, +S2 - GI/Abdominal Exam GI & Abdominal Exam: Soft. absent: Tenderness Results - Vital Signs Recent Vital Signs: Last Vital Signs Temp 97.8 F 06/14/18 16:00 Pulse 68 06/14/18 17:11 Resp 18 06/14/18 16:00 BP 95/43 L 06/14/18 17:11 Pulse Ox 95 06/14/18 16:58 - Labs Result Diagrams: 06/15/18 06:45 06/15/18 06:45 Labs: Laboratory Results - last 24 hr 06/14/18 06/14/18 06:30 06:30 WBC 14.2 H RBC 3.45 L Hgb 9.9 L Hct 32.9 L MCV 95.4 MCH 28.7 MCHC 30.1 L RDW 15.9 H Plt Count 362 MPV 9.2 Sodium 135 Potassium 4.8 Chloride 91 L Carbon Dioxide 39 H Anion Gap 11 BUN 24 H Creatinine 0.8 Est GFR ( Amer) > 60 Est GFR (Non-Af Amer) > 60 Random Glucose 86 Calcium 8.8 Total Bilirubin 0.2 AST 17 ALT 11 Alkaline Phosphatase 63 Total Protein 5.6 L Albumin 2.8 L Globulin 2.7 Albumin/Globulin Ratio 1.0 L Assessment & Plan - Assessment and Plan (Free Text) Plan: Assessment Probable acute exacerbation of COPD in this patient with severe oxygen-dependent COPD history of Takotsubo cardiomyopathy S/P cardiac cath history of UTI with E. coli PAD carotid disease S/P carotid stenting and endarterectomy history of left subclavian stenosis CAD S/P CABG dyslipidemia hypothyroidism Plan continue PO Doxycycline day 2 for 3-5 days; patient also on steroids reviewed CXR which shows peribronchial thickening suggestive of bronchitis will monitor clinically
[2018-06-15] MEDS: Magnesium Oxide 400 mg Tab UD PO SCH (21:32)
[2018-06-16] MEDS: Albuterol-Ipratrop 3 mg / 0.5 (3 ml) UD IH SCH ×6 (00:02→20:28)
[2018-06-16] MEDS: Levothyroxine 100 MCG TAB PO SCH (05:44)
[2018-06-16] MEDS: Pantoprazole 40 mg EC Tab PO SCH (05:44)
[2018-06-16 07:23] LABS: HEMOGLOBIN 10.9 g/dL (12.0-16.0); MEAN CELL VOLUME 95.2 fl (80.0-105.0); MEAN CORPUSCULAR HEMOGLOBIN 29.2 pg (25.0-35.0); MEAN CORPUSCULAR HGB CONC 30.7 g/dl (31.0-37.0); MEAN PLATELET VOLUME 9.1 fl (7.0-11.0); RBC 3.73 10^6/uL (3.5-6.1); RED CELL DISTRIBUTION WIDTH 15.7 % (11.5-14.5); WHITE BLOOD COUNT 17.9 10^3/uL (4.5-11.0)
[2018-06-16 07:35] LABS: ALB/GLOB RATIO 1.2 (1.1-1.8); ALBUMIN 3.4 g/dL (3.0-4.8); ALT/SGPT 17 U/L (7-56); AST/SGOT 16 U/L (14-36); BLOOD UREA NITROGEN 22 mg/dL (7-21); CALCIUM 9.5 mg/dL (8.4-10.5); GFR NON-AFRICAN AMERICAN > 60
[2018-06-16] MEDS: Budesonide 0.5 mg/2 ml Inhal Susp UD IH SCH (09:14)
[2018-06-16] MEDS: Arformoterol 15 mcg/2 ml Inh Sol IH SCH ×2 (09:14→20:27)
[2018-06-16] MEDS: Hydrocortisone 1% Cream (30 GM) TOP SCH ×2 (09:41→17:01)
--- NOTE | 2018-06-16 09:41 | PN ---
DATE: 06/16/2018 SUBJECTIVE: The patient seen earlier today in room 319. She is comfortable. She had an uneventful night. She is scheduled for discharge as per Dr. Francisco Philip. PHYSICAL EXAMINATION: VITAL SIGNS: Temperature is 98, blood pressure is 149/54, respiratory rate of 14 and heart rate of 85. HEENT: Unremarkable. NECK: Supple. LUNGS: Decreased breath sounds. HEART: Normal S1 and S2. ABDOMEN: Soft. LABORATORY DATA: Increase in white count 17,900 it was 13,000 yesterday. BUN is 22 and creatinine is 0.8. Review of orders reveals the patient is on prednisone 20 mg a day. She is also on Eliquis for DVT prophylaxis. Currently off of antibiotics. ASSESSMENT AND PLAN: This is a 73-year-old female with severe oxygen dependant chronic obstructive lung disease, chronic respiratory failure with carotid disease, status post carotid stent and endarterectomy, history of left subclavian stenosis, history of coronary artery disease, coronary artery bypass graft, dyslipidemia, acute exacerbation of the chronic obstructive lung disease, concerned about increase in the leukocytosis. The patient is on DVT prophylaxis Dr. Francisco Philip states that he will follow the CBC as outpatient in this patient who had a history of Takotsubo's cardiomyopathy, urinary tract infection, dyslipidemia and hypothyroidism on p.o. doxycycline complete 5 days. Danny Ennis MD
--- NOTE | 2018-06-16 12:32 | CP.PCM.PN ---
<Russ Peralta - Last Filed: 06/16/18 13:31> Subjective - Date & Time of Evaluation Date of Evaluation: 06/16/18 Time of Evaluation: 12:29 - Subjective Subjective: Nephrology Progress Note (Dr. Luther covering Dr. iJ's Service): Patient seen and assessed at bedside in TCU. No acute events noted overnight. Patient denies any complaints. Reports breathing is better. Further 12 point ROS reviewed and unremarkable at this time. Objective - Vital Signs/Intake and Output Vital Signs (last 24 hours): Temp Pulse Resp BP Pulse Ox 98.2 F 88 20 117/66 98 06/15/18 16:00 06/15/18 16:00 06/15/18 16:00 06/16/18 09:42 06/15/18 16:00 - Medications Medications: Current Medications Acetaminophen (Tylenol 325mg Tab) 650 mg PO Q6H PRN; Protocol PRN Reason: Fever >100.4 F Albuterol/Ipratropium (Duoneb 3 Mg/0.5 Mg (3 Ml) Ud) 3 ml IH Q2H PRN; Protocol PRN Reason: Shortness of Breath Albuterol/Ipratropium (Duoneb 3 Mg/0.5 Mg (3 Ml) Ud) 3 ml IH [id number] TATE; Protocol Last Admin: 06/16/18 09:14 Dose: 3 ml Alprazolam (Xanax) 1 mg PO QID PRN; Protocol PRN Reason: Anxiety Last Admin: 06/16/18 09:40 Dose: 1 mg Apixaban (Eliquis) 2.5 mg PO BID TATE; Protocol Last Admin: 06/16/18 09:42 Dose: 2.5 mg Arformoterol Tartrate (Brovana) 15 mcg IH [id number] TATE Last Admin: 06/16/18 09:14 Dose: 15 mcg Aspirin (Ecotrin) 81 mg PO 0800 TATE; Protocol Last Admin: 06/16/18 09:41 Dose: 81 mg Atorvastatin Calcium (Lipitor) 20 mg PO DIN TATE; Protocol Last Admin: 06/15/18 17:33 Dose: 20 mg Budesonide (Pulmicort Respules) 0.5 mg IH 0800 TATE; Protocol Last Admin: 06/16/18 09:14 Dose: 0.5 mg Carvedilol (Coreg) 3.125 mg PO 0800,1800 TATE; Protocol Last Admin: 06/16/18 09:41 Dose: 3.125 mg Citalopram Hydrobromide (Celexa) 20 mg PO DAILY [facility]; Protocol Last Admin: 06/16/18 09:41 Dose: 20 mg Digoxin (Digoxin) 0.125 mg PO 1400 TATE; Protocol Last Admin: 06/15/18 14:06 Dose: 0.125 mg Furosemide (Lasix) 20 mg PO DAILY [facility]; Protocol Last Admin: 06/16/18 09:42 Dose: 20 mg Hydrocortisone (Cortizone 1% Cream) 0 gm TOP BID [facility]; Protocol Last Admin: 06/16/18 09:41 Dose: 1 applic Levothyroxine Sodium (Synthroid) 100 mcg PO 0600 TATE; Protocol Last Admin: 06/16/18 05:44 Dose: 100 mcg Lisinopril (Zestril) 5 mg PO DAILY [facility]; Protocol Last Admin: 06/16/18 09:42 Dose: 5 mg Magnesium Oxide (Mag-Ox) 400 mg PO HS [facility] Last Admin: 06/15/18 21:32 Dose: 400 mg Pantoprazole Sodium (Protonix Ec Tab) 40 mg PO 0600 TATE; Protocol Last Admin: 06/16/18 05:44 Dose: 40 mg Polyethylene Glycol (Miralax) 17 gm PO DAILY PRN; Protocol PRN Reason: Constipation Prednisone (Prednisone Tab) 20 mg PO DAILY [facility] Last Admin: 06/16/18 09:42 Dose: 20 mg Tramadol HCl (Ultram) 50 mg PO Q8 PRN; Protocol PRN Reason: Pain, moderate (4-7) Last Admin: 06/12/18 23:25 Dose: 50 mg Zolpidem Tartrate (Ambien) 10 mg PO HS PRN; Protocol PRN Reason: Insomnia Last Admin: 06/15/18 22:20 Dose: 10 mg - Labs Labs: 06/16/18 06:30 06/16/18 06:30 - Constitutional Appears: Non-toxic, No Acute Distress - Head Exam Head Exam: ATRAUMATIC - Eye Exam Eye Exam: EOMI - ENT Exam ENT Exam: Mucous Membranes Moist - Respiratory Exam Respiratory Exam: Clear to Ausculation Bilateral, NORMAL BREATHING PATTERN - Cardiovascular Exam Cardiovascular Exam: +S1, +S2 - GI/Abdominal Exam GI & Abdominal Exam: Soft, Normal Bowel Sounds. absent: Tenderness - Extremities Exam Extremities Exam: absent: Pedal Edema - Neurological Exam Neurological Exam: Alert, Awake - Skin Skin Exam: Dry, Warm Assessment and Plan - Assessment and Plan (Free Text) Assessment: 73 year old female with a past medical history significant for COPD, PAD, CAD s/p CABG, three previous CVA's, atrial fibrillation of eliquis, hypothyroidism and recently Takotubo Cardiomyopathy who is being followed for hyponatremia. Plan: 1. Hyponatremia -Resolved -Secondary to low PO solute intake with component of polydipsia -Continue modest fluid restrictions -Continue to monitor with routine labs Patient seen and case discussed with attending, Dr. Luther covering for Dr. Ji. Russ Peralta PGY2 <Baldemar Luther - Last Filed: 06/16/18 20:24> Objective - Vital Signs/Intake and Output Vital Signs (last 24 hours): Temp Pulse Resp BP Pulse Ox 97.6 F 85 18 114/64 95 06/16/18 16:00 06/16/18 16:00 06/16/18 16:00 06/16/18 17:01 06/16/18 16:00 - Medications Medications: Current Medications Acetaminophen (Tylenol 325mg Tab) 650 mg PO Q6H PRN; Protocol PRN Reason: Fever >100.4 F Albuterol/Ipratropium (Duoneb 3 Mg/0.5 Mg (3 Ml) Ud) 3 ml IH Q2H PRN; Protocol PRN Reason: Shortness of Breath Albuterol/Ipratropium (Duoneb 3 Mg/0.5 Mg (3 Ml) Ud) 3 ml IH [id number] [facility]; Protocol Last Admin: 06/16/18 13:06 Dose: Not Given Alprazolam (Xanax) 1 mg PO QID PRN; Protocol PRN Reason: Anxiety Last Admin: 06/16/18 15:05 Dose: 1 mg Apixaban (Eliquis) 2.5 mg PO BID [facility]; Protocol Last Admin: 06/16/18 17:02 Dose: 2.5 mg Arformoterol Tartrate (Brovana) 15 mcg IH [id number] [facility] Last Admin: 06/16/18 09:14 Dose: 15 mcg Aspirin (Ecotrin) 81 mg PO 0800 [facility]; Protocol Last Admin: 06/16/18 09:41 Dose: 81 mg Atorvastatin Calcium (Lipitor) 20 mg PO DIN TATE; Protocol Last Admin: 06/16/18 17:02 Dose: 20 mg Budesonide (Pulmicort Respules) 0.5 mg IH 0800 TATE; Protocol Last Admin: 06/16/18 09:14 Dose: 0.5 mg Carvedilol (Coreg) 3.125 mg PO 0800,1800 TATE; Protocol Last Admin: 06/16/18 17:01 Dose: 3.125 mg Citalopram Hydrobromide (Celexa) 20 mg PO DAILY TATE; Protocol Last Admin: 06/16/18 09:41 Dose: 20 mg Digoxin (Digoxin) 0.125 mg PO 1400 TATE; Protocol Last Admin: 06/16/18 15:05 Dose: 0.125 mg Furosemide (Lasix) 20 mg PO DAILY TATE; Protocol Last Admin: 06/16/18 09:42 Dose: 20 mg Hydrocortisone (Cortizone 1% Cream) 0 gm TOP BID TATE; Protocol Last Admin: 06/16/18 17:01 Dose: 1 applic Levothyroxine Sodium (Synthroid) 100 mcg PO 0600 TATE; Protocol Last Admin: 06/16/18 05:44 Dose: 100 mcg Lisinopril (Zestril) 5 mg PO DAILY TATE; Protocol Last Admin: 06/16/18 09:42 Dose: 5 mg Magnesium Oxide (Mag-Ox) 400 mg PO HS [facility] Last Admin: 06/15/18 21:32 Dose: 400 mg Pantoprazole Sodium (Protonix Ec Tab) 40 mg PO 0600 TATE; Protocol Last Admin: 06/16/18 05:44 Dose: 40 mg Polyethylene Glycol (Miralax) 17 gm PO DAILY PRN; Protocol PRN Reason: Constipation Prednisone (Prednisone Tab) 20 mg PO DAILY TATE Last Admin: 06/16/18 09:42 Dose: 20 mg Tramadol HCl (Ultram) 50 mg PO Q8 PRN; Protocol PRN Reason: Pain, moderate (4-7) Last Admin: 06/12/18 23:25 Dose: 50 mg Zolpidem Tartrate (Ambien) 10 mg PO HS PRN; Protocol PRN Reason: Insomnia Last Admin: 06/15/18 22:20 Dose: 10 mg - Labs Labs: 06/16/18 06:30 06/16/18 06:30 Assessment and Plan - Assessment and Plan (Free Text) Plan: Pt seen and examined by me. I have reviewed the note of the medical assistant and I agree with it. I have discussed the assessment and plan with the resident. I have reviewed the medications and the last labs.
--- NOTE | 2018-06-16 12:58 | PN ---
DATE: 06/16/2018 SUBJECTIVE: The patient is able walk up stairs with physical therapy without shortness of breath. OBJECTIVE: VITAL SIGNS: Blood pressure 117/66, heart rate is in the 80s. NECK: Negative JVD. LUNGS: Without rales. HEART: S1, S2. EXTREMITIES: Without edema. LABORATORY DATA: Hemoglobin is 10.9. Chemistries; BUN and creatinine are unremarkable. Sodium is 134. IMPRESSION: 1. Status post Takotsubo cardiomyopathy. 2. Resolution of left ventricular function back to a normal ejection fraction. 3. Paroxysmal atrial fibrillation. The patient remains in normal sinus rhythm, chronic obstructive pulmonary disease. 4. Resolution of hyponatremia. 5. Nonobstructive coronary artery disease. Given these findings, the patient is doing well. I have discussed with the patient about to stay away from cigarettes. We will continue her on her Eliquis for now and Coreg. The patient is scheduled for discharge today. Toy Couch MD
[2018-06-16] MEDS: Digoxin 125 mcg (0.125 mg) Tab PO SCH (15:05)
[2018-06-16 15:07] VITALS: PULSE 69
[2018-06-16 16:53] VITALS: BP 114/64; PULSE 85; RESP 18; TEMP 97.6; O2SAT 95
--- NOTE | 2018-06-16 22:34 | PN ---
DATE: 06/16/2018 This is coverage for Dr. Ji for a renal consultation followup. SUBJECTIVE: The patient was seen and examined. I do agree with the note of the pediatric medical assistant. I was involved in plan of care. The patient has a creatinine of 0.8. The patient's sodium is 137. The patient's white count is 17.9. The patient has hyponatremia that has improved. She is currently receiving Ambien for sleep. She is on carvedilol and this will be continued. She is on Eliquis for her atrial fibrillation. The patient is on Lasix daily. She is on Lipitor for dyslipidemia. The patient is receiving Synthroid for hypothyroidism. She is on lisinopril for her hypertension. The patient's blood pressure is currently controlled. She is getting physical therapy. Baldemar Luther MD
--- NOTE | 2018-06-17 01:37 | DS ---
HISTORY OF PRESENT ILLNESS: She is actually doing quite well with therapy. She is walking much better. She will be discharged today. She will go home and follow up on house calls. She is in good spirits. She is eating well. PHYSICAL EXAMINATION: VITAL SIGNS: She has a 98.2 temperature; 88 pulse; 87/49 blood pressure, 149/54 blood pressure, she had a 119/68 blood pressure; 20 respiratory rate, and 98% O2 sat on room air. HEENT: Head is atraumatic, normocephalic. CARDIOPULMONARY: Heart is regular rate. LUNGS: With decreased breath sounds but clear. ABDOMEN: Soft. EXTREMITIES: No edema. NEUROLOGIC: In good spirits, smiling, slept well. MEDICATIONS: She is going to go home on her Ambien, Brovana, Celexa, Coreg, hydrocortisone, digoxin, DuoNebs, Ecotrin, Eliquis, Lasix, Lipitor, magnesium, MiraLax, prednisone will down to 10 mg, Protonix, Pulmicort, Synthroid, Tylenol, Ultram as needed, Xanax as needed, Zestril as needed, doxycycline p.o. for five more days. LABORATORY DATA: She has a 70.9 white count, I think that will help that, 10.9 hemoglobin, 35.5 hematocrit with 385 platelets. ASSESSMENT AND PLAN: She will also get a blood test next week to follow the white count and her chemistry. She will be discharged home. She did very well here. She was seen by Infectious Disease and Renal. She had chronic obstructive pulmonary disease, coronary artery disease. She had Takotsubo's cardiomyopathy, which improved, urinary tract infection, high cholesterol, hypothyroidism. Francisco Philip, (Delete this signature block when dictator is a preceptor.) cc: MD Tonya (Delete if not dictated.)
== END 2018-06-16 21:13 | disposition home or self-care (01) | DRG 191 ==
LOC: TRCU 18:01
PROVIDERS: ADMIT Family Medicine; ATTEND Family Medicine
PROC: F08Z1FZ Dressing Techniques Treatment using Assistive, Adaptive, Supportive or Protective Equipment (ICD-10-PCS; 2018-06-10)
PROC: F07Z9FZ Gait Training/Functional Ambulation Treatment using Assistive, Adaptive, Supportive or Protective Equipment (ICD-10-PCS; principal; 2018-06-11)
PROC: F07Z5ZZ Bed Mobility Treatment (ICD-10-PCS; 2018-06-11)
PROC: F07Z8ZZ Transfer Training Treatment (ICD-10-PCS; 2018-06-11)
PROC: F07L6YZ Therapeutic Exercise Treatment of Musculoskeletal System - Lower Back / Lower Extremity using Other Equipment (ICD-10-PCS; 2018-06-12)
PROC: F08Z2ZZ Grooming/Personal Hygiene Treatment (ICD-10-PCS; 2018-06-13)
DX: J44.1 Chronic obstructive pulmonary disease with (acute) exacerbation (principal); I51.81 Takotsubo syndrome; N39.0 Urinary tract infection, site not specified; E87.1 Hypo-osmolality and hyponatremia; I25.118 Atherosclerotic heart disease of native coronary artery with other forms of angina pectoris; I48.0 Paroxysmal atrial fibrillation; I11.0 Hypertensive heart disease with heart failure; I50.9 Heart failure, unspecified; I73.9 Peripheral vascular disease, unspecified; E03.9 Hypothyroidism, unspecified; F41.9 Anxiety disorder, unspecified; E78.5 Hyperlipidemia, unspecified; Z79.01 Long term (current) use of anticoagulants; Z86.73 Personal history of transient ischemic attack (TIA), and cerebral infarction without residual deficits; Z99.81 Dependence on supplemental oxygen; Z86.74 Personal history of sudden cardiac arrest; Z87.891 Personal history of nicotine dependence; Z95.5 Presence of coronary angioplasty implant and graft; Z95.1 Presence of aortocoronary bypass graft

== ENCOUNTER 2018-07-12 12:26 | Inpatient (IN) | payer MEDICARE, MEDICAID ==
[2018-07-12 12:28] VITALS: BMI 22.3
--- NOTE | 2018-07-12 12:59 | ED PDOC ---
Arrival/HPI - General Chief Complaint: Shortness Of Breath Time Seen by Provider: 07/12/18 12:33 Historian: Patient, EMS - History of Present Illness Narrative History of Present Illness (Text): 07/12/18 12:55 73 year old F with pmh of COPD on 3L home O2, PAD, Carotid disease s/p L carotid stent, L subclavian stenosis, CAD s/p CABG, a-fib on eliquis, HLD hypothyroidism, and CVA x3, hx of mdr utis presents via EMS with chief complaint of shortness of breath since this morning. EMS report patient was found by visiting home nurse to have trouble breathing and low 02 sat. 02 sat in 80s s/p 4 duoneb treatments by nurse. After EMS arrived, 100% 02 sat s/p Solu Medrol 125 mg iv, 1 duoneb and albuterol by medics. Patient denies any fevers, chills, headache, dizziness, chest pain, cough, abdominal pain, nausea, vomiting, diarr hea, back pain, neck pain, or any other complaint. PMD: Dr. Parekh Time/Duration: Prior to Arrival Symptom Onset: Sudden Symptom Course: Unchanged Activities at Onset: Light Context: Home Past Medical History - Provider Review Nursing Documentation Reviewed: Yes - Past History Past History: No Previous - Infectious Disease Hx of Infectious Diseases: None - Reproductive Menopause: Yes - Cardiac Hx Cardiac Disorders: Yes (cardiac arrest, EF 20 to 25%, Takotsubo's cardiomyopathy( resolved).) - Pulmonary Hx Chronic Obstructive Pulmonary Disease (COPD): Yes - Neurological HX Cerebrovascular Accident: Yes (x3) - HEENT Hx HEENT Disorder: Yes Hx Cataracts: Yes - Renal Hx Renal Disorder: No - Endocrine/Metabolic Hx Hypothyroidism: Yes - Hematological/Oncological Hx Blood Disorders: No - Integumentary Hx Dermatological Disorder: No - Musculoskeletal/Rheumatological Hx Arthritis: Yes - Gastrointestinal Hx Gastrointestinal Disorders: No - Genitourinary/Gynecological Hx Genitourinary Disorders: No - Psychiatric Hx Psychophysiologic Disorder: No Hx Substance Use: No (unknown) - Surgical History Hx Cardiac Catheterization: Yes Hx Coronary Artery Bypass Graft: Yes - Anesthesia Hx Anesthesia Reactions: No Hx Malignant Hyperthermia: No - Suicidal Assessment Feels Threatened In Home Enviroment: No Family/Social History - Physician Review Nursing Documentation Reviewed: Yes Family/Social History: Unknown Family HX Smoking Status: Former Smoker Hx Alcohol Use: No Hx Substance Use: No (unknown) Allergies/Home Meds Allergies/Adverse Reactions: Allergies codeine Allergy (Verified 06/08/18 18:14) ANAPHYLAXIS oxycodone HCl [From Percocet] Allergy (Verified 06/08/18 18:14) ANAPHYLAXIS Penicillins Allergy (Verified 06/08/18 18:14) ANAPHYLAXIS Home Medications: Home Meds Medication Instructions Recorded Confirmed Magnesium Oxide [Magnesium] 400 mg PO HS 06/05/18 06/08/18 Tiotropium Goodrich Inhaler 1 puff INH DAILY 06/05/18 06/08/18 [Spiriva Inhalation Handihaler Device] Review of Systems - Physician Review All systems were reviewed & negative as marked: Yes - Review of Systems Constitutional: absent: Fevers ENT: absent: Sore Throat, Rhinorrhea, Epistaxis Respiratory: SOB. absent: Cough Cardiovascular: absent: Chest Pain, Palpitations Gastrointestinal: absent: Abdominal Pain, Diarrhea, Nausea, Vomiting Genitourinary Female: absent: Dysuria Musculoskeletal: absent: Arthralgias, Back Pain, Neck Pain, Myalgias Neurological: absent: Headache, Dizziness, Speech Changes Physical Exam Vital Signs Reviewed: Yes Vital Signs Temp Pulse Resp BP Pulse Ox 07/12/18 12:27 97.5 F L 71 18 128/76 99 Temperature: Afebrile Blood Pressure: Normal Pulse: Regular Respiratory Rate: Normal Appearance: Positive for: Well-Appearing, Non-Toxic, Comfortable Pain Distress: Mild Mental Status: Positive for: Alert and Oriented X 3 - Systems Exam Head: Present: Atraumatic, Normocephalic Pupils: Present: PERRL Extroacular Muscles: Present: EOMI Conjunctiva: Present: Normal Mouth: Present: Moist Mucous Membranes Neck: Present: Normal Range of Motion Respiratory/Chest: Present: Decreased Breath Sounds (b/l). No: Respiratory Distress, Accessory Muscle Use Cardiovascular: Present: Regular Rate and Rhythm, Normal S1, S2. No: Murmurs Abdomen: No: Tenderness, Distention, Peritoneal Signs Back: Present: Normal Inspection Upper Extremity: Present: Normal Inspection. No: Cyanosis, Edema Lower Extremity: Present: Normal Inspection. No: Edema Neurological: Present: GCS=15, CN II-XII Intact, Speech Normal (speaking in full sentences) Skin: Present: Warm, Dry, Normal Color. No: Rashes Psychiatric: Present: Alert, Oriented x 3, Normal Insight, Normal Concentration Medical Decision Making ED Course and Treatment: 07/12/18 12:57 Impression: 73 year old F presents via EMS with chief complaint of shortness of breath since this morning. EMS report patient was found by visiting home nurse to have trouble breathing and low 02 sat. 02 sat in 80s s/p 4 duoneb treatments by nurse. After EMS arrived, 100% 02 sat s/p Solu Medrol 125 mg iv, 1 duoneb and albuterol by medics. Patient is speaking in full sentences. Plan: -- Labs -- EKG -- Duoneb -- 02 via nasal canula -- Reassess and disposition Prior Visits: Notes and results from previous visits were reviewed. Patient was last seen in the emergency department on Progress Notes: EKG: Ordered, reviewed, and independently interpreted the EKG. Rate: 73 BPM Rhythm: Sinus rhythm Interpretation: Normal axis, No ST-segment elevations or depressions 07/12/18 13:43 Chest X-ray -- No active disease 07/12/18 14:30 Results of w/u d/w patient and patient reassessed. Breath sounds still decreased after multiple nebs. Plan admit for further evaluation and management. Patient agreeable w/POC. 07/12/18 14:[address] Philip who wants patient admitted under his service, consult with DR. Persaud, Cable Installation Manager - Domitilaibe Statement The provider has reviewed the documentation as recorded by the Lexie Costello All medical record entries made by the Lexie were at my direction and personally dictated by me. I have reviewed the chart and agree that the record accurately reflects my personal performance of the history, physical exam, medical decision making, and the department course for this patient. I have also personally directed, reviewed, and agree with the discharge instructions and disposition. Disposition/Present on Arrival - Present on Arrival Any Indicators Present on Arrival: No History of DVT/PE: No History of Uncontrolled Diabetes: No Urinary Catheter: No History of Decub. Ulcer: No History Surgical Site Infection Following: None - Disposition Have Diagnosis and Disposition been Completed?: Yes Diagnosis: COPD exacerbation Disposition: HOSPITALIZED Disposition Time: 14:43 Patient Plan: Admission Condition: STABLE
[2018-07-12] MEDS: Albuterol-Ipratrop 3 mg / 0.5 (3 ml) UD IH SCH ×4 (13:17→22:30)
[2018-07-12 13:24] LABS: BASO # 0.03 K/mm3 (0.0-2.0); BASO % 0.3 % (0.0-3.0); EOS # 0.2 (0.0-0.7); EOS % 2.3 % (1.5-5.0); HEMOGLOBIN 10.6 g/dL (12.0-16.0); LYMPH # 0.8 (1.2-3.4); LYMPH % 8.7 % (22.0-35.0); MEAN CELL VOLUME 95.1 fl (80.0-105.0); MEAN CORPUSCULAR HEMOGLOBIN 28.9 pg (25.0-35.0); MEAN CORPUSCULAR HGB CONC 30.4 g/dl (31.0-37.0); MEAN PLATELET VOLUME 9.3 fl (7.0-11.0); MONO # 0.7 (0.1-0.6); MONO % 7.7 % (1.0-6.0); RBC 3.67 10^6/uL (3.5-6.1); RED CELL DISTRIBUTION WIDTH 15.2 % (11.5-14.5); WHITE BLOOD COUNT 8.9 10^3/uL (4.5-11.0)
--- NOTE | 2018-07-12 13:33 | RAD ---
Date of service: 07/12/2018 HISTORY: copd COMPARISON: 06/11/2018 TECHNIQUE: 1 view obtained. FINDINGS: LUNGS: No active pulmonary disease. PLEURA: No significant pleural effusion identified, no pneumothorax apparent. CARDIOVASCULAR: No aortic atherosclerotic calcification present. Normal cardiac size. No pulmonary vascular congestion. OSSEOUS STRUCTURES: No significant abnormalities. VISUALIZED UPPER ABDOMEN: Normal. OTHER FINDINGS: None. IMPRESSION: No active disease.
[2018-07-12 13:37] LABS: BLOOD UREA NITROGEN 9 mg/dL (7-21); CALCIUM 8.5 mg/dL (8.4-10.5); GFR NON-AFRICAN AMERICAN > 60
[2018-07-12 13:46] LABS: B-TYPE NATRIURETIC PEPTIDE 346 pg/mL (0-450); TROPONIN I < 0.01 ng/mL
--- NOTE | 2018-07-12 18:36 | CARD ---
APPROVED REPORT Date of service: 07/12/2018 EKG Measurement Heart [id number] <Conclusion> Normal Sinus Rythm.
[2018-07-12] MEDS ORDERED: POLYETHYLENE GLYCOL 3350 17 GM/Dose PACKET PO PRN (18:44)
[2018-07-12] MEDS ORDERED: Arformoterol 15 mcg/2 ml Inh Sol IH SCH (20:00)
[2018-07-12] MEDS ORDERED: Non Formulary Medication (Magnesium Oxide [Magnesium] 400 MG) PO SCH (22:00)
[2018-07-12] MEDS: Arformoterol 15 mcg/2 ml Inh Sol IH SCH (22:30)
[2018-07-12] MEDS: MethylPREDNISolone 40 mg Vial IVP SCH (23:12)
[2018-07-12] MEDS: Magnesium Oxide 400 mg Tab UD PO SCH (23:12)
[2018-07-13] MEDS: Albuterol-Ipratrop 3 mg / 0.5 (3 ml) UD IH SCH ×5 (02:10→23:30)
--- NOTE | 2018-07-13 02:35 | HP ---
DATE OF EXAM: 07/12/2018 HISTORY OF PRESENT ILLNESS: I was called down to the ER to see Shayla. She is very short of breath. The EMS have to give her Solu-Medrol 125 in the field, she is on oxygen. She is a 73-year-old white female with a history of being very short of breath. She has got received seven treatments Solu-Medrol 125 just to be in the situations she is on right now in the ER. She has usually got 3 L of oxygen at home, COPD. She has carotid artery disease, status post left carotid stent, left subclavian stenosis, coronary artery disease, status post CABG, AFib, on Eliquis, high cholesterol, hypothyroidism, CVA x3, and history of MDR, UTIs. She is very short of breath. She was found by the visiting nurse trouble breathing, low oxygen saturation, besides 125 of Solu-Medrol. She also had bedbugs found on her by her son. She got a shower and cleaning in the emergency room. She has cardiac arrest history, ejection fraction 20%-25%, Takotsubo cardiomyopathy resolved, COPD, CVA x3, cataracts, hypothyroidism, arthritis, and coronary artery bypass graft. FAMILY HISTORY: Unknown. SOCIAL HISTORY: Former smoker. No alcohol. No drugs. ALLERGIES: CODEINE, OXYCODONE, PENICILLINS, MAGNESIUM OXIDE, AND SPIRIVA. REVIEW OF SYSTEMS: No fevers. No sore throat. She has shortness of breath. No cough. There is wheezing. No chest pain or palpitations. No abdominal pain, diarrhea, nausea, or vomiting. No problems urinating. No arthralgias or back pain. No headache or dizziness. PHYSICAL EXAMINATION: VITAL SIGNS: She has a 97.5 temperature, 71 pulse, 18 respiratory rate, 128/76 blood pressure, and 99% O2 sat of 3 L. GENERAL: She is a well-appearing, nontoxic, comfortable at this time, mild distress. Alert and oriented x3. HEENT: Head; atraumatic and normocephalic. Extraocular muscles are intact. Pupils equal and reactive to light. Throat is moist. NECK: Supple. HEART: Regular rate. Normal S1 and S2. LUNGS: Decreased breath sounds bilaterally. No wheezes, rhonchi or rales at this time after seven nebulizer treatments and Solu-Medrol 125. ABDOMEN: Soft and nontender. Positive bowel sounds. No guarding. No rebound. No CVA tenderness. EXTREMITIES: No edema. NEUROLOGIC: GCS 15. Cranial nerves II through XII grossly intact. Alert and oriented x3. SKIN: Warm and dry. No rashes. She has been having trouble breathing, COPD exacerbation. She will be on Solu-Medrol 40 IV every 8 hours. LABORATORY DATA: She had an 8.9 white count, 10.6 hemoglobin, 34.9 hematocrit with 282 platelets. Sodium 134, potassium 3.9, BUN 9, creatinine 0.9, GFR is greater than 60, sugar is 150, calcium is 8.5, magnesium 1.7, and lactate dehydrogenase 459. Troponin I is less than 0.01. BNP is 346. Chest x-ray shows no active disease. EKG; normal sinus rhythm. ASSESSMENT AND PLAN: She will have consults with Cardiology and Pulmonology. She will be on Solu-Medrol, DuoNebs, regular medications, and hopefully she will do well. She is here for acute exacerbation of chronic obstructive pulmonary disease. Francisco Philip DO
[2018-07-13] MEDS: MethylPREDNISolone 40 mg Vial IVP SCH ×3 (05:00→22:11)
[2018-07-13] MEDS ORDERED: Budesonide 0.5 mg/2 ml Inhal Susp UD IH SCH (08:00)
[2018-07-13] MEDS: Arformoterol 15 mcg/2 ml Inh Sol IH SCH ×2 (08:37→19:26)
[2018-07-13] MEDS: Budesonide 0.5 mg/2 ml Inhal Susp UD IH SCH ×2 (08:37→19:26)
[2018-07-13 08:43] LABS: HEMOGLOBIN 9.7 g/dL (12.0-16.0); MEAN CELL VOLUME 91.7 fl (80.0-105.0); MEAN CORPUSCULAR HEMOGLOBIN 28.6 pg (25.0-35.0); MEAN CORPUSCULAR HGB CONC 31.2 g/dl (31.0-37.0); MEAN PLATELET VOLUME 9.3 fl (7.0-11.0); RBC 3.39 10^6/uL (3.5-6.1); RED CELL DISTRIBUTION WIDTH 14.7 % (11.5-14.5); WHITE BLOOD COUNT 9.5 10^3/uL (4.5-11.0)
--- NOTE | 2018-07-13 09:06 | CON ---
DATE OF CONSULTATION: 07/13/2018 PULMONARY CONSULTATION REASON FOR CONSULTATION: Chronic obstructive pulmonary disease. REFERRING PHYSICIAN: Dr. Francisco Philip. HISTORY OF PRESENT ILLNESS: The patient is a chronically ill 73-year-old female, with past medical history significant for advanced chronic obstructive pulmonary disease, on home oxygen, coronary artery disease, status post coronary artery bypass graft surgery, atrial fibrillation (on Eliquis), cerebrovascular accident in the past, who presents to [facility] with a 1-day history of increasing shortness of breath at rest, dyspnea on exertion, and minimal cough. There is no history of sputum production. There is no history of chest pain, coughing up of blood, or chest pain - made worse with deep respirations. There is no history of temperatures, chills or infectious exposure. There is no history of night sweats, weight loss, or appetite change prior to the above events. No history of leg or calf pains. No history of syncope or diaphoresis. No history of recent travel or trauma. REVIEW OF SYSTEMS No history of nausea, vomiting, or diarrhea. No acute urinary symptoms. No new neurologic complaints. Rest of the review of systems is negative. ALLERGIES: TO CODEINE, PERCOCET AND PENICILLIN. SOCIAL HISTORY: Positive for tobacco and negative for alcohol. FAMILY HISTORY: No inheritable diseases. MEDICATIONS: Home medications include Ultram, Ambien, Spiriva, Zestril, Synthroid, Lasix, Coreg, Pulmicort, Ecotrin, Brovana, Eliquis, DuoNebs, Xanax, prednisone, doxycycline. PHYSICAL EXAMINATION: GENERAL: The patient appears comfortable this morning. She is not short of breath at rest. She is not using accessory muscles for breathing. VITAL SIGNS: Temperature is 97.7, pulse 73, respirations 18/20, blood pressure 115/54. Oxygen saturation on nasal cannula - 94%. HEENT: Normocephalic, atraumatic. NECK: No JVD. CARDIOVASCULAR: Systolic ejection murmur at the lower left sternal border. No S3, gallop. LUNGS: Decreased breath sounds at the bases. Mild bilateral rhonchi. No wheezing. EXTREMITIES: No clubbing, cyanosis or edema. Calves are nontender to palpation. GASTROINTESTINAL: Abdomen is soft, nontender and nondistended. Bowel sounds are positive. SKIN: No acute rash. NEUROLOGIC: Exam limited at the present time. PERTINENT LABORATORY DATA: Chest x-ray was done last night and reviewed. There is no active disease noted. Complete metabolic profile: Chloride 87, carbon dioxide 41, glucose 150. Rest of the metabolic profile is within normal limits. CBC: White count 8.9K, hemoglobin 10.6, hematocrit 34.9, and platelets of 282,000. IMPRESSION: 1. Acute bronchitis. 2. Advanced chronic obstructive pulmonary disease, on home oxygen. 3. Coronary artery disease. 4. Chronic atrial fibrillation. 5. Mild anemia. PLAN: The patient presents to [facility] with a 1-day history of worsening pulmonary symptoms. Apparently, a visiting nurse went to the patient's home and found her short of breath. In addition, her pulse oximetry was very low. She was then sent to the hospital for additional evaluation. I did review the chest x-ray as above. There is no active disease noted. On physical exam, the patient is in mild bronchospasm. I will continue the current nebulizer treatments and increase the dosage of inhaled Pulmicort. I will also decrease the intravenous Solu-Medrol this morning. The patient was on doxycycline at home. There is no history of fevers. There is no leukocytosis. Cardiology evaluation with Dr. Couch has also been ordered. Clinical status of the patient is certainly improved - compared to the initial presentation. The patient does state to feeling better this morning. Additional pulmonary intervention will based on the clinical status of the patient. I will discuss the above with Dr. Philip this morning. Thank you very much for this pulmonary consultation. Alexi Persaud MD MTDD
[2018-07-13 09:07] LABS: ALB/GLOB RATIO 1.2 (1.1-1.8); ALBUMIN 3.4 g/dL (3.0-4.8); ALT/SGPT 20 U/L (7-56); AST/SGOT 18 U/L (14-36); BLOOD UREA NITROGEN 12 mg/dL (7-21); CALCIUM 8.2 mg/dL (8.4-10.5); GFR NON-AFRICAN AMERICAN > 60
[2018-07-13] MEDS: Levothyroxine 100 MCG TAB PO SCH (09:17)
[2018-07-13] MEDS: Pantoprazole 40 mg EC Tab PO SCH (09:18)
[2018-07-13] MEDS ORDERED: Tiotropium 18 mcg Cap For Inhalation INH SCH (10:00)
--- NOTE | 2018-07-13 10:47 | PN ---
DATE: 07/13/2018 SUBJECTIVE: I saw Shayla in her room. She is on isolation due to possibility of bedbugs, but she is comfortable. She is breathing better, feeling better, did not sleep well last night. She was on Ambien 5. She tells me she takes Ambien 10, although Ambien 5 was in the reconciliation list. She is improving breathing acevedo, she came in short of breath. The Solu-Medrol is down to 40 IV every 12 hours. Pulmonary came in and adjusted her breathing treatment schedule. PHYSICAL EXAMINATION VITAL SIGNS: She has a 97.7 temperature, 68 pulse, 115/54 blood pressure, 20 respiratory rate, 94% O2 sat on 3 liters. HEENT: Head: Atraumatic, normocephalic. HEART: Regular rate. LUNGS: Decreased breath sounds, just poor inspiration. No wheezes or rhonchi. ABDOMEN: Soft. EXTREMITIES: No edema. LABORATORY DATA: She has a 8.9 white count, 10.6 hemoglobin, 34.9 hematocrit with 282 platelets. Sodium 134, potassium 3.9, BUN 9, creatinine 0.9, GFR is greater than 60, sugar is 150. Calcium is 8.5, magnesium 1.7. Troponin I is less than 0.01. BNP is 346. She will have an increase in her Ambien tomorrow. We will get her out of bed to chair, get physical therapy involved, continue with treatment as per Pulmonary, slowly decrease the Solu-Medrol until she will be changed her tablet. We will continue with aggressive treatment and care on her COPD. Francisco Philip DO MTDD
[2018-07-13] MEDS: Digoxin 125 mcg (0.125 mg) Tab PO SCH (13:58)
--- NOTE | 2018-07-13 13:58 | CP.PCM.APN ---
Subjective - Date & Time of Evaluation Date of Evaluation: 07/13/18 Time of Evaluation: 09:30 - Subjective Subjective: pt seen and examineda t bedside, pt states her SOB has improved since arrival Review of Systems - Constitutional Constitutional: As Per HPI Objective - Vital Signs/Intake and Output Vital Signs (last 24 hours): Temp Pulse Resp BP Pulse Ox 97.7 F 79 20 126/60 94 L 07/13/18 06:00 07/13/18 09:17 07/13/18 06:00 07/13/18 09:17 07/13/18 06:00 Intake and Output: 07/13/18 07/13/18 06:59 18:59 Intake Total 240 Balance 240 - Medications Medications: Current Medications Acetaminophen (Tylenol 325mg Tab) 650 mg PO Q6H PRN PRN Reason: Fever >100.4 F Albuterol/Ipratropium (Duoneb 3 Mg/0.5 Mg (3 Ml) Ud) 3 ml IH [id number] [facility] Last Admin: 07/13/18 12:05 Dose: 3 ml Alprazolam (Xanax) 1 mg PO QID [facility]; Protocol Last Admin: 07/13/18 09:18 Dose: 1 mg Apixaban (Eliquis) 2.5 mg PO BID [facility]; Protocol Last Admin: 07/13/18 09:16 Dose: 2.5 mg Arformoterol Tartrate (Brovana) 15 mcg IH [id number] [facility] Last Admin: 07/13/18 08:37 Dose: 15 mcg Aspirin (Ecotrin) 81 mg PO DAILY [facility] Last Admin: 07/13/18 09:17 Dose: 81 mg Atorvastatin Calcium (Lipitor) 20 mg PO DIN [facility] Budesonide (Pulmicort Respules) 0.5 mg IH [id number] [facility] Last Admin: 07/13/18 08:37 Dose: 0.5 mg Carvedilol (Coreg) 3.125 mg PO BID [facility] Last Admin: 07/13/18 09:17 Dose: 3.125 mg Citalopram Hydrobromide (Celexa) 20 mg PO DAILY [facility] Last Admin: 07/13/18 09:18 Dose: 20 mg Digoxin (Digoxin) 0.125 mg PO 1400 [facility] Levothyroxine Sodium (Synthroid) 100 mcg PO DAILY [facility] Last Admin: 07/13/18 09:17 Dose: 100 mcg Lisinopril (Zestril) 5 mg PO DAILY [facility] Last Admin: 07/13/18 09:17 Dose: 5 mg Magnesium Oxide (Mag-Ox) 400 mg PO HS [facility] Last Admin: 07/12/18 23:12 Dose: 400 mg Methylprednisolone (Solu-Medrol) 40 mg IVP Q12 [facility] Last Admin: 07/13/18 09:16 Dose: 40 mg Pantoprazole Sodium (Protonix Ec Tab) 40 mg PO ACB [facility] Last Admin: 07/13/18 09:18 Dose: 40 mg Polyethylene Glycol (Miralax) 17 gm PO DAILY PRN PRN Reason: Constipation Tramadol HCl (Ultram) 50 mg PO Q8H PRN PRN Reason: Pain, moderate (4-7) Zolpidem Tartrate (Ambien) 10 mg PO HS PRN; Protocol PRN Reason: Insomnia - Labs Labs: 07/13/18 08:20 07/13/18 08:20 - Constitutional Appears: No Acute Distress - Eye Exam Eye Exam: Normal appearance, PERRL - Respiratory Exam Respiratory Exam: Decreased Breath Sounds, Rhonchi - Cardiovascular Exam Cardiovascular Exam: +S1, +S2 - GI/Abdominal Exam GI & Abdominal Exam: Soft, Normal Bowel Sounds - Extremities Exam Additional comments: LEE - Neurological Exam Neurological Exam: Alert, Awake - Psychiatric Exam Psychiatric exam: Normal Mood - Skin Skin Exam: Dry, Intact Assessment and Plan - Assessment and Plan (Free Text) Plan: ITS Impressions Chest X-Ray 07/12/18 12:55 IMPRESSION: No active disease. a/p 73 yr old with pmh sig for copd, cva, CEA, HLD, hypothyroidism, admitted with SOB and hypoxia despite nebulizer treatments. pt is now admitted for further mgmt with pul consultation of acute bronchitis and advanced copd exacerbation. pt is being managed with IV steriod regimen, BroAndre llanes. Will continue to follow clinical course. pt discussed in IDT rounds. BPCI/TIC - BPCIA/TIC Educated pt/family on BPCIA/CIR/Med to Bed Programs: Yes Flyers given, including [facility] Beneficiary letter: Yes Pt/family verbalized understanding & agreed to program: Yes
--- NOTE | 2018-07-13 14:23 | CON ---
DATE OF CONSULTATION: 07/13/2018 CARDIOLOGY CONSULTATION HISTORY OF PRESENT ILLNESS: The patient is a 73-year-old woman, who presents with dyspnea. Etiology is likely bronchitis with a COPD exacerbation. PAST MEDICAL HISTORY: The patient's past medical history includes a history of Takotsubo cardiomyopathy after the of her brother in [facility]. Her coronary arteries revealed nonobstructive CAD. Her LV function, which was compromised, has now recovered, documented by an echocardiogram in 05/2018. Currently, the patient is in normal sinus rhythm, in which she was transiently in atrial fibrillation in the past. The patient does suffer from severe COPD from years of smoking, and which she has only recently stopped. In addition, the patient has been treated with digoxin, lisinopril, and atorvastatin for hypercholesterolemia. There is no evidence for CHF. SOCIAL HISTORY: The patient has stopped smoking. REVIEW OF SYSTEMS: There is a question of whether there is a bed-bug found on the patient. PHYSICAL EXAMINATION: GENERAL: The patient is in no acute distress. Her breathing is much improved. VITAL SIGNS: Blood pressure is 126/60, the heart rate is in the 80s, normal sinus rhythm. NECK: Negative JVD. LUNGS: Without rales. HEART: Revealed S1, S2. EXTREMITIES: Without edema. LABORATORY DATA: Troponin is negative. BUN and creatinine are unremarkable. Her hemoglobin is 9.7. IMPRESSION: 1. Dyspnea secondary to #2. 2. Exacerbation of chronic obstructive pulmonary disease with bronchitis. 3. History of Takotsubo cardiomyopathy, which is now resolved. 4. Paroxysmal atrial fibrillation, which is back to normal sinus rhythm. 5. Anemia. 6. History of noncompliance. PLAN: Given these findings, we will obtain a proBNP. Although there is no evidence for CHF, we will DC her Lasix. The patient will be able to stop her Eliquis, if after another month, the patient remains in normal sinus rhythm. No further cardiac workup is necessary at this time. We will DC telemetry. Toy Couch MD
[2018-07-13] MEDS: Magnesium Oxide 400 mg Tab UD PO SCH (22:20)
[2018-07-14] MEDS: Pantoprazole 40 mg EC Tab PO SCH (07:30)
[2018-07-14 07:39] LABS: MEAN CELL VOLUME 93.4 fl (80.0-105.0); MEAN CORPUSCULAR HEMOGLOBIN 28.5 pg (25.0-35.0); MEAN CORPUSCULAR HGB CONC 30.5 g/dl (31.0-37.0); MEAN PLATELET VOLUME 9.4 fl (7.0-11.0); RBC 3.16 10^6/uL (3.5-6.1); RED CELL DISTRIBUTION WIDTH 15.1 % (11.5-14.5); WHITE BLOOD COUNT 17.1 10^3/uL (4.5-11.0)
[2018-07-14 07:57] LABS: ALB/GLOB RATIO 1.1 (1.1-1.8); ALT/SGPT 17 U/L (7-56); AST/SGOT 12 U/L (14-36); BLOOD UREA NITROGEN 20 mg/dL (7-21); CALCIUM 8.6 mg/dL (8.4-10.5); GFR NON-AFRICAN AMERICAN > 60
--- NOTE | 2018-07-14 08:16 | PN ---
DATE: 07/14/2018 SUBJECTIVE: The patient appears comfortable this morning. She is not short of breath at rest. PHYSICAL EXAMINATION: VITAL SIGNS: (Last noted in the computer): Temperature is 97.9, pulse 76, respirations 18, blood pressure 108/56. Oxygen saturation on nasal cannula - 97%. HEENT: Normocephalic, atraumatic. No JVD. CARDIOVASCULAR: Systolic ejection murmur at the lower left sternal border. No S3 gallop. LUNGS: Improved breath sounds at the bases. Less rhonchi. No wheezing. EXTREMITIES: No clubbing, cyanosis or edema. Calves are nontender to palpation. GASTROINTESTINAL: Abdomen is soft, nontender and nondistended. Bowel sounds are positive. SKIN: No acute rash. NEUROLOGIC: Exam limited at the present time. IMPRESSION: 1. Acute bronchitis. 2. Advanced chronic obstructive pulmonary disease, on home oxygen. 3. Coronary artery disease. 4. Chronic atrial fibrillation. 5. Mild anemia. PLAN: The patient appears comfortable this morning. She is not short of breath at rest. She does state to feeling better overall. On physical exam, her bronchospasm is less. In addition, the alveolar arterial gradient is also less. I will continue the current nebulizer treatments, and decrease the intravenous steroids this morning. Input by Cardiology (Dr. Couch) is also is also noted. Clinical status of the patient is certainly improved - compared to the initial presentation. However, given the above, the future status/prognosis for this elderly patient, with advanced lung disease, does remain guarded. I will discuss the above with Dr. Philip. Alexi Persaud MD MTDD
[2018-07-14] MEDS: Arformoterol 15 mcg/2 ml Inh Sol IH SCH ×2 (08:37→20:26)
[2018-07-14] MEDS: Budesonide 0.5 mg/2 ml Inhal Susp UD IH SCH ×2 (08:38→20:26)
[2018-07-14] MEDS: Albuterol-Ipratrop 3 mg / 0.5 (3 ml) UD IH SCH ×4 (08:38→20:26)
--- NOTE | 2018-07-14 10:23 | PN ---
DATE: 07/14/2018 SUBJECTIVE: She is doing a lot better today. She slept well. She is comfortable in bed. She is breathing better. She is currently on Ambien, Brovana, Celexa, Coreg, digoxin, DuoNebs, Ecotrin, Eliquis, Lipitor, magnesium, MiraLax, Protonix, Pulmicort, Solu-Medrol is down to 30 IV every 12 hours, Synthroid, Tylenol, Ultram, Xanax and Zestril. She is eating well, in good spirits. PHYSICAL EXAMINATION: VITAL SIGNS: Temperature 98, 66 pulse, 105/56 blood pressure, 18 respiratory rate, 98% sat on room air. HEAD: Atraumatic, normocephalic. HEART: Regular rate. LUNGS: Decreased breath sounds but clear. No wheezes, no rhonchi, no rales. ABDOMEN; Soft. EXTREMITIES: No edema. LABORATORY DATA: She has a 17.1 white count from the steroids, 9 hemoglobin, 29.5 hematocrit with 324 platelets. Sodium 136, potassium 4.3, BUN is 20, creatinine 0.8, GFR is greater than 60, sugar is 158, calcium 8.6, total bili is 0.2. AST is 12, ALT is 70, alk phos 58. Troponin I is less than 0.01. BNP little bit high at 556, total protein is 5.7. Overall, she is doing a little bit better. I am hoping maybe tomorrow, as we wean her off the steroids, we could discharge her tomorrow. I will put her on prednisone to go home. She is down to 30 Solu-Medrol IV every 12 hours. She has acute bronchitis, advanced COPD, on home oxygen, coronary artery disease, chronic a-fib, mild anemia, slowly decrease of Solu-Medrol. Hopefully tomorrow, we could discharge her if she does well. Francisco Philip DO
[2018-07-14] MEDS: MethylPREDNISolone 40 mg Vial IVP SCH ×2 (10:41→22:04)
[2018-07-14] MEDS: Levothyroxine 100 MCG TAB PO SCH (10:42)
[2018-07-14] MEDS: Digoxin 125 mcg (0.125 mg) Tab PO SCH (14:20)
--- NOTE | 2018-07-14 14:22 | CP.PCM.PCO ---
Physician Communication Note - Physician Communication Note Physician Communication Note: pt seenan dexamined, pt with steriod wean for acute bronchitis/copd Additional Comments - Additional Comments Additional Comments: pt with pulm follow up and plans for dc home in am if clinically stable per PMD recs.
[2018-07-14] MEDS: Magnesium Oxide 400 mg Tab UD PO SCH (22:05)
[2018-07-15] MEDS: Albuterol-Ipratrop 3 mg / 0.5 (3 ml) UD IH SCH ×7 (01:22→23:30)
--- NOTE | 2018-07-15 06:19 | CP.PCM.PN ---
Subjective - Date & Time of Evaluation Date of Evaluation: 07/15/18 Time of Evaluation: 06:19 - Subjective Subjective: TBD Objective - Vital Signs/Intake and Output Vital Signs (last 24 hours): Temp Pulse Resp BP Pulse Ox 98.1 F 69 18 140/50 L 100 07/14/18 22:45 07/14/18 22:45 07/14/18 22:45 07/14/18 22:45 07/14/18 22:45 Intake and Output: 07/14/18 07/15/18 18:59 06:59 Intake Total 360 Output Total 800 Balance -440 - Medications Medications: Current Medications Acetaminophen (Tylenol 325mg Tab) 650 mg PO Q6H PRN PRN Reason: Fever >100.4 F Albuterol/Ipratropium (Duoneb 3 Mg/0.5 Mg (3 Ml) Ud) 3 ml IH [id number] [facility] Last Admin: 07/15/18 03:23 Dose: Not Given Alprazolam (Xanax) 1 mg PO QID [facility]; Protocol Last Admin: 07/14/18 22:04 Dose: 1 mg Apixaban (Eliquis) 2.5 mg PO BID [facility]; Protocol Last Admin: 07/14/18 17:37 Dose: 2.5 mg Arformoterol Tartrate (Brovana) 15 mcg IH [id number] [facility] Last Admin: 07/14/18 20:26 Dose: 15 mcg Aspirin (Ecotrin) 81 mg PO DAILY [facility] Last Admin: 07/14/18 10:43 Dose: 81 mg Atorvastatin Calcium (Lipitor) 20 mg PO DIN [facility] Last Admin: 07/14/18 17:38 Dose: 20 mg Budesonide (Pulmicort Respules) 0.5 mg IH [id number] [facility] Last Admin: 07/14/18 20:26 Dose: 0.5 mg Carvedilol (Coreg) 3.125 mg PO BID [facility] Last Admin: 07/14/18 17:38 Dose: 3.125 mg Citalopram Hydrobromide (Celexa) 20 mg PO DAILY [facility] Last Admin: 07/14/18 10:57 Dose: 20 mg Digoxin (Digoxin) 0.125 mg PO 1400 [facility] Last Admin: 07/14/18 14:20 Dose: 0.125 mg Levothyroxine Sodium (Synthroid) 100 mcg PO DAILY [facility] Last Admin: 07/14/18 10:42 Dose: 100 mcg Lisinopril (Zestril) 5 mg PO DAILY [facility] Last Admin: 07/14/18 10:43 Dose: 5 mg Magnesium Oxide (Mag-Ox) 400 mg PO HS [facility] Last Admin: 07/14/18 22:05 Dose: 400 mg Methylprednisolone (Solu-Medrol) 30 mg IVP Q12 [facility] Last Admin: 07/14/18 22:04 Dose: 30 mg Pantoprazole Sodium (Protonix Ec Tab) 40 mg PO ACB [facility] Last Admin: 07/14/18 07:30 Dose: 40 mg Polyethylene Glycol (Miralax) 17 gm PO DAILY PRN PRN Reason: Constipation Tramadol HCl (Ultram) 50 mg PO Q8H PRN PRN Reason: Pain, moderate (4-7) Zolpidem Tartrate (Ambien) 10 mg PO HS PRN; Protocol PRN Reason: Insomnia Last Admin: 07/14/18 23:10 Dose: 10 mg - Labs Labs: 07/14/18 07:15 07/14/18 07:15
[2018-07-15 08:02] LABS: HEMOGLOBIN 9.4 g/dL (12.0-16.0); MEAN CELL VOLUME 94.9 fl (80.0-105.0); MEAN CORPUSCULAR HEMOGLOBIN 28.2 pg (25.0-35.0); MEAN CORPUSCULAR HGB CONC 29.7 g/dl (31.0-37.0); MEAN PLATELET VOLUME 9.7 fl (7.0-11.0); RBC 3.33 10^6/uL (3.5-6.1); RED CELL DISTRIBUTION WIDTH 15.1 % (11.5-14.5); WHITE BLOOD COUNT 16.3 10^3/uL (4.5-11.0)
[2018-07-15 08:29] LABS: ALB/GLOB RATIO 1.1 (1.1-1.8); ALBUMIN 3.1 g/dL (3.0-4.8); ALT/SGPT 21 U/L (7-56); AST/SGOT 18 U/L (14-36); BLOOD UREA NITROGEN 22 mg/dL (7-21); CALCIUM 9.1 mg/dL (8.4-10.5); GFR NON-AFRICAN AMERICAN > 60
[2018-07-15] MEDS: Arformoterol 15 mcg/2 ml Inh Sol IH SCH ×2 (08:59→19:40)
[2018-07-15] MEDS: Budesonide 0.5 mg/2 ml Inhal Susp UD IH SCH ×2 (08:59→19:41)
[2018-07-15] MEDS: Levothyroxine 100 MCG TAB PO SCH (09:43)
[2018-07-15] MEDS: Pantoprazole 40 mg EC Tab PO SCH (09:44)
[2018-07-15] MEDS: Digoxin 125 mcg (0.125 mg) Tab PO SCH (13:21)
[2018-07-15 13:22] VITALS: PULSE 74
[2018-07-15] MEDS: MethylPREDNISolone 40 mg Vial IVP SCH (21:42)
[2018-07-15] MEDS: Magnesium Oxide 400 mg Tab UD PO SCH (21:42)
--- NOTE | 2018-07-15 22:54 | PN ---
DATE: 07/15/2018 SUBJECTIVE: The patient is resting comfortably in bed, in no acute distress. Nurses report no change in her respiratory status. PHYSICAL EXAMINATION: GENERAL: The patient remains comfortable. VITAL SIGNS: Afebrile with blood pressure of 110/70, O2 saturation 97% on nasal cannula. HEENT: Normocephalic, atraumatic. NECK: No jugular venous distension, bruit or mass. Supple. CARDIOVASCULAR: Regular rhythm, S1, S2, without murmur, gallop or rub. LUNGS: Breath sounds essentially clear to percussion and auscultation. ABDOMEN: Soft. Bowel sounds normoactive without mass, guarding, rebound or organomegaly. EXTREMITIES: Reveal no clubbing, cyanosis or edema. SKIN: No rash or excoriation. NEUROLOGIC: No focal findings. IMPRESSION: 1. Acute bronchitis. 2. Chronic obstructive pulmonary disease. 3. Chronic hypoxemia, on home oxygen therapy. 4. Chronic atrial fibrillation with coronary artery disease. PLAN: Continue vigorous bronchodilators, close followup. We will continue vigorous bronchodilator therapy and supplemental oxygen, decrease corticosteroid slowly and prepare the patient for eventual discharge. Perry Andrews MD
[2018-07-15 23:09] VITALS: RESP 18
[2018-07-16] MEDS: Albuterol-Ipratrop 3 mg / 0.5 (3 ml) UD IH SCH ×2 (02:46→07:35)
--- NOTE | 2018-07-16 02:50 | DS ---
HISTORY OF PRESENT ILLNESS: She is quite well. She came in with advanced COPD, acute bronchitis, CAD, AFib, anemia, chronic picture, she was on her medications. She is on IV Solu-Medrol. She was seen by Pulmonology and she did well. Now she is being discharged, she will be home on prednisone 30 mg for 3 days, 20 mg for 3 days, 10 mg for 3 days plus her regular medication. She will follow up on the outpatient with her primary medical doctor. PHYSICAL EXAMINATION: VITAL SIGNS: She has a 97.4 temperature, 57 pulse, 160/74 blood pressure and she was down to 158/72 blood pressure, 20 respiratory rate and 99% O2 sat. HEENT: Head is atraumatic and normocephalic. HEART: Regular rate. LUNGS: Decreased breath sounds, but clear. ABDOMEN: Soft. EXTREMITIES: No edema. LABORATORY DATA: She has a sodium 136, potassium 4.6, BUN is 22, creatinine 0.9, GFR is greater than 60, sugar is 161, calcium is 9.1, total bili is 0.2, AST is 18, ALT is 21, alk phos is 69, total protein is 5.8 and white count is 16.3, it is elevated because of the Solu-Medrol that she is on. Hemoglobin is 9.4, hematocrit 31.6 and platelets are 317. Micro was negative. ASSESSMENT AND PLAN: She was seen by Pulmonary. I discussed this with them yesterday, she can be discharged as she is doing better today. She is to be on the same medication that she came in on. She is also on prednisone 30 mg for 3 days, 20 mg for 3 days and 10 mg for 3 days. She will follow up with her primary care doctor next week. She is improved. Francisco Philip DO
[2018-07-16] MEDS: Budesonide 0.5 mg/2 ml Inhal Susp UD IH SCH (07:35)
[2018-07-16] MEDS: Arformoterol 15 mcg/2 ml Inh Sol IH SCH (07:35)
[2018-07-16 08:19] VITALS: BP 105/56; PULSE 59; TEMP 98.1; O2SAT 92
[2018-07-16] MEDS: Pantoprazole 40 mg EC Tab PO SCH (09:42)
[2018-07-16] MEDS: MethylPREDNISolone 40 mg Vial IVP SCH (09:43)
[2018-07-16] MEDS: Levothyroxine 100 MCG TAB PO SCH (09:48)
--- NOTE | 2018-07-17 02:14 | DS ---
HISTORY OF PRESENT ILLNESS: I discharged her yesterday, but there was a problem with transportation, so I am discharging her again today. She knows about her medications, they called them into the pharmacy, she should be on prednisone 30 mg for 3 days, 20 mg for 3 days, 10 mg for 3 days and then stop. She has all her other medications, her puffers and to be followed up on the outpatient by her primary care physician. She had advanced COPD, acute bronchitis, CAD, AFib, anemia of chronic picture for her. She will have her medications at the pharmacy, she knows that. PHYSICAL EXAMINATION: HEENT: Head is atraumatic and normocephalic. HEART: Regular rate. LUNGS: Decreased breath sounds, but clear. ABDOMEN: Soft. EXTREMITIES: No edema. ASSESSMENT AND PLAN: She is pleasant and she will be followed up on the outpatient with her primary care doctor. Francisco Philip DO
== END 2018-07-16 11:52 | disposition home health service (06) | DRG 192 ==
LOC: ED 12:26 → ERH 14:42 → 2RNO 19:15 → 5RNO 07-13 20:05
PROVIDERS: ADMIT Family Medicine; ATTEND Family Medicine
DX: J44.1 Chronic obstructive pulmonary disease with (acute) exacerbation (principal); J44.0 Chronic obstructive pulmonary disease with (acute) lower respiratory infection; J20.9 Acute bronchitis, unspecified; I25.10 Atherosclerotic heart disease of native coronary artery without angina pectoris; I70.8 Atherosclerosis of other arteries; E78.5 Hyperlipidemia, unspecified; E03.9 Hypothyroidism, unspecified; E78.00 Pure hypercholesterolemia, unspecified; I48.2 Chronic atrial fibrillation; I48.0 Paroxysmal atrial fibrillation; D64.9 Anemia, unspecified; R09.02 Hypoxemia; Z99.81 Dependence on supplemental oxygen; Z86.73 Personal history of transient ischemic attack (TIA), and cerebral infarction without residual deficits; Z87.891 Personal history of nicotine dependence; Z79.01 Long term (current) use of anticoagulants; Z91.19 Patient's noncompliance with other medical treatment and regimen; Z95.1 Presence of aortocoronary bypass graft; Z86.74 Personal history of sudden cardiac arrest